=== PATIENT | female | born 1980 | race Caucasian/White ===

== ENCOUNTER 2021-01-23 14:35 | Emergency (ER) | payer OTHER, SELFPAY ==
--- NOTE | ~2021-01-23 | CT_ITS ---
EXAMINATION: CT TEMPORAL BONES WITHOUT CONTRAST CLINICAL INFORMATION: Question malignant external otitis left side. COMPARISON: CT scan of the head 07/18/2015. TECHNIQUE: Finish Inspector images were obtained. CT imaging of the temporal bones was performed without contrast. Data was reformatted into multiplanar images at the acquisition workstation. This CT examination was performed using dose optimization techniques as appropriate, including one or more of the following: Automated exposure control, iterative reconstruction, and adjustment of technique factors (mA and/or kVp) according to patient size (this includes techniques or standardized protocols for targeted exams where dose is matched to indication/reason for exam). DLP: 316 mGy-cm. FINDINGS: Left temporal bone: There is circumferential thickening within the left external auditory canal. Partial opacification of the mastoid air cells and middle ear cavity. No overt erosive osseous changes. No evidence of mastoid coalescence. The ossicular chain is intact. Labyrinthine structures are morphologically normal and the otic capsule is intact. Internal auditory canal is unremarkable. Right temporal bone: The external auditory canal is patent. There is mild thickening of the tympanic membrane with a small possible perforation visualized on axial image 119 of 289 series 2. Mastoid air cells are hypoplastic. There is partial opacification of the mastoid air cells and middle ear cavity however much less pronounced than the contralateral side. The ossicular chain is intact. Labyrinthine structures are morphologically normal and the otic capsule is intact. Internal auditory canal is unremarkable. Of the: Limited visualization of the intracranial anatomy reveals no abnormal finding. Specifically no midline shift or hydrocephalus. CT/CT mastoid IMPRESSION: Findings are consistent with otomastoiditis of the left temporal bone. No evidence of mastoid coalescence or worrisome erosive osseous changes. Evaluation the right temporal bone reveals a possible small perforation within the tympanic membrane and partial opacification of the mastoid air cells and middle ear cavity to a much lesser degree than that which is seen on the contralateral side.
[2021-01-23 15:43] VITALS: BP 131/83; PULSE 100; RESP 16; TEMP 36.9; O2SAT 100; BMI 38.2
[2021-01-23] MEDS: oxyCODONE HCl Immed Release 5 MG TABLET PO (17:11)
[2021-01-23] MEDS: levoFLOXacin 750 MG TABLET PO (17:12)
--- NOTE | 2021-01-23 17:33 | ED_ITS ---
HPI - Ear Problem General Chief complaint: Ear Problems <Trena Mora PA-C - Last Filed: 01/24/21 08:07> Stated complaint: L EAR BLEEDING AND PAIN <ADRIEN Johnston Last Filed: 01/24/21 08:07> Time Seen by Provider: 01/23/21 16:43 <ADRIEN Johnston Last Filed: 01/24/21 08:07> Source: patient <ADRIEN Johnston Last Filed: 01/24/21 08:07> Mode of arrival: ambulatory <ADRIEN Johnston Last Filed: 01/24/21 08:07> Limitations: no limitations <ADRIEN Johnston Last Filed: 01/24/21 08:07> History of Present Illness HPI Narrative: Patient is a 40-year-old female with a past medical history of DM2 who presents with 2 days of left ear pain and drainage. She states her ear is exquisitely painful and has red as well as white and clear drainage coming from it. She said she can hear normally has all sounds are muffled. She said she called her doctor yesterday but did not hear back, she went got [id number] ear drops and put them in and was she for the min she felt her ear pop and the pain got much worse. She states she can not sleep she has pain and her jaw and behind her ear radiating down to her neck. She denies any fevers. <ADRIEN Johnston Last Filed: 01/24/21 08:07> Related Data Allergies/adverse reactions: Allergies Allergy/AdvReac Type Severity Reaction Status Date / Time amoxicillin [AMOXICILLIN] Allergy Mild HIVES Verified 01/23/21 17:11 sulfamethoxazole Allergy Mild HIVES Verified 01/23/21 17:11 [From BACTRIM] trimethoprim [From BACTRIM] Allergy Mild HIVES Verified 01/23/21 17:11 latex [LATEX] Allergy Unknown UNKNOWN Verified 01/23/21 17:11 penicillin V Allergy Unknown hives Verified 01/23/21 17:11 Penicillins [PENICILLINS] Allergy Unknown UNKNOWN, Verified 01/23/21 17:11 ?HIVES Amoxicillin Allergy Unknown Hives Uncoded 01/23/21 17:11 Bactrim Allergy Unknown Hives Uncoded 01/23/21 17:11 Latex Allergy Unknown rash Uncoded 04/02/16 00:00 Latex Gloves Allergy Unknown Hives Uncoded 01/23/21 17:11 <Trena Mora PA-C - Last Filed: 01/24/21 08:07> Review of Systems Review of Systems: Yes all other systems are reviewed and are negative <Trena Mora PA-C - Last Filed: 01/24/21 08:07> [facility] Past Medical History Medical History: Medical History (Updated 01/24/21 @ 00:02 by Julia Rivera) Diabetes Diabetes <ADRIEN Johnston Last Filed: 01/24/21 08:07> Social History Social History: Social History Advance Directives: No Advance Directives Information Provided: Yes Patient : No <Trena Mora PA-C - Last Filed: 01/24/21 08:07> Physical Exam Vital Signs: Vital Signs: Last Vital Signs Temp 97.4 F 01/23/21 23:07 Pulse 97 01/23/21 23:07 Resp 16 01/23/21 23:07 BP 125/90 H 01/23/21 23:07 Pulse Ox 98 01/23/21 23:07 Body Mass Index 38.2 <Trena Mora PA-C - Last Filed: 01/24/21 08:07> Vital Signs: Last Vital Signs Temp 97.4 F 01/23/21 23:07 Pulse 97 01/23/21 23:07 Resp 16 01/23/21 23:07 BP 125/90 H 01/23/21 23:07 Pulse Ox 98 01/23/21 23:07 Body Mass Index 38.2 <MALATHI Mcdonald Last Filed: 01/23/21 20:48> Const: General: cooperative, healthy appearing, comfortable, no acute distress and well developed <ADRIEN Johnston Last Filed: 01/24/21 08:07> Orientation/consciousness: patient oriented x3 <ADRIEN Johnston Last Filed: 01/24/21 08:07> Limitations: no limitations <ADRIEN Johnston Last Filed: 01/24/21 08:07> HENMT: Head: Yes normal to inspection <ADRIEN Johnston Last Filed: 01/24/21 08:07> Ears: mastoids normal (Slight tenderness on left side), Abnormal EAC present erythema bilateral and EAC tenderness on the left, external ear abnormal auricular tenderness, no periauricular adenopathy and TM abnormal dull on the right, wth effusion purulent on the right, erythematous on the left, with loss of landmarks bilateral and perforated (left) with bloody discharge and with purulent discharge <Trena Mora PA-C - Last Filed: 01/24/21 08:07> Eyes: General: appearance normal, both eyes and all related structures <Trena Mora PA-C - Last Filed: 01/24/21 08:07> Neck: Neck: Yes normal visual inspection and Yes full ROM <Trena dewey PA-C - Last Filed: 01/24/21 08:07> Resp: Effort & Inspection: normal respiratory effort and able to speak in complete sentences <Trena Mora PA-C - Last Filed: 01/24/21 08:07> Skin: General skin exam: no rashes or lesions noted <DUANE Johnston Last Filed: 01/24/21 08:07> Neuro: General: patient oriented x3 <Trena Moar PA-C - Last Filed: 01/24/21 08:07> Extrem: General: Yes normal to inspection <ADRIEN Johnston Last Filed: 01/24/21 08:07> Course Course Course Narrative: Discussed with Dr. Pastrana A 40-year-old female with diabetes mellitus to presents with 2 days of left ear pain with bloody purulence fluid draining. Vital signs are stable, physical exam revealed b/l otitis media with left-sided perforation with bloody purulent fluid. Also has slight tenderness to the mastoid bone, will get mastoid CT and give one dose levaquin PO. CT revealed acute otomastoiditis. Will get full labs. Hospitalist refused admission as we do not have any ENT service at this hospital. Discussed with Dr. Hernandez, will give patient IV fluids and 1 dose IV meropenem to start, pending transfer. <Trena Mora PA-C - Last Filed: 01/24/21 08:07> Reevaluation(s) Reevaluation #1: [facility] is not accepting transfers, so they have denied her. <Trena Mora PA-C - Last Filed: 01/24/21 08:07> Time: 19:42 <Trena Mora PA-C - Last Filed: 01/24/21 08:07> Reevaluation #2: Dr Fried is the accepting doctor at [facility] ENT service. ED to ED transfer. Sign out to ADRIEN Lloyd <Trena Mora PA-C - Last Filed: 01/24/21 08:07> Dr Fried is the accepting doctor at [facility] ER and will have ENT evaluate the patient. ED to ED transfer. Sign out to ADRIEN Lloyd <MALATHI Mcdonald Last Filed: 01/23/21 20:48> Time: 19:57 <Trena Mora PA-C - Last Filed: 01/24/21 08:07> Reevaluation #3: Spoke with patient's mother about transfer need for ENT evaluation - COVID swab ordered. Transport being arranged now. Labs reviewed and are unremarkable. IV meropenum ordered. <MALATHI Mcdonald Last Filed: 01/23/21 20:48> MDM - Ear Lab Data Result diagrams: : 01/23/21 20:09 01/23/21 20:09 <ADRIEN Johnston Last Filed: 01/24/21 08:07> Labs: Lab Results 01/23/21 01/23/21 01/23/21 Range/Units 17:53 20:08 20:09 WBC 7.5 (4.8-10.8) X10*3/uL RBC 4.96 (4.20-5.50) X10*6/uL Hgb 14.2 (12.0-16.0) g/dl Hct 40.7 (37-47) % MCV 82.1 (80-98) fL MCH 28.6 (27.0-33.0) pg MCHC 34.9 (31.0-35.0) g/dl RDW 13.0 (11.0-16.0) % Plt Count 156 L (160-400) X10*3/uL MPV 10.2 (9.4-12.3) fL Immature Gran % (Auto) 0.3 (0.0-0.4) % Neut % (Auto) 36.8 L (45-73) % Lymph % (Auto) 57.1 H (20-40) % [place] % (Auto) 4.8 (2-11) % Eos % (Auto) 0.7 (0-4) % Baso % (Auto) 0.3 (0-2) % Lymph # (Auto) 4.3 (1.2-4.9) X10*3/uL [place] # (Auto) 0.4 (0.1-1.2) X10*3/uL Eos # (Auto) 0.1 (0.0-0.4) X10*3/uL Baso # (Auto) 0.0 (0.0-0.2) X10*3/uL Abs Immat Gran (auto) 0.02 (0.00-0.03) X10*3/uL Absolute Neuts (auto) 2.8 (2.0-8.3) X10*3/uL Absolute Nucleated RBC 0.000 (0.0-0.012) X10*3/uL Nucleated RBC % (auto) 0.0 (0.0-0.2) /100WBC Sodium (135-145) mmol/L Potassium (3.3-5.1) mmol/L Chloride (96-108) mmol/L Carbon Dioxide (22-29) mmol/L Anion Gap (12-20) BUN (9-16) mg/dL Creatinine (0.5-1.4) mg/dL Estim Creat Clear Calc Estimated GFR Random Glucose (60-115) mg/dL Lactic Acid 0.7 (0.5-2.0) mmol/L Calcium (8.4-10.2) mg/dL Urine Test NEGATIVE (NEGATIVE) COVID-19 ([facility]US) (Negative) COVID-19 Clin Com 01/23/21 01/23/21 Range/Units 20:09 21:05 WBC (4.8-10.8) X10*3/uL RBC (4.20-5.50) X10*6/uL Hgb (12.0-16.0) g/dl Hct (37-47) % MCV (80-98) fL MCH (27.0-33.0) pg MCHC (31.0-35.0) g/dl RDW (11.0-16.0) % Plt Count (160-400) X10*3/uL MPV (9.4-12.3) fL Immature Gran % (Auto) (0.0-0.4) % Neut % (Auto) (45-73) % Lymph % (Auto) (20-40) % [place] % (Auto) (2-11) % Eos % (Auto) (0-4) % Baso % (Auto) (0-2) % Lymph # (Auto) (1.2-4.9) X10*3/uL [place] # (Auto) (0.1-1.2) X10*3/uL Eos # (Auto) (0.0-0.4) X10*3/uL Baso # (Auto) (0.0-0.2) X10*3/uL Abs Immat Gran (auto) (0.00-0.03) X10*3/uL Absolute Neuts (auto) (2.0-8.3) X10*3/uL Absolute Nucleated RBC (0.0-0.012) X10*3/uL Nucleated RBC % (auto) (0.0-0.2) /100WBC Sodium 135 (135-145) mmol/L Potassium 3.5 (3.3-5.1) mmol/L Chloride 100 (96-108) mmol/L Carbon Dioxide 23 (22-29) mmol/L Anion Gap 16 (12-20) BUN 4 L (9-16) mg/dL Creatinine 0.61 (0.5-1.4) mg/dL Estim Creat Clear Calc 149.9 Estimated GFR > 60 Random Glucose 247 H (60-115) mg/dL Lactic Acid (0.5-2.0) mmol/L Calcium 8.8 (8.4-10.2) mg/dL Urine Test (NEGATIVE) COVID-19 ([facility]US) Negative (Negative) COVID-19 Clin Com See Note <Trena Mora PA-C - Last Filed: 01/24/21 08:07> Lab Results 01/23/21 01/23/21 01/23/21 Range/Units 17:53 20:08 20:09 WBC 7.5 (4.8-10.8) X10*3/uL RBC 4.96 (4.20-5.50) X10*6/uL Hgb 14.2 (12.0-16.0) g/dl Hct 40.7 (37-47) % MCV 82.1 (80-98) fL MCH 28.6 (27.0-33.0) pg MCHC 34.9 (31.0-35.0) g/dl RDW 13.0 (11.0-16.0) % Plt Count 156 L (160-400) X10*3/uL MPV 10.2 (9.4-12.3) fL Immature Gran % (Auto) 0.3 (0.0-0.4) % Neut % (Auto) 36.8 L (45-73) % Lymph % (Auto) 57.1 H (20-40) % [place] % (Auto) 4.8 (2-11) % Eos % (Auto) 0.7 (0-4) % Baso % (Auto) 0.3 (0-2) % Lymph # (Auto) 4.3 (1.2-4.9) X10*3/uL [place] # (Auto) 0.4 (0.1-1.2) X10*3/uL Eos # (Auto) 0.1 (0.0-0.4) X10*3/uL Baso # (Auto) 0.0 (0.0-0.2) X10*3/uL Abs Immat Gran (auto) 0.02 (0.00-0.03) X10*3/uL Absolute Neuts (auto) 2.8 (2.0-8.3) X10*3/uL Absolute Nucleated RBC 0.000 (0.0-0.012) X10*3/uL Nucleated RBC % (auto) 0.0 (0.0-0.2) /100WBC Sodium (135-145) mmol/L Potassium (3.3-5.1) mmol/L Chloride (96-108) mmol/L Carbon Dioxide (22-29) mmol/L Anion Gap (12-20) BUN (9-16) mg/dL Creatinine (0.5-1.4) mg/dL Estim Creat Clear Calc Estimated GFR Random Glucose (60-115) mg/dL Lactic Acid 0.7 (0.5-2.0) mmol/L Calcium (8.4-10.2) mg/dL Urine Test NEGATIVE (NEGATIVE) COVID-19 (CLAUS) (Negative) COVID-19 Clin Com 01/23/21 01/23/21 Range/Units 20:09 21:05 WBC (4.8-10.8) X10*3/uL RBC (4.20-5.50) X10*6/uL Hgb (12.0-16.0) g/dl Hct (37-47) % MCV (80-98) fL MCH (27.0-33.0) pg MCHC (31.0-35.0) g/dl RDW (11.0-16.0) % Plt Count (160-400) X10*3/uL MPV (9.4-12.3) fL Immature Gran % (Auto) (0.0-0.4) % Neut % (Auto) (45-73) % Lymph % (Auto) (20-40) % [place] % (Auto) (2-11) % Eos % (Auto) (0-4) % Baso % (Auto) (0-2) % Lymph # (Auto) (1.2-4.9) X10*3/uL [place] # (Auto) (0.1-1.2) X10*3/uL Eos # (Auto) (0.0-0.4) X10*3/uL Baso # (Auto) (0.0-0.2) X10*3/uL Abs Immat Gran (auto) (0.00-0.03) X10*3/uL Absolute Neuts (auto) (2.0-8.3) X10*3/uL Absolute Nucleated RBC (0.0-0.012) X10*3/uL Nucleated RBC % (auto) (0.0-0.2) /100WBC Sodium 135 (135-145) mmol/L Potassium 3.5 (3.3-5.1) mmol/L Chloride 100 (96-108) mmol/L Carbon Dioxide 23 (22-29) mmol/L Anion Gap 16 (12-20) BUN 4 L (9-16) mg/dL Creatinine 0.61 (0.5-1.4) mg/dL Estim Creat Clear Calc 149.9 Estimated GFR > 60 Random Glucose 247 H (60-115) mg/dL Lactic Acid (0.5-2.0) mmol/L Calcium 8.8 (8.4-10.2) mg/dL Urine Test (NEGATIVE) COVID-19 ([facility]) Negative (Negative) COVID-19 Clin Com See Note <MALATHI Mcdonald - Last Filed: 01/23/21 20:48> Discharge Plan Discharge Clinical Impression: Acute mastoiditis of left side, Otitis media <Trena Mora PA-C - Last Filed: 01/24/21 08:07> Patient Disposition: [facility] <Trena Mora PA-C - Last Filed: 01/24/21 08:07> Transfer Details: Dr Fried at [facility] <Trena Mora PA-C - Last Filed: 01/24/21 08:07> Dr Fried at [facility] <MALATHI Mcdonald Last Filed: 01/23/21 20:48> Instructions: Mastoiditis (ED) <Trena Mora PA-C - Last Filed: 01/24/21 08:07> Interventions: Acute Care Transfer Worksheet (ED) Last Done: 01/23/21 23:51 <Trena oMra PA-C - Last Filed: 01/24/21 08:07> Discharge Date/Time: 01/23/21 23:53 <ADRIEN Johnston Last Filed: 01/24/21 08:07>
[2021-01-23 17:50] VITALS: BP 132/78; PULSE 98; RESP 20; TEMP 36.8; O2SAT 99
[2021-01-23 18:05] LABS: UPreg QC Valid YES; Urine Pregnancy NEGATIVE (NEGATIVE)
[2021-01-23 18:30] VITALS: RESP 17
--- NOTE | 2021-01-23 19:32 | ECG_ITS ---
Test Reason : CHESTDISCONFORT Blood Pressure : / mmHG Vent. Rate : 103 BPM Atrial Rate : 103 BPM P-R Int : 140 ms QRS Dur : 072 ms QT Int : 362 ms P-R-T Axes : 065 038 038 degrees QTc Int : 474 ms Sinus tachycardia Low voltage QRS Borderline ECG When compared with ECG of 07-MAR-2017 05:52, No significant change was found Referred By: Trena Mora Electronically Signed By:LORNA MCFADDEN
[2021-01-23 20:00] VITALS: BP 139/82; PULSE 103; RESP 17; TEMP 36.8; O2SAT 98
[2021-01-23 20:16] LABS: MANUAL DIFF FLAG NO
[2021-01-23 20:17] LABS: Basophils Percent Auto 0.3 % (0-2); Eosinophils Absolute Auto 0.1 X10*3/uL (0.0-0.4); Eosinophils Percent Auto 0.7 % (0-4); Hematocrit 40.7 % (37-47); Hemoglobin 14.2 g/dl (12.0-16.0); Imm Gran Abs Auto 0.02 X10*3/uL (0.00-0.03); Imm Gran Pct Auto 0.3 % (0.0-0.4); Lymphocytes Absolute Auto 4.3 X10*3/uL (1.2-4.9); Lymphocytes Percent Auto 57.1 % (20-40); Mean Corpuscular HGB Conc 34.9 g/dl (31.0-35.0); Mean Corpuscular Hemoglobin 28.6 pg (27.0-33.0); Mean Corpuscular Volume 82.1 fL (80-98); Mean Platelet Volume 10.2 fL (9.4-12.3); Monocytes Absolute Auto 0.4 X10*3/uL (0.1-1.2); Monocytes Percent Auto 4.8 % (2-11); Neutrophils Absolute Auto 2.8 X10*3/uL (2.0-8.3); Neutrophils Percent Auto 36.8 % (45-73); Platelet Count 156 X10*3/uL (160-400); Red Blood Count 4.96 X10*6/uL (4.20-5.50); White Blood Count 7.5 X10*3/uL (4.8-10.8)
[2021-01-23 20:28] LABS: Lactic Acid 0.7 mmol/L (0.5-2.0)
[2021-01-23 20:31] LABS: Anion Gap 16 (12-20); Blood Urea Nitrogen 4 mg/dL (9-16); Calcium 8.8 mg/dL (8.4-10.2); Carbon Dioxide 23 mmol/L (22-29); Chloride 100 mmol/L (96-108); Creatinine Clr Calc Pharmacy 149.9; Estimated Glomerular Filt Rate > 60; Glucose Random 247 mg/dL (60-115); Potassium 3.5 mmol/L (3.3-5.1); Sodium 135 mmol/L (135-145)
[2021-01-23] MEDS: 0.9 % Sodium Chloride 3,129.78 ML 3129.78 ML IV (20:37)
[2021-01-23] MEDS: HYDROcodone Bit/Acetam 5/325 TABLET 1 TAB PO (21:24)
[2021-01-23] MEDS: Ketorolac Tromethamine 15 MG/ML VIAL 30 MG IVPUSH (21:24)
[2021-01-23 21:25] LABS: COVID-19 Test Negative (Negative); IDNOW Serial# 9DD0AD1C
--- NOTE | 2021-01-23 21:49 | PC.NURSE ---
NURSE TO NURSE REPORT GIVEN TO PAUL WATTS AT [facility].
[2021-01-23 22:06] VITALS: RESP 16
[2021-01-23 23:07] VITALS: BP 125/90; PULSE 97; RESP 16; TEMP 36.3; O2SAT 98
== END 2021-01-23 23:53 | disposition short-term general hospital (02) ==
PROVIDERS: Physician Assistant; Emergency Provider Emergency Medicine; PCP Internal Medicine
DX: H70.002 Acute mastoiditis without complications, left ear (principal); H66.92 Otitis media, unspecified, left ear; H92.02 Otalgia, left ear; Z20.822 Contact with and (suspected) exposure to COVID-19; Z79.899 Other long term (current) drug therapy
CPT/HCPCS: 36415; 70481; 80048; 81025; 83605; 85025; 87040; 87635; 93005; 96365; 96375; 99285; J1885; J2185

== ENCOUNTER 2021-02-10 01:53 | Emergency (ER) | payer OTHER, SELFPAY ==
--- NOTE | ~2021-02-10 | CT_ITS ---
EXAMINATION: CT TEMPORAL BONES WITHOUT CONTRAST CLINICAL INFORMATION: Left ear pain COMPARISON: Temporal bone CT 01/23/2021. TECHNIQUE: Multi-detector CT acquisition of the temporal bones is obtained without contrast. Multiplanar reformats are acquired and utilized for image interpretation. FINDINGS: Persistent large left mastoid effusion and persistent opacification of the left middle ear cavity, the latter slightly improved inferiorly. Some of the left mastoid septal doran appear hazy and demineralized making it difficult to exclude developing coalescent mastoiditis. ENT consultation advised. Thin versus dehiscent bone between the posterior aspect of the left superior semicircular canal and the left superior petrosal sinus. There is new partial opacification of the right middle ear cavity and the right mastoid air cells are partially opacified which can be correlated for infection on the right side. Tympanic plates are intact. The ossicular chains are intact bilaterally. Oval and round window niches are opacified bilaterally. Rightward deviation of the nasal septum with a rightward directed nasal septal spur. All mucosal thickening within the maxillary sinuses bilaterally. CT/CT mastoid IMPRESSION: - Persistent large left mastoid effusion and persistent opacification of the left middle ear cavity, the latter slightly improved inferiorly. Some of the left mastoid septal doran appear hazy and demineralized making it difficult to exclude developing coalescent mastoiditis. ENT consultation advised. - There is new partial opacification of the right middle ear cavity and the right mastoid air cells are partially opacified which can be correlated for infection on the right side. - Thin versus dehiscent bone between the posterior aspect of the left superior semicircular canal and the left superior petrosal sinus.
[2021-02-10 02:03] VITALS: BP 121/89; PULSE 112; RESP 22; TEMP 36.3; O2SAT 95; BMI 20.2
[2021-02-10 04:08] VITALS: BP 120/86; PULSE 89; RESP 16; TEMP 36.5; O2SAT 95
--- NOTE | 2021-02-10 04:15 | PC.NURSE ---
POC PERFORMED AND IT WAS 269 MADE MAC CORONADO AWARE
[2021-02-10 04:20] LABS: Basophils Percent Auto 0.3 % (0-2); Eosinophils Absolute Auto 0.1 X10*3/uL (0.0-0.4); Eosinophils Percent Auto 0.9 % (0-4); Hematocrit 36.9 % (37-47); Hemoglobin 13.2 g/dl (12.0-16.0); Imm Gran Abs Auto 0.03 X10*3/uL (0.00-0.03); Imm Gran Pct Auto 0.4 % (0.0-0.4); Lymphocytes Absolute Auto 4.6 X10*3/uL (1.2-4.9); Lymphocytes Percent Auto 59.9 % (20-40); MANUAL DIFF FLAG NO; Mean Corpuscular HGB Conc 35.8 g/dl (31.0-35.0); Mean Corpuscular Hemoglobin 29.4 pg (27.0-33.0); Mean Corpuscular Volume 82.2 fL (80-98); Mean Platelet Volume 9.9 fL (9.4-12.3); Monocytes Absolute Auto 0.3 X10*3/uL (0.1-1.2); Monocytes Percent Auto 3.8 % (2-11); Neutrophils Absolute Auto 2.7 X10*3/uL (2.0-8.3); Neutrophils Percent Auto 34.7 % (45-73); Platelet Count 214 X10*3/uL (160-400); Red Blood Count 4.49 X10*6/uL (4.20-5.50); Red Cell Distribution Width 12.8 % (11.0-16.0); White Blood Count 7.7 X10*3/uL (4.8-10.8)
[2021-02-10 04:20] LABS: Glucose, Whole Blood 269 mg/dL (60-115)
[2021-02-10 04:55] LABS: Alanine Aminotransferase 20 U/L (0-31); Albumin Level 3.6 g/dL (3.5-5.0); Alkaline Phosphatase 39 U/L (39-117); Anion Gap 15 (12-20); Aspartate Amino Transferase 18 U/L (5-31); Bilirubin Total 0.2 mg/dL (0.0-1.0); Blood Urea Nitrogen 19 mg/dL (9-16); Calcium 8.4 mg/dL (8.4-10.2); Carbon Dioxide 20 mmol/L (22-29); Chloride 105 mmol/L (96-108); Creatinine Clr Calc Pharmacy 100.7; Estimated Glomerular Filt Rate > 60; Glucose Random 290 mg/dL (60-115); Potassium 3.6 mmol/L (3.3-5.1); Sodium 136 mmol/L (135-145)
[2021-02-10 05:49] VITALS: BP 121/72; PULSE 94; RESP 16; O2SAT 99
[2021-02-10 06:00] VITALS: BP 137/87; PULSE 87; RESP 16; O2SAT 96
--- NOTE | 2021-02-10 06:10 | PC.NURSE ---
pt has loss of hearing to the left ear and a horse voice.
--- NOTE | 2021-02-10 06:37 | ED.EAR ---
HPI - Ear Problem General Chief complaint: Ear Problems Stated complaint: Left ear pain Time Seen by Provider: 02/10/21 05:52 Source: patient and old records reviewed Mode of arrival: ambulatory Limitations: no limitations History of Present Illness MD Complaint: ear pain, decreased hearing and other (feels her face is swollen) Location: left ear Duration: constant Severity: moderate Relieving factors: nothing Exacerbating factors: chewing, position of head and palpation Context: recent illness (dx with otomastoiditis on 01/[address] [facility] 10 days levofloxacin completed course) Discharge from ear: no Associated symptoms ear: decreased hearing, external ear tenderness, ear swelling, neck swelling and other (sore throat) Treatment prior to arrival: other (completed abx) Related Data Allergies Allergy/AdvReac Type Severity Reaction Status Date / Time amoxicillin [AMOXICILLIN] Allergy Mild HIVES Verified 01/23/21 17:11 sulfamethoxazole Allergy Mild HIVES Verified 01/23/21 17:11 [From BACTRIM] trimethoprim [From BACTRIM] Allergy Mild HIVES Verified 01/23/21 17:11 latex [LATEX] Allergy Unknown UNKNOWN Verified 01/23/21 17:11 penicillin V Allergy Unknown hives Verified 01/23/21 17:11 Penicillins [PENICILLINS] Allergy Unknown UNKNOWN, Verified 01/23/21 17:11 ?HIVES Amoxicillin Allergy Unknown Hives Uncoded 01/23/21 17:11 Bactrim Allergy Unknown Hives Uncoded 01/23/21 17:11 Latex Allergy Unknown rash Uncoded 04/02/16 00:00 Latex Gloves Allergy Unknown Hives Uncoded 01/23/21 17:11 Review of Systems Review of Systems: Constitutional : No Fever, No Chills, No Fatigue, No Malaise ENT/Mouth : pos sore throat, pos Rhinorrhea, pos ear pain Eyes: No Eye Pain, No Swelling, No Redness Cardiovascular : No Chest Pain, No SOB, No Dyspnea on Exertion, No Orthopnea, No Edema, No Palpitations Respiratory : No Cough, pos Sputum, No Wheezing Gastrointestinal : No Nausea, No Vomiting, No Diarrhea, No Constipation, No abdominal Pain, No Hematochezia, No Melena Genitourinary : No Dysuria, No Urinary Frequency, No Hematuria, Musculoskeletal : No joint pain, No Myalgias, No Joint Swelling Skin : No Skin Lesions, No rash Neuro : No Weakness, No Numbness, No Dizziness, No Headache Psych : No Anxiety/Panic, No Depression Heme/Lymph: No Bruising, No Bleeding,No Lymphadenopathy Endocrine : No Polyuria, No Polydipsia All other systems reviewed and are negative [facility] Past Medical History Attestation statement: The following information was validated with the patient. Medical History Diabetes Diabetes Social History Social History Alcohol intake: current Alcohol intake frequency: holidays/special occasions only Alcohol type: other Patient Tobacco Use Status: Former Tobacco user Smoked in Last 30 Days: No Use of substances other than those prescribed or required for medical reasons: Yes Substance Use Type: Marijuana Substance Use Frequency: Daily Last Used Substance: Hours (ago) Any prior treatment program specific to substance use: No Advance Directives: No Patient : No Physical Exam Vital Signs: Vital Signs: Last Vital Signs Temp 97.7 F 02/10/21 04:08 Pulse 87 02/10/21 06:00 Resp 16 02/10/21 06:00 BP 137/87 02/10/21 06:00 Pulse Ox 96 02/10/21 06:00 Body Mass Index 20.2 Appearance: Alert. Oriented X3. No acute distress. Eyes: Pupils equal, round and reactive to light. ENT: Pharynx normal. mild boggy ttp L side of face but no mass/fluctuance/ropiness felt on face/neck no overlying cellulitis, L ear TM bulging purulence posteriorly no perforation, very mild L mastoid ttp Neck: Normal inspection. Neck supple. CVS: Normal heart rate and rhythm. Pulses normal. Respiratory: No respiratory distress. Breath sounds normal. Abdomen: Soft and nontender. Skin: Skin warm and dry. Normal skin color. Normal skin turgor. Extremities: No lower extremity edema. No calf ttp Neuro: Oriented X 3. No motor deficit. No sensory deficit. Course Course Course Narrative: no signs of sepsis, will give empiric meropenem and levofloxacin and discuss transfer with [facility] as she is established already with their ENT 1002 accepted to [facility] - Persistent large left mastoid effusion and persistent opacification of the left middle ear cavity, the latter slightly improved inferiorly. Some of the left mastoid septal doran appear hazy and demineralized making it difficult to exclude developing coalescent mastoiditis. ENT consultation advised. ? - There is new partial opacification of the right middle ear cavity and the right mastoid air cells are partially opacified which can be correlated for infection on the right side. ? - Thin versus dehiscent bone between the posterior aspect of the left superior semicircular canal and the left superior petrosal sinus. MDM - Ear MDM Narrative Medical decision making narrative: 40 yo female with DM here with recent mastoiditis transferred to [facility] 01/23 received 10 days of oral levofloxacin - at this time + AOM in L ear but given her reports of pain and that she did not improve with abx will repeat labs and imaging. Dispo per results and findings. Lab Data Result diagrams: 02/10/21 04:15 02/10/21 04:14 Labs: Lab Results 02/10/21 02/10/21 02/10/21 Range/Units 04:06 04:14 04:15 WBC 7.7 (4.8-10.8) X10*3/uL RBC 4.49 (4.20-5.50) X10*6/uL Hgb 13.2 (12.0-16.0) g/dl Hct 36.9 L (37-47) % MCV 82.2 (80-98) fL MCH 29.4 (27.0-33.0) pg MCHC 35.8 H (31.0-35.0) g/dl RDW 12.8 (11.0-16.0) % Plt Count 214 D (160-400) X10*3/uL MPV 9.9 (9.4-12.3) fL Immature Gran % (Auto) 0.4 (0.0-0.4) % Neut % (Auto) 34.7 L (45-73) % Lymph % (Auto) 59.9 H (20-40) % [place] % (Auto) 3.8 (2-11) % Eos % (Auto) 0.9 (0-4) % Baso % (Auto) 0.3 (0-2) % Lymph # (Auto) 4.6 (1.2-4.9) X10*3/uL [place] # (Auto) 0.3 (0.1-1.2) X10*3/uL Eos # (Auto) 0.1 (0.0-0.4) X10*3/uL Baso # (Auto) 0.0 (0.0-0.2) X10*3/uL Abs Immat Gran (auto) 0.03 (0.00-0.03) X10*3/uL Absolute Neuts (auto) 2.7 (2.0-8.3) X10*3/uL Absolute Nucleated RBC 0.000 (0.0-0.012) X10*3/uL Nucleated RBC % (auto) 0.0 (0.0-0.2) /100WBC Sodium 136 (135-145) mmol/L Potassium 3.6 (3.3-5.1) mmol/L Chloride 105 (96-108) mmol/L Carbon Dioxide 20 L (22-29) mmol/L Anion Gap 15 (12-20) BUN 19 H D (9-16) mg/dL Creatinine 0.66 (0.5-1.4) mg/dL Estim Creat Clear Calc 100.7 Estimated GFR > 60 POC Glucose 269 H (60-115) mg/dL Random Glucose 290 H (60-115) mg/dL Calcium 8.4 (8.4-10.2) mg/dL Total Bilirubin 0.2 (0.0-1.0) mg/dL AST 18 (5-31) U/L ALT 20 (0-31) U/L Alkaline Phosphatase 39 (39-117) U/L Total Protein 6.0 L (6.5-8.0) g/dL Albumin 3.6 (3.5-5.0) g/dL Discharge Plan Discharge Clinical Impression: Mastoiditis Patient Disposition: [facility] Transfer Details: [facility]
[2021-02-10] MEDS: Morphine Sulfate Immed Release 15 MG TABLET PO (06:45)
--- NOTE | 2021-02-10 10:00 | PC.NURSE ---
@0979 DR ORNELAS REQUEST CALL OUT TO [facility]SFER LINE GARY ANSWERS, TAKES PT INFO, CALL BACK NUMBER, THEN ASKS TO TALK TO DR CECI ORNELAS TAKES OVER CALL RIGHT AWAY
[2021-02-10] MEDS: Morphine Sulfate 4 MG/ML CARTRIDGE IVPUSH (10:29)
[2021-02-10 10:31] LABS: COVID-19 Test Negative (Negative)
[2021-02-10] MEDS: levoFLOXacin/D5W 500 MG/100 ML PIGGYBACK 100 MG IV (10:33)
--- NOTE | 2021-02-10 10:44 | PC.NURSE ---
@1017AM RETURN CALL FROM GARY FROM PT TX LINE ASKING TO SPEAK WITH DR CECI ORNELAS TAKES OVER CALL RIGHT AWAY 1025AM DR ORNELAS SAYS DR RUCKER IS ACCEPTING MD AT [facility] UNABLE TO CONTACT [facility], [facility] FROM [facility] ASKED TO DO AN [facility] FOR ALS TRANSPORT
[2021-02-10 10:58] VITALS: BP 110/68; PULSE 89; RESP 19; TEMP 36.4; O2SAT 96
--- NOTE | 2021-02-10 12:01 | PC.NURSE ---
[facility] HERE FOR TRANSPORT TO [facility] ER @2 THIS TIME
== END 2021-02-10 12:20 | disposition short-term general hospital (02) ==
PROVIDERS: Emergency Provider Emergency Medicine
DX: H70.92 Unspecified mastoiditis, left ear (principal); H92.02 Otalgia, left ear; Z79.899 Other long term (current) drug therapy; Z20.822 Contact with and (suspected) exposure to COVID-19
CPT/HCPCS: 36415; 70481; 80053; 82947; 85025; 87635; 96365; 96375; 99285; J1956; J2185; J2270

== ENCOUNTER 2021-09-09 13:36 | Emergency (ER) | payer OTHER, SELFPAY ==
[2021-09-09 14:22] VITALS: BP 140/90; PULSE 94; RESP 16; TEMP 36.1; O2SAT 97; BMI 44.6
[2021-09-09] MEDS: Ketorolac Tromethamine 30 MG/ML VIAL IM (15:31)
[2021-09-09] MEDS: Lidocaine 4 % Patch ADH..PATCH 1 PATCH TRANSDERMA (15:32)
--- NOTE | 2021-09-09 15:54 | ED_ITS ---
HPI - Back Pain/Injury General Chief Complaint: Back Pain/Injury Stated Complaint: body aches Time Seen by Provider: 09/09/21 15:13 Source: patient Mode of arrival: ambulatory History of Present Illness HPI Narrative: 32-year-old female with a past medical history of diabetes, chronic back pain, presenting to the ED complaining of acute on chronic low back pain times multiple years, radiating down LLE with associated numbness/tingling. Admits has been seen by multiple providers, and also had MRI last month that was WNL however reporting persistent pain. Denies recent trauma/fall or injury. Reports chronic urinary incontinence unchanged. Denies fever, chills, IVDA, urinary retention, weakness MD elicited complaint: back pain Onset (ago): year(s) Related Data Previous Rx's Medication Instructions Recorded cyclobenzaprine 5 mg tablet 5 mg PO Q8H PRN 5 Days #14 tab 09/09/21 lidocaine 5 % topical patch 1 patch TOPICAL DAILY PRN #30 ea 09/09/21 (Lidoderm) MDD remove after 12 hours naproxen 500 mg tablet 500 mg PO BID PRN 10 Days #20 tab 09/09/21 Allergies Allergy/AdvReac Type Severity Reaction Status Date / Time amoxicillin [AMOXICILLIN] Allergy Mild HIVES Verified 01/23/21 17:11 sulfamethoxazole Allergy Mild HIVES Verified 01/23/21 17:11 [From BACTRIM] trimethoprim [From BACTRIM] Allergy Mild HIVES Verified 01/23/21 17:11 latex [LATEX] Allergy Unknown UNKNOWN Verified 01/23/21 17:11 penicillin V Allergy Unknown hives Verified 01/23/21 17:11 Penicillins [PENICILLINS] Allergy Unknown UNKNOWN, Verified 01/23/21 17:11 ?HIVES Amoxicillin Allergy Unknown Hives Uncoded 01/23/21 17:11 Bactrim Allergy Unknown Hives Uncoded 01/23/21 17:11 Latex Allergy Unknown rash Uncoded 04/02/16 00:00 Latex Gloves Allergy Unknown Hives Uncoded 01/23/21 17:11 Review of Systems Review of Systems: Constitutional: No Fever, No Chills ENT/Mouth: No Ear Pain, No Nasal Congestion, No sore throat, No Rhinorrhea, No Swallowing Difficulty Cardiovascular: No Chest Pain, No SOB Respiratory: No Cough, No Sputum, No Wheezing Gastrointestinal: No Nausea, No Vomiting, No Diarrhea, No Constipation, No Abdominal pain Genitourinary: No Dysuria, No Urinary Frequency, No Hematuria, +chronic Urinary Incontinence, No retention, No Urgency, No Flank Pain Musculoskeletal: + joint pain, No Myalgias, No Joint Swelling Skin: No Skin Lesions, No rash Neuro: No Weakness, + Numbness, + Paresthesias Yes all other systems are reviewed and are negative Neurologic: Denies Sensory deficit (Neuro) [facility] Past Medical History Attestation statement: The following information was validated with the patient. Medical History Diabetes Diabetes Social History Social History Alcohol intake: current Alcohol intake frequency: holidays/special occasions only Alcohol type: other Patient Tobacco Use Status: Former Tobacco user Substance Use Type: Marijuana Advance Directives: No Advance Directives Information Provided: No Physical Exam Vital Signs: Vital Signs: Last Vital Signs Temp 97 F 09/09/21 14:22 Pulse 94 09/09/21 14:22 Resp 16 09/09/21 14:22 BP 140/90 H 09/09/21 14:22 Pulse Ox 97 09/09/21 14:22 BMI result Body Mass Index 44.6 Const: General: cooperative, healthy appearing and no acute distress Orientation/consciousness: patient oriented x3 Limitations: no limitations HEENT: Head: Yes normal to inspection and Yes atraumatic Ears: hearing grossly normal bilaterally General nose exam: Normal external nose present Face and sinus: Yes normal facial exam Eyes: General: appearance normal, both eyes and all related structures EOM: EOMs intact bilaterally Neck: Other: no midline cervical spinous ttp Neck: Yes normal visual inspection and Yes no meningeal signs Resp: Effort & Inspection: normal respiratory effort and no respiratory distress Cardio: Rate: regular rate Heart sounds: S1 normal heart sound present and S2 normal heart sound present GI: Inspection: Yes normal to inspection Palpation (GI): Soft to palpation, nontender, no guarding and not rigid : General: Yes no CVA tenderness Back/Spine/Pelvis: Other: No midline thoracic/lumbar spinous tenderness/step-off or deformity. +L sided low lumbar paraspinal/MSK tenderness to palpation Back: no CVA tenderness Skin: Rashes: no rashes Wounds: no wounds Neuro: Other: Strength intact throughout. No saddle anesthesia. Sensation intact to light touch. Neurovascular intact distally General: patient oriented x3, tone normal and no meningeal signs Gait exam (Neuro): Normal gait present Motor exam (neuro): 5/5 motor strength present throughout Sensory Exam: No Sensory deficit (Neuro) Extrem: General: Yes normal to inspection MDM - Back Pain/Injury MDM Narrative Medical decision making narrative: 32-year-old female with a past medical history of diabetes, chronic back pain, presenting to the ED complaining of acute on chronic low back pain times multiple years, radiating down LLE with associated numbness/tingling. On exam vital signs stable, NAD/nontoxic, physical exam as above. No midline spinous tenderness throat, no red flag symptoms, no weakness. Ambulating with steady gait. Likely acute on chronic back pain/sciatica/radiculopathy. Low concern for cauda equina, cord compression, or epidural abscess Discussed with patient she needs to see pain management Differential Diagnosis Differential diagnosis: Likely lumbar radiculopathy and sciatica Medical Records Attestation: I reviewed the patient's medical records. Lab Data Attestation: I reviewed the patient's lab results. Discharge Plan Discharge Clinical Impression: Lumbar radiculopathy Patient Disposition: Home, Self-Care Instructions: Acute Low Back Pain (ED) Additional Instructions: Please follow-up with pain management Flexeril is a muscle relaxer, take at night as it makes you drowsy, do not drive, drink alcohol, or operate machinery while taking it Naproxen as an anti-inflammatory / pain medication, take with food Lidoderm patches are numbing patches, apply to painful area In addition take Tylenol at home If symptoms persist or worsen, pain becomes unbearable, you developed urinary retention or incontinence, or weakness return to the ED Prescriptions: New lidocaine [Lidoderm] 5 % adhesive patch,medicated 1 patch topical DAILY MDD remove after 12 hours PRN (Reason: pain) Qty: 30 0RF Rx Instructions: leave on most painful area for up to 12 hrs naproxen 500 mg tablet 500 mg PO BID PRN (Reason: pain) 10 Days Qty: 20 0RF cyclobenzaprine 5 mg tablet 5 mg PO Q8H PRN (Reason: pain (scale score 7-10)) 5 Days Qty: 14 0RF Referrals: Иван Prieto MD [Physician] - Evin Arango MD [Primary Care Provider] - 3 days
== END 2021-09-09 16:36 | disposition home or self-care (01) ==
PROVIDERS: Emergency Provider Emergency Medicine; PCP Internal Medicine
DX: M54.16 Radiculopathy, lumbar region (principal); M54.50 Low back pain, unspecified; M79.605 Pain in left leg; M79.604 Pain in right leg; Z79.899 Other long term (current) drug therapy; Z87.891 Personal history of nicotine dependence
CPT/HCPCS: 96372; 99283; 99284; J1885

== ENCOUNTER 2021-12-12 18:21 | Emergency (ER) | payer OTHER, SELFPAY ==
[2021-12-12 18:26] VITALS: BP 142/98; PULSE 98; RESP 20; TEMP 37; O2SAT 97; BMI 36.8
--- NOTE | 2021-12-12 19:12 | ED_ITS ---
HPI - General Adult General Chief complaint: Skin/Abscess/Foreign Body Stated complaint: Lump on R arm Time Seen by Provider: 12/12/21 19:12 Source: patient Mode of arrival: ambulatory Limitations: no limitations History of Present Illness HPI narrative: 40-year-old female with a past medical history of diabetes mellitus type II, presents to the emergency department for a painful red lump on her right arm that appeared after mitesh meter removal a week ago. Patient reports pain felt when removing the mitesh meter. Soon after, she reports a painful lump developed, which later popped, drained, and got flat. She states she felt better for some time, but noticed last week that the lump re-appeared. She reports pain, redness, swelling, and tenderness. She denies fever, chills, headache, vision changes, chest pain, SOB, nausea, vomiting, or abdominal pain. She also reports a small slow-healing wound on the outside of her left ankle. She states that she got a small blister from shoes a month ago, but it has yet to fully heal and because she is a diabetic she is concerned about it healing. Onset (ago): week(s) (1) Location: right and upper extremity Radiation: non-radiation Severity: mild Severity scale (1-10): 4 Quality: aching and dull Pain Consistency: constant Relieving factors: none Exacerbating factors: none Associated symptoms: denies other symptoms Treatments prior to arrival: none Related Data Previous Rx's Medication Instructions Recorded cyclobenzaprine 5 mg tablet 5 mg PO Q8H PRN pain (scale score 09/09/21 7-10) 5 days #14 tabs lidocaine 5 % topical patch 1 patch topical DAILY PRN pain #30 09/09/21 (Lidoderm) ea naproxen 500 mg tablet 500 mg PO BID PRN pain 10 days #20 09/09/21 tabs cephalexin 500 mg capsule 500 mg PO Q6H 7 days #28 caps 12/12/21 Allergies Allergy/AdvReac Type Severity Reaction Status Date / Time amoxicillin [AMOXICILLIN] Allergy Mild HIVES Verified 01/23/21 17:11 sulfamethoxazole Allergy Mild HIVES Verified 01/23/21 17:11 [From BACTRIM] trimethoprim [From BACTRIM] Allergy Mild HIVES Verified 01/23/21 17:11 latex [LATEX] Allergy Unknown UNKNOWN Verified 01/23/21 17:11 penicillin V Allergy Unknown hives Verified 01/23/21 17:11 Penicillins [PENICILLINS] Allergy Unknown UNKNOWN, Verified 01/23/21 17:11 ?HIVES Amoxicillin Allergy Unknown Hives Uncoded 01/23/21 17:11 Bactrim Allergy Unknown Hives Uncoded 01/23/21 17:11 Latex Allergy Unknown rash Uncoded 04/02/16 00:00 Latex Gloves Allergy Unknown Hives Uncoded 01/23/21 17:11 Review of Systems Review of Systems: Yes all other systems are reviewed and are negative Constitutional: Constitutional: Reports no additional constitutional complaints, Denies chills, Denies fatigue, Denies fever(s), Denies headache(s) and Denies malaise Eyes: Eyes: Reports no additional eye complaints and Denies change in vision ENT: Denies headache(s) Cardiovascular: Cardiovascular: Reports no additional cardiovascular complaints, Denies chest pain and Denies dyspnea Respiratory: Respiratory: Reports as per HPI and Denies dyspnea Gastrointestinal: Gastrointestinal: Reports as per HPI, Denies abdominal pain, Denies diarrhea, Denies nausea and Denies vomiting Genitourinary: Genitourinary: Denies hematuria, Denies urinary frequency, Denies dysuria, Denies urinary incontinence, Denies urinary hesitancy and Denies urinary urgency Musculoskeletal: Musculoskeletal: Reports no additional musculoskeletal complaints, Denies numbness and Denies tingling Integumentary/Breasts: Comments: lesion to the right arm Neurologic: Denies headache(s), Denies numbness and Denies tingling Psychiatric: Psychiatric: Reports no additional psychiatric complaints Endocrine: Endocrine: Denies fatigue Hematologic/Lymphatic: Hematologic/Lymphatic: Reports no additional hematologic/lymphatic complaints Allergic/Immunologic: Allergic/Immunologic: Reports no additional allergic/immunologic complaints [facility] Past Medical History Attestation statement: The following information was validated with the patient. Source: old records reviewed Medical History Diabetes Diabetes Social History Social History Alcohol intake: current Alcohol intake frequency: holidays/special occasions only Alcohol type: other Patient Tobacco Use Status: Former Tobacco user Substance Use Type: Marijuana Advance Directives: No Advance Directives Information Provided: No Physical Exam ED Vital Signs: Vital Signs - 24 hr 12/12/21 18:26 Temperature 98.6 F Pulse Rate 98 Respiratory Rate 20 Blood Pressure 142/98 H Pulse Oximetry 97 Oxygen Delivery Method Room Air BMI result Body Mass Index 36.8 Const General: cooperative, no acute distress, alert and awake Nutritional Appearance: well nourished Orientation/consciousness: patient oriented x3 Limitations: no limitations HENMT Head: Yes normal to inspection and Yes atraumatic Ears: hearing grossly normal bilaterally and external ears normal General nose exam: Normal external nose present, no nasal discharge noted and no epistaxis Face and sinus: Yes normal facial exam, No abrasion and No laceration Mouth: Normal oral and palatal mucosa present, no drooling and no muffled voice Eyes General: appearance normal, both eyes and all related structures Periorbital: periorbital findings normal Eyelids: Yes eyelids normal Conjunctivae: conjunctivae normal Pupils: Equal, round and reactive pupils present EOM: EOMs intact bilaterally Neck Neck: Yes normal visual inspection, Yes full ROM and Yes no lymphadenopathy Chest Chest palpation & inspection: normal inspection of the chest Resp Effort & Inspection: normal respiratory effort and able to speak in complete sentences Auscultation: clear to auscultation bilaterally Cardio Rate: regular rate Rhythm: regular rhythm GI Inspection: Yes normal to inspection Skin Other: RUE abscess with erythema, swelling, fluctuance, warmth. No evidence of induration or streaking. Small scabbed over ulcer on the left lateral malleolus. General skin exam: erythema, fluctuance and no induration Lesions: lesion noted (posterior right arm) Neuro General: patient oriented x3 and moves all extremities Cranial nerves: Yes Equal, round and reactive pupils present Cognition (Neuro): normal cognition Motor exam (neuro): 5/5 motor strength present throughout Sensory Exam: Normal double simultaneous stimulation for sensation Coordination: [id number] test normal Extrem General: Yes normal to inspection, Yes full ROM and Yes capillary refill normal Psych Appearance: grossly normal Mental Status: mental status grossly normal Affect: normal affect Attitude: cooperative Thought process: Normal thought process present Thought content: Normal thought content present Insight: Good insight present (Psych) Procedures Abscess I/D Site: upper extremity Side (if applicable): right Local Anesthetic: lidocaine 1% Amount of anesthesia used (mL): 2 Technique: incised with blade Amount of fluid expressed (mL): 20 Sent for culture/gram staining?: No Irrigation: No Packing used?: none Medical Decision Making MDM Narrative Medical decision making narrative: Patient is a 40 year old female presenting to the emergency department today with an abscess to the right arm. Patient's physical exam showed a 3cm abscess to the right posterior upper arm as well as a very small, dime sized ulceration to the left lateral ankle. I explained my physical exam findings to the patient. I answered all questions asked by the patient. Patient's right upper arm abscess was incised and drained, per procedure note, without incident. I stressed the importance of the patient taking her medication as prescribed. I stressed the importance of the patient following up with her primary care provider, a general surgeon, and the wound center. I stressed the importance of the patient returning to the emergency department immediately if her symptoms were to worsen or if she were to develop any dizziness, shortness of breath, difficulty breathing, chest pain, blurry vision, loss of vision, nausea, vomiting, abdominal pain, fever, chills, back pain, or any other complaints. Patient verbalized agreement and understanding with this treatment plan and discharge. Differential Diagnosis Differential Diagnosis: abscess Medical Records Medical records reviewed: Yes I reviewed the patient's medical records. Discharge Plan Discharge Clinical Impression: Abscess of skin or subcutaneous tissue Patient Disposition: Home, Self-Care Instructions: Abscess (ED) Additional Instructions: Follow up with your primary care provider, a general surgeon, and the wound center. Return to the emergency department immediately if your symptoms worsen or if you develop any dizziness, shortness of breath, difficulty breathing, chest pain, blurry vision, loss of vision, nausea, vomiting, abdominal pain, fever, chills, back pain, or any other complaints. Prescriptions: New cephalexin 500 mg capsule 500 mg PO Q6H 7 Days Qty: 28 0RF No Action lidocaine [Lidoderm] 5 % adhesive patch,medicated 1 patch topical DAILY MDD remove after 12 hours PRN (Reason: pain) Qty: 30 0RF Rx Instructions: leave on most painful area for up to 12 hrs naproxen 500 mg tablet 500 mg PO BID PRN (Reason: pain) 10 Days Qty: 20 0RF cyclobenzaprine 5 mg tablet 5 mg PO Q8H PRN (Reason: pain (scale score 7-10)) 5 Days Qty: 14 0RF Referrals: [facility] [place] General Surgeons [Provider Group] [facility] [place] Wound Care Management [Provider Group] Evin Arnago MD [Primary Care Provider] - Print Language: Syriac
[2021-12-12] MEDS: HYDROcodone Bit/Acetam 5/325 TABLET 1 TAB PO (19:34)
[2021-12-12] MEDS: Lidocaine HCl 1 % MPF 2 ML VIAL INFILTRATI (19:35)
== END 2021-12-12 21:11 | disposition home or self-care (01) ==
PROVIDERS: Emergency Provider Emergency Medicine Emergency Medical Services; PCP Internal Medicine
DX: L02.413 Cutaneous abscess of right upper limb (principal); M79.601 Pain in right arm; E11.9 Type 2 diabetes mellitus without complications; F12.90 Cannabis use, unspecified, uncomplicated; Z87.891 Personal history of nicotine dependence
CPT/HCPCS: 10060; 99283; 99284

== ENCOUNTER → 2021-12-18 14:03 | Outpatient (BNVA) | payer OTHER, SELFPAY | PROVIDERS: PCP Internal Medicine; Visit Provider Surgery | DX: L02.91 Cutaneous abscess, unspecified (principal); E11.9 Type 2 diabetes mellitus without complications; E66.01 Morbid (severe) obesity due to excess calories; Z79.899 Other long term (current) drug therapy | CPT/HCPCS: 99202 ==

== ENCOUNTER 2023-06-14 23:03 | Emergency (ER) | payer OTHER, SELFPAY ==
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
[2023-06-14 23:08] VITALS: BP 110/80; PULSE 100; O2SAT 100
[2023-06-14 23:09] VITALS: BP 129/81; PULSE 104; RESP 20; TEMP 36.7; O2SAT 96
[2023-06-14 23:21] LABS: Glucose, Whole Blood 512 mg/dL (60-115)
[2023-06-14 23:25] VITALS: BMI 39.5
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
[2023-06-14 23:52] LABS: MANUAL DIFF FLAG NO
[2023-06-14] MEDS: Insulin Regular, Human 100 UNIT/ML 3 ML VIAL 10 UNIT IVPUSH (23:54)
[2023-06-14] MEDS: 0.9 % Sodium Chloride 1,000 ML 999 ML IVCONT (23:56)
[2023-06-14] MEDS: Ibuprofen 600 MG TABLET PO (23:56)
[2023-06-14] MEDS: Acetaminophen 325 MG TABLET 975 MG PO (23:59)
[2023-06-15 00:07] LABS: Basophils Percent Auto 0.2 % (0-2); Eosinophils Percent Auto 0.7 % (0-4); Hematocrit 44.2 % (37.0-47.0); Hemoglobin 15.5 g/dl (12.0-16.0); Imm Gran Abs Auto 0.01 X10*3/uL (0.00-0.03); Imm Gran Pct Auto 0.2 % (0.0-0.4); Lymphocytes Absolute Auto 2.7 X10*3/uL (1.2-4.9); Lymphocytes Percent Auto 48.8 % (20-40); Mean Corpuscular HGB Conc 35.1 g/dl (31.0-35.0); Mean Corpuscular Hemoglobin 28.4 pg (27.0-33.0); Mean Corpuscular Volume 81.1 fL (80.0-98.0); Mean Platelet Volume 10.9 fL (9.4-12.3); Monocytes Absolute Auto 0.2 X10*3/uL (0.1-1.2); Monocytes Percent Auto 3.9 % (2-11); Neutrophils Absolute Auto 2.5 x10*3/uL (2.0-8.3); Neutrophils Percent Auto 46.2 % (45-73); Platelet Count 171 X10*3/uL (160-400); Red Blood Count 5.45 X10*6/uL (4.20-5.50); Red Cell Distribution Width 12.7 % (11.0-16.0); White Blood Count 5.4 X10*3/uL (4.8-10.8)
[2023-06-15 00:17] LABS: HCG Quantitative < 2 mIU/mL
--- OUTSIDE RECORDS SUMMARY | 2023-06-15 01:05 | XMS_ITS | Continuity of Care Document ---
Author Name Unknown Organization [facility] James lt Address [address] [place] [address]- Care Team Providers Care Inspector Fabric Name Role Phone Dyan Herrera Primary Care Physician Encounter [facility] Date(s): 11/16/21 - 01/15/22 [facility] [address] [place] [address]- Attending Physician: Dyan Herrera Allergies, Adverse Reactions, Alerts Substance Reaction Severity Status amoxicillin unknown Active penicillin unknown Active sulfamethoxazole Unknown Active Bactrim unknown Active Latex breathing problems Active Immunizations Given and Recorded Vaccine Date Status Refusal Reason tetanus/diphtheria/pertussis, acel(Tdap) 07/10/18 Given tetanus/diphtheria/pertussis, acel(Tdap) 08/16/17 Given tetanus/diphtheria/pertussis, acel(Tdap) 08/18/10 Recorded influenza virus vaccine, inactivated 02/13/18 Give n influenza virus vaccine, inactivated 1 03/18/17 Gi regis influenza virus vaccine, inactivated 03/02/12 Cody rded Measles/Mumps/Rubella Virus Vaccine 2 10/10/17 Giv en pneumococcal 23-valent vaccine 3 03/06/12 Recorded Human Papillomavirus Vaccine 10/25/08 Recorded Human Papillomavirus Vaccine 06/28/08 Recorded Human Papillomavirus Vaccine 05/01/08 Recorded 1Admin Note: AFLURIA quadrivalence VACCINE [facility] [id number] 2Early/Late Reason: Other : Pt not available. 3Location History: DR REEDER Medications Albuterol (Eqv-ProAir HFA) 90 mcg/inh inhalation aerosol 2 puffs, Inhalation, Every 6 hours, PRN NEEDED FOR SHORTNESS OF BREATH OR WHEEZING, # 8.5 each, 5 Refills, Maintenance, 12/02/21 7:35:00 EDT, [facility]/pharmacy #[id number], 25, 2 puffs Inhalation Every 6 hours,PRN: NEEDED FOR SHORTNESS OF BREATH OR WHEEZING... Start Date: 12/02/21 Status: Ordered Alcohol Pads See Instructions, # 120 each, Refills 0, Tot. Refills 0, Maintenance, To use with insulin administration 4 times daily, 05/09/20 12:20:00 EST, Compound, 163, cm, 05/09/20 8:55:00 EST, Height, 164, kg, 09/05/18 17:25:00 EDT, Dry Weight Start Date: 05/09/20 Status: Ordered FREESTYLE 28G LANCETS FREESTYLE 28G LANCETS, See Instructions, # 100 Unknown, 1 Refills, USE TO TEST BLOOD SUGAR 4 TIMES A DAY, 163, cm, 02/05/21 12:14:00 EDT, Height, 120.5, kg, 02/03/21 17:38:00 EDT, Dry Weight Start Date: 02/24/21 Status: Ordered FREESTYLE FREEDOM LITE METER FREESTYLE FREEDOM LITE METER, See Instructions, # 1 kit, 0 Refills, USE TO CHECK BLOOD SUGAR 4 TIMES DAILY, 163, cm, 03/25/21 15:25:00 EST, Height, 120.5, kg, 02/03/21 17:38:00 EDT, Dry Weight Start Date: 04/07/21 Status: Ordered FREESTYLE FREEDOM LITE METER FREESTYLE FREEDOM LITE METER, See Instructions, # 1 kit, 0 Refills, USE TO CHECK BLOOD SUGAR 4 TIMES DAILY, 163, cm, 02/05/21 12:14:00 EDT, Height, 120.5, kg, 02/03/21 17:38:00 EDT, Dry Weight Start Date: 02/26/21 Status: Ordered FREESTYLE FREEDOM LITE METER FREESTYLE FREEDOM LITE METER, See Instructions, # 1 kit, 0 Refills, USE TO CHECK BLOOD SUGAR 4 TIMES DAILY, 163, cm, 07/28/21 9:25:00 EDT, Height, 120.5, kg, 02/03/21 17:38:00 EDT, Dry Weight Start Date: 09/10/21 Status: Ordered Freestyle Dipika 2 14-day [place] Freestyle Dipika 2 14-day [place], See Instructions, # 1 each, Refills 0, Tot. Refills 0, Maintenance, Use to scan for blood sugar at least 4 times daily. E11.65., 09/16/21 15:00:00 EDT, Compound, 163,cm, 07/28/21 9:25:00 EDT, Height, 120.5, kg, ... Start Date: 09/16/21 Status: Ordered Freestyle Dipika 2 14-day Sensors Freestyle Dipika 2 14-day Sensors, See Instructions, # 2 each, Refills 11, Tot. Refills 11, Maintenance, Use to scan for blood sugar at least 4 times daily. E11.65., 09/16/21 15:00:00 EDT, Compound, 163, cm, 07/28/21 9:25:00 EDT, Height, 120.5, kg, ... Start Date: 09/16/21 Status: Ordered Freestyle Lite Lancets See Instructions, # 120 each, Refills 0, Tot. Refills 0, Maintenance, To test blood sugar 4 x day. 1 box = 100 lancets, 05/09/20 12:26:00 EST, Type 2 DM in ; O24.111, Compound, 163, cm, 05/09/20 8:55:00 EST, Height, 164, kg, 09/05/18 17:25:0... Start Date: 05/09/20 Status: Ordered Freestyle Lite Lancets See Instructions, # 120 each, Refills 11, Tot. Refills 11, Maintenance, Blood sugar testing four times a day ICD 10: 024.119 E11.9, 05/19/21 14:32:00 EST, Compound, 163, cm, 05/11/21 10:26:00 EST, Height, 120.5, kg, 02/03/21 17:38:00 EDT, Dry Weight Start Date: 05/19/21 Status: Ordered FREESTYLE LITE METER FREESTYLE LITE METER, See Instructions, # 1 kit, 0 Refills, USE TO CHECK BLOOD SUGAR 4 TIMES DAILY,163, cm, 12/08/20 14:03:00 EDT, Height Start Date: 12/25/20 Status: Ordered Freestyle Lite Monitor See Instructions, # 1 each, Refills 0, Tot. Refills 0, Maintenance, Use to check bloodsugar 4 timesdaily. E11.65, 08/25/20 11:44:00 EDT, Supply, 163, cm, 05/26/20 14:26:00 EST, Height, 164, kg, 09/05/18 17:25:00 EDT, Dry Weight Start Date: 08/25/20 Stop Date: 09/24/20 Status: Ordered FREESTYLE LITE TEST STRIP FREESTYLE LITE TEST STRIP, See Instructions, # 200 Unknown, 0 Refills, TEST 4 TIMES PER DAY, 163, cm, 06/16/21 10:10:00 EST, Height, 120.5, kg, 02/03/21 17:38:00 EDT, Dry Weight Start Date: 06/16/21 Status: Ordered Freestyle Lite Test Strips See Instructions, # 200 each, Refills 5, Tot. Refills 5, Maintenance, Check blood sugar up to 6 times per day. E11.65, 06/29/20 13:15:00 EST, Compound, 163, cm, 05/26/20 14:26:00 EST, Height, 164, kg, 09/05/18 17:25:00 EDT, Dry Weight Start Date: 06/29/20 Status: Ordered Freestyle Lite Test Strips See Instructions, # 200 each, Tot. Refills 5, Maintenance, test 4 times per day, 05/11/21 12:06:00 EST, Supply, 163, cm, 05/11/21 10:26:00 EST, Height, 120.5, kg, 02/03/21 17:38:00 EDT, Dry Weight Start Date: 05/11/21 Stop Date: 06/10/21 Status: Ordered Hydrocerin topical lotion Topically, 2 times a day, 0 Refills, Maintenance, 01/30/21 10:10:00 EDT, Partial fill upon patient request if the prescription is for a schedule II opioid drug. Start Date: 01/30/21 Status: Ordered ibuprofen 600 mg oral tablet 1, tablet, By Mouth, 2 times a day, PRN, # 30 tablet, Refills 0, NEEDED FOR PAIN, Route to Pharmacy Electronically, [facility] STORE [id number], 163, cm, 07/28/21 9:25:00 EDT, Height, 120.5, kg, 02/03/21 17:38:00 EDT, Dry Weight Start Date: 12/02/21 Status: Ordered Lantus Solostar Pen 100 units/mL subcutaneous solution See Instructions, INJECT 55 UNITS DAILY AT DINNER TIME, # 30 Unknown, 11 Refills, 08/06/21 11:50:00EDT, [id number], 163, cm, 07/28/21 9:25:00 EDT, Height, 120.5, kg, 02/03/21 17:38:00 EDT, Dry Weight Start Date: 08/06/21 Status: Ordered MetFORMIN (Eqv-Glucophage XR) 500 mg oral tablet, extended release 2 tablet, By Mouth, 2 times a day with meals, # 360 tablet, 11 Refills, 08/06/21 11:50:00 EDT, [id number], 163, cm, 07/28/21 9:25:00 EDT, Height, 120.5, kg, 02/03/21 17:38:00 EDT, Dry Weight Start Date: 08/06/21 Status: Ordered miSOPROStol 200 mcg oral tablet See Instructions, Place 2 tabs between cheek and gums on EACH side, let dissolve for 30 min then swallow the rest with water, # 4 tablet, 1 Refills, Maintenance, 05/28/21 14:25:00 EST, [id number], Partial fill upon patient request if the presc... Start Date: 05/28/21 Status: Ordered NovoLOG FlexPen 100 units/mL subcutaneous solution See Instructions, - NovoLog, 3 times daily before meals 80-130 21 units 131-180 23 units 181-230 25units 231-280 27 units Over 280 29 units., # 30 mL, 11 Refills, Maintenance, 08/06/21 11:50:00 [facility]... Start Date: 08/06/21 Status: Ordered nystatin topical 512041 u/gm powder See Instructions, APPLY TOPICALLY 3 TIMES A DAY PLEASE APPLY TO PELVIC RASH, LABIA, GLUTEAL FOLDS, AND RECTUM., # 60 Gm, 1 Refills, Maintenance, 12/24/21 20:42:00 EDT, [id number], 30, APPLY TOPICALLY 3 TIMES A DAY PLEASE APPLY TO PELVIC RASH, LAB... Start Date: 12/24/21 Status: Ordered Pen [place], 31 G x 8 mm BD Ultra Fine III See Instructions, # 200 each, Refills 5, Tot. Refills 5, Maintenance, Use to take insulin 4 times daily. E11.65, 05/19/21 14:32:00 EST, Compound, 163, cm, 05/11/21 10:26:00 EST, Height, 120.5, kg, 02/03/21 17:38:00 EDT, Dry Weight Start Date: 05/19/21 Status: Ordered Prenatabs Rx oral tablet 1 tablet, By Mouth, Daily, # 90 tablet, 5 Refills, Maintenance, 06/16/21 10:48:00 EST, Tablet, [id number], ok to substitute with ANY vitamin, 1 tablet By Mouth Daily, 163, cm, 06/16/21 10:10:00 EST, Height, 120.5, kg, 02/03/21 17:38:0... Start Date: 06/16/21 Status: Ordered Multivitamins with Folic Acid 1 mg oral tablet 1 tablet, By Mouth, Daily, # 90 tablet, 3 Refills, Maintenance, 05/06/21 11:03:00 EST, Tablet, [id number], Please substitute any brand PNV that is covered by patient insurance, 1 tablet By Mouth Daily, 163, cm, 03/25/21 15:25:00 EST, Height, 1... Start Date: 05/06/21 Status: Ordered Multivitamins with Vitamin B Complex, Vitamin C, Minerals and L- Methylfolate oral capsule 1 capsule, By Mouth, Daily, # 30 capsule, 11 Refills, Maintenance, 03/25/21 15:35:00 EST, Capsule, [id number], Partial fill upon patient request if the prescription is for a schedule II opioid drug., 1 capsule By Mouth Daily, 163, cm, 03/25/21... Start Date: 03/25/21 Status: Ordered Problem List Condition Effective Dates Status Health Status Inform ant History of Anxiety(Confirmed) Active Marijuana abuse(Confirmed) Active Chronic back pain surgery in 2006(Confirmed) Active Depression(Confirmed) Active Medical marijuana use(Confirmed) Active External hemorrhoids(Confirmed) Active History of pre-eclampsia(Confirmed) Active Lipoma(Confirmed) Active History ofMigraines(Confirmed) Active Morbid obesity(Confirmed) Active THIERRY (obstructive sleep apnea)(Confirmed) 1 Active History of Gestational hyper tension (Severe)(Confirmed) Active Severe obesity(Confirmed) Active Diabetes mellitus, type II(Confirmed) Active 1Her machine was taken away due to non compliant Social History Social History Type Response Smoking Status Former smoker, quit more than 30 days ago; Other: Quit is 2017; entered on: 05/11/21 Sex Care Team Personnel Name: Dyan Herrera Address: [address] [place] [id number]
--- OUTSIDE RECORDS SUMMARY | 2023-06-15 01:05 | XMS_ITS | Continuity of Care Document ---
Author Name Unknown Organization [facility] Address [address] [place] [id number]- Care Team Providers Care Boiler Plant Operator Name Role Phone Dyan Herrera Primary Care Physician [place] [facility] [place] - 08/01/22 [facility] [address] [place] [id number] Attending Physician: Jenni Price MD Admitting Physician: Jenni Price MD Referring Physician: Dyan Herrera Allergies, Adverse Reactions, Alerts [...] 05/01/08 Recorded 1Admin Note: AFLURIA quadrivalence VACCINE [facility] [id number] 2Early/Late Reason: Other : Pt not available. 3Location History: DR REEDER Medications Albuterol (Eqv-ProAir HFA) 90 mcg/inh inhalation aerosol 2 puffs, Inhalation, Every 6 hours, PRN NEEDED FOR SHORTNESS OF BREATH OR WHEEZING, # 8.5 each, 5 Refills, Maintenance, 12/02/21 7:35:00 EDT, [facility]/pharmacy #[id number], 25, 2 puffs Inhalation Every 6 hours,PRN: NEEDED FOR SHORTNESS OF BREATH OR WHEEZING... Start Date: 12/02/21 Status: Ordered Alcohol Pads See Instructions, # 120 each, Refills 0, Tot. Refills 0, Maintenance, To use with insulin administration 4 times daily, 05/09/20 12:20:00 EST, Compound, 163, cm, 05/09/20 8:55:00 EST, Height, 164, kg, 09/05/18 17:25:00 EDT, Dry Weight Start Date: 05/09/20 Status: Ordered Apri 0.15 mg-0.03 mg oral tablet 1 tablet, By Mouth, Daily, # 84 tablet, 0 Refills, Maintenance, 06/23/22 12:27:00 EST, Tablet, [facility]/pharmacy #[id number], Partial fill upon patient request if the prescription is for a schedule II opioid drug., 1 tablet By Mouth Daily, 163, cm, 06/07/22 10:4... Start Date: 06/23/22 Status: Ordered aspirin 81 mg oral delayed release tablet 2 tablet = 162 mg, By Mouth, Daily, Start at 12 weeks gestation Expected date of Delivery Jan 03, 2023 Start on June, # 60 tablet, 4 Refills, Maintenance, 05/24/22 12:10:00 EST, CR Tablet, [facility]/pharmacy #[id number], Partial fill upon patient r... Start Date: 05/24/22 Status: Ordered fluconazole 150 mg oral tablet 1 tablet = 150 mg, By Mouth, Once, # 1 tablet, 0 Refills, Soft Stop, 06/23/22 4:06:00 EST, Tablet, [facility]/pharmacy #[id number], Partial fill upon patient request if the prescription is for a schedule II opioid drug., 163, cm, 06/07/22 10:40:00 EST, Height, 123... Start Date: 06/23/22 Status: Ordered FREESTYLE 28G LANCETS FREESTYLE 28G [...] 09/10/21 Status: Ordered Freestyle Dipika 2 14-day [place] Freestyle Dipika 2 14-day [place], See Instructions, # 1 each, Refills 0, [...] Strips See Instructions, # 200 each, Refills 11, Tot. Refills 11, Maintenance, use to check BGs 5-6x daily. E11.9, 06/02/22 18:11:00 EST, Supply, 163, cm, 06/02/22 14:37:00 EST, Height, 120.5, kg, 02/03/21 17:38:00 EDT, Dry Weight Start Date: 06/02/22 Status: Ordered Freestyle Lite Test Strips See [...] Date: 05/11/21 Stop Date: 06/10/21 Status: Ordered Insulin Aspart FlexPen 100 units/mL injectable solution See Instructions, Subcutaneous Infusion 3 times a day before meals She states she takes 25 units before each meal, 0 Refills, Maintenance, 05/24/22 11:43:00 EST, Partial fill upon patient request if the prescription is for a schedule II opioid drug. Start Date: 05/24/22 Status: Ordered Lantus 100 u/ml subcutaneous solution 40 units at bedtime, Subcutaneous Injection, Daily at bedtime, # 10 mL, 0 Refills, Maintenance, 05/24/22 11:46:00 EST, Solution, Partial fill upon patient request if the prescription is for a schedule II opioid drug. Start Date: 05/24/22 Status: Ordered Lantus Solostar Pen 100 units/mL subcutaneous solution See Instructions, INJECT 50 UNITS DAILY AT DINNER TIME. E11.9, # 30 Unknown, 11 Refills, 06/02/22 18:09:00 EST, [id number], 163, cm, 06/02/22 14:37:00 EST, Height, 120.5, kg, 02/03/21 17:38:00 EDT, Dry Weight Start Date: 06/02/22 Status: Ordered MetFORMIN (Eqv-Glucophage XR) 500 mg oral tablet, extended release 2 tablet, By Mouth, 2 times a day with meals, # 360 tablet, 11 Refills, 08/06/21 11:50:00 EDT, [facility]/pharmacy #[id number], 163, cm, 07/28/21 9:25:00 EDT, Height, 120.5, kg, 02/03/21 17:38:00 EDT, Dry Weight Start Date: 08/06/21 Status: Ordered metFORMIN 500 mg oral tablet, extended release See Instructions, 2 tablet By Mouth twice Daily. E11.9, # 60 tablet, 8 Refills, Maintenance, 06/03/22 12:28:00 EST, ER Tablet, [facility]/pharmacy #[id number], Partial fill upon patient request if the prescription is for a schedule II opioid drug., 163, cm, ... Start Date: 06/03/22 Status: Ordered NovoLOG FlexPen 100 units/mL subcutaneous solution See Instructions, Take 23-34 units based on sliding scale. E11.9 Max daily dose 102 units., # 30 mL, 11 Refills, Maintenance, 06/02/22 18:08:00 EST, [id number], May increase dose by 4 units at meals if increased CHO intake, 163, cm, 06/02/22 1... Start Date: 06/02/22 Status: Ordered Pen Mcdowell, 31 G x 8 mm BD Ultra Fine III See Instructions, # 200 each, Refills 5, Tot. Refills 5, Maintenance, Use to take insulin 4 times daily. E11.65, 06/02/22 18:11:00 EST, Compound, 163, cm, 06/02/22 14:37:00 EST, Height, 120.5, kg, 02/03/21 17:38:00 EDT, Dry Weight Start Date: 06/02/22 Status: Ordered Prenatabs Rx oral tablet 1 tablet, By Mouth, Daily, # 90 tablet, 5 Refills, Maintenance, 06/16/21 10:48:00 EST, Tablet, [facility]/pharmacy #[id number], ok to substitute with ANY vitamin, 1 tablet By Mouth Daily, 163, cm, 06/16/21 10:10:00 EST, Height, 120.5, kg, 02/03/21 17:38:0... Start Date: 06/16/21 Status: Ordered Multivitamins with Folic Acid 1 mg oral capsule See Instructions, TAKE ONE DAILY BY MOUTH, # 100 capsule, 2 Refills, Maintenance, 05/11/22 14:42:00EST, [facility]/pharmacy #[id number], Partial fill upon patient request if the prescription is for a schedule IIopioid drug., TAKE ONE DAILY BY MOUTH, 163, cm, ... Start Date: 05/11/22 Status: Ordered Multivitamins with Folic Acid 1 mg oral tablet 1 tablet, By Mouth, Daily, # 90 tablet, 2 Refills, Maintenance, 05/24/22 12:08:00 EST, [facility]/pharmacy#[id number], Partial fill upon patient request if the prescription is for a schedule II opioid drug., 1 tablet By Mouth Daily, 163, cm, 05/24/22 11:13:00 EST... 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 Name: Ruthy Nelson RN Position: [facility] RN Member Role: Primary Care Nurse Name: Colette Powell MD Position: [facility] [employer] MD Member Role: Lifetime [employer] REPRESENTATIVE Physician Address: Address: [address] [place] [address]- Care Team Related Persons Name: MIHAI BOOKER Address: home [address] [place] [address] Name: YISSEL HOWARD Address: [employer] Address: home [address] [place] [address] Name: DIANE HOWARD Address: home [address] [place] [address] Name: MILTON HOWARD Address: [employer] Address: home [address] [place] [address] [place]
--- OUTSIDE RECORDS SUMMARY | 2023-06-15 01:05 | XMS_ITS | Continuity of Care Document ---
Author Name Unknown Organization [facility] James lt Address [address] [place] [address]- Care Team Providers Care Hand Scraper Name Role Phone Conchita LEE, Evin Teran Primary Care Physician Encounter [facility] Date(s): 06/12/21 - 07/12/21 [facility] [address] [place] [address]- Allergies, Adverse Reactions, Alerts Substance Reaction Severity [...] 05/01/08 Recorded 1Admin Note: AFLURIA quadrivalence VACCINE [facility] [id number] 2Early/Late Reason: Other : Pt not available. 3Location History: DR REEDER Medications acetaminophen 325 mg oral tablet See Instructions, 3 tablet po q6h round the clock, Refills 0, Maintenance, 01/30/21 10:07:00 EDT, Instructions Replace Required Details, Partial fill upon patient request if the prescription is for aschedule II opioid drug. Start Date: 01/30/21 Status: Ordered Albuterol (Eqv-ProAir HFA) 90 mcg/inh inhalation aerosol 2 puffs, Inhalation, Every 6 hours, PRN NEEDED FOR SHORTNESS OF BREATH OR WHEEZING, # 8.5 each, 5 Refills, [facility] STORE [id number], 25, TAKE 2 PUFFS BY MOUTH EVERY 6 HOURS NEEDED FOR SHORTNESS OF BREATH OR WHEEZING, 163, cm, 03/25/21 15:25:00 EST, Heigh... Start Date: 04/07/21 Status: Ordered Alcohol Pads See Instructions, # [...] Weight Start Date: 02/26/21 Status: Ordered FREESTYLE JUDITH 14 DAY READER FREESTYLE JUDITH 14 DAY READER, See Instructions, # 1 Unknown, 0 Refills, USE TO SCAN FOR BLOOD SUGAR AT LEAST 4 TIMES, 163, cm, 12/08/20 14:03:00 EDT, Height Start Date: 12/25/20 Status: Ordered Freestyle Lite Lancets See Instructions, [...] NEEDED FOR PAIN, Route to Pharmacy Electronically, [facility] [id number], 163, cm, 06/16/21 10:10:00 EST, Height, 120.5, kg, 02/03/21 17:38:00 EDT, Dry Weight Start Date: 06/17/21 Status: Ordered Lantus Solostar Pen 100 units/mL subcutaneous solution See Instructions, INJECT 55 UNITS DAILY AT DINNER TIME, # 30 Unknown, 5 Refills, [facility] [id number], 163, cm, 02/05/21 12:14:00 EDT, Height, 120.5, kg, 02/03/21 17:38:00 EDT, Dry Weight Start Date: 02/26/21 Status: Ordered MetFORMIN (Eqv-Glucophage XR) 500 mg oral tablet, extended release 2 tablet, By Mouth, 2 times a day with meals, # 360 tablet, 0 Refills, [facility] [address], 163, cm, 06/16/21 10:10:00 EST, Height, 120.5, kg, 02/03/21 17:38:00 EDT, Dry Weight Start Date: 06/16/21 Status: Ordered miSOPROStol 200 mcg oral tablet See Instructions, Place 2 tabs between cheek and gums on EACH side, let dissolve for 30 min then swallow the rest with water, # 4 tablet, 1 Refills, Maintenance, 05/28/21 14:25:00 EST, [facility]/pharmacy #[id number], Partial fill upon patient request if the presc... Start Date: 05/28/21 Status: Ordered Niva-Plus oral tablet 1 tablet, By Mouth, Daily, # 90 tablet, 2 Refills, Maintenance, 04/14/21 14:07:00 EST, [facility]/pharmacy#[id number], Partial fill upon patient request if the prescription is for a schedule II opioid drug., 1 tablet By Mouth Daily, 163, cm, 03/25/21 15:25:00 EST... Start Date: 04/14/21 Status: Ordered NovoLOG FlexPen 100 units/mL subcutaneous solution See Instructions, - NovoLog, 3 times daily before meals 80-130 21 units 131-180 23 units 181-230 25units 231-280 27 units Over 280 29 units., # 30 mL, 5 Refills, Maintenance, 03/31/21 17:54:00 EST, [facility] Start Date: 03/31/21 Status: Ordered nystatin topical 194120 u/gm powder 1 application, Topically, 3 times a day, Please apply to pelvic rash, labia, gluteal folds, and rectum., # 60 Gm, 1 Refills, Maintenance, 03/25/21 16:04:00 EST, Powder, [facility]/pharmacy #[id number], Partial fill upon patient request if the prescription is for a... Start Date: 03/25/21 Status: Ordered nystatin topical 461116 u/gm powder See Instructions, APPLY TO AFFECTED AREA TWICE A DAY, # 30 Gm, 1 Refills, [id number], 14, APPLY TO AFFECTED AREA TWICE A DAY, 163, cm, 12/08/20 14:03:00 EDT, Height Start Date: 01/24/21 Status: Ordered Pen Moriarty, 31 G x 8 mm BD Ultra [...] Start Date: 05/06/21 Status: Ordered Multivitamins with Folic Acid 1 mg oral tablet 1 tablet, By Mouth, Daily, # 90 tablet, 3 Refills, Maintenance, 04/09/21 8:54:00 EST, Tablet, [id number], Partial fill upon patient request if the prescription is for a schedule II opioid drug., 1 tablet By Mouth Daily, 163, cm, 03/25/21 15:25... Start Date: 04/09/21 Status: Ordered Multivitamins with Folic Acid 1 mg oral tablet 1 tablet, By Mouth, Daily, # 90 tablet, 2 Refills, Maintenance, 05/11/21 12:06:00 EST, [id number], Partial fill upon patient request if the prescription is for a schedule II opioid drug., 1 tablet By Mouth Daily, 163, cm, 05/11/21 10:26:00 EST... Start Date: 05/11/21 Status: Ordered Multivitamins with Vitamin B Complex, Vitamin C, Minerals and L- Methylfolate oral capsule 1 capsule, By Mouth, Daily, # 30 capsule, 11 Refills, Maintenance, 03/25/21 15:35:00 EST, Capsule, [facility]/pharmacy #[id number], Partial fill upon patient request if the [...]
--- OUTSIDE RECORDS SUMMARY | 2023-06-15 01:05 | XMS_ITS | Continuity of Care Document ---
Author Name Unknown Organization [facility] James lt Address [address] [place] [address]- Care Team Providers Care Probation Officer Name Role Phone Evin Arango MD Primary Care Physician En[place] [facility] [place] Date(s): 11/13/20 - 11/20/20 [facility] Adult [address] [place] [address]- Attending Physician: Evin Arango MD Allergies, Adverse Reactions, Alerts Substance Reaction Severity Status amoxicillin unknown Active penicillin unknown Active sulfamethoxazole Unknown Active Bactrim unknown Active Latex breathing problems Active Immunizations Given and Recorded Vaccine Date Status Refusal Reason tetanus/diphtheria/pertussis, acel(Tdap) 07/10/18 Given tetanus/diphtheria/pertussis, acel(Tdap) 08/16/17 Given influenza virus vaccine, inactivated 02/13/18 Give n influenza virus vaccine, inactivated 1 03/18/17 Gi regis Measles/Mumps/Rubella Virus Vaccine 2 10/10/17 Giv en pneumococcal 23-valent vaccine 3 03/06/12 Recorded 1Admin Note: AFLURIA quadrivalence VACCINE [facility] [id number] 2Early/Late Reason: Other : Pt not available. 3Location History: DR REEDER Medications Alcohol Pads See Instructions, # 120 each, Refills 0, Tot. Refills 0, Maintenance, To use with insulin administration 4 times daily, 05/09/20 12:20:00 EST, Compound, 163, cm, 05/09/20 8:55:00 EST, Height, 164, kg, 09/05/18 17:25:00 EDT, Dry Weight Start Date: 05/09/20 Status: Ordered Freestyle Dipika 14-day [place] Freestyle Dipika 14-day [place], See Instructions, # 1 each, Refills 0, Tot. Refills 0, Maintenance, Use to scan for blood sugar at least 4 times daily. E11.65, 09/02/20 10:04:00 EDT, Compound, 163, cm, 05/26/20 14:26:00 EST, Height, 164, kg, 09/05/18 1... Start Date: 09/02/20 Status: Ordered Freestyle Dipika 14-day Sensors Freestyle Dipika 14-day Sensors, See Instructions, # 2 each, Refills 11, Tot. Refills 11, Maintenance, Use to scan for blood sugar at least 4 times daily. E11.65, 09/02/20 10:04:00 EDT, Compound, 163,cm, 05/26/20 14:26:00 EST, Height, 164, kg, 1... Start Date: 09/02/20 Status: Ordered Freestyle Lite Lancets See Instructions, # 120 each, Refills 0, Tot. Refills 0, Maintenance, Blood sugar testing four times a day ICD 10: 024.119 E11.9, 05/09/20 12:23:00 EST, Compound, 163, cm, 05/09/20 8:55:00 EST, Height, 164, kg, 09/05/18 17:25:00 EDT, Dry Weight Start Date: 05/09/20 Status: Ordered Freestyle Lite Lancets See Instructions, # 120 each, Refills 0, Tot. Refills 0, Maintenance, To test blood sugar 4 x day. 1 box = 100 lancets, 05/09/20 12:26:00 EST, Type 2 DM in ; O24.111, Compound, 163, cm, 05/09/20 8:55:00 EST, Height, 164, kg, 09/05/18 17:25:0... Start Date: 05/09/20 Status: Ordered Freestyle Lite Monitor See Instructions, # 1 each, Refills 0, Tot. Refills 0, Maintenance, Use to check bloodsugar 4 timesdaily. E11.65, 08/25/20 11:44:00 EDT, Supply, 163, cm, 05/26/20 14:26:00 EST, Height, 164, kg, 09/05/18 17:25:00 EDT, Dry Weight Start Date: 08/25/20 Stop Date: 09/24/20 Status: Ordered Freestyle Lite Test Strips See Instructions, # 200 each, Refills 5, Tot. Refills 5, Maintenance, Check blood sugar up to 6 times per day. E11.65, 06/29/20 13:15:00 EST, Compound, 163, cm, 05/26/20 14:26:00 EST, Height, 164, kg, 09/05/18 17:25:00 EDT, Dry Weight Start Date: 06/29/20 Status: Ordered Lantus Solostar Pen 100 units/mL subcutaneous solution See Instructions, Take 55 units daily at dinner. E11.65, # 30 mL, 5 Refills, Maintenance, 06/09/20 10:04:00 EST, Solution, [facility]/pharmacy #[id number], Partial fill upon patient request if the prescription isfor a schedule II opioid drug., 163, cm, 05/26/20 1... Start Date: 06/09/20 Status: Ordered metFORMIN 500 mg oral tablet, extended release See Instructions, Take 2 tabs twice daily with food. E11.65, # 120 each, 5 Refills, Maintenance, 06/09/20 10:06:00 EST, ER Tablet, [id number], 163, cm, 05/26/20 14:26:00 EST, Height, 164, kg,09/05/18 17:25:00 EDT, Dry Weight Start Date: 06/09/20 Status: Ordered NovoLOG FlexPen 100 units/mL subcutaneous solution See Instructions, Take 20 units per meal. E11.65. Max daily dose 60 units., # 30 mL, 5 Refills, Maintenance, 06/09/20 10:05:00 EST, [id number], May increase dose by 4 units at meals if increased CHO intake, 163, cm, 05/26/20 14:26:00 EST, Heig... Start Date: 06/09/20 Status: Ordered Pen [place], 31 G x 8 mm BD Ultra Fine III See Instructions, # 200 each, Refills 2, Tot. Refills 2, Maintenance, Use to take insulin 4 times daily. E11.65, 06/26/20 11:16:00 EST, Compound, 163, cm, 05/26/20 14:26:00 EST, Height, 164, kg, 09/05/18 17:25:00 EDT, Dry Weight Start Date: 06/26/20 Status: Ordered ProAir HFA 90 mcg/inh inhalation aerosol with adapter 2, puffs, Inhalation, Every 6 hours, PRN, # 1 each, Refills 5, Tot. Refills 5, Maintenance, 09/27/20 10:32:00 EDT, Route to Pharmacy Electronically, [id number], [facility]/pharmacy#[id number], 163, cm, 09/19/20 9:21:00 EDT, Height Start Date: 09/27/20 Status: Ordered Problem List Condition Effective Dates Status Health Status Inform ant Marijuana abuse(Confirmed) Active Chronic back pain(Confirmed) Active Depression(Confirmed) Active Medical marijuana use(Confirmed) Active External hemorrhoids(Confirmed) Active History of pre-eclampsia(Confirmed) Active Lipoma(Confirmed) Active Migraines(Confirmed) Active Morbid obesity(Confirmed) Active THIERRY (obstructive sleep apnea)(Confirmed) Active History of Gestational hyper tension (Severe)(Confirmed) Active Restless leg syndrome(Confirmed) Active Diabetes mellitus, type II(Confirmed) Active Vital Signs Most recent to oldest [Reference Range]: 1 Height 163 cm (11/13/20 10:29 AM) Weight 125.5 kg (11/13/20 10:29 AM) Oxygen Saturation [94-100 %] 96 % (11/13/20 10:29 AM) Pulse Rate [55-90 bpm] 112 bpm *H* (11/13/20 10:29 AM) Body Mass Index [18.5-24.99] 47.24 *>HHI* (11/13/20 10:29 AM) Blood Pressure [90-138/55-84 mm Hg] 118/ 66mm Hg (11/13/20 10:29 AM) Respiratory Rate [16-30 br/min] 16 br/mi n (11/13/20 10:29 AM) Temperature [96.8-100.4 DegF] 98.8 DegF (11/13/20 10:29 AM) Mode of Delivery (Oxygen) Room air (11/13/20 10:29 AM) Blood pressure sites Arm, right (11/13/20 10:29 AM) Temperature Route Oral (11/13/20 10:29 AM) Weight Obtained Via Standing scale (11/13/20 10:29 AM) Social History Social History Type Response Smoking Status Former smoker; Tobac co user in household: No entered on: 02/13/18 Sex
--- OUTSIDE RECORDS SUMMARY | 2023-06-15 01:05 | XMS_ITS | Continuity of Care Document ---
Author Name Unknown Organization [facility] Address [address] [place] [address]- Care Team Providers Care Operator Catalyst Concentration Name Role Phone Dyan Herrera Primary Care Physician [phone] Encounter [facility] [place] Date(s): 05/28/21 - 08/22/[address] [address] Attending Physician: Not on Staff, Attending MD Allergies, Adverse Reactions, Alerts Substance Reaction Severity Status amoxicillin unknown Active penicillin unknown Active Bactrim unknown Active Latex breathing problems Active sulfamethoxazole Unknown Active Immunizations Given and Recorded Vaccine Date [...] 05/01/08 Recorded 1Admin Note: AFLURIA quadrivalence VACCINE [facility] [id number] 2Early/Late Reason: Other : Pt not available. 3Location History: DR REEDER Medications Albuterol (Eqv-ProAir HFA) 90 mcg/inh inhalation aerosol 2 puffs, Inhalation, Every 6 hours, PRN NEEDED FOR SHORTNESS OF BREATH OR WHEEZING, # 8.5 each, 5 Refills, [id number], 25, TAKE 2 PUFFS BY MOUTH EVERY [...] Weight Start Date: 02/26/21 Status: Ordered FREESTYLE DIPIKA 14 DAY [place] FREESTYLE DIPIKA 14 DAY READER, See Instructions, # 1 Unknown, 0 Refills, USE TO SCAN FOR BLOOD SUGAR AT LEAST 4 TIMES, 163, cm, 12/08/20 14:03:00 EDT, Height Start Date: 12/25/20 Status: Ordered Freestyle dipika 14 day sensors Freestyle dipika 14 day sensors, See Instructions, # 2 each, Refills 6, Tot. Refills 6, Maintenance,Use as directed for diabetes mellitus, 08/06/21 11:53:00 EDT, Supply, 163, cm, 07/28/21 9:25:00 EDT, Height, 120.5, kg, 02/03/21 17:38:00 EDT, Dry Weight Start Date: 08/06/21 Status: Ordered Freestyle Dipika 14 day sensors Freestyle Dipika 14 day sensors, See Instructions, # 2 each, Refills 11, Tot. Refills 11, Maintenance, Use as directed for diabetes mellitus, 08/12/21 8:10:00 EDT, Supply, 163, cm, 07/28/21 9:25:00 EDT, Height, 120.5, kg, 02/03/21 17:38:00 EDT, Dry Weight Start Date: 08/12/21 Status: Ordered Freestyle Dipika Monitor See Instructions, # 1 each, Refills 0, Tot. Refills 0, Maintenance, use as directed for Type 2 Diabetes Mellitus, 08/06/21 11:53:00 EDT, Supply, 163, cm, 07/28/21 9:25:00 EDT, Height, 120.5, kg, 02/03/21 17:38:00 EDT, Dry Weight Start Date: 08/06/21 Stop Date: 09/05/21 Status: Ordered Freestyle Lite Lancets See Instructions, [...] NEEDED FOR PAIN, Route to Pharmacy Electronically, [id number], 163, cm, 06/16/21 10:10:00 EST, Height, 120.5, [...] 11:50:00 [facility]... Start Date: 08/06/21 Status: Ordered Pen [place], 31 G x 8 mm BD Ultra [...]
[2023-06-15 01:06] LABS: Beta-Hydroxybutyrate 0.12 mmol/L (0.02-0.27)
[2023-06-15 01:06] LABS: Glucose, Whole Blood 270 mg/dL (60-115)
--- OUTSIDE RECORDS SUMMARY | 2023-06-15 01:06 | XMS_ITS | Continuity of Care Document ---
Author Name Unknown Organization [facility] James lt Address [address] [place] [address]- Care Team Providers Care Loom Fixer Name Role Phone Dyan Herrera Primary Care Physician [phone] Encounter [facility] [place] Date(s): 07/28/21 - 08/04/21 [facility] Adult [address] [place] [address]- Encounter Diagnosis Abdominal pain(Discharge Diagnosis) - 07/28/21 Attending Physician: Dyan Herrera Referring Physician: Evin Arango MD Allergies, Adverse Reactions, [...] 05/01/08 Recorded 1Admin Note: AFLURIA quadrivalence VACCINE [facility] [id number] 2Early/Late Reason: Other : Pt not available. [...] OR WHEEZING, # 8.5 each, 5 Refills, [facility] 62084, 25, TAKE 2 PUFFS BY MOUTH EVERY [...] NEEDED FOR PAIN, Route to Pharmacy Electronically, [facility] 704[facility], 163, cm, 06/16/21 10:10:00 EST, Height, 120.5, kg, 02/03/21 17:38:00 EDT, Dry Weight Start Date: 06/17/21 Status: Ordered Lantus Solostar Pen 100 units/mL subcutaneous solution See Instructions, INJECT 55 UNITS DAILY AT DINNER TIME, # 30 Unknown, 5 Refills, [facility] 46835, 163, cm, 02/05/21 12:14:00 EDT, Height, 120.5, kg, 02/03/21 17:38:00 EDT, Dry Weight Start Date: 02/26/21 Status: Ordered MetFORMIN (Eqv-Glucophage XR) 500 mg oral tablet, extended release 2 tablet, By Mouth, 2 times a day with meals, # 360 tablet, 0 Refills, [facility], 163, cm, 06/16/21 10:10:00 EST, Height, 120.5, [...] tablet, 2 Refills, Maintenance, 04/14/21 14:07:00 EST, [id number], Partial fill upon patient request [...] Start Date: 03/31/21 Status: Ordered nystatin topical 794677 u/gm powder 1 application, Topically, 3 times a day, Please apply to pelvic rash, labia, gluteal folds, and rectum., # 60 Gm, 1 Refills, Maintenance, 03/25/21 16:04:00 EST, Powder, [id number], Partial fill upon patient request if the prescription is for a... Start Date: 03/25/21 Status: Ordered nystatin topical 587664 u/gm powder See Instructions, APPLY TO AFFECTED AREA TWICE A DAY, # 30 Gm, 1 Refills, [facility] 28137, 14, APPLY TO AFFECTED AREA TWICE A DAY, 163, cm, 12/08/20 14:03:00 EDT, Height Start Date: 01/24/21 Status: Ordered Pen [place], 31 G x 8 mm BD Ultra [...] Refills, Maintenance, 03/25/21 15:35:00 EST, Capsule, [id number], Partial fill upon patient request if the [...] was taken away due to non compliant Diagnosis Diagnosis Type Effective Dates Health Status Cl inical Service Informant Abdominal pain Discharge Diagnosis 07/28/21 Vital Signs Most recent to oldest [Reference Range]: 1 Height 163 cm (07/28/21 9:25 AM) Weight 130.3 kg (07/28/21 9:25 AM) Oxygen Saturation [94-100 %] 97 % (07/28/21 9:25 AM) Pulse Rate [55-90 bpm] 110 bpm *H* (07/28/21 9:25 AM) Body Mass Index [18.5-24.99] 49.04 *>HHI* (07/28/21 9:25 AM) Blood Pressure [90-138/55-84 mm Hg] 110/ 70mm Hg (07/28/21 9:25 AM) Respiratory Rate [16-30 br/min] 16 br/mi n (07/28/21 9:25 AM) Temperature [96.8-100.4 DegF] 97.0 DegF (07/28/21 9:25 AM) Mode of Delivery (Oxygen) Room air (07/28/21 9:25 AM) Blood pressure sites Arm, right (07/28/21 9:25 AM) Temperature Route Oral (07/28/21 9:25 AM) Weight Obtained Via Standing scale (07/28/21 9:25 AM) Social History Social History Type Response Smoking Status Former smoker, quit more than 30 days ago; Other: Quit is 2017; entered on: 05/11/21 Sex
--- OUTSIDE RECORDS SUMMARY | 2023-06-15 01:06 | XMS_ITS | Continuity of Care Document ---
Author Name Unknown Organization [facility] James [facility] Address [address] [place] [address]- Care Team Providers Care Underground Truck Operator Name Role Phone Dyan Herrera Primary Care Physician Encounter [facility] Date(s): 02/08/23 - 03/10/23 [facility] Adult [address] [place] [address]- Allergies, Adverse Reactions, Alerts Substance Reaction Severity [...] 05/01/08 Recorded 1Admin Note: AFLURIA quadrivalence VACCINE [facility] 06698-550-81 2Early/Late Reason: Other : Pt not available. 3Location History: DR REEDER Medications FLUoxetine 10 mg oral tablet 1 tablet = 10 mg, By Mouth, Daily, # 30 tablet, 0 Refills, Maintenance, 02/16/23 11:25:00 EDT, Tablet, [id number], Partial fill upon patient request if the prescription is for a schedule II opioid drug., 165.1, cm, 02/16/23 11:04:00 EDTNitin... Start Date: 02/16/23 Status: Ordered Problem List Condition Confirmation Course Effective Dates Status Health St atus Informant Depression Confirmed Active Medical marijuana use Confirmed Active External hemorrhoids Confirmed Active H/O hemorrhage, currently Confirmed Active History of pre-eclampsia Confirmed Active Morbid obesity Confirmed Active THIERRY (obstructive sleep apnea) 1 Confirmed Active Rubella non-immune status, antepartum Confirmed Active Severe obesity (BMI 35.0-39.9) with comorbidity Confirmed Active Diabetes mellitus, type II Confirmed Active Uterine scar from previous surgery affecting Confirmed Active 1Her machine was taken away due to non compliant Social History Social History Type Response Smoking Status Former smoker, quit more than 30 days ago; Other: Quit is 2017; entered on: 05/11/21 Sex Patient Care team information Care Team Personnel Name: Kari Irvin Position: S RN Member Role: Primary Care Nurse Name: Belia Solares RN Position: [facility] OB RN Member Role: Primary Care Nurse Name: Jorge Mendoza RN Position: S RN Member Role: Primary Care Nurse Name: Dyan Herrera Position: [facility] PCO Associate Professional Member Role: PCP Address: Address: [address] [place] [address]- Name: Ruthy Nelson RN Position: S RN Member Role: Primary Care Nurse Name: Colette Powell MD Position: [facility] FIELD REIMBURSEMENT MANAGER MD Member Role: Lifetime FIELD REIMBURSEMENT MANAGER Physician Address: Address: [address] [place] [address], [place] [address] Name: Angelita Reid RN Position: [facility] RN Member Role: Primary Care Nurse Name: Leonor Rodríguez RN, I Position: [facility] RN Member Role: Primary Care Nurse Care Team Related Persons Name: MIHAI BOOKER Address: home [address] [place] [address] Name: YISSEL HOWARD Address: [employer] Address: home [address] [place] [address] Name: DIANE HOWARD Address: home [address] [place] [address] Name: COLLAMORE, SYMPHONY Address: [employer] Address: home [address] [place], [place] [address]
--- OUTSIDE RECORDS SUMMARY | 2023-06-15 01:06 | XMS_ITS | Continuity of Care Document ---
Author Name Unknown Organization [facility] Address [address] [place] [address]- Care Team Providers Care Waste Hand Name Role Phone Evin Arango MD Primary Care Physician [phone] [place] [facility] [place] 09/10/20 - 11/21/20 [facility] [address] [place] [address] Attending Physician: Tal Hawyard MD Admitting Physician: Tal Hayward MD Referring Physician: Evin Arango MD Allergies, Adverse [...] 03/06/12 Recorded 1Admin Note: AFLURIA quadrivalence VACCINE [facility] 20571-690-61 2Early/Late Reason: Other : Pt not available. 3Location History: DR REEDER Medications Alcohol Pads See Instructions, # 120 each, Refills 0, Tot. Refills 0, Maintenance, To use with insulin administration 4 times daily, 05/09/20 12:20:00 EST, Compound, 163, cm, 05/09/20 8:55:00 EST, Height, 164, kg, 09/05/18 17:25:00 EDT, Dry Weight Start Date: 05/09/20 Status: Ordered Freestyle Dipika 14-day [place] Freestyle Dipika 14-day [place], See Instructions, # 1 each, Refills 0, [...] 5 Refills, Maintenance, 06/09/20 10:04:00 EST, Solution, [id number], Partial fill upon patient request [...] Heig... Start Date: 06/09/20 Status: Ordered Pen [place], 31 G x 8 mm BD Ultra [...] 09/27/20 10:32:00 EDT, Route to Pharmacy Electronically, [id number], [facility]/pharmacy#[id number], 163, cm, 09/19/20 [...] syndrome(Confirmed) Active Diabetes mellitus, type II(Confirmed) Active Social History Social History Type Response Smoking Status Former smoker; Tobac co user in household: No entered on: 02/13/18 Sex
--- OUTSIDE RECORDS SUMMARY | 2023-06-15 01:06 | XMS_ITS | Continuity of Care Document ---
Author Name Unknown Organization [facility] Address [address] [place], [place] [address], [address] [place] [address]- Care Team Providers Care Sales Representative Girls' Apparel Name Role Phone Areli SERVIN, Dyan Cline Primary Care Physician Encounter [facility] Date(s): 07/15/21 - 08/14/21 [facility] [address] [place] [address], [address] [place], [place] [address] Allergies, Adverse Reactions, Alerts Substance Reaction Severity [...] 05/01/08 Recorded 1Admin Note: AFLURIA quadrivalence VACCINE [facility] [id number] 2Early/Late Reason: Other : Pt not available. 3Location History: DR REEDER Medications Albuterol (Eqv-ProAir HFA) 90 mcg/inh inhalation aerosol 2 puffs, Inhalation, Every 6 hours, PRN NEEDED FOR SHORTNESS OF BREATH OR WHEEZING, # 8.5 each, 5 Refills, [facility], 25, TAKE 2 PUFFS BY MOUTH EVERY [...] NEEDED FOR PAIN, Route to Pharmacy Electronically, [facility] [address], 163, cm, 06/16/21 10:10:00 EST, Height, 120.5, kg, 02/03/21 17:38:00 EDT, Dry Weight Start Date: 06/17/21 Status: Ordered Lantus Solostar Pen 100 units/mL subcutaneous solution See Instructions, INJECT 55 UNITS DAILY AT DINNER TIME, # 30 Unknown, 11 Refills, 08/06/21 11:50:00EDT, [facility]/pharmacy #[id number], 163, cm, 07/28/21 9:25:00 EDT, Height, [...] [facility]... Start Date: 08/06/21 Status: Ordered Pen [place], 31 G x 8 mm BD Ultra [...]
--- OUTSIDE RECORDS SUMMARY | 2023-06-15 01:06 | XMS_ITS | Continuity of Care Document ---
Author Name Unknown Organization [facility] Address [address] [place] [address]- Care Team Providers Care Ostomy Care Nurse Name Role Phone Dyan Herrera Primary Care Physician [phone] Encounter [facility] Date(s): 01/22/22 - 02/26/22 [facility] Adult [address] [place] [address]- Attending Physician: Dyan Herrera Allergies, Adverse Reactions, [...] Note: AFLURIA quadrivalence VACCINE [facility] 70288-430-93 2Early/Late Reason: Other : Pt not available. 3Location History: DR REEDER Medications Albuterol (Eqv-ProAir HFA) 90 mcg/inh inhalation aerosol 2 puffs, Inhalation, Every 6 hours, PRN NEEDED FOR SHORTNESS OF BREATH OR WHEEZING, # 8.5 each, 5 Refills, Maintenance, 12/02/21 7:35:00 EDT, [facility]/pharmacy #[id number], 25, 2 puffs Inhalation Every 6 [...] 09/10/21 Status: Ordered Freestyle Dipika 2 14-day [place] Freestyle Dipika 2 14-day [place], See Instructions, # 1 each, Refills 0, [...] NEEDED FOR PAIN, Route to Pharmacy Electronically, [facility] 39589, 163, cm, 07/28/21 9:25:00 EDT, Height, 120.5, kg, 02/03/21 17:38:00 EDT, Dry Weight Start Date: 12/02/21 Status: Ordered Lantus Solostar Pen 100 units/mL subcutaneous solution See Instructions, INJECT 55 UNITS DAILY AT DINNER TIME, # 30 Unknown, 11 Refills, 08/06/21 11:50:00EDT, [facility]/pharmacy #[id number], 163, cm, 07/28/21 9:25:00 EDT, Height, 120.5, kg, 02/03/21 17:38:00 EDT, Dry Weight Start Date: 08/06/21 Status: Ordered MetFORMIN (Eqv-Glucophage XR) 500 mg oral tablet, extended release 2 tablet, By Mouth, 2 times a day with meals, # 360 tablet, 11 Refills, 08/06/21 11:50:00 EDT, [facility]/pharmacy #[id number], 163, cm, 07/28/21 9:25:00 EDT, Height, 120.5, kg, 02/03/21 17:38:00 EDT, Dry Weight Start Date: 08/06/21 Status: Ordered miSOPROStol 200 mcg oral tablet See Instructions, Place 2 tabs between cheek and gums on EACH side, let dissolve for 30 min then swallow the rest with water, # 4 tablet, 1 Refills, Maintenance, 05/28/21 14:25:00 EST, [facility]/pharmacy #[id number], Partial fill upon patient request if the presc... Start Date: 05/28/21 Status: Ordered NovoLOG FlexPen 100 units/mL subcutaneous solution See Instructions, - NovoLog, 3 times daily before meals 80-130 21 units 131-180 23 units 181-230 25units 231-280 27 units Over 280 29 units., # 30 mL, 11 Refills, Maintenance, 08/06/21 11:50:00 EDT,[facility]/... Start Date: 08/06/21 Status: Ordered nystatin topical 914436 u/gm powder See Instructions, APPLY TOPICALLY 3 TIMES A DAY PLEASE APPLY TO PELVIC RASH, LABIA, GLUTEAL FOLDS, AND RECTUM., # 60 Gm, 1 Refills, Maintenance, 12/24/21 20:42:00 EDT, [facility], 30, APPLY TOPICALLY 3 TIMES A DAY PLEASE APPLY TO PELVIC RASH, LAB... Start Date: 12/24/21 Status: Ordered Pen [place], 31 G x 8 mm BD Ultra [...] 5 Refills, Maintenance, 06/16/21 10:48:00 EST, Tablet, [facility]/pharmacy #[id number], ok to substitute with ANY vitamin, 1 tablet By Mouth Daily, 163, cm, 06/16/21 10:10:00 EST, Height, 120.5, kg, 02/03/21 17:38:0... Start Date: 06/16/21 Status: Ordered Multivitamins with Folic Acid 1 mg oral tablet 1 tablet, By Mouth, Daily, # 90 tablet, 3 Refills, Maintenance, 05/06/21 11:03:00 EST, Tablet, [facility]/pharmacy #[id number], Please substitute any brand PNV that [...] Date: 03/25/21 Status: Ordered Problem List Condition Confirmation Course Effective Dates Status Health St atus Informant History of Anxiety Confirmed Active Marijuana abuse Confirmed Active Chronic back pain surgery in 2006 Confirmed Active Depression Confirmed Active Medical marijuana use Confirmed Active External hemorrhoids Confirmed Active History of pre-eclampsia Confirmed Active Lipoma Confirmed Active History ofMigraines Confirmed Active Morbid obesity Confirmed Active THIERRY (obstructive sleep apnea) 1 Confirmed Active History of Gestational hypertension (Severe) Confirmed Active Severe obesity Confirmed Active Diabetes mellitus, type II Confirmed Active 1Her machine was taken away due to non compliant Social History Social History Type Response Smoking Status Former smoker, quit more than 30 days ago; Other: Quit is 2017; entered on: 05/11/21 Sex Patient Care team information Personnel Name: Dyan Herrera Address: Address: [address] [place] [id number]
--- OUTSIDE RECORDS SUMMARY | 2023-06-15 01:06 | XMS_ITS | Continuity of Care Document ---
Author Name Unknown Organization [facility] Address [address] [place] [address]- Care Team Providers Care Weight Loss Sales Consultant Name Role Phone Conchita LEE, Evin Teran Primary Care Physician [phone] Encounter [facility] Date(s): 03/12/21 - 04/11/[address] [address]- Allergies, Adverse Reactions, Alerts Substance Reaction Severity [...] 05/01/08 Recorded 1Admin Note: AFLURIA quadrivalence VACCINE [facility] [id number] 2Early/Late Reason: Other : Pt not available. [...] OR WHEEZING, # 8.5 each, 5 Refills, [facility], 25, TAKE 2 PUFFS BY MOUTH EVERY [...] Dry Weight Start Date: 05/09/20 Status: Ordered escitalopram 10 mg oral tablet 1 tablet, By Mouth, Daily, # 30 tablet, 5 Refills, [facility], 163, cm, 01/30/21 9:54:00 EDT, Height, 120.5, kg, 02/03/21 17:38:00 EDT, Dry Weight Start Date: 02/04/21 Status: Ordered fluconazole 150 mg oral tablet 1 tablet = 150 mg, By Mouth, Once, # 1 tablet, 0 Refills, Soft Stop, 03/29/21 8:57:00 EST, Tablet, [facility]/pharmacy #[id number], Partial fill upon patient request if the prescription is for a schedule II opioid drug., 163, cm, 03/25/21 15:25:00 EST, Height, 120... Start Date: 03/29/21 Status: Ordered FREESTYLE 28G LANCETS FREESTYLE 28G [...] 09/05/18 17:25:0... Start Date: 05/09/20 Status: Ordered FREESTYLE LITE METER FREESTYLE LITE [...] Dry Weight Start Date: 06/29/20 Status: Ordered Hydrocerin topical lotion Topically, 2 times a day, 0 Refills, Maintenance, 01/30/21 10:10:00 EDT, Partial fill upon patient request if the prescription is for a schedule II opioid drug. Start Date: 01/30/21 Status: Ordered ibuprofen 600 mg oral tablet 1, tablet, By Mouth, 2 times a day, PRN, # 30 tablet, Refills 0, NEEDED FOR PAIN, Route to Pharmacy Electronically, [facility], 163, cm, 03/25/21 15:25:00 EST, Height, 120.5, kg, 02/03/21 17:38:00 EDT, Dry Weight Start Date: 04/08/21 Status: Ordered Lantus Solostar Pen 100 units/mL subcutaneous solution See Instructions, INJECT 55 UNITS DAILY AT DINNER TIME, # 30 Unknown, 5 Refills, [facility], 163, cm, 02/05/21 12:14:00 EDT, Height, 120.5, kg, 02/03/21 17:38:00 EDT, Dry Weight Start Date: 02/26/21 Status: Ordered MetFORMIN (Eqv-Glucophage XR) 500 mg oral tablet, extended release 2 tablet, By Mouth, 2 times a day with meals, # 120 tablet, 8 Refills, Maintenance, 11/25/20 13:42:00 EDT, [facility]/pharmacy #[id number], 163, cm, 11/13/20 10:29:00 EDT, Height Start Date: 11/25/20 Status: Ordered NovoLOG FlexPen 100 units/mL subcutaneous solution See Instructions, - NovoLog, 3 times daily before meals 80-130 21 units 131-180 23 units 181-230 25units 231-280 27 units Over 280 29 units., # 30 mL, 5 Refills, Maintenance, 03/31/21 17:54:00 EST, [facility] Start Date: 03/31/21 Status: Ordered nystatin topical 687691 u/gm powder 1 application, Topically, 3 times a day, Please apply to pelvic rash, labia, gluteal folds, and rectum., # 60 Gm, 1 Refills, Maintenance, 03/25/21 16:04:00 EST, Powder, [facility]/pharmacy #[id number], Partial fill upon patient request if the prescription is for a... Start Date: 03/25/21 Status: Ordered nystatin topical 237385 u/gm powder See Instructions, APPLY TO AFFECTED AREA TWICE A DAY, # 30 Gm, 1 Refills, [facility] 70291, 14, APPLY TO AFFECTED AREA TWICE A DAY, 163, cm, 12/08/20 14:03:00 EDT, Height Start Date: 01/24/21 Status: Ordered Pen [place], 31 G x 8 mm BD Ultra Fine III See Instructions, # 200 each, Refills 2, Tot. Refills 2, Maintenance, Use to take insulin 4 times daily. E11.65, 06/26/20 11:16:00 EST, Compound, 163, cm, 05/26/20 14:26:00 EST, Height, 164, kg, 09/05/18 17:25:00 EDT, Dry Weight Start Date: 06/26/20 Status: Ordered Multivitamins with Folic Acid 1 mg oral tablet 1 tablet, By Mouth, Daily, # 90 tablet, 3 Refills, Maintenance, 04/09/21 8:54:00 EST, Tablet, [facility]/pharmacy #[id number], Partial fill upon patient request if the prescription is for a schedule II opioid drug., 1 tablet By Mouth Daily, 163, cm, 03/25/21 15:25... Start Date: 04/09/21 Status: Ordered Multivitamins with Vitamin B Complex, Vitamin C, Minerals and L- Methylfolate oral capsule 1 capsule, By Mouth, Daily, # 30 capsule, 11 Refills, Maintenance, 03/25/21 15:35:00 EST, Capsule, [facility]/pharmacy #[id number], Partial fill upon patient request if the prescription is for a schedule II opioid drug., 1 capsule By Mouth Daily, 163, cm, 03/25/21... Start Date: 03/25/21 Status: Ordered Problem List Condition Effective Dates Status Health Status Inform ant Anxiety(Confirmed) Active Marijuana abuse(Confirmed) Active Chronic back pain(Confirmed) Active Depression(Confirmed) Active Medical marijuana use(Confirmed) Active External hemorrhoids(Confirmed) Active History of pre-eclampsia(Confirmed) Active Lipoma(Confirmed) Active Migraines(Confirmed) Active Morbid obesity(Confirmed) Active THIERRY (obstructive sleep apnea)(Confirmed) Active History of Gestational hyper tension (Severe)(Confirmed) Active Restless leg syndrome(Confirmed) Active Severe obesity(Confirmed) Active Diabetes mellitus, type II(Confirmed) Active Social History Social History Type Response Smoking Status Former smoker; Tobac co user in household: No entered on: 02/13/18 Sex
--- OUTSIDE RECORDS SUMMARY | 2023-06-15 01:06 | XMS_ITS | Continuity of Care Document ---
Author Name Unknown Organization [facility] Address [address], [address] [place] [address]- Care Team Providers Care Senior Pricing Analyst Name Role Phone Conchita LEE, Evin Teran Primary Care Physician Encounter [facility] Date(s): 04/09/21 - 05/09/21 [facility] [employer] [facility] [address], [address] [place], [place] [address] Allergies, Adverse Reactions, Alerts Substance Reaction Severity [...] 05/01/08 Recorded 1Admin Note: AFLURIA quadrivalence VACCINE [facility] [id number] 2Early/Late Reason: Other : Pt not available. [...] OR WHEEZING, # 8.5 each, 5 Refills, [facility] 09159, 25, TAKE 2 PUFFS BY MOUTH EVERY [...] Mouth, Daily, # 30 tablet, 5 Refills, [facility] 75830, 163, cm, 01/30/21 9:54:00 EDT, Height, 120.5, kg, 02/03/21 17:38:00 EDT, Dry Weight Start Date: 02/04/21 Status: Ordered fluconazole 150 mg oral tablet 1 tablet = 150 mg, By Mouth, Once, # 1 tablet, 0 Refills, Soft Stop, 03/29/21 8:57:00 EST, Tablet, [id number], Partial fill upon [...] drug. Start Date: 01/30/21 Status: Ordered ibuprofen 800 mg oral tablet 1, tablet, By Mouth, Every 8 hours, # 30 tablet, Refills 1, Route to Pharmacy Electronically, [facility] 10[facility], 163, cm, 03/25/21 15:25:00 EST, Height, 120.5, kg, 02/03/21 17:38:00 EDT, Dry Weight Start Date: 04/27/21 Status: Ordered Lantus Solostar Pen 100 units/mL subcutaneous solution See Instructions, INJECT 55 UNITS DAILY AT DINNER TIME, # 30 Unknown, 5 Refills, [facility] 21065, 163, cm, 02/05/21 12:14:00 EDT, Height, 120.5, kg, 02/03/21 17:38:00 EDT, Dry Weight Start Date: 02/26/21 Status: Ordered MetFORMIN (Eqv-Glucophage XR) 500 mg oral tablet, extended release 2 tablet, By Mouth, 2 times a day with meals, # 120 tablet, 8 Refills, Maintenance, 11/25/20 13:42:00 EDT, [facility]/pharmacy #[id number], 163, cm, 11/13/20 10:29:00 EDT, Height Start Date: 11/25/20 Status: Ordered Niva-Plus oral tablet 1 tablet, By Mouth, Daily, # 90 tablet, 2 Refills, Maintenance, 04/14/21 14:07:00 EST, [facility]/pharmacy#[id number], Partial fill upon patient request if [...] Start Date: 03/31/21 Status: Ordered nystatin topical 436247 u/gm powder 1 application, Topically, 3 times a day, Please apply to pelvic rash, labia, gluteal folds, and rectum., # 60 Gm, 1 Refills, Maintenance, 03/25/21 16:04:00 EST, Powder, [facility]/pharmacy #[id number], Partial fill upon patient request if the prescription is for a... Start Date: 03/25/21 Status: Ordered nystatin topical 785230 u/gm powder See Instructions, APPLY TO AFFECTED AREA TWICE A DAY, # 30 Gm, 1 Refills, [facility] 29157, 14, APPLY TO AFFECTED AREA TWICE A DAY, 163, cm, 12/08/20 14:03:00 EDT, Height Start Date: 01/24/21 Status: Ordered Pen [place], 31 G x 8 mm BD Ultra [...] 11 Refills, Maintenance, 03/25/21 15:35:00 EST, Capsule, [facility]/pharmacy #[id number], Partial fill upon patient request [...]
--- OUTSIDE RECORDS SUMMARY | 2023-06-15 01:06 | XMS_ITS | Continuity of Care Document ---
Author Name Unknown Organization [facility] Address [address] [place] [address]- Care Team Providers Care Sterile Preparation Technician Name Role Phone Evin Arango MD Primary Care Physician Encounter [facility] Date(s): 03/09/21 - 03/16/21 [facility] Adult [address] [place] [address]- Attending Physician: Evin Arango MD Allergies, Adverse [...] 05/01/08 Recorded 1Admin Note: AFLURIA quadrivalence VACCINE [facility] [id number] 2Early/Late Reason: Other : Pt not available. 3Location History: DR REEDER Medications acetaminophen 325 mg oral tablet See Instructions, 3 tablet po q6h round the clock, Refills 0, Maintenance, 01/30/21 10:07:00 EDT, Instructions Replace Required Details, Partial fill upon patient request if the prescription is for aschedule II opioid drug. Start Date: 01/30/21 Status: Ordered Alcohol Pads See Instructions, # 120 each, Refills 0, Tot. Refills 0, Maintenance, To use with insulin administration 4 times daily, 05/09/20 12:20:00 EST, Compound, 163, cm, 05/09/20 8:55:00 EST, Height, 164, kg, 09/05/18 17:25:00 EDT, Dry Weight Start Date: 05/09/20 Status: Ordered escitalopram 10 mg oral tablet 1 tablet, By Mouth, Daily, # 30 tablet, 5 Refills, [facility] 266[facility], 163, cm, 01/30/21 9:54:00 EDT, Height, 120.5, kg, 02/03/21 17:38:00 EDT, Dry Weight Start Date: 02/04/21 Status: Ordered FREESTYLE 28G LANCETS FREESTYLE 28G [...] NEEDED FOR PAIN, Route to Pharmacy Electronically, [facility] 51957, 163, cm, 03/09/21 12:46:00 EST, Height, 120.5, kg, 02/03/21 17:38:00 EDT, Dry Weight Start Date: 03/16/21 Status: Ordered Lantus Solostar Pen 100 units/mL subcutaneous solution See Instructions, INJECT 55 UNITS DAILY AT DINNER TIME, # 30 Unknown, 5 Refills, [facility] 65445, 163, cm, 02/05/21 12:14:00 EDT, Height, 120.5, kg, 02/03/21 17:38:00 EDT, Dry Weight Start Date: 02/26/21 Status: Ordered MetFORMIN (Eqv-Glucophage XR) 500 mg oral tablet, extended release 2 tablet, By Mouth, 2 times a day with meals, # 120 tablet, 8 Refills, Maintenance, 11/25/20 13:42:00 EDT, [facility]/pharmacy #[id number], 163, cm, 11/13/20 10:29:00 EDT, Height Start Date: 11/25/20 Status: Ordered NovoLOG FlexPen 100 units/mL subcutaneous solution See Instructions, Take 20 units per meal. E11.65. Max daily dose 60 units., # 30 mL, 5 Refills, Maintenance, 06/09/20 10:05:00 EST, [facility]/pharmacy #[id number], May increase dose by 4 units at meals if increased CHO intake, 163, cm, 05/26/20 14:26:00 EST, [facility]... Start Date: 06/09/20 Status: Ordered nystatin topical 321896 u/gm powder See Instructions, APPLY TO AFFECTED AREA TWICE A DAY, # 30 Gm, 1 Refills, [facility] 81247, 14, APPLY TO AFFECTED AREA TWICE A DAY, 163, cm, 12/08/20 14:03:00 EDT, Height Start Date: 01/24/21 Status: Ordered Pen [place], 31 G x 8 mm BD Ultra [...] 09/27/20 10:32:00 EDT, Route to Pharmacy Electronically, [id number], [facility]/pharmacy#[id number], 163, cm, 09/19/20 9:21:00 EDT, Height [...] oldest [Reference Range]: 1 Height 163 cm (03/09/21 12:46 PM) Weight 121.9 kg (03/09/21 12:46 PM) Oxygen Saturation [94-100 %] 96 % (03/09/21 12:46 PM) Pulse Rate [55-90 bpm] 104 bpm *H* (03/09/21 12:46 PM) Body Mass Index [18.5-24.99] 45.88 *>HHI* (03/09/21 12:46 PM) Blood Pressure [90-138/55-84 mm Hg] 112/ 68mm Hg (03/09/21 12:46 PM) Respiratory Rate [16-30 br/min] 16 br/mi n (03/09/21 12:46 PM) Temperature [96.8-100.4 DegF] 97.7 DegF (03/09/21 12:46 PM) Mode of Delivery (Oxygen) Room air (03/09/21 12:46 PM) Blood pressure sites Arm, right (03/09/21 12:46 PM) Temperature Route Oral (03/09/21 12:46 PM) Weight Obtained Via Standing scale (03/09/21 12:46 PM) Social History Social History Type Response Smoking Status Former smoker; Tobac co user in household: No entered on: 02/13/18 Sex
--- OUTSIDE RECORDS SUMMARY | 2023-06-15 01:06 | XMS_ITS | Continuity of Care Document ---
Author Name Unknown Organization [facility] Address [address] [place] [address]- Care Team Providers Care Roll Picker Name Role Phone Conchita LEE, Evin Teran Primary Care Physician [phone] Encounter [facility] Date(s): 06/12/21 - 07/12/[address] [address]- Allergies, Adverse Reactions, Alerts Substance Reaction Severity [...] 05/01/08 Recorded 1Admin Note: AFLURIA quadrivalence VACCINE [facility] [id number] 2Early/Late Reason: Other : Pt not available. [...] OR WHEEZING, # 8.5 each, 5 Refills, [facility] 518[facility], 25, TAKE 2 PUFFS BY MOUTH EVERY [...] NEEDED FOR PAIN, Route to Pharmacy Electronically, [facility] 44316, 163, cm, 06/16/21 10:10:00 EST, Height, 120.5, kg, 02/03/21 17:38:00 EDT, Dry Weight Start Date: 06/17/21 Status: Ordered Lantus Solostar Pen 100 units/mL subcutaneous solution See Instructions, INJECT 55 UNITS DAILY AT DINNER TIME, # 30 Unknown, 5 Refills, [facility] 36111, 163, cm, 02/05/21 12:14:00 EDT, Height, 120.5, kg, 02/03/21 17:38:00 EDT, Dry Weight Start Date: 02/26/21 Status: Ordered MetFORMIN (Eqv-Glucophage XR) 500 mg oral tablet, extended release 2 tablet, By Mouth, 2 times a day with meals, # 360 tablet, 0 Refills, [facility] 90528, 163, cm, 06/16/21 10:10:00 EST, Height, 120.5, [...] Start Date: 03/31/21 Status: Ordered nystatin topical 696584 u/gm powder 1 application, Topically, 3 times a day, Please apply to pelvic rash, labia, gluteal folds, and rectum., # 60 Gm, 1 Refills, Maintenance, 03/25/21 16:04:00 EST, Powder, [id number], Partial fill upon patient request if the prescription is for a... Start Date: 03/25/21 Status: Ordered nystatin topical 370484 u/gm powder See Instructions, APPLY TO AFFECTED AREA TWICE A DAY, # 30 Gm, 1 Refills, [facility] 17282, 14, APPLY TO AFFECTED AREA TWICE A DAY, 163, cm, 12/08/20 14:03:00 EDT, Height Start Date: 01/24/21 Status: Ordered Pen [place], 31 G x 8 mm BD Ultra [...] Refills, Maintenance, 03/25/21 15:35:00 EST, Capsule, [id number], Partial fill upon patient request if the [...]
--- OUTSIDE RECORDS SUMMARY | 2023-06-15 01:06 | XMS_ITS | Continuity of Care Document ---
Author Name Unknown Organization [facility] Address [address] [place] [address]- Care Team Providers Care Chief Communications Officer Name Role Phone Dyan Herrera Primary Care Physician Encounter [facility] Date(s): 12/29/21 - 04/28/22 [facility] [address] [place] [address] Attending Physician: Aleks Mccauley MD Admitting Physician: Aleks Mccauley MD Referring Physician: Dyan Herrera Allergies, Adverse [...] Note: AFLURIA quadrivalence VACCINE [facility] [id number] 2Early/Late Reason: Other : Pt not available. 3Location History: DR [facility] Medications Albuterol (Eqv-ProAir HFA) 90 mcg/inh inhalation aerosol 2 puffs, Inhalation, Every 6 hours, PRN NEEDED FOR SHORTNESS OF BREATH OR WHEEZING, # 8.5 each, 5 Refills, Maintenance, 12/02/21 7:35:00 EDT, [facility]/pharmacy #[id number], 25, 2 puffs Inhalation [...] 09/10/21 Status: Ordered Freestyle Dipika 2 14-day Randolph Freestyle Dipika 2 14-day [place], See Instructions, # 1 each, Refills 0, [...] NEEDED FOR PAIN, Route to Pharmacy Electronically, [facility] STORE 22844, 163, cm, 07/28/21 9:25:00 EDT, Height, 120.5, kg, 02/03/21 17:38:00 EDT, Dry Weight Start Date: 12/02/21 Status: Ordered Lantus Solostar Pen 100 units/mL subcutaneous solution See Instructions, INJECT 55 UNITS DAILY AT DINNER TIME, # 30 Unknown, 11 Refills, 08/06/21 11:50:00EDT, [facility]/pharmacy #[id number], 163, cm, 07/28/21 9:25:00 EDT, Height, 120.5, kg, 02/03/21 17:38:00 EDT, Dry Weight Start Date: 08/06/21 Status: Ordered MetFORMIN (Eqv-Glucophage XR) 500 mg oral tablet, extended release 2 tablet, By Mouth, 2 times a day with meals, # 360 tablet, 11 Refills, 08/06/21 11:50:00 EDT, [facility]/pharmacy #[id number], 163, cm, 07/28/21 9:25:00 EDT, Height, 120.5, kg, 02/03/21 17:38:00 EDT, Dry Weight Start Date: 08/06/21 Status: Ordered miSOPROStol 200 mcg oral tablet See Instructions, Place 2 tabs between cheek and gums on EACH side, let dissolve for 30 min then swallow the rest with water, # 4 tablet, 1 Refills, Maintenance, 05/28/21 14:25:00 EST, [facility]/pharmacy #[id number], Partial fill upon patient request if the presc... Start Date: 05/28/21 Status: Ordered NovoLOG FlexPen 100 units/mL subcutaneous solution See Instructions, - NovoLog, 3 times daily before meals 80-130 21 units 131-180 23 units 181-230 25units 231-280 27 units Over 280 29 units., # 30 mL, 11 Refills, Maintenance, 08/06/21 11:50:00 EDT,[facility]/... Start Date: 08/06/21 Status: Ordered nystatin topical 889772 u/gm powder See Instructions, APPLY TOPICALLY 3 TIMES A DAY PLEASE APPLY TO PELVIC RASH, LABIA, GLUTEAL FOLDS, AND RECTUM., # 60 Gm, 1 Refills, Maintenance, 12/24/21 20:42:00 EDT, [facility], 30, APPLY TOPICALLY 3 TIMES A DAY PLEASE APPLY TO PELVIC RASH, LAB... Start Date: 12/24/21 Status: Ordered Pen [place], 31 G x 8 mm BD Ultra [...] List Condition Confirmation Course Effective Dates Status [facility] at Informant History of Anxiety Confirmed Active Marijuana [...] Team Personnel Name: Belia Solares RN Position: [facility] OB RN Member Role: Primary Care Nurse Name: Jorge Mendoza RN Position: [facility] RN Member Role: Primary Care Nurse Name: Dyan Herrera Position: [facility] PCO Associate Professional Member Role: PCP Address: Address: [address] [place] [address] Name: Ruthy Nelson RN Position: [facility] RN Member Role: Primary Care Nurse Care Team Related Persons Name: MILTON BOOKERANNA Address: home [address] [place] [address] Name: YISSEL HOWARD Address: [employer] Address: home [address] [place] [address] Name: DIANE HOWARD Address: home [address] [place] [address] Name: MILTON HOWARD Address: [employer] Address: home [address] [place] [address]
--- OUTSIDE RECORDS SUMMARY | 2023-06-15 01:06 | XMS_ITS | Continuity of Care Document ---
Author Name Unknown Organization [facility] Address [address] [place] [address]- Care Team Providers Care Basting Puller Name Role Phone Dyan Herrera Primary Care Physician [phone] Encounter [facility] Date(s): 12/10/22 - 01/15/23 [facility] Adult [address] [place] [address]- Attending Physician: Dayn Herrera Allergies, Adverse Reactions, Alerts Substance Reaction [...] 05/01/08 Recorded 1Admin Note: AFLURIA quadrivalence VACCINE [facility] [id number] 2Early/Late Reason: Other : Pt not available. 3Location History: DR [facility] Medications Albuterol (Eqv-ProAir HFA) 90 mcg/inh inhalation aerosol 2 puffs, Inhalation, Every 6 hours, PRN NEEDED FOR SHORTNESS OF BREATH OR WHEEZING, # 8.5 each, 5 Refills, Maintenance, 12/02/21 7:35:00 EDT, [id number], 25, 2 puffs Inhalation Every 6 hours,PRN: NEEDED FOR SHORTNESS OF BREATH OR WHEEZING... Start Date: 12/02/21 Status: Ordered Apri 0.15 mg-0.03 mg oral tablet See Instructions, TAKE 1 TABLET BY MOUTH EVERY DAY, # 84 tablet, 0 Refills, Maintenance, 09/17/22 11:33:00 EDT, [facility], 84, TAKE 1 TABLET BY MOUTH EVERY DAY, 165.1, cm, 08/27/22 9:57:00 EDT,Height, 122, kg, 06/23/22 9:22:00 EST, Dry Weight Start Date: 09/17/22 Status: Ordered escitalopram 20 mg oral tablet 1 tablet, By Mouth, Daily, # 30 tablet, 0 Refills, Maintenance, 11/08/22 7:48:00 EDT, [facility], 165.1, cm, 10/21/22 10:08:00 EDT, Height, 122, kg, 06/23/22 9:22:00 EST, Dry Weight Start Date: 11/08/22 Status: Ordered Lantus Inj = 50 units, Subcutaneous Injection, Daily in AM, 0 Refills, Maintenance, 08/19/22 14:16:00 EDT, Injection, Partial fill upon patient request if the prescription is for a schedule II opioid drug. Start Date: 08/19/22 Status: Ordered MetFORMIN (Eqv-Glucophage XR) 500 mg oral tablet, extended release 2 tablet, By Mouth, 2 times a day with meals, # 360 tablet, 11 Refills, 11/05/22 12:10:00 EDT, [id number], 165.1, cm, 10/21/22 10:08:00 EDT, Height, 122, kg, 06/23/22 9:22:00 EST, Dry Weight Start Date: 11/05/22 Status: Ordered NovoLOG FlexPen 100 units/mL subcutaneous solution See Instructions, Take 23-34 units based on sliding scale. E11.9 Max daily dose 102 units., # 30 mL, 11 Refills, Maintenance, 06/02/22 18:08:00 EST, [id number], May increase dose by 4 units at meals if increased CHO intake, 163, cm, 06/02/22 1... Start Date: 06/02/22 Status: Ordered Problem List Condition Confirmation Course Effective Dates Status Health [facility] Informant Depression Confirmed Active Medical marijuana use Confirmed Active External hemorrhoids Confirmed Active H/O hemorrhage, currently Confirmed Active History of pre-eclampsia Confirmed Active Morbid obesity Confirmed Active THIERRY (obstructive sleep apnea) 1 Confirmed Active Rubella non-immune status, antepartum Confirmed Active Severe obesity Confirmed Active Diabetes [...] Care Nurse Name: Belia Solares RN Position: [facility] OB RN Member Role: Primary Care Nurse Name: Jorge Mendoza RN Position: [facility] RN Member Role: Primary Care Nurse Name: Dyan Herrera Position: [facility] PCO Associate Professional Member Role: PCP Address: Address: [address] [place] [id number] Name: Ruthy Nelson RN Position: [facility] RN Member Role: Primary Care Nurse Name: Colette Powell MD Position: [facility] FOREST ENGINEER MD Member Role: Lifetime FOREST ENGINEER Physician Address: Address: [address] [place] [address], [place] [address] Name: Angelita Reid RN Position: [facility] RN Member Role: Primary Care Nurse Name: Leonor Rodríguez RN, I Position: [facility] RN Member Role: Primary Care Nurse Care Team Related Persons Name: MIHAI BOOKER Address: home [address] [place] [address] Name: YISSEL HOWARD Address: [employer] Address: home [address] [place] [address] Name: DIANE HOWARD Address: home [address] [place] [address] Name: MILTON HOWARD Address: [employer] Address: home [address] [place] [address]
--- OUTSIDE RECORDS SUMMARY | 2023-06-15 01:06 | XMS_ITS | Continuity of Care Document ---
Author Name Unknown Organization [facility] lt Address [address] [place] [address]- Care Team Providers Care Shelter Director Name Role Phone Dyan Herrera Primary Care Physician [phone] [facility]16[facility]22 - 01/15/23 [facility] Adult [address] [place] [address]- Attending Physician: AdmtrIlan Admitting Physician: AdmtrIlan Referring Physician: Admtr, Ar8 Allergies, Adverse Reactions, Alerts Substance Reaction Severity [...] 05/01/08 Recorded 1Admin Note: AFLURIA quadrivalence VACCINE [facility] [id number] 2Early/Late Reason: Other : Pt not available. 3Location History: DR REEDER Medications Albuterol (Eqv-ProAir HFA) 90 mcg/inh inhalation aerosol 2 puffs, Inhalation, Every 6 hours, PRN NEEDED FOR SHORTNESS OF BREATH OR WHEEZING, # 8.5 each, 5 Refills, Maintenance, 12/02/21 7:35:00 EDT, [facility]/pharmacy #[id number], 25, 2 puffs Inhalation Every 6 hours,PRN: NEEDED FOR SHORTNESS OF BREATH OR WHEEZING... Start Date: 12/02/21 Status: Ordered Apri 0.15 mg-0.03 mg oral tablet See Instructions, TAKE 1 TABLET BY MOUTH EVERY DAY, # 84 tablet, 0 Refills, Maintenance, 09/17/22 11:33:00 EDT, [id number], 84, TAKE 1 TABLET BY MOUTH EVERY DAY, 165.1, cm, 08/27/22 9:57:00 EDT,Height, 122, kg, 06/23/22 9:22:00 EST, Dry Weight Start Date: 09/17/22 Status: Ordered escitalopram 20 mg oral tablet 1 tablet, By Mouth, Daily, # 30 tablet, 0 Refills, Maintenance, 11/08/22 7:48:00 EDT, [facility], 165.1, cm, 10/21/22 10:08:00 EDT, Height, 122, [...] Quit is 2017; entered on: 05/11/21 Sex Laboratory * Event Display: Non Lab Results Authored Date: [id number] Patient Care team information Care Team Personnel Name: Kari Irvin Position: [facility] RN Member Role: Primary Care Nurse Name: Belia Solares RN Position: [facility] OB RN Member Role: Primary Care Nurse Name: Jorge Mendoza RN Position: [facility] RN Member Role: Primary Care Nurse Name: Dyan Herrera Position: [facility] PCO Associate Professional Member Role: PCP Address: Address: [address] [place] [address]- Name: Ruthy Nelson RN Position: [facility] RN Member Role: Primary Care Nurse Name: Colette Powell MD Position: [facility] FORCE DISPATCHER MD Member Role: Lifetime FORCE DISPATCHER Physician Address: Address: [address] [place] [address] [address]- Name: Angelita Reid RN Position: [facility] RN Member Role: Primary Care Nurse Name: Leonor Rodríguez RN, I Position: [facility] RN Member Role: Primary Care Nurse Care Team Related Persons Name: MIHAI BOOKER Address: home [address] [place] [address] Name: YISSEL HOWARD Address: [employer] Address: home [address] [place] [address] [place] Name: DIANE HOWARD Address: home [address] [place] [address] Name: MILTON HOWARD Address: [employer] Address: home [address] [place] [address]
--- OUTSIDE RECORDS SUMMARY | 2023-06-15 01:06 | XMS_ITS | Continuity of Care Document ---
Author Name Unknown Organization [facility] Address [address] [place] [address]- Care Team Providers Care Mining Plant Operator Name Role Phone Dyan Herrera Primary Care Physician [phone] [facility]s): 06/04/22 - 07/04/22 [facility] [address] [place] [address] Allergies, Adverse Reactions, Alerts [...] 05/01/08 Recorded 1Admin Note: AFLURIA quadrivalence VACCINE [facility] [id number] 2Early/Late Reason: Other : Pt not available. [...] 0 Refills, Maintenance, 06/23/22 12:27:00 EST, Tablet, [facility]/pharmacy #[id number], Partial fill upon patient request [...] Refills, Maintenance, 05/24/22 12:10:00 EST, CR Tablet, [facility]/pharmacy #[id number], Partial fill upon patient r... Start Date: 05/24/22 Status: Ordered fluconazole 150 mg oral tablet 1 tablet = 150 mg, By Mouth, Once, # 1 tablet, 0 Refills, Soft Stop, 06/23/22 4:06:00 EST, Tablet, [facility]/pharmacy #[id number], Partial fill upon patient request [...] 09/10/21 Status: Ordered Freestyle Dipika 2 14-day [place] Freestyle Dipika 2 14-day [place], See Instructions, # 1 each, Refills 0, [...] 30 Unknown, 11 Refills, 06/02/22 18:09:00 EST, [facility]/pharmacy #[id number], 163, cm, 06/02/22 14:37:00 EST, Height, [...] Refills, Maintenance, 06/03/22 12:28:00 EST, ER Tablet, [id number], Partial fill upon patient [...] 1... Start Date: 06/02/22 Status: Ordered Pen [place], 31 G x 8 mm BD Ultra [...] 100 capsule, 2 Refills, Maintenance, 05/11/22 14:42:00EST, [facility]/pharmacy #[id number], Partial fill upon patient request if the prescription is for a schedule IIopioid drug., TAKE ONE DAILY BY MOUTH, 163, cm, ... Start Date: 05/11/22 Status: Ordered Multivitamins with Folic Acid 1 mg oral tablet 1 tablet, By Mouth, Daily, # 90 tablet, 2 Refills, Maintenance, 05/24/22 12:08:00 EST, [facility]/pharmacy#[id number], Partial fill upon patient request if [...] Team Personnel Name: Belia Solares RN Position: [facility] OB RN Member Role: Primary Care Nurse Name: Jorge Mendoza RN Position: [facility] RN Member Role: Primary Care Nurse Name: Dyan Herrera Position: [facility] PCO Associate Professional Member Role: PCP Address: Address: [address] [place] [address] Name: Ruthy Nelson RN Position: [facility] RN Member Role: Primary Care Nurse Name: Colette Powell MD Position: [facility] VACUUM CASTER MD Member Role: Lifetime VACUUM CASTER Physician Address: Address: [address] [place] [address] [address]- Care Team Related Persons Name: MIHAI BOOKER Address: home [address] [place] [address] Name: YISSEL HOWARD Address: [employer] Address: home [address] [facility] [place] [address] Name: DIANE HOWARD Address: home [address] [place] [address] Name: MILTON HOWARD Address: [employer] Address: home [address] [place] [address]
--- OUTSIDE RECORDS SUMMARY | 2023-06-15 01:06 | XMS_ITS | Continuity of Care Document ---
Author Name Unknown Organization [facility] Address [address] [place] [address]- Care Team Providers Care Rock Duster Name Role Phone Dyan Herrera Primary Care Physician [phone] [facility]): 07/16/22 - 08/15/[address] [address] Allergies, Adverse Reactions, Alerts Substance [...] 05/01/08 Recorded 1Admin Note: AFLURIA quadrivalence VACCINE [facility] [id number] 2Early/Late Reason: Other : Pt not available. 3Location History: DR REEDER Medications Albuterol (Eqv-ProAir HFA) 90 mcg/inh inhalation aerosol 2 puffs, Inhalation, Every 6 hours, PRN NEEDED FOR SHORTNESS OF BREATH OR WHEEZING, # 8.5 each, 5 Refills, Maintenance, 12/02/21 7:35:00 EDT, [facility]/pharmacy #[id number], 25, 2 puffs Inhalation [...] 0 Refills, Maintenance, 06/23/22 12:27:00 EST, Tablet, [facility]/pharmacy #[id number], Partial fill upon patient [...] Refills, Maintenance, 05/24/22 12:10:00 EST, CR Tablet, [facility]/pharmacy #[id number], Partial fill upon patient r... Start Date: 05/24/22 Status: Ordered fluconazole 150 mg oral tablet 1 tablet = 150 mg, By Mouth, Once, # 1 tablet, 0 Refills, Soft Stop, 06/23/22 4:06:00 EST, Tablet, [facility]/pharmacy #[id number], Partial fill upon patient request if the prescription is for a schedule II opioid drug., 163, cm, 06/07/22 10:40:00 EST, Height, 123... Start Date: 06/23/22 Status: Ordered FREESTYLE 28G LANCETS FREESTYLE 28G LANCETS, See Instructions, # 100 Unknown, 1 Refills, USE TO TEST BLOOD SUGAR 4 TIMES A DAY, 163, cm, 02/05/21 12:14:00 EDT, Height, 120.5, kg, 10/05/21 17:38:00 EDT, Dry Weight Start Date: 02/24/21 [...] 09/10/21 Status: Ordered Freestyle Dipika 2 14-day [place] Freestyle Dipika 2 14-day [place], See Instructions, # 1 each, Refills 0, [...] 30 Unknown, 11 Refills, 06/02/22 18:09:00 EST, [facility]/pharmacy #[id number], 163, cm, 06/02/22 14:37:00 EST, Height, 120.5, kg, 02/03/21 17:38:00 EDT, Dry Weight Start Date: 06/02/22 Status: Ordered MetFORMIN (Eqv-Glucophage XR) 500 mg oral tablet, extended release 2 tablet, By Mouth, 2 times a day with meals, # 360 tablet, 11 Refills, 08/06/21 11:50:00 EDT, [facility]/pharmacy #[id number], 163, cm, 07/28/21 9:25:00 EDT, Height, 120.5, kg, 02/03/21 17:38:00 EDT, Dry Weight Start Date: 08/06/21 Status: Ordered metFORMIN 500 mg oral tablet, extended release See Instructions, 2 tablet By Mouth twice Daily. E11.9, # 60 tablet, 8 Refills, Maintenance, 06/03/22 12:28:00 EST, ER Tablet, [facility]/pharmacy #[id number], Partial fill upon patient [...] 1... Start Date: 06/02/22 Status: Ordered Pen Peculiar, 31 G x 8 mm BD Ultra [...] 5 Refills, Maintenance, 06/16/21 10:48:00 EST, Tablet, [facility]/pharmacy #[id number], ok to substitute with ANY vitamin, 1 tablet By Mouth Daily, 163, cm, 06/16/21 10:10:00 EST, Height, 120.5, kg, 02/03/21 17:38:0... Start Date: 06/16/21 Status: Ordered Multivitamins with Folic Acid 1 mg oral capsule See Instructions, TAKE ONE DAILY BY MOUTH, # 100 capsule, 2 Refills, Maintenance, 05/11/22 14:42:00EST, [facility]/pharmacy #[id number], Partial fill upon patient request if the prescription is for a schedule IIopioid drug., TAKE ONE DAILY BY MOUTH, 163, cm, ... Start Date: 05/11/22 Status: Ordered Multivitamins with Folic Acid 1 mg oral tablet 1 tablet, By Mouth, Daily, # 90 tablet, 2 Refills, Maintenance, 05/24/22 12:08:00 EST, [facility]/pharmacy#0693, Partial fill upon patient request [...] Team Personnel Name: Belia Solares RN Position: [facility] OB RN Member Role: Primary Care Nurse Name: Jorge Mendoza RN Position: S RN Member Role: Primary Care Nurse Name: Dyan Herrera Position: [facility] PCO Associate Professional Member Role: PCP Address: Address: [address] [place] [address] Name: Ruthy Nelson RN Position: [facility] RN Member Role: Primary Care Nurse Name: Colette Powell MD Position: [facility] LEGAL EXECUTIVE MD Member Role: Lifetime LEGAL EXECUTIVE Physician Address: Address: [address] [place] [address] [address]- Care Team Related Persons Name: MIHAI BOOKER Address: home [address] [place] [address] Name: YISSEL HOWARD Address: [employer] Address: [place] [address] [place] [address] Name: DIANE HOWARD Address: home [address] [place] [address] Name: MILTON HOWARD Address: [employer] Address: home [address] [place] [address]
--- OUTSIDE RECORDS SUMMARY | 2023-06-15 01:06 | XMS_ITS | Continuity of Care Document ---
Author Name Unknown Organization [facility] Address [address] [place] [address]- Care Team Providers Care Concession Attendant Name Role Phone Dyan Herrera Primary Care Physician [facility] 03[facility]10/23 - 04/09/23 [facility] [address] [place] [address] Allergies, Adverse Reactions, Alerts Substance [...] 05/01/08 Recorded 1Admin Note: AFLURIA quadrivalence VACCINE [facility] [id number] 2Early/Late Reason: Other : Pt not available. 3Location History: DR REEDER Medications Cane See Instructions, # 1 each, Refills 0, Tot. Refills 0, Maintenance, dx: M54.9 Chronic back pain, 03/28/23 14:05:00 EST, Supply Start Date: 03/28/23 Status: Ordered FLUoxetine 10 mg oral tablet 1 tablet = 10 mg, By Mouth, Daily, # 30 tablet, 0 Refills, Maintenance, 03/11/23 10:39:00 EST, Tablet, [facility]/pharmacy #[id number], Partial fill upon patient request if the prescription is for a schedule II opioid drug., 165.1, cm, 02/16/23 11:04:00 EDT, Heigh... Start Date: 03/11/23 Status: Ordered Foam Mattress full size Foam Mattress full size, See Instructions, # 1 each, Refills 0, Tot. Refills 0, Maintenance, Foam Mattress dx: M54.9 chronic back pain, 03/28/23 14:07:00 EST, Supply Start Date: 03/28/23 Status: Ordered Nyamyc 100,000 units/g topical powder See Instructions, APPLY TOPICALLY 3 TIMES A DAY PLEASE APPLY TO PELVIC RASH, LABIA, GLUTEAL FOLDS, AND RECTUM., # 60 Gm, 1 Refills, Maintenance, 03/28/23 7:43:00 EST, [facility] 267[facility], 30, APPLY TOPICALLY 3 TIMES A DAY PLEASE APPLY TO PELVIC RASH, LABI... Start Date: 03/28/23 Status: Ordered Shower Chair Shower Chair, See Instructions, # 1 each, Refills 0, Tot. Refills 0, Maintenance, Shower Chair dx: M54.9 Chronic back pain, 03/28/23 14:07:00 EST, Supply Start Date: 03/28/23 Status: Ordered Problem List Condition Confirmation Course [...] Care Nurse Name: Belia Solares RN Position: [facility] OB RN Member Role: Primary Care Nurse Name: Jorge Mendoza RN Position: [facility] RN Member Role: Primary Care Nurse Name: Dyan Herrera Position: [facility] PCO Associate Professional Member Role: PCP Address: Address: [address] [place] [address]- [place] Name: Ruthy Nelson RN Position: [facility] RN Member Role: Primary Care Nurse Name: Colette Powell MD Position: [facility] WIRE TINNER MD Member Role: Lifetime WIRE TINNER Physician Address: Address: [address] [place] [address]- [place] Name: Angelita Reid RN Position: [facility] RN Member Role: Primary Care Nurse Name: Leonor Rodríguez RN, I Position: [facility] RN Member Role: Primary Care Nurse Care Team Related Persons Name: MIHAI BOOKER Address: home [address] [place] [address] Name: YISSEL HOWARD Address: [employer] Address: home [address] [place] [address] Name: DIANE HOWARD Address: home [address] [place] [address] Name: MILTON HOWARD Address: [employer] Address: home [address] [place] [address]
--- OUTSIDE RECORDS SUMMARY | 2023-06-15 01:06 | XMS_ITS | Continuity of Care Document ---
Author Name Unknown Organization [facility] Address [address] [place] [address]- Care Team Providers Care Supervisor [employer] Name Role Phone Dyan Herrera Primary Care Physician [facility] 09/17/22 - 10/17/[address] [address]- Allergies, Adverse Reactions, Alerts Substance Reaction Severity [...] 05/01/08 Recorded 1Admin Note: AFLURIA quadrivalence [facility]ACCINE [facility] [id number] 2Early/Late Reason: Other : Pt not available. [...] Refills, Maintenance, 09/17/22 11:33:00 EDT, [facility], 84, TAKE 1 TABLET BY MOUTH EVERY DAY, 165.1, cm, 08/27/22 9:57:00 EDT,Height, 122, kg, 06/23/22 9:22:00 EST, Dry Weight Start Date: 09/17/22 Status: Ordered escitalopram 20 mg oral tablet 1 tablet, By Mouth, Daily, # 30 tablet, 0 Refills, Maintenance, 10/12/22 14:35:00 EDT, [facility], 165.1, cm, 08/27/22 9:57:00 EDT, Height, 122, kg, 06/23/22 9:22:00 EST, Dry Weight Start Date: 10/12/22 Status: Ordered Lantus Inj = 50 units, [...] Dry Weight Start Date: 08/06/21 Status: Ordered NovoLOG FlexPen 100 units/mL subcutaneous solution See Instructions, Take 23-34 units based on sliding scale. E11.9 Max daily dose 102 units., # 30 mL, 11 Refills, Maintenance, 06/02/22 18:08:00 EST, [id number], May increase dose by 4 units at meals if increased CHO intake, 163, cm, 06/02/22 1... Start Date: 06/02/22 Status: Ordered nystatin topical 201303 u/gm powder APPLY TOPICALLY 3 TIMES A DAY PLEASE APPLY TO PELVIC RASH, LABIA, GLUTEAL FOLDS, AND RECTUM. Start Date: 08/17/22 Status: Ordered Problem List Condition Confirmation Course [...] Care Team Personnel Name: Kari Irvin Position: [facility] RN Member Role: Primary Care Nurse Name: Belia Solares RN Position: [facility] OB RN Member Role: Primary Care Nurse Name: Jorge Mendoza RN Position: [facility] RN Member Role: Primary Care Nurse Name: Dyan Herrera Position: [facility] PCO Associate Professional Member Role: PCP Address: Address: [address] [place] [address]- Name: Ruthy Nelson RN Position: [facility] RN Member Role: Primary Care Nurse Name: Colette Powell MD Position: [facility] ORDER CHECKER MD Member Role: Lifetime ORDER CHECKER Physician Address: Address: [address] [place] [address] [address]- Name: Angelita Reid RN Position: [facility] RN Member Role: Primary Care Nurse Name: Leonor Rodríguez RN, I Position: [facility] RN Member Role: Primary Care Nurse Care Team Related Persons Name: MIHAI BOOKER Address: home [address] [place] [address] Name: YISSEL HOWARD Address: [employer] Address: home [address] [place] [address] [place] Name: DIANE HOWARD Address: home [address] [place] [address] Name: MILTON HOWARD Address: [employer] Address: home [address] [place] [address]
--- OUTSIDE RECORDS SUMMARY | 2023-06-15 01:06 | XMS_ITS | Continuity of Care Document ---
Author Name Unknown Organization [facility] Address [address] [place] [address]- Care Team Providers Care Alcohol And Drug Counselor Name Role Phone Dyan Herrera Primary Care Physician [facility]): [facility] - 05/29/23 [facility] [address] [place] [address] Attending Physician: AdmIlan ji Admitting Physician: AdmtrIlan Referring Physician: Admtr, ArEsperanza Allergies, Adverse Reactions, Alerts Substance Reaction Severity [...] 05/01/08 Recorded 1Admin Note: AFLURIA quadrivalence VACCINE [facility] [id number] 2Early/Late Reason: Other : Pt not available. 3Location History: DR REEDER Medications Cane See Instructions, # 1 each, Refills 0, Tot. Refills 0, Maintenance, dx: M54.9 Chronic back pain, 03/28/23 14:05:00 EST, Supply Start Date: 03/28/23 Status: Ordered FLUoxetine 10 mg oral tablet 1 tablet = 10 mg, By Mouth, Daily, # 30 tablet, 0 Refills, Maintenance, 03/11/23 10:39:00 EST, Tablet, [id number], Partial fill upon [...] Gm, 1 Refills, Maintenance, 03/28/23 7:43:00 EST, [facility], 30, APPLY TOPICALLY 3 TIMES A DAY [...] Care team information Care Team Personnel Name: DegregKari whitaker Position: [facility] RN Member Role: Primary Care Nurse Name: Belia Solares RN Position: [facility] OB RN Member Role: Primary Care Nurse Name: Jorge Mendoza RN Position: [facility] RN Member Role: Primary Care Nurse Name: Dyan Herrera Position: [facility] PCO Associate Professional Member Role: PCP Address: Address: [address] [place] [address]- Name: Ruthy Nelson RN Position: [facility] RN Member Role: Primary Care Nurse Name: Colette Powell MD Position: [facility] FARE COLLECTOR MD Member Role: Lifetime FARE COLLECTOR Physician Address: Address: [address] [place] [address]- Name: Angelita Reid RN Position: [facility] RN Member Role: Primary Care Nurse Name: Leonor Rodríguez RN, I Position: [facility] RN Member Role: Primary Care Nurse Care Team Related Persons Name: MIHAI BOOKER Address: home [address] [place] [address] Name: YISSEL HOWARD Address: [employer] Address: home [address] [place] [address] Name: DIANE HOWARD Address: home [address] [place] [address] Name: MILTON HOWARD Address: [employer] Address: home [address] [place] [address]
--- OUTSIDE RECORDS SUMMARY | 2023-06-15 01:07 | XMS_ITS | Continuity of Care Document ---
Author Name Unknown Organization [facility] James lt Address [address] [place] [address]- Care Team Providers Care Coupon Clerk Name Role Phone Evin Arango MD Primary Care Physician Encounter [facility] Date(s): 02/05/21 - 02/12/21 [facility] Adult [address] [place] [address]- Attending Physician: Evin Arango MD Allergies, Adverse [...] 05/01/08 Recorded 1Admin Note: AFLURIA quadrivalence VACCINE [facility] [id number] 2Early/Late Reason: Other : Pt not available. [...] Dry Weight Start Date: 05/09/20 Status: Ordered Ciprofloxacin-Dexamethasone 0.3%-0.1% otic suspension 0 Refills, Maintenance, 01/30/21 10:05:00 EDT, Partial fill upon patient request if the prescription is for a schedule II opioid drug. Start Date: 01/30/21 Status: Ordered escitalopram 10 mg oral tablet 1 tablet, By Mouth, Daily, # 30 tablet, 5 Refills, [id number], 163, cm, 01/30/21 9:54:00 EDT, Height, 120.5, kg, 02/03/21 17:38:00 EDT, Dry Weight Start Date: 02/04/21 Status: Ordered FREESTYLE JUDITH 14 DAY READER [...] a day, PRN, # 30 tablet, Refills 1, NEEDED FOR PAIN, Route to Pharmacy Electronically, [id number], 163, cm, 12/08/20 14:03:00 EDT, Height Start Date: 01/28/21 Status: Ordered Lantus Solostar Pen 100 units/mL subcutaneous solution See Instructions, Take 55 units daily at dinner. E11.65, # 30 mL, 5 Refills, Maintenance, 06/09/20 10:04:00 EST, Solution, [facility]/pharmacy #[id number], Partial fill upon patient request if the prescription isfor a schedule II opioid drug., 163, cm, 05/26/20 1... Start Date: 06/09/20 Status: Ordered MetFORMIN (Eqv-Glucophage XR) 500 mg oral tablet, extended release 2 tablet, By Mouth, 2 times a day with meals, # 120 tablet, 8 Refills, Maintenance, 11/25/20 13:42:00 EDT, [facility]/pharmacy #[id number], 163, cm, 11/13/20 10:29:00 EDT, Height Start Date: 11/25/20 Status: Ordered NovoLOG FlexPen 100 units/mL subcutaneous solution See Instructions, Take 20 units per meal. E11.65. Max daily dose 60 units., # 30 mL, 5 Refills, Maintenance, 06/09/20 10:05:00 EST, [facility]/pharmacy #[id number], May increase dose by 4 units at meals if increased CHO intake, 163, cm, 05/26/20 14:26:00 EST, Heig... Start Date: 06/09/20 Status: Ordered nystatin topical 537476 u/gm powder See Instructions, APPLY TO AFFECTED AREA TWICE A DAY, # 30 Gm, 1 Refills, [facility], 14, APPLY TO AFFECTED AREA TWICE A DAY, 163, cm, 12/08/20 14:03:00 EDT, Height Start Date: 01/24/21 Status: Ordered ondansetron 4 mg oral tablet, disintegrating 1 tablet = 4 mg, By Mouth, Every 8 hours, PRN as needed for nausea/vomiting, 0 Refills, Maintenance, 01/30/21 10:09:00 EDT, DIS Tablet, Partial fill upon patient request if the prescription is for a schedule II opioid drug. Start Date: 01/30/21 Status: Ordered Pen [place], 31 G x 8 mm BD Ultra Fine III See Instructions, # 200 each, Refills 2, Tot. Refills 2, Maintenance, Use to take insulin 4 times daily. E11.65, 06/26/20 11:16:00 EST, Compound, 163, cm, 05/26/20 14:26:00 EST, Height, 164, kg, 09/05/18 17:25:00 EDT, Dry Weight Start Date: 06/26/20 Status: Ordered pregabalin 50 mg oral capsule 1 capsule = 50 mg, By Mouth, 3 times a day, 0 Refills, Maintenance, 01/30/21 10:06:00 EDT, Capsule,Partial fill upon patient request if the prescription is for a schedule II opioid drug. Start Date: 01/30/21 Status: Ordered ProAir HFA 90 mcg/inh inhalation aerosol with adapter 2, puffs, Inhalation, Every 6 hours, PRN, # 1 each, Refills 5, Tot. Refills 5, Maintenance, 09/27/20 10:32:00 EDT, Route to Pharmacy Electronically, [id number], [facility]/pharmacy#[id number], 163, cm, 09/19/20 9:21:00 EDT, Height Start Date: 09/27/20 Status: Ordered tiZANidine 2 mg oral capsule TAKE 1 2 TABLETS BY MOUTH THREE TIMES A DAY NEEDED FOR SPASM/PAIN Start Date: 12/08/20 Status: Ordered Problem List Condition Effective Dates [...] oldest [Reference Range]: 1 Height 163 cm (02/05/21 12:14 PM) Weight 118.18 kg (02/05/21 12:14 PM) Body Mass Index [18.5-24.99] 44.48 *>HHI* (02/05/21 12:14 PM) Weight Obtained Via Standing scale (02/05/21 12:14 PM) Social History Social History Type Response Smoking Status Former smoker; Tobac co user in household: No entered on: 02/13/18 Sex
--- OUTSIDE RECORDS SUMMARY | 2023-06-15 01:07 | XMS_ITS | Continuity of Care Document ---
Author Name Unknown Organization [facility] James lt Address [address] [place] [address]- Care Team Providers Care Hydraulics Engineer Name Role Phone Dyan Herrera Primary Care Physician [phone] Encounter [facility] Date(s): 03/14/23 - 04/13/23 [facility] Adult [address] [place] [address]- Allergies, Adverse Reactions, Alerts Substance Reaction Severity [...] 05/01/08 Recorded 1Admin Note: AFLURIA quadrivalence VACCINE [facility] [id number] 2Early/Late Reason: Other : Pt not available. 3Location History: DR REEDER Medications Yobani See Instructions, # 1 each, Refills 0, [...] Gm, 1 Refills, Maintenance, 03/28/23 7:43:00 EST, [facility], 30, APPLY TOPICALLY 3 TIMES A DAY [...] Care Team Personnel Name: Kari Irvin Position: [facility] RN Member Role: Primary Care Nurse Name: Belia Solares RN Position: [facility] OB RN Member Role: Primary Care Nurse Name: Jorge Mendoza RN Position: S RN Member Role: Primary Care Nurse Name: Dyan Herrera Position: [facility] PCO Associate Professional Member Role: PCP Address: Address: [address] [place] [address]- [place] Name: Ruthy Nelson RN Position: [facility] RN Member Role: Primary Care Nurse Name: Colette Powell MD Position: [facility] FOLDER MACHINE ADJUSTER MD Member Role: Lifetime FOLDER MACHINE ADJUSTER Physician Address: Address: [address] [place] [address]- [place] Name: Angelita Reid RN Position: [facility] RN Member Role: Primary Care Nurse Name: Leonor Rodríguez RN, I Position: [facility] RN Member Role: Primary Care Nurse Care Team Related Persons Name: MIHAI BOOKER Address: home [address] [place] [address] Name: YISSEL HOWARD Address: [employer] Address: home [address] [place] [address] Name: DIANE HOWARD Address: home [address] [place] [address] Name: MILTON HOWARD Address: [employer] Address: home [address] [place] [address]
--- OUTSIDE RECORDS SUMMARY | 2023-06-15 01:07 | XMS_ITS | Continuity of Care Document ---
Author Name Unknown Organization [facility] Address [address] [place] [address]- Care Team Providers Care Sharepoint Developer Name Role Phone Conchita LEE, Evin Teran Primary Care Physician [phone] [facility] Date(s): 08/04/20 - 09/03/[address] [address] Allergies, Adverse Reactions, Alerts Substance Reaction Severity Status amoxicillin unknown Active penicillin unknown Active sulfamethoxazole Active Bactrim unknown Active Latex breathing problems Active Immunizations Given and Recorded Vaccine Date Status Refusal Reason tetanus/diphtheria/pertussis, acel(Tdap) 07/10/18 Given tetanus/diphtheria/pertussis, acel(Tdap) 08/16/17 Given influenza virus vaccine, inactivated 02/13/18 Give n influenza virus vaccine, inactivated 1 03/18/17 Gi regis Measles/Mumps/Rubella Virus Vaccine 2 10/10/17 Giv en pneumococcal 23-valent vaccine 3 03/06/12 Recorded 1Admin Note: AFLURIA quadrivalence VACCINE [facility] [id number] 2Early/Late Reason: Other : Pt not available. 3Location History: DR REED[facility] Medications Alcohol Pads See Instructions, # 120 each, Refills 0, Tot. Refills 0, Maintenance, To use with insulin administration 4 times daily, 05/09/20 12:20:00 EST, Compound, 163, cm, 05/09/20 8:55:00 EST, Height, 164, kg, 09/05/18 17:25:00 EDT, Dry Weight Start Date: 05/09/20 Status: Ordered Freestyle Dipika 14-day [place] Freestyle Dipika 14-day [place], See Instructions, # 1 each, Refills 0, [...] Take 2 tabs twice daily with food. E11., # 120 each, 5 Refills, Maintenance, 06/09/20 [...] Heig... Start Date: 06/09/20 Status: Ordered Pen [place], 31 G x 8 mm BD Ultra Fine III See Instructions, # 200 each, Refills 2, Tot. Refills 2, Maintenance, Use to take insulin 4 times daily. E11.65, 06/26/20 11:16:00 EST, Compound, 163, cm, 05/26/20 14:26:00 EST, Height, 164, kg, 09/05/18 17:25:00 EDT, Dry Weight Start Date: 06/26/20 Status: Ordered Multivitamins with Folic Acid 1 mg oral capsule 1 capsule, By Mouth, Daily, # 90 tablet, 6 Refills, Maintenance, 05/26/20 14:51:00 EST, Capsule, [id number], Partial fill upon patient request if the prescription is for a schedule II opioid drug., 1 capsule By Mouth Daily, 163, cm, 05/26/20 1... Start Date: 05/26/20 Status: Ordered Multivitamins with Folic Acid 1 mg oral tablet 1 tablet, By Mouth, Daily, # 30 tablet, 8 Refills, Maintenance, 08/05/20 15:20:00 EDT, Tablet, [id number], Partial fill upon patient request if the prescription is for a schedule II opioid drug., 1 tablet By Mouth Daily, 163, cm, 05/26/20 14:2... Start Date: 08/05/20 Status: Ordered ProAir HFA 90 mcg/inh inhalation aerosol with adapter 2, puffs, Inhalation, Every 6 hours, PRN, # 1 each, Refills 5, Tot. Refills 5, Maintenance, 11/06/19 16:24:00 EDT, Route to Pharmacy Electronically, [id number], [id number], 163, cm, 02/08/19 9:31:00 EDT, Height, 164,... Start Date: 11/06/19 Status: Ordered Problem List Condition Effective Dates Status Health Status Inform ant Marijuana abuse(Confirmed) Active Depression(Confirmed) Active Medical marijuana use(Confirmed) Active External hemorrhoids(Confirmed) Active History of pre-eclampsia(Confirmed) Active Migraines(Confirmed) Active Morbid obesity(Confirmed) Active THIERRY (obstructive sleep apnea)(Confirmed) Active History of Gestational hyper tension (Severe)(Confirmed) Active Restless leg syndrome(Confirmed) Active Diabetes mellitus, type II(Confirmed) Active Social History Social History Type Response Smoking Status Former smoker; Tobac co user in household: No entered on: 02/13/18 Sex
--- OUTSIDE RECORDS SUMMARY | 2023-06-15 01:07 | XMS_ITS | Continuity of Care Document ---
Author Name Unknown Organization [facility] Address [address] [place] [address]- Care Team Providers Care Analog Device Designer Name Role Phone Conchita LEE, Evin Teran Primary Care Physician Encounter [facility] Date(s): 08/18/20 - 09/17/[address] [address]- Allergies, Adverse Reactions, Alerts Substance Reaction Severity [...] 03/06/12 Recorded 1Admin Note: AFLURIA quadrivalence VACCINE [facility] [id number] 2Early/Late Reason: Other : Pt not available. 3Location History: DR REED[facility] Medications Alcohol Pads See Instructions, # 120 each, Refills 0, Tot. Refills 0, Maintenance, To use with insulin administration 4 times daily, 05/09/20 12:20:00 EST, Compound, 163, cm, 05/09/20 8:55:00 EST, Height, 164, kg, 09/05/18 17:25:00 EDT, Dry Weight Start Date: 05/09/20 Status: Ordered Freestyle Dipika 14-day [place] Freestyle Dipika 14-day [place], See Instructions, # 1 each, Refills 0, [...] Dry Weight Start Date: 06/29/20 Status: Ordered ibuprofen 600 mg oral tablet 600 mg, 1, tablet, By Mouth, Every 6 hours, PRN, # 40 tablet, Refills 0, Tot. Refills 0, Maintenance, Pain , Moderate, 09/04/20 23:17:00 EDT, Route to Pharmacy Electronically, [facility]/pharmacy #[id number], Partial fill upon patient request if the prescription i... Start Date: 09/04/20 Status: Ordered Lantus Solostar Pen 100 units/mL subcutaneous solution See Instructions, Take 55 units daily at dinner. E11.65, # 30 mL, 5 Refills, Maintenance, 06/09/20 10:04:00 EST, Solution, [facility]/pharmacy #[id number], Partial fill upon patient request [...] Heig... Start Date: 06/09/20 Status: Ordered Pen [place], 31 G x 8 mm BD Ultra [...] 6 Refills, Maintenance, 05/26/20 14:51:00 EST, Capsule, [facility]/pharmacy #[id number], Partial fill upon patient request [...] 11/06/19 16:24:00 EDT, Route to Pharmacy Electronically, [id number], [facility]/pharmacy#[id number], 163, cm, 02/08/19 9:31:00 EDT, Height, 164,... [...]
--- OUTSIDE RECORDS SUMMARY | 2023-06-15 01:07 | XMS_ITS | Continuity of Care Document ---
Author Name Unknown Organization [facility] James lt Address [address] [place] [address]- Care Team Providers Care Rail Manager Name Role Phone Evin Arango MD Primary Care Physician Encounter [facility] Date(s): 01/30/21 - 02/06/21 [facility] Adult [address] [place] [address]- Attending Physician: Evin Arango MD Allergies, Adverse [...] 05/01/08 Recorded 1Admin Note: AFLURIA quadrivalence VACCINE [facility] [id number] 2Early/Late Reason: Other : Pt not available. [...] Mouth, Daily, # 30 tablet, 5 Refills, [facility], 163, cm, 01/30/21 9:54:00 EDT, Height, 120.5, [...] NEEDED FOR PAIN, Route to Pharmacy Electronically, [facility], 163, cm, 12/08/20 14:03:00 EDT, Height Start Date: 01/28/21 Status: Ordered Lantus Solostar Pen 100 units/mL subcutaneous solution See Instructions, Take 55 units daily at dinner. E11.65, # 30 mL, 5 Refills, Maintenance, 06/09/20 10:04:00 EST, Solution, [facility]/pharmacy #[id number], Partial fill upon patient request if the prescription isfor a schedule II opioid drug., 163, cm, 05/26/20 1... Start Date: 06/09/20 Status: Ordered MetFORMIN (Eqv-Glucophage XR) 500 mg oral tablet, extended release 2 tablet, By Mouth, 2 times a day with meals, # 120 tablet, 8 Refills, Maintenance, 11/25/20 13:42:00 EDT, [facility]/pharmacy #[id number], 163, cm, 11/13/20 10:29:00 EDT, Height Start Date: 11/25/20 Status: Ordered NovoLOG FlexPen 100 units/mL subcutaneous solution See Instructions, Take 20 units per meal. E11.65. Max daily dose 60 units., # 30 mL, 5 Refills, Maintenance, 06/09/20 10:05:00 EST, [facility]/pharmacy #[id number], May increase dose by 4 units at meals if increased CHO intake, 163, cm, 05/26/20 14:26:00 EST, Heig... Start Date: 06/09/20 Status: Ordered nystatin topical 602077 u/gm powder See Instructions, APPLY TO AFFECTED AREA TWICE A DAY, # 30 Gm, 1 Refills, [facility], 14, APPLY TO AFFECTED AREA TWICE A [...] drug. Start Date: 01/30/21 Status: Ordered Pen [place], 31 G x 8 mm BD Ultra [...] 09/27/20 10:32:00 EDT, Route to Pharmacy Electronically, [id number], [facility]/pharmacy#[id number], 163, cm, 09/19/20 9:21:00 EDT, Height Start [...] oldest [Reference Range]: 1 Height 163 cm (01/30/21 9:54 AM) Weight 121.2 kg (01/30/21 9:54 AM) Oxygen Saturation [94-100 %] 97 % (01/30/21 9:54 AM) Pulse Rate [55-90 bpm] 100 bpm *H* (01/30/21 9:54 AM) Body Mass Index [18.5-24.99] 45.62 *>HHI* (01/30/21 9:54 AM) Blood Pressure [90-138/55-84 mm Hg] 108/ 62mm Hg (01/30/21 9:54 AM) Respiratory Rate [16-30 br/min] 16 br/mi n (01/30/21 9:54 AM) Temperature [96.8-100.4 DegF] 97.6 DegF (01/30/21 9:54 AM) Mode of Delivery (Oxygen) Room air (01/30/21 9:54 AM) Blood pressure sites Arm, right (01/30/21 9:54 AM) Temperature Route Oral (01/30/21 9:54 AM) Weight Obtained Via Standing scale (01/30/21 9:54 AM) Social History Social History Type Response Smoking Status Former smoker; Tobac co user in household: No entered on: 02/13/18 Sex
--- OUTSIDE RECORDS SUMMARY | 2023-06-15 01:07 | XMS_ITS | Continuity of Care Document ---
Author Name Unknown Organization [facility] Address [address] [place] [address]- Care Team Providers Care Public Affairs Manager Name Role Phone Dyan Herrera Primary Care Physician [phone] Encounter [facility] Date(s): 06/16/22 - 07/22/22 [facility] [address] [address] Attending Physician: Angelika Carrion MD Admitting Physician: Angelika Carrion MD Referring Physician: Raina WALLACE, LAP HAND TOOL, Desire Porras Allergies, Adverse Reactions, Alerts Substance Reaction Severity [...] quadrivalence VACCINE [facility] [id number] 2Early/Late Reason: Other : Pt not available. 3Location History: DR [facility] Medications Albuterol (Eqv-ProAir HFA) 90 mcg/inh inhalation aerosol 2 puffs, Inhalation, Every 6 hours, PRN NEEDED FOR SHORTNESS OF BREATH OR WHEEZING, # 8.5 each, 5 Refills, Maintenance, 12/02/21 7:35:00 EDT, [facility]/pharmacy #[id number], 25, 2 puffs Inhalation Every 6 [...] 0 Refills, Maintenance, 06/23/22 12:27:00 EST, Tablet, [facility]/pharmacy #[id number], Partial fill upon patient request if [...] Refills, Maintenance, 05/24/22 12:10:00 EST, CR Tablet, [facility]/pharmacy #0693, Partial fill upon patient r... Start Date: 05/24/22 Status: Ordered fluconazole 150 mg oral tablet 1 tablet = 150 mg, By Mouth, Once, # 1 tablet, 0 Refills, Soft Stop, 06/23/22 4:06:00 EST, Tablet, [facility]/pharmacy #[id number], Partial fill upon patient request if [...] 09/10/21 Status: Ordered Freestyle Dipika 2 14-day [place] Freestyle Dipika 2 14-day [place], See Instructions, # 1 each, Refills 0, [...] Refills, Maintenance, 06/03/22 12:28:00 EST, ER Tablet, [facility]/pharmacy #[id number], Partial fill upon patient request if the prescription is for a schedule II opioid drug., 163, cm, 06/02/... Start Date: 06/03/22 Status: Ordered NovoLOG FlexPen 100 units/mL subcutaneous solution See Instructions, Take 23-34 units based on sliding scale. E11.9 Max daily dose 102 units., # 30 mL, 11 Refills, Maintenance, 06/02/22 18:08:00 EST, [facility]/pharmacy #[id number], May increase dose by 4 units at meals if increased CHO intake, 163, cm, 06/02/22 1... Start Date: 06/02/22 Status: Ordered Pen [place], 31 G x 8 mm BD Ultra [...] 5 Refills, Maintenance, 06/16/21 10:48:00 EST, Tablet, [facility]/pharmacy #[id number], ok to substitute with ANY vitamin, 1 tablet By Mouth Daily, 163, cm, 06/16/21 10:10:00 EST, Height, 120.5, kg, 02/03/21 17:38:0... Start Date: 06/16/21 Status: Ordered Multivitamins with Folic Acid 1 mg oral capsule See Instructions, TAKE ONE DAILY BY MOUTH, # 100 capsule, 2 Refills, Maintenance, 05/11/22 14:42:00EST, [id number], Partial fill upon patient request if the prescription is for a schedule IIopioid drug., TAKE ONE DAILY BY MOUTH, 163, cm, ... Start Date: 05/11/22 Status: Ordered Multivitamins with Folic Acid 1 mg oral tablet 1 tablet, By Mouth, Daily, # 90 tablet, 2 Refills, Maintenance, 05/24/22 12:08:00 EST, [facility]/pharmacy#0693, Partial fill upon patient request if the [...] Team Personnel Name: Belia Solares RN Position: [facility] OB RN Member Role: Primary Care Nurse Name: Jorge Mendoza RN Position: S RN Member Role: Primary Care Nurse Name: Dyan Herrera Position: [facility] PCO Associate Professional Member Role: PCP Address: Address: [address] [place] [address]- [place] Name: Ruthy Nelson RN Position: S RN Member Role: Primary Care Nurse Name: Colette Powell MD Position: [facility] TUFTING MACHINE FIXER MD Member Role: Lifetime TUFTING MACHINE FIXER Physician Address: Address: [address] [place] [address] [address]- Care Team Related Persons Name: MIHAI BOOKER Address: home [address] [place] [address] Name: YISSEL HOWARD Address: [employer] Address: [place] [address] [place] [address] Name: DIANE HOWARD Address: home [address] [place] [address] Name: MILTON HOWARD Address: [employer] Address: home [address] [place] [address]
--- OUTSIDE RECORDS SUMMARY | 2023-06-15 01:07 | XMS_ITS | Continuity of Care Document ---
Author Name Unknown Organization [facility] James lt Address [address] [place] [address]- Care Team Providers Care Equipment Service Technician Name Role Phone Conchita LEE, Evin Teran Primary Care Physician [phone] Encounter [facility] Date(s): 05/09/20 - 06/08/20 [facility] Adult [address] [place] [address]- Attending Physician: Admtr, Ar8 Admitting Physician: Admtr, Ar8 Referring Physician: Admtr, Ar8 Allergies, Adverse Reactions, [...] Recorded 1Admin Note: AFLURIA quadrivalence VACCINE [facility] 17396-344-86 2Early/Late Reason: Other : Pt not available. [...] Ordered Freestyle Lite Lancets See Instructions, # 100 each, Refills 5, Tot. Refills 5, Maintenance, Blood sugar testing four times a day., 03/29/17 12:14:44, Compound Start Date: 03/29/17 Status: Ordered Freestyle Lite Monitor See Instructions, # 1 box, Refills 0, Tot. Refills 0, Maintenance, To test BS 4 x day., 03/22/17 17:06:00, Type 2 DM in ; 024.111, Compound Start Date: 03/22/17 Status: Ordered Freestyle Lite Monitor See Instructions, # 1 box, Refills 0, Tot. Refills 0, Maintenance, Blood sugar testing four times aday. ICD 10: 024.119 E11.9, 02/15/18 16:58:00 EDT, Compound Start Date: 02/15/18 Status: Ordered Freestyle Lite Test Strips See Instructions, # 200 each, Refills 0, Tot. Refills 0, Maintenance, Check blood sugar up to 6 times per day. E11.65, 05/09/20 12:27:00 EST, Compound, 163, cm, 05/09/20 8:55:00 EST, Height, 164, kg,09/05/18 17:25:00 EDT, Dry Weight Start Date: 05/09/20 Status: Ordered Freestyle Lite Test Strips See Instructions, # 1 bottle, Refills 3, Tot. Refills 3, Maintenance, To test blood sugar 4 x day. 1 Bottle= 100 test strips, 09/27/17 9:31:00 EDT, Type 2 DM in ; 024.111, Compound Start Date: 09/27/17 Status: Ordered Insulin Syringe, BD Ultra-Fine 1 cc 31 G x 8 mm (5/16in) See Instructions, # 90 each, Refills 0, Tot. Refills 0, Maintenance, To use with daily subcutaneousinsulin administration in type 2 diabetes, 05/09/20 12:28:00 EST, Compound, 163, cm, 05/09/20 8:55:00 EST, Height, 164, kg, 09/05/18 17:25:00 EDT, Dry... Start Date: 05/09/20 Status: Ordered Lantus 100 u/ml subcutaneous solution = 40 units, Subcutaneous Injection, Daily at bedtime, Take 40 units daily. E11.65 before a meal. Please call patient to p/up med., # 30 mL, 0 Refills, Maintenance, 06/06/20 8:02:00 EST, Solution, [id number], 163, cm, 05/26/20 14:26:00 EST, H... Start Date: 06/06/20 Status: Ordered metFORMIN 500 mg oral tablet, extended release See Instructions, Take 2 tabs twice daily with food. E11.65, # 120 each, 0 Refills, Maintenance, 05/09/20 12:30:00 EST, ER Tablet, [id number], 163, cm, 05/09/20 8:55:00 EST, Height, 164, kg, 09/05/18 17:25:00 EDT, Dry Weight Start Date: 05/09/20 Status: Ordered NovoLOG FlexPen 100 units/mL subcutaneous solution See Instructions, Take 20 units per meal. E11.65 Maximum of 72 units/day., # 30 mL, 0 Refills, Maintenance, 06/06/20 10:32:00 EST, [id number], May increase dose by 4 units at meals if increased CHO intake, 163, cm, 05/26/20 14:26:00 EST, Heig... Start Date: 06/06/20 Status: Ordered Pen [place], 31 G x 8 mm BD Ultra Fine III See Instructions, # 200 each, Refills 0, Tot. Refills 0, Maintenance, Use to take insulin 4 times daily. E11.65, 05/09/20 12:28:00 EST, Compound, 163, cm, 05/09/20 8:55:00 EST, Height, 164, kg, 09/05/18 17:25:00 EDT, Dry Weight Start Date: 05/09/20 Status: Ordered Multivitamins with Folic Acid 1 mg oral capsule 1 capsule, By Mouth, Daily, # 90 tablet, 6 Refills, Maintenance, 05/26/20 14:51:00 EST, Capsule, [id number], Partial fill upon patient request if the prescription is for a schedule II opioid drug., 1 capsule By Mouth Daily, 163, cm, 05/26/20 1... Start Date: 05/26/20 Status: Ordered ProAir HFA 90 mcg/inh inhalation aerosol with adapter 2, puffs, Inhalation, Every 6 hours, PRN, # 1 each, Refills 5, Tot. Refills 5, Maintenance, 11/06/19 16:24:00 EDT, Route to Pharmacy Electronically, [id number], [id number], 163, cm, 02/08/19 9:31:00 EDT, Height, [...]
--- OUTSIDE RECORDS SUMMARY | 2023-06-15 01:07 | XMS_ITS | Continuity of Care Document ---
Author Name Unknown Organization [facility] James lt Address [address] [place] [address]- Care Team Providers Care Marketing Programs Specialist Name Role Phone Evin Arango MD Primary Care Physician [phone] [place] [facility] Date(s): 11/28/20 - 03/28/21 [facility] Adult [address] [place] [address]- Attending Physician: Evin Arango MD Allergies, Adverse [...] 05/01/08 Recorded 1Admin Note: AFLURIA quadrivalence VACCINE [facility] [id number] 2Early/Late Reason: Other : Pt not available. [...] Mouth, Daily, # 30 tablet, 5 Refills, [facility], 163, cm, 01/30/21 9:54:00 EDT, Height, 120.5, [...] NEEDED FOR PAIN, Route to Pharmacy Electronically, [facility], 163, cm, 03/09/21 12:46:00 EST, Height, 120.5, kg, 02/03/21 17:38:00 EDT, Dry Weight Start Date: 03/16/21 Status: Ordered ibuprofen 800 mg oral tablet 800 mg, 1, tablet, By Mouth, Every 8 hours, # 30 tablet, Refills 1, Tot. Refills 1, Maintenance, 03/25/21 16:11:00 EST, Route to Pharmacy Electronically, [facility]/pharmacy #[id number], Partial fill upon patientrequest if the prescription is for a schedule II op... Start Date: 03/25/21 Status: Ordered Lantus Solostar Pen 100 units/mL subcutaneous solution See Instructions, INJECT 55 UNITS DAILY AT DINNER TIME, # 30 Unknown, 5 Refills, [facility], 163, cm, 02/05/21 12:14:00 EDT, Height, 120.5, kg, 02/03/21 17:38:00 EDT, Dry Weight Start Date: 02/26/21 Status: Ordered MetFORMIN (Eqv-Glucophage XR) 500 mg oral tablet, extended release 2 tablet, By Mouth, 2 times a day with meals, # 120 tablet, 8 Refills, Maintenance, 11/25/20 13:42:00 EDT, [facility]/pharmacy #[id number], 163, cm, 11/13/20 10:29:00 EDT, Height Start Date: 11/25/20 Status: Ordered NovoLOG FlexPen 100 units/mL subcutaneous solution See Instructions, Take 20 units per meal. E11.65. Max daily dose 60 units., # 30 mL, 5 Refills, Maintenance, 06/09/20 10:05:00 EST, [facility]/pharmacy #[id number], May increase dose by 4 units at meals if increased CHO intake, 163, cm, 05/26/20 14:26:00 EST, Heig... Start Date: 06/09/20 Status: Ordered nystatin topical 821051 u/gm powder 1 application, Topically, 3 times a day, Please apply to pelvic rash, labia, gluteal folds, and rectum., # 60 Gm, 1 Refills, Maintenance, 03/25/21 16:04:00 EST, Powder, [facility]/pharmacy #[id number], Partial fill upon patient request if the prescription is for a... Start Date: 03/25/21 Status: Ordered nystatin topical 244429 u/gm powder See Instructions, APPLY TO AFFECTED AREA TWICE A DAY, # 30 Gm, 1 Refills, [facility] ST[facility] 6[facility], 14, APPLY TO AFFECTED AREA TWICE A DAY, 163, cm, 12/08/20 14:03:00 EDT, Height Start Date: 01/24/21 Status: Ordered Pen [place], 31 G x 8 mm BD Ultra Fine III See Instructions, # 200 each, Refills 2, Tot. Refills 2, Maintenance, Use to take insulin 4 times daily. E11.65, 06/26/20 11:16:00 EST, Compound, 163, cm, 05/26/20 14:26:00 EST, Height, 164, kg, 09/05/18 17:25:00 EDT, Dry Weight Start Date: 06/26/20 Status: Ordered Multivitamins with Vitamin B Complex, Vitamin C, Minerals and L- Methylfolate oral capsule 1 capsule, By Mouth, Daily, # 30 capsule, 11 Refills, Maintenance, 03/25/21 15:35:00 EST, Capsule, [facility]/pharmacy #[id number], Partial fill upon patient request if the prescription is for a schedule II opioid drug., 1 capsule By Mouth Daily, 163, cm, 03/25/21... Start Date: 03/25/21 Status: Ordered ProAir HFA 90 mcg/inh inhalation aerosol with adapter 2, puffs, Inhalation, Every 6 hours, PRN, # 1 each, Refills 5, Tot. Refills 5, Maintenance, 09/27/20 10:32:00 EDT, Route to Pharmacy Electronically, [id number], [facility]/pharmacy#[id number], 163, cm, 09/19/20 9:21:00 [...]
--- OUTSIDE RECORDS SUMMARY | 2023-06-15 01:07 | XMS_ITS | Continuity of Care Document ---
Author Name Unknown Organization [facility] Address [address] [place] [address]- Care Team Providers Care Arch Pad Cementer Name Role Phone Conchita LEE, Evin Teran Primary Care Physician Encounter [facility] Date(s): 05/29/19 - 06/08/19 [facility] [address] [place] [address]- [facility] Attending Physician: AdmIlan ji Admitting Physician: AdmtrIlan Referring Physician: AdmtrIlan Allergies, Adverse Reactions, Alerts Substance Reaction Severity Status penicillin Active sulfamethoxazole Active Latex Active Immunizations Given and Recorded Vaccine Date Status Refusal Reason tetanus/diphtheria/pertussis, acel(Tdap) 07/10/18 Given tetanus/diphtheria/pertussis, acel(Tdap) 08/16/17 Given influenza virus vaccine, inactivated 02/13/18 Give n influenza virus vaccine, inactivated 1 03/18/17 Gi regis Measles/Mumps/Rubella Virus Vaccine 2 10/10/17 Giv en pneumococcal 23-valent vaccine 3 03/06/12 Recorded 1Admin Note: AFLURIA quadrivalence VACCINE [facility] [id number] 2Early/Late Reason: Other : Pt not available. 3Location History: DR REEDER Medications Alcohol Pads See Instructions, # 1 box, Refills 1, Tot. Refills 1, Maintenance, To use with insulin administration 4 times daily, 03/22/17 17:14:41, Compound Start Date: 03/22/17 Status: Ordered aspirin 81 mg oral tablet 1 tablet = 81 mg, By Mouth, Daily, # 70 tablet, 0 Refills, Maintenance, 07/24/18 17:25:46 EDT, Tablet Start Date: 07/24/18 Status: Ordered Colace sodium 100 mg oral capsule 100 mg, 1, capsule, By Mouth, 2 times a day, PRN, # 90 capsule, Refills 0, Tot. Refills 0, Maintenance, for constipation, 09/08/18 9:07:31 EDT, Print Requisition Start Date: 09/08/18 Status: Ordered Compression Stockings See Instructions, # 1 pair, Maintenance, surgical, knee length 30-40 mm Hg, 09/02/18 23:12:00 EDT, Compound Start Date: 09/02/18 Status: Ordered CPAP MACHINE CPAP MACHINE, See Instructions, # 1 each, Refills 0, Tot. Refills 0, Maintenance, 18 CM H2O WITH HEATED HUMIDIFIER DX THIERRY G47.33 [facility] FAX [phone] [facility] PER [address] ALANIZ, 03/31/18 7:51:45 EST, Compound Start Date: 03/31/18 Status: Ordered CPAP SUPPLIES: MASK, FILTERS, TUBING, HEADGREA, CHINSTRAP & WATER CHAMBER CPAP SUPPLIES: MASK, FILTERS, TUBING, HEADGREA, CHINSTRAP & WATER CHAMBER, See Instructions, # 1 each, Refills 11, Tot. Refills 11, Maintenance, USE DIRECTED DX THIERRY G47.[address] ALANIZ, 10/13/17 16:21:27 EDT, Compound Start Date: 10/13/17 Status: Ordered CPAP SUPPLIES: MASK, HEADGEAR, HEATED TUBING, HUMIDIFIER, FILTERS, CUSHIONS, CHIN STRAP CPAP SUPPLIES: MASK, HEADGEAR, HEATED TUBING, HUMIDIFIER, FILTERS, CUSHIONS, CHIN STRAP, See Instructions, # 1 each, Refills 12, Tot. Refills 12, Maintenance, USE DIRECTED DX THIERRY G47.33 [facility] FAX [phone] [facility] PER [address] HEMPHILL. Start Date: 03/31/18 Status: Ordered ferrous sulfate 325 mg oral tablet 1 tablet = 325 mg, By Mouth, 2 times a day, # 60 tablet, 3 Refills, Maintenance, 09/09/18 8:28:24 EDT Start Date: 09/09/18 Status: Ordered Freestyle Lite Lancets See Instructions, # 1 box, Refills 5, Tot. Refills 5, Maintenance, Blood sugar testing four times aday ICD 10: 024.119 E11.9, 02/15/18 16:58:00 EDT, Compound Start Date: 02/15/18 Status: Ordered Freestyle Lite Lancets See Instructions, # 100 each, Refills 5, Tot. Refills 5, Maintenance, Blood sugar testing four times a day., 03/29/17 12:14:44, Compound Start Date: 03/29/17 Status: Ordered Freestyle Lite Lancets See Instructions, # 1 box, Refills 3, Tot. Refills 3, Maintenance, To test blood sugar 4 x day. 1 box = 100 lancets, 03/29/17 16:40:00, Type 2 DM in ; O24.111, Compound Start Date: 03/29/17 Status: Ordered Freestyle [...] each, Refills 11, Tot. Refills 11, Maintenance, Check blood sugar up to 6 times per day. E11.65, 02/08/19 10:28:55 EDT, Compound Start Date: 02/08/19 Status: Ordered Freestyle Lite Test Strips See Instructions, # 1 bottle, Refills 3, Tot. Refills 3, Maintenance, To test blood sugar 4 x day. 1 Bottle= 100 test strips, 09/27/17 9:31:00 EDT, Type 2 DM in ; 024.111, Compound Start Date: 09/27/17 Status: Ordered gabapentin 300 mg oral capsule 300 mg, 1, capsule, By Mouth, 3 times a day, REFILLS REQUIRE OFFICE VISIT IN THE NEXT 30 DAYS. FILLON OR AFTER 12/05/18, # 90 capsule, Refills 0, Tot. Refills 0, Maintenance, 12/01/18 15:05:00 EDT, Route to Pharmacy Electronically, [id number]... Start Date: 12/01/18 Status: Ordered Handheld Electric Breast Pump See Instructions, # 1 units, Maintenance, See instructions, 09/08/18 9:07:38 EDT, Compound Start Date: 09/08/18 Status: Ordered ibuprofen 800 mg oral tablet See Instructions, # 90 tablet, TAKE 1 TABLET BY MOUTH EVERY 8 HOURS,X30 DAYS NEEDED FOR PAIN. TAKE WITH FOOD OR MILK, [facility]/pharmacy #[id number] Start Date: 11/15/18 Status: Ordered Insulin Syringe, BD Ultra-Fine 1 cc 31 G x 8 mm (5/16in) See Instructions, # 90 each, Refills 3, Tot. Refills 3, Maintenance, To use with daily subcutaneousinsulin administration in type 2 diabetes, 02/27/19 15:15:16 EDT, Compound Start Date: 02/27/19 Status: Ordered Lantus 100 u/ml subcutaneous solution = 40 units, Subcutaneous Injection, Daily at bedtime, Take 40 units daily. E11.65, # 30 mL, 5 Refills, Maintenance, 02/08/19 10:28:14 EDT, Solution Start Date: 02/08/19 Status: Ordered metFORMIN 500 mg oral tablet, extended release See Instructions, Take 2 tabs twice daily with food. E11.65, # 120 each, 11 Refills, Maintenance, 02/08/19 10:29:36 EDT, ER Tablet Start Date: 02/08/19 Status: Ordered MiraLax oral powder for reconstitution = 17 Gm, By Mouth, Daily, dissolve in water before taking, # 255 Gm, 0 Refills, Maintenance, 09/08/18 9:07:27 EDT, REC Powder Start Date: 09/08/18 Status: Ordered NovoLOG FlexPen 100 units/mL subcutaneous solution See Instructions, Take 20 units per meal. E11.65, # 30 mL, 5 Refills, Maintenance, 02/08/19 10:27:00 EDT, May increase dose by 4 units at meals if increased CHO intake Start Date: 02/08/19 Status: Ordered Pen [place], 31 G x 8 mm BD Ultra Fine III See Instructions, # 200 each, Refills 11, Tot. Refills 11, Maintenance, Use to take insulin 4 timesdaily. E11.65, 02/08/19 10:27:48 EDT, Compound Start Date: 02/08/19 Status: Ordered Cradle See Instructions, # 1 each, Maintenance, to use during for lower pelvic pain and discomfort of , 09/06/17 15:39:08 EDT, Compound Start Date: 09/06/17 Status: Ordered Cradle Plus See Instructions, # 1 each, Maintenance, use as directed, 08/24/18 15:53:36 EDT, Compound Start Date: 08/24/18 Status: Ordered Cradle Plus See Instructions, # 1 units, Maintenance, use per instructions, 08/07/18 15:01:22 EDT, Compound Start Date: 08/07/18 Status: Ordered Multivitamins with Folic Acid 1 mg oral tablet 1 tablet, By Mouth, Daily, # 90 tablet, 2 Refills, Maintenance, 01/25/18 14:32:10 EDT, Tablet, 1 tablet By Mouth Daily Start Date: 01/25/18 Status: Ordered ProAir HFA 90 mcg/inh inhalation aerosol with adapter 2, puffs, Inhalation, Every 6 hours, PRN, # 1 each, Refills 0, Tot. Refills 0, Maintenance, 07/06/18 12:27:34 EST, Route to Pharmacy Electronically, [id number], [facility]/pharmacy#[id number] Start Date: 07/06/18 Status: Ordered Senna 8.6 mg oral tablet 17.2 mg, 2, tablet, By Mouth, Daily at bedtime, PRN, # 90 tablet, Refills 0, Tot. Refills 0, Maintenance, for constipation, 09/08/18 9:07:33 EDT, Print Requisition, Tablet Start Date: 09/08/18 Status: Ordered Trulicity Pen 0.75 mg/0.5 mL subcutaneous solution 0.5 mL = 0.75 mg, Subcutaneous Injection, Every week, Take 0.75mg once weekly x4 weeks then call office to increase dose. E11.65, # 2.5 mL, 0 Refills, Maintenance, 02/08/19 10:30:06 EDT, Solution Start Date: 02/08/19 Status: Ordered Tylenol 325 mg oral tablet 325 mg, 1, tablet, By Mouth, Every 4 hours, PRN, # 90 tablet, Refills 0, Tot. Refills 0, Maintenance, for pain, 09/08/18 9:07:35 EDT, Print Requisition Start Date: 09/08/18 Status: Ordered Problem List Condition Effective Dates Status Health Status Inform ant Marijuana abuse(Confirmed) Active Depression(Confirmed) Active Medical marijuana use(Confirmed) Active External hemorrhoids(Confirmed) Active Migraines(Confirmed) Active Morbid obesity(Confirmed) Active THIERRY (obstructive sleep apnea)(Confirmed) Active History of Gestational hyper tension (Severe)(Confirmed) Active Restless leg syndrome(Confirmed) Active Pre-eclampsia, severe(Confirmed) Active Diabetes mellitus, type II(Confirmed) Active Social History Social History Type Response Smoking Status Former smoker; Tobac co user in household: No entered on: 02/13/18 Sex
--- OUTSIDE RECORDS SUMMARY | 2023-06-15 01:07 | XMS_ITS | Continuity of Care Document ---
Author Name Unknown Organization [facility] James lt Address [address] [place] [address]- Care Team Providers Care School Year Nanny Name Role Phone Dyan Herrera Primary Care Physician [phone] Encounter [facility] Date(s): 08/28/22 - 01/07/23 [facility] Adult [address] [place] [address]- Attending Physician: Dyan Herrera Referring Physician: Evin [...] Note: AFLURIA quadrivalence VACCINE [facility] [id number] 2Early/Late Reason: Other : Pt not available. [...] Refills, Maintenance, 09/17/22 11:33:00 EDT, [facility], 84, TAKE 1 TABLET BY MOUTH EVERY DAY, 165.1, cm, 08/27/22 9:57:00 EDT,Height, 122, kg, 06/23/22 9:22:00 EST, Dry Weight Start Date: 09/17/22 Status: Ordered escitalopram 20 mg oral tablet 1 tablet, By Mouth, Daily, # 30 tablet, 0 Refills, Maintenance, 11/08/22 7:48:00 EDT, [facility], 165.1, cm, 10/21/22 10:08:00 EDT, Height, 122, [...] Care Nurse Name: Belia Solares RN Position: [facility] OB RN Member Role: Primary Care Nurse Name: Jorge Mendoza RN Position: [facility] ED RN W/OE and Tasks Member Role: Primary Care Nurse Name: Dyan Herrera Position: [facility] PCO Associate Professional Member Role: PCP Address: Address: [address] [place] [address]- Name: Ruthy Nelson RN Position: [facility] RN Member Role: Primary Care Nurse Name: Colette Powell MD Position: [facility] ENGINEER/CONDUCTOR MD Member Role: Lifetime ENGINEER/CONDUCTOR Physician Address: Address: [address] [place] [address] [address]- Name: Angelita Reid RN Position: [facility] RN Member Role: Primary Care Nurse Name: Leonor Rodríguez RN, I Position: [facility] RN Member Role: Primary Care Nurse Care Team Related Persons Name: MILTON BOOKERANNA Address: home [address] [place] [address] Name: YISSEL HOWARD Address: [employer] Address: home [address] [place] [address] Name: DIANE HOWARD Address: home [address] [place] [address] Name: MILTON HOWARD Address: [employer] Address: home [address] [place], [place] [address] [place]
--- OUTSIDE RECORDS SUMMARY | 2023-06-15 01:07 | XMS_ITS | Continuity of Care Document ---
Author Name Unknown Organization [facility] James lt Address [address] [place] [address]- Care Team Providers Care Bottom Sprayer Name Role Phone Dyan Herrera Primary Care Physician Encounter [facility] Date(s): 12/16/21 - 01/15/22 [facility] Adult [address] [place] [address]- Attending Physician: Admtr, Ar8 Admitting Physician: Admtr, [...] 05/01/08 Recorded 1Admin Note: AFLURIA quadrivalence VACCINE [facility] [id number] 2Early/Late Reason: Other : Pt not available. 3Location History: DR [facility] Medications Albuterol (Eqv-ProAir HFA) 90 mcg/inh inhalation aerosol 2 puffs, Inhalation, Every 6 hours, PRN NEEDED FOR SHORTNESS OF BREATH OR WHEEZING, # 8.5 each, 5 Refills, Maintenance, 12/02/21 7:35:00 EDT, [facility]/pharmacy #[id number], 25, 2 puffs Inhalation Every [...] 09/10/21 Status: Ordered Freestyle Dipika 2 14-day [place] Freestyle Dipika 2 14-day [place], See Instructions, # 1 each, Refills 0, [...] NEEDED FOR PAIN, Route to Pharmacy Electronically, [facility] [id number], 163, cm, 07/28/21 9:25:00 EDT, Height, 120.5, kg, 02/03/21 17:38:00 EDT, Dry Weight Start Date: 12/02/21 Status: Ordered Lantus Solostar Pen 100 units/mL subcutaneous solution See Instructions, INJECT 55 UNITS DAILY AT DINNER TIME, # 30 Unknown, 11 Refills, 08/06/21 11:50:00EDT, [facility]/pharmacy #[id number], 163, cm, 07/28/21 9:25:00 EDT, Height, 120.5, kg, 02/03/21 17:38:00 EDT, Dry Weight Start Date: 08/06/21 Status: Ordered MetFORMIN (Eqv-Glucophage XR) 500 mg oral tablet, extended release 2 tablet, By Mouth, 2 times a day with meals, # 360 tablet, 11 Refills, 08/06/21 11:50:00 EDT, [facility]/pharmacy #[id number], 163, cm, 07/28/21 9:25:00 EDT, Height, 120.5, kg, 02/03/21 17:38:00 EDT, Dry Weight Start Date: 08/06/21 Status: Ordered miSOPROStol 200 mcg oral tablet See Instructions, Place 2 tabs between cheek and gums on EACH side, let dissolve for 30 min then swallow the rest with water, # 4 tablet, 1 Refills, Maintenance, 05/28/21 14:25:00 EST, [facility]/pharmacy #[id number], Partial fill upon patient request if the presc... Start Date: 05/28/21 Status: Ordered NovoLOG FlexPen 100 units/mL subcutaneous solution See Instructions, - NovoLog, 3 times daily before meals 80-130 21 units 131-180 23 units 181-230 25units 231-280 27 units Over 280 29 units., # 30 mL, 11 Refills, Maintenance, 08/06/21 11:50:00 EDT,[facility]/... Start Date: 08/06/21 Status: Ordered nystatin topical 534900 u/gm powder See Instructions, APPLY TOPICALLY 3 TIMES A DAY PLEASE APPLY TO PELVIC RASH, LABIA, GLUTEAL FOLDS, AND RECTUM., # 60 Gm, 1 Refills, Maintenance, 12/24/21 20:42:00 EDT, [facility], 30, APPLY TOPICALLY 3 TIMES A DAY PLEASE APPLY TO PELVIC RASH, LAB... Start Date: 12/24/21 Status: Ordered Pen [place], 31 G x 8 mm BD Ultra [...] 5 Refills, Maintenance, 06/16/21 10:48:00 EST, Tablet, [facility]/pharmacy #[id number], ok to substitute with ANY [...] Care Team Personnel Name: Dyan Herrera Address: [address] [place] [address]
--- OUTSIDE RECORDS SUMMARY | 2023-06-15 01:07 | XMS_ITS | Continuity of Care Document ---
Author Name Unknown Organization [facility] Address [address] [place] [address]- Care Team Providers Care Head Of Store Operations Name Role Phone Dyan Herrera Primary Care Physician [place] [facility] [place] 06/[place]/22 [facility] [address] [place] [id number] Allergies, Adverse Reactions, Alerts Substance [...] Note: AFLURIA quadrivalence VACCINE [facility] [id number] 2Early/Late Reason: Other : Pt not available. [...] Dry Weight Start Date: 05/09/20 Status: Ordered aspirin 81 mg oral delayed release tablet 2 tablet = 162 mg, By Mouth, Daily, Start at 12 weeks gestation Expected date of Delivery Jan 03, 2023 Start on June, # 60 tablet, 4 Refills, Maintenance, 05/24/22 12:10:00 EST, CR Tablet, [facility]/pharmacy #[id number], Partial fill upon patient r... Start Date: 05/24/22 Status: Ordered FREESTYLE 28G LANCETS FREESTYLE 28G [...] 09/10/21 Status: Ordered Freestyle Dipika 2 14-day [place] Freestyle Dipika 2 14-day [place], See Instructions, # 1 each, Refills 0, Tot. Refills 0, Maintenance, Use to scan for blood sugar at least 4 times daily. E11.65., 09/16/21 15:00:00 EDT, Compound, 163,cm, 07/28/21 9:25:00 EDT, Height, 120.5, kg, ... Start Date: 09/16/21 Status: Ordered Freestyle Diipka 2 14-day [place] Freestyle Dipika 2 14-day [...] 1... Start Date: 06/02/22 Status: Ordered Pen [place], 31 G x 8 mm BD Ultra [...] tablet, 2 Refills, Maintenance, 05/24/22 12:08:00 EST, [id number], Partial fill upon patient request [...] Team Personnel Name: Belia Solares RN Position: [facility] OB RN Member Role: Primary Care Nurse Name: Jorge Mendoza RN Position: [facility] RN Member Role: Primary Care Nurse Name: Dyan Herrera Position: [facility] PCO Associate Professional Member Role: PCP Address: Address: [address] [place] [address] Name: Ruthy Nelson RN Position: [facility] RN Member Role: Primary Care Nurse Care Team Related Persons Name: MIHAI BOOKER Address: home [address] [place] [address] Name: YISSEL HOWARD Address: [employer] Address: home [address] [place] [place] [address] Name: DIANE HOWARD Address: home [address] [place] [address] Name: MILTON HOWARD Address: [employer] Address: home [address] [place] [address]
--- OUTSIDE RECORDS SUMMARY | 2023-06-15 01:07 | XMS_ITS | Continuity of Care Document ---
Author Name Unknown Organization [facility] Address [address] [place] [address]- Care Team Providers Care Hot Metal Mixer Operator Helper Name Role Phone Conchita LEE, Evin Teran Primary Care Physician Encounter [facility] [place] Date(s): 09/02/20 - 10/02/[address] [address]- Allergies, Adverse Reactions, Alerts Substance Reaction Severity [...] Recorded 1Admin Note: AFLURIA quadrivalence VACCINE [facility] [id number] 2Early/Late Reason: Other : Pt not available. 3Location History: DR REEDER Medications Alcohol Pads See Instructions, # 120 each, Refills 0, Tot. Refills 0, Maintenance, To use with insulin administration 4 times daily, 05/09/20 12:20:00 EST, Compound, 163, cm, 05/09/20 8:55:00 EST, Height, 164, kg, 09/05/18 17:25:00 EDT, Dry Weight Start Date: 05/09/20 Status: Ordered Freestyle Dipika 14-day [place] Freestyle Dipika 14-day [place], See Instructions, # 1 each, Refills 0, [...] 09/04/20 23:17:00 EDT, Route to Pharmacy Electronically, [facility]/pharmacy #[id number], Partial fill upon patient request if the prescription i... Start Date: 09/04/20 Status: Ordered Lantus Solostar Pen 100 units/mL subcutaneous solution See Instructions, Take 55 units daily at dinner. E11.65, # 30 mL, 5 Refills, Maintenance, 06/09/20 10:04:00 EST, Solution, [facility]/pharmacy #[id number], Partial fill upon patient request if [...] Heig... Start Date: 06/09/20 Status: Ordered Pen [place], 31 G x 8 mm BD Ultra [...] 05/26/20 14:2... Start Date: 08/05/20 Status: Ordered Multivitamins with Vitamin B Complex, Vitamin C, Minerals and L- Methylfolate oral capsule 1 capsule, By Mouth, Daily, Replace with any type or brand of vitamins covered by insurance, # 90 capsule, 3 Refills, Maintenance, 09/19/20 8:47:00 EDT, Capsule, [id number], Partial fill upon patient request if the prescription is for... Start Date: 09/19/20 Status: Ordered ProAir HFA 90 mcg/inh inhalation aerosol with adapter 2, puffs, Inhalation, Every 6 hours, PRN, # 1 each, Refills 5, Tot. Refills 5, Maintenance, 09/27/20 10:32:00 EDT, Route to Pharmacy Electronically, [id number], [id number], 163, cm, 09/19/20 9:21:00 EDT, Height Start [...]
--- OUTSIDE RECORDS SUMMARY | 2023-06-15 01:07 | XMS_ITS | Continuity of Care Document ---
Author Name Unknown Organization [facility] Address [address] [place] [address]- Care Team Providers Care Gasfitter Name Role Phone Dayn Herrera Primary Care Physician Encounter [facility] [place] Date(s): 10/21/22 - 10/28/22 [facility] [address] [place] [address]- Attending Physician: Dyan Herrera Allergies, Adverse Reactions, [...] 1Admin Note: AFLURIA quadrivalence VACCINE [facility] [id number] 2Early/Late Reason: Other : Pt not available. [...] Refills, Maintenance, 09/17/22 11:33:00 EDT, [id number], 84, TAKE 1 TABLET BY MOUTH EVERY DAY, 165.1, cm, 08/27/22 9:57:00 EDT,Height, 122, kg, 06/23/22 9:22:00 EST, Dry Weight Start Date: 09/17/22 Status: Ordered escitalopram 20 mg oral tablet 1.5 tablet = 30 mg, By Mouth, Daily, # 135 tablet, 3 Refills, Maintenance, 10/21/22 10:13:00 EDT, [id number], 165.1, cm, 10/21/22 10:08:00 EDT, Height, 122, kg, 06/23/22 9:22:00 EST, Dry Weight Start Date: 10/21/22 Stop Date: 10/16/23 Status: Ordered Lantus Inj = 50 units, [...] Start Date: 06/02/22 Status: Ordered nystatin topical 908694 u/gm powder See Instructions, APPLY TOPICALLY 3 TIMES A DAY PLEASE APPLY TO PELVIC RASH, LABIA, GLUTEAL FOLDS, AND RECTUM., # 60 Gm, 1 Refills, Acute 11/20/22 10:45:00 EDT, 10/21/22 10:16:00 EDT, Powder, [facility]/pharmacy #[id number], Partial fill upon patient request if th... Start Date: 10/21/22 Stop Date: 11/20/22 Status: Ordered triamcinolone 0.025% topical cream 1 application, Topically, 2 times a day, for 14 days, # 60 Gm, 3 Refills, Acute 12/16/22 10:15:00 EDT, 10/21/22 10:15:00 EDT, Cream, [facility]/pharmacy #[id number], Partial fill upon patient request if the prescription is for a schedule II opioid drug., 1 applica... Start Date: 10/21/22 Stop Date: 12/16/22 Status: Ordered Problem List Condition Confirmation Course [...] was taken away due to non compliant Vital Signs Most recent to oldest [Reference Range]: 1 Height 165.1 cm (10/21/22 10:08 AM) Weight 113.6 kg (10/21/22 10:08 AM) Body Mass Index [18.5-24.99 kg/m2] 41.68 kg/m2 *>HHI* (10/21/22 10:08 AM) Weight Obtained Via Patient/family state d (10/21/22 10:08 AM) Social History Social History Type Response Smoking Status Former smoker, quit more than 30 days ago; Other: Quit is 2017; entered on: 05/11/21 Sex Patient Care team information Care Team Personnel Name: Albaro Kari Position: [facility] RN Member Role: Primary Care Nurse Name: Belia Solares RN Position: [facility] OB RN Member Role: Primary Care Nurse Name: Jorge Mendoza RN Position: [facility] RN Member Role: Primary Care Nurse Name: Dyan Herrera Position: [facility] PCO Associate Professional Member Role: PCP Address: Address: [address] [place] [address]- Name: Ruthy Nelson RN Position: [facility] RN Member Role: Primary Care Nurse Name: Colette Powell MD Position: [facility] LITIGATION PARALEGAL MD Member Role: Lifetime LITIGATION PARALEGAL Physician Address: Address: [address] [place] [address]- Name: Angelita Reid RN Position: [facility] RN Member Role: Primary Care Nurse Name: Leonor Rodríguez RN, I Position: [facility] RN Member Role: Primary Care Nurse Care Team Related Persons Name: JHONY MIHAI Address: home [address] [place] [address] Name: YISSEL HOWARD Address: [employer] Address: home [address] [place] [address] Name: DIANE HOWARD Address: home [address] [place] [address] Name: MILTON HOWARD Address: [employer] Address: home [address] [place] [address]
--- OUTSIDE RECORDS SUMMARY | 2023-06-15 01:07 | XMS_ITS | Continuity of Care Document ---
Author Name Unknown Organization [facility] ter Address [address] [place] [address]- Care Team Providers Care Watch Guard Gate Name Role Phone Dyan Herrera Primary Care Physician [phone] Encounter [facility] Date(s): 06/10/22 - 07/10/[address] [address] Attending Physician: Admtr, Ar8 Admitting Physician: Admtr, [...] Recorded 1Admin Note: AFLURIA quadrivalence VACCINE [facility] [id number] 2Early/Late Reason: Other : Pt not available. 3Location History: DR REEDER Medications Albuterol (Eqv-ProAir HFA) 90 mcg/inh inhalation aerosol 2 puffs, Inhalation, Every 6 hours, PRN NEEDED FOR SHORTNESS OF BREATH OR WHEEZING, # 8.5 each, 5 Refills, Maintenance, 12/02/21 7:35:00 EDT, [facility]/pharmacy #[id number], 25, 2 puffs Inhalation Every 6 [...] 0 Refills, Maintenance, 06/23/22 12:27:00 EST, Tablet, [facility]/pharmacy #[id number], Partial fill upon patient request if [...] Refills, Maintenance, 05/24/22 12:10:00 EST, CR Tablet, [facility]/pharmacy #[id number], Partial fill upon patient r... Start Date: 05/24/22 Status: Ordered fluconazole 150 mg oral tablet 1 tablet = 150 mg, By Mouth, Once, # 1 tablet, 0 Refills, Soft Stop, 06/23/22 4:06:00 EST, Tablet, [facility]/pharmacy #[id number], Partial fill upon patient request if [...] 09/10/21 Status: Ordered Freestyle Dipika 2 14-day [place] Freestyle Dipika 2 14-day [place], See Instructions, # 1 each, Refills 0, [...] cm, 07/28/21 9:25:00 EDT, Height, 120.5, kg, 10... Start Date: 09/16/21 Status: Ordered Freestyle Lite [...] 30 Unknown, 11 Refills, 06/02/22 18:09:00 EST, [facility]/pharmacy #[id number], 163, cm, 06/02/22 14:37:00 EST, Height, 120.5, kg, 02/03/21 17:38:00 EDT, Dry Weight Start Date: 06/02/22 Status: Ordered MetFORMIN (Eqv-Glucophage XR) 500 mg oral tablet, extended release 2 tablet, By Mouth, 2 times a day with meals, # 360 tablet, 11 Refills, 08/06/21 11:50:00 EDT, [facility]/pharmacy #[id number], 163, cm, 07/28/21 9:25:00 EDT, Height, 120.5, kg, 02/03/21 17:38:00 EDT, Dry Weight Start Date: 08/06/21 Status: Ordered metFORMIN 500 mg oral tablet, extended release See Instructions, 2 tablet By Mouth twice Daily. E11.9, # 60 tablet, 8 Refills, Maintenance, 06/03/22 12:28:00 EST, ER Tablet, [facility]/pharmacy #[id number], Partial fill upon patient request if the prescription is for a schedule II opioid drug., 163, cm, ... Start Date: 06/03/22 Status: Ordered NovoLOG FlexPen 100 units/mL subcutaneous solution See Instructions, Take 23-34 units based on sliding scale. E11.9 Max daily dose 102 units., # 30 mL, 11 Refills, Maintenance, 06/02/22 18:08:00 EST, [facility]/pharmacy #[id number], May increase dose by 4 units at meals if increased CHO intake, 163, cm, 06/02/22 1... Start Date: 06/02/22 Status: Ordered Pen [place], 31 G x 8 mm BD Ultra [...] 5 Refills, Maintenance, 06/16/21 10:48:00 EST, Tablet, [facility]/pharmacy #0693, ok to substitute with ANY vitamin, 1 tablet By Mouth Daily, 163, cm, 06/16/21 10:10:00 EST, Height, 120.5, kg, 02/03/21 17:38:0... Start Date: 06/16/21 Status: Ordered Multivitamins with Folic Acid 1 mg oral capsule See Instructions, TAKE ONE DAILY BY MOUTH, # 100 capsule, 2 Refills, Maintenance, 05/11/22 14:42:00EST, [facility]/pharmacy #[id number], Partial fill upon patient request if the prescription is for a schedule IIopioid drug., TAKE ONE DAILY BY MOUTH, 163, cm, ... Start Date: 05/11/22 Status: Ordered Multivitamins with Folic Acid 1 mg oral tablet 1 tablet, By Mouth, Daily, # 90 tablet, 2 Refills, Maintenance, 05/24/22 12:08:00 EST, [facility]/pharmacy#0693, Partial fill upon patient request if the [...] Team Personnel Name: Belia Solares RN Position: [facility] OB RN Member Role: Primary Care Nurse Name: Jorge Mendoza RN Position: S RN Member Role: Primary Care Nurse Name: Dyan Herrera Position: [facility] PCO Associate Professional Member Role: PCP Address: Address: [address] [place] [address] Name: Ruthy Nelson RN Position: [facility] RN Member Role: Primary Care Nurse Name: Colette Powell MD Position: [facility] BOARD WRITER MD Member Role: Lifetime BOARD WRITER Physician Address: Address: [address] [place] [address] [address]- Care Team Related Persons Name: MIHAI BOOKER Address: home [address] [place] [address] Name: YISSEL HOWARD Address: [employer] Address: home [address] [place] [address] Name: DIANE HOWARD Address: home [address] [place] [address] Name: MILTON HOWARD Address: [employer] Address: home [address] [place] [address] [place]
--- OUTSIDE RECORDS SUMMARY | 2023-06-15 01:07 | XMS_ITS | Continuity of Care Document ---
Author Name Unknown Organization [facility] ter Address [address] [place] [address]- Care Team Providers Care Dancer Or Choreographer Name Role Phone Evin Arango MD Primary Care Physician [phone] Encounter [facility] [place] Date(s): 02/03/21 - 02/04/[address] [address]- Discharge Disposition: A-D/C Walkout Attending Physician: Not on Staff, Attending MD Admitting Physician: Not on Staff, Admitting MD Referring Physician: Not on Staff, Referring MD Allergies, Adverse Reactions, Alerts Substance Reaction [...] 05/01/08 Recorded 1Admin Note: AFLURIA quadrivalence VACCINE [facility] [id number] 2Early/Late Reason: Other : Pt not available. [...] Mouth, Daily, # 30 tablet, 5 Refills, [facility], 163, cm, 01/30/21 9:54:00 EDT, Height, 120.5, [...] opioid drug. Start Date: 01/30/21 Status: Ordered HYDROmorphone 4 mg oral tablet 1 tablet = 4 mg, By Mouth, Every 4 hours, PRN as needed for pain, 0 Refills, Maintenance, 01/30/21 10:07:00 EDT, Tablet, Partial fill upon patient request if the prescription is for a schedule II opioid drug. Start Date: 01/30/21 Status: Ordered ibuprofen 600 mg oral tablet 1, tablet, By Mouth, 2 times a day, PRN, # 30 tablet, Refills 1, NEEDED FOR PAIN, Route to Pharmacy Electronically, [facility], 163, cm, 12/08/20 14:03:00 EDT, Height Start Date: 01/28/21 Status: Ordered Lantus Solostar Pen 100 units/mL subcutaneous solution See Instructions, Take 55 units daily at dinner. E11.65, # 30 mL, 5 Refills, Maintenance, 06/09/20 10:04:00 EST, Solution, [id number], Partial fill upon patient request if the prescription isfor a schedule II opioid drug., 163, cm, 05/26/20 1... Start Date: 06/09/20 Status: Ordered meloxicam 15 mg oral tablet 1 tablet = 15 mg, By Mouth, Daily, # 30 tablet, 0 Refills, Maintenance, 01/30/21 10:06:00 EDT, Tablet, Partial fill upon patient request if the prescription is for a schedule II opioid drug. Start Date: 01/30/21 Status: Ordered MetFORMIN (Eqv-Glucophage XR) 500 mg oral tablet, extended release 2 tablet, By Mouth, 2 times a day with meals, # 120 tablet, 8 Refills, Maintenance, 11/25/20 13:42:00 EDT, [id number], 163, cm, 11/13/20 10:29:00 EDT, Height Start Date: 11/25/20 Status: Ordered NovoLOG FlexPen 100 units/mL subcutaneous solution See Instructions, Take 20 units per meal. E11.65. Max daily dose 60 units., # 30 mL, 5 Refills, Maintenance, 06/09/20 10:05:00 EST, [facility]/pharmacy #[id number], May increase dose by 4 units at meals if increased CHO intake, 163, cm, 05/26/20 14:26:00 EST, Heig... Start Date: 06/09/20 Status: Ordered nystatin topical 139064 u/gm powder See Instructions, APPLY TO AFFECTED AREA TWICE A DAY, # 30 Gm, 1 Refills, [facility], 14, APPLY TO AFFECTED AREA TWICE A [...] drug. Start Date: 01/30/21 Status: Ordered Pen [place], 31 G x 8 mm BD Ultra [...] 09/27/20 10:32:00 EDT, Route to Pharmacy Electronically, [id number], [facility]/pharmacy#[id number], 163, cm, 09/19/20 9:21:00 [...] syndrome(Confirmed) Active Diabetes mellitus, type II(Confirmed) Active Results Radiology Reports * Exam Date Time Procedure Performing Provider Status 02/03/21 6:44 PM Chest 2 Views Frontal and Lat Chiquita Noel; Aleja (Verified) Notes: (Chest 2 Views Frontal and Lat) Reason For Exam: Chest Pain;Other: RESULT: Chest 2 Views Frontal and Lat Chest 2 Views Frontal and Lat Hx of Present Illness: hoarse voice and SOB since leaving [facility] 01 28 21; Reason: Other:; Chest Pain; Clinical Question(s): Other: COMPARISON: 10/08/2017 FINDINGS: LINES AND TUBES: None. LUNGS AND PLEURA: Clear lungs. Normal pulmonary vascularity. No pleural effusion. No pneumothorax. HEART, MEDIASTINUM AND AMAN: Heart is normal in size. Normal upper mediastinal and hilar contour. BONES AND SOFT TISSUES: No acute abnormality. IMPRESSION: No acute abnormality. WSN: [id number] Ordering Physician: Adele Matt Dictated By: Manolo Caraballo MD Dictated Date/Time: 02/03/21 6:49 pm Reviewed By: Manolo Caraballo MD Signed By: Manolo Caraballo MD Signed Date/Time: 02/03/21 6:49 pm Transcribed By: MEÑO Transcribed Date/Time: 02/03/21 6:48 pm Vital Signs Most recent to oldest [Reference Range]: 1 2 3 Weight 120.5 kg (02/03/21 5:38 PM) 120.5 kg (02/03/21 5:23 PM) Oxygen Saturation [94-100 %] 100 % (02/03/21 9:42 PM) 98 % (02/03/21 5:38 PM) 100 % (02/03/21 4:52 PM) Pulse Rate [55-90 bpm] 95 bpm *H* (02/03/21 9:42 PM) 91 bpm *H* (02/03/21 5:38 PM) 103 bpm *H* (02/03/21 4:52 PM) Blood Pressure [90-138/55-84 mm Hg] 125/79mm Hg (02/03/21 9:42 PM) 97/63mm Hg (02/03/21 4:52 PM) Respiratory Rate [16-30 br/min] 18 br/min (02/03/21 9:42 PM) 16 br/min (02/03/21 5:38 PM) 20 br/min (02/03/21 4:52 PM) Temperature [96.8-100.4 DegF] 98.1 DegF (02/03/21 9:42 PM) 97.9 DegF (02/03/21 4:52 PM) Mode of Delivery (Oxygen) room air (02/03/21 9:42 PM) Room air (02/03/21 5:38 PM) Room air (02/03/21 4:52 PM) Blood pressure sites Arm, left (02/03/21 9:42 PM) Temperature Route Oral (02/03/21 9:42 PM) Oral (02/03/21 4:52 PM) Dry Weight 120.5 kg (02/03/21 5:38 PM) 120.5 kg (02/03/21 5:23 PM) Social History Social History Type Response Smoking Status Former smoker; Tobac co user in household: No entered on: 02/13/18 Sex
--- OUTSIDE RECORDS SUMMARY | 2023-06-15 01:07 | XMS_ITS | Continuity of Care Document ---
Author Name Unknown Organization [facility] Address [address] [place] [address]- Care Team Providers Care Real Time Trader Name Role Phone Conchita LEE, Evin Teran Primary Care Physician [phone] Encounter [facility] Date(s): 05/05/21 - 06/04/[address] [address] Allergies, Adverse Reactions, Alerts [...] 05/01/08 Recorded 1Admin Note: AFLURIA quadrivalence VACCINE [facility] [place][NOTE 2] [id number] 2Early/Late Reason: Other : Pt not available. [...] OR WHEEZING, # 8.5 each, 5 Refills, [facility], 25, TAKE 2 PUFFS BY MOUTH EVERY [...] Mouth, Daily, # 30 tablet, 5 Refills, [facility], 163, cm, 01/30/21 9:54:00 EDT, Height, 120.5, kg, 02/03/21 17:38:00 EDT, Dry Weight Start Date: 02/04/21 Status: Ordered fluconazole 150 mg oral tablet 1 tablet = 150 mg, By Mouth, Once, # 1 tablet, 0 Refills, Soft Stop, 03/29/21 8:57:00 EST, Tablet, [facility]/pharmacy #[id number], Partial fill upon patient request [...] tablet, Refills 1, Route to Pharmacy Electronically, [facility], 163, cm, 03/25/21 15:25:00 EST, Height, 120.5, kg, 02/03/21 17:38:00 EDT, Dry Weight Start Date: 04/27/21 Status: Ordered Lantus Solostar Pen 100 units/mL subcutaneous solution See Instructions, INJECT 55 UNITS DAILY AT DINNER TIME, # 30 Unknown, 5 Refills, [facility] 15[facility], 163, cm, 02/05/21 12:14:00 EDT, Height, 120.5, kg, 02/03/21 17:38:00 EDT, Dry Weight Start Date: 02/26/21 Status: Ordered MetFORMIN (Eqv-Glucophage XR) 500 mg oral tablet, extended release 2 tablet, By Mouth, 2 times a day with meals, # 120 tablet, 8 Refills, Maintenance, 11/25/20 13:42:00 EDT, [id number], 163, cm, 11/13/20 10:29:00 EDT, Height Start Date: 11/25/20 Status: Ordered miSOPROStol 200 mcg oral tablet [...] Start Date: 03/31/21 Status: Ordered nystatin topical 580739 u/gm powder 1 application, Topically, 3 times a day, Please apply to pelvic rash, labia, gluteal folds, and rectum., # 60 Gm, 1 Refills, Maintenance, 03/25/21 16:04:00 EST, Powder, [id number], Partial fill upon patient request if the prescription is for a... Start Date: 03/25/21 Status: Ordered nystatin topical 406771 u/gm powder See Instructions, APPLY TO AFFECTED AREA TWICE A DAY, # 30 Gm, 1 Refills, [facility], 14, APPLY TO AFFECTED AREA TWICE A DAY, 163, cm, 12/08/20 14:03:00 EDT, Height Start Date: 01/24/21 Status: Ordered Pen [place], 31 G x 8 mm BD Ultra Fine III See Instructions, # 200 each, Refills 5, Tot. Refills 5, Maintenance, Use to take insulin 4 times daily. E11.65, 05/19/21 14:32:00 EST, Compound, 163, cm, 05/11/21 10:26:00 EST, Height, 120.5, kg, 02/03/21 17:38:00 EDT, Dry Weight Start Date: 05/19/21 Status: Ordered Multivitamins with Folic Acid 1 mg oral tablet 1 tablet, By Mouth, Daily, # 90 tablet, 3 Refills, Maintenance, 05/06/21 11:03:00 EST, Tablet, [facility]/pharmacy #0693, Please substitute any brand PNV [...] Refills, Maintenance, 03/25/21 15:35:00 EST, Capsule, [facility], Partial fill upon patient request if the [...]
--- OUTSIDE RECORDS SUMMARY | 2023-06-15 01:07 | XMS_ITS | Continuity of Care Document ---
Author Name Unknown Organization [facility] ter Address [address] [place] [address]- Care Team Providers Care Doctor'S Assistant Name Role Phone Conchita LEE, Evin Teran Primary Care Physician [phone] Encounter [facility] Date(s): 06/11/21 - 06/12/[address] [address] Discharge Disposition: A-D/C Home Attending Physician: Colette Powell MD Admitting Physician: Colette Powell MD Referring Physician: Colette Powell MD Allergies, Adverse Reactions, Alerts Substance Reaction [...] AFLURIA quadrivalence VACCINE [facility] 30356-270-29 2Early/Late Reason: Other : Pt not available. [...] # 8.5 each, 5 Refills, [facility], 25, TAKE 2 PUFFS BY MOUTH EVERY [...] tablet 800 mg, 1, tablet, By Mouth, 3 times a day, PRN, # 30 tablet, Refills 1, Tot. Refills 1, Acute 06/13/22 16:29:00 EST, for pain, 06/12/21 16:28:00 EST, Route to Pharmacy Electronically, [facility]/pharmacy #[id number], Partial fill upon patient request if the presc... Start Date: 06/12/21 Stop Date: 06/13/22 Status: Ordered Lantus Solostar Pen 100 units/mL subcutaneous solution See Instructions, INJECT 55 UNITS DAILY AT DINNER TIME, # 30 Unknown, 5 Refills, [facility], 163, cm, 02/05/21 12:14:00 EDT, Height, 120.5, kg, 02/03/21 17:38:00 EDT, Dry Weight Start Date: 02/26/21 Status: Ordered MetFORMIN (Eqv-Glucophage XR) 500 mg oral tablet, extended release 2 tablet, By Mouth, 2 times a day with meals, # 120 tablet, 8 Refills, Maintenance, 11/25/20 13:42:00 EDT, [facility]/pharmacy #[id number], 163, cm, 11/13/20 10:29:00 EDT, Height Start Date: 11/25/20 Status: Ordered miSOPROStol 200 mcg oral tablet See Instructions, Place 2 tabs between cheek and gums on EACH side, let dissolve for 30 min then swallow the rest with water, # 4 tablet, 1 Refills, Maintenance, 05/28/21 14:25:00 EST, [facility]/pharmacy #[id number], Partial fill upon patient request if the presc... Start Date: 05/28/21 Status: Ordered MorPHINE Inj 4 mg, Injection, IV Push Slowly, Once, PRN for Pain , Severe, Routine, 06/11/21 23:54:00 EST Start Date: 06/11/21 Stop Date: 06/11/21 Status: Completed Niva-Plus oral tablet 1 tablet, By Mouth, [...] Start Date: 03/31/21 Status: Ordered nystatin topical 954537 u/gm powder 1 application, Topically, 3 times a day, Please apply to pelvic rash, labia, gluteal folds, and rectum., # 60 Gm, 1 Refills, Maintenance, 03/25/21 16:04:00 EST, Powder, [id number], Partial fill upon patient request if the prescription is for a... Start Date: 03/25/21 Status: Ordered nystatin topical 786902 u/gm powder See Instructions, APPLY TO AFFECTED AREA TWICE A DAY, # 30 Gm, 1 Refills, [facility], 14, APPLY TO AFFECTED AREA TWICE A DAY, 163, cm, 12/08/20 14:03:00 EDT, Height Start Date: 01/24/21 Status: Ordered Pen [place], 31 G x 8 mm BD Ultra [...] recent to oldest [Reference Range]: 1 2 Oxygen Saturation [94-100 %] 99 % (06/11/21 10:44 PM) Pulse Rate [55-90 bpm] 99 bpm *H* (06/11/21 10:44 PM) Blood Pressure [90-138/55-84 mm Hg] 132/ 87mm Hg (06/11/21 10:44 PM) Respiratory Rate [16-30 br/min] 18 br/mi n (06/11/21 11:39 PM) 18 br/min (06/11/21 10:44 PM) Temperature [96.8-100.4 DegF] 98.1 DegF (06/11/21 10:44 PM) Mode of Delivery (Oxygen) Room air (06/11/21 10:44 PM) Blood pressure sites Arm, right (06/11/21 10:44 PM) Temperature Route Oral (06/11/21 10:44 PM) Social History Social History Type Response Smoking Status Former smoker, quit more than 30 days ago; Other: Quit is 2017; entered on: 05/11/21 Sex
--- OUTSIDE RECORDS SUMMARY | 2023-06-15 01:07 | XMS_ITS | Continuity of Care Document ---
Author Name Unknown Organization [facility] James lt Address [address] [place] [address]- Care Team Providers Care Supervisory Geographer Name Role Phone Not on Staff, PCP Primary Care Physician Unavail able [facility] Date[facility]s): 12[facility] - 01/10/20 [facility] Adult [address] [place] [address]- [facility] Attending Physician: Conchita LEE, Evin Teran
--- OUTSIDE RECORDS SUMMARY | 2023-06-15 01:07 | XMS_ITS | Continuity of Care Document ---
Author Name Unknown Organization [facility] Address [address] [place] [address]- Care Team Providers Care Application Support Analyst Name Role Phone Dyan Herrera Primary Care Physician Encounter [facility] Date(s): 02/22/23 - 04/09/23 [facility] [address] [place] [id number] Attending Physician: Zach Lopez MD Admitting Physician: Zach Lopez MD Referring Physician: Dyan Herrera Allergies, Adverse [...] 05/01/08 Recorded 1Admin Note: AFLURIA quadrivalence VACCINE [facility] [id number] 2Early/Late Reason: Other : Pt not available. [...] opioid drug., 165.1, cm, 02/16/23 11:04:00 EDT, Nitin... Start Date: 03/11/23 Status: Ordered Foam Mattress [...] Refills, Maintenance, 03/28/23 7:43:00 EST, [facility], 30, APPLY TOPICALLY 3 TIMES A DAY [...] Care Team Personnel Name: Kari Irvin Position: [facility] RN Member Role: Primary Care Nurse Name: Belia Solares RN Position: [facility] OB RN Member Role: Primary Care Nurse Name: Jorge Mendoza RN Position: S RN Member Role: Primary Care Nurse Name: Dyan Herrera Position: [facility] PCO Associate Professional Member Role: PCP Address: Address: [address] [place] [address]- Name: Ruthy Nelson RN Position: [facility] RN Member Role: Primary Care Nurse Name: Colette Powell MD Position: [facility] SOCIAL RESEARCH ASSISTANT MD Member Role: [employer] SOCIAL RESEARCH ASSISTANT Physician Address: Address: [address] [place] [address]- Name: Angelita Reid RN Position: [facility] RN Member Role: Primary Care Nurse Name: Leonor Rodríguez RN, I Position: [facility] RN Member Role: Primary Care Nurse Care Team Related Persons Name: MIHAI BOOKER Address: home [address] [place] [address] Name: YISSEL HOWARD Address: [employer] Address: home [address] [place] [address] [place] Name: DIANE HOWARD Address: home [address] [place] [address] Name: MILTON HOWARD Address: [employer] Address: home [address] [place] [address]
--- OUTSIDE RECORDS SUMMARY | 2023-06-15 01:07 | XMS_ITS | Continuity of Care Document ---
Author Name Unknown Organization [facility] Address [address] [place] [address]- Care Team Providers Care Hand Binder Stripper Name Role Phone Dyan Herrera Primary Care Physician [facility]counter [facility] Date(s): 07/12/22 - 08/20/[address] [address]- Attending Physician: Not on Staff, Attending MD [...] quadrivalence VACCINE [facility] [id number] 2Early/Late Reason: Other : Pt not available. [...] 0 Refills, Maintenance, 06/23/22 12:27:00 EST, Tablet, [id number], Partial fill upon patient request if the prescription is for a schedule II opioid drug., 1 tablet By Mouth Daily, 163, cm, 06/07/22 10:4... Start Date: 06/23/22 Status: Ordered Lantus Inj = 50 units, Subcutaneous Injection, Daily in AM, 0 Refills, Maintenance, 08/19/22 14:16:00 EDT, Injection, Partial fill upon patient request if the prescription is for a schedule II opioid drug. Start Date: 08/19/22 Status: Ordered Lexapro 10 mg oral tablet 1 tablet = 10 mg, By Mouth, Daily, # 30 tablet, 0 Refills, Maintenance, 08/19/22 14:16:00 EDT, Tablet, [facility]/pharmacy #[id number], Partial fill upon patient request if the prescription is for a schedule II opioid drug., 165.1, cm, 08/18/22 13:16:00 EDT, Heigh... Start Date: 08/19/22 Stop Date: 09/18/22 Status: Ordered MetFORMIN (Eqv-Glucophage XR) 500 mg [...] Start Date: 06/02/22 Status: Ordered nystatin topical 990866 u/gm powder APPLY TOPICALLY 3 TIMES A [...] Care Team Personnel Name: Kari Irvin Position: [facility] RN Member Role: Primary Care Nurse Name: Belia Solraes RN Position: [facility] OB RN Member Role: Primary Care Nurse Name: Lauren Mac RN Position: [facility] RN Member Role: Primary Care Nurse Name: Jorge Mendoza RN Position: [facility] RN Member Role: Primary Care Nurse Name: Dyan Herrera Position: [facility] PCO Associate Professional Member Role: PCP Address: Address: [address] [place] [id number] Name: Ruthy Nelson RN Position: [facility] RN Member Role: Primary Care Nurse Name: Colette Powell MD Position: [facility] ASSEMBLYMAN OR WOMAN MD Member Role: [employer] ASSEMBLYMAN OR WOMAN Physician Address: Address: [address] [place] [address] [address]- Name: Angelita Reid RN Position: [facility] RN Member Role: Primary Care Nurse Name: Leonor Rodríguez RN, I Position: [facility] RN Member Role: Primary Care Nurse Care Team Related Persons Name: MIHAI BOOKER Address: home [address] [place] [address] Name: YISSEL HOWARD Address: [employer] Address: home [address] [place] [address] Name: DIANE HOWARD Address: home [address] [place] [address] Name: MILTON HOWARD Address: [employer] Address: home [address] [place] [address]
--- OUTSIDE RECORDS SUMMARY | 2023-06-15 01:08 | XMS_ITS | Continuity of Care Document ---
Author Name Unknown Organization [facility] Address [address] [place] [address]- Care Team Providers Care Certified Forklift Operator Name Role Phone Dyan Herrera Primary Care Physician [facility]counter [facility] Date(s): 03/29/22 - 04/28/22 [facility] [address] [place] [id number] Allergies, Adverse Reactions, Alerts Substance Reaction Severity [...] 05/01/08 Recorded 1Admin Note: AFLURIA quadrivalence VACCINE [facility] [id number] 2Early/Late Reason: Other : Pt not available. [...] 09/10/21 Status: Ordered Freestyle Dipika 2 14-day [place] Freestyle Dipika 2 14-day [place], See Instructions, # 1 each, Refills 0, [...] NEEDED FOR PAIN, Route to Pharmacy Electronically, [id number], 163, cm, 07/28/21 9:25:00 EDT, Height, 120.5, [...] Start Date: 08/06/21 Status: Ordered nystatin topical [id number] u/gm powder See Instructions, APPLY TOPICALLY 3 TIMES A DAY PLEASE APPLY TO PELVIC RASH, LABIA, GLUTEAL FOLDS, AND RECTUM., # 60 Gm, 1 Refills, Maintenance, 12/24/21 20:42:00 EDT, [facility], 30, APPLY TOPICALLY 3 TIMES A DAY PLEASE APPLY TO PELVIC RASH, LAB... Start Date: 12/24/21 Status: Ordered Pen [place], 31 G x 8 mm BD Ultra [...] List Condition Confirmation Course Effective Dates Status [facility] at Informant History of Anxiety Confirmed Active [...] Team Personnel Name: Belia Solares RN Position: [facility] OB RN Member Role: Primary Care Nurse Name: Jorge Mendoza RN Position: [facility] RN Member Role: Primary Care Nurse Name: Dyan Herrera Position: [facility] PCO Associate Professional Member Role: PCP Address: Address: [address] [place] [address] Name: Ruthy Nelson RN Position: [facility] RN Member Role: Primary Care Nurse Care Team Related Persons Name: MIHAI BOOKER Address: home [address] [place] [address] Name: YISSEL HOWARD Address: [employer] Address: home [address] [place] [address] Name: DIANE HOWARD Address: home [address] [place] [address] Name: MILTON HOWARD Address: [employer] Address: home [address] [place] [address] [place]
--- OUTSIDE RECORDS SUMMARY | 2023-06-15 01:08 | XMS_ITS | Continuity of Care Document ---
Author Name Unknown Organization [facility] Address [address] [place] [address]- Care Team Providers Care Wind Turbine Sheet Metal Worker Name Role Phone Conchita LEE, Evin Teran Primary Care Physician Encounter [facility] Date(s): 04/02/21 - 05/17/[address] [address]- Attending Physician: Not on Staff, Attending MD [...] Recorded 1Admin Note: AFLURIA quadrivalence VACCINE [facility] [id number] 2Early/Late Reason: Other : Pt not available. [...] OR WHEEZING, # 8.5 each, 5 Refills, [facility], 25, TAKE 2 PUFFS BY MOUTH EVERY [...] Mouth, Daily, # 30 tablet, 5 Refills, [facility], 163, cm, 01/30/21 9:54:00 EDT, Height, 120.5, kg, 02/03/21 17:38:00 EDT, Dry Weight Start Date: 02/04/21 Status: Ordered fluconazole 150 mg oral tablet 1 tablet = 150 mg, By Mouth, Once, # 1 tablet, 0 Refills, Soft Stop, 03/29/21 8:57:00 EST, Tablet, [facility]/pharmacy #[id number], Partial fill upon patient [...] tablet, Refills 1, Route to Pharmacy Electronically, [facility], 163, cm, 03/25/21 15:25:00 EST, Height, 120.5, kg, 02/03/21 17:38:00 EDT, Dry Weight Start Date: 04/27/21 Status: Ordered Lantus Solostar Pen 100 units/mL subcutaneous solution See Instructions, INJECT 55 UNITS DAILY AT DINNER TIME, # 30 Unknown, 5 Refills, [facility], 163, cm, 02/05/21 12:14:00 EDT, Height, 120.5, kg, 02/03/21 17:38:00 EDT, Dry Weight Start Date: 02/26/21 Status: Ordered MetFORMIN (Eqv-Glucophage XR) 500 mg oral tablet, extended release 2 tablet, By Mouth, 2 times a day with meals, # 120 tablet, 8 Refills, Maintenance, 11/25/20 13:42:00 EDT, [facility]/pharmacy #[id number], 163, cm, 11/13/20 10:29:00 EDT, Height Start Date: 11/25/20 Status: Ordered Niva-Plus oral tablet 1 tablet, By Mouth, Daily, # 90 tablet, 2 Refills, Maintenance, 04/14/21 14:07:00 EST, [facility]/pharmacy#0693, Partial fill upon patient request [...] Start Date: 03/31/21 Status: Ordered nystatin topical 419177 u/gm powder 1 application, Topically, 3 times a day, Please apply to pelvic rash, labia, gluteal folds, and rectum., # 60 Gm, 1 Refills, Maintenance, 03/25/21 16:04:00 EST, Powder, [facility]/pharmacy #0693, Partial fill upon patient request if the prescription is for a... Start Date: 03/25/21 Status: Ordered nystatin topical 880779 u/gm powder See Instructions, APPLY TO AFFECTED AREA TWICE A DAY, # 30 Gm, 1 Refills, [facility] 0[facility]86, 14, APPLY TO AFFECTED AREA TWICE A DAY, 163, cm, 12/08/20 14:03:00 EDT, Height Start Date: 01/24/21 Status: Ordered Pen [place], 31 G x 8 mm BD Ultra [...]
--- OUTSIDE RECORDS SUMMARY | 2023-06-15 01:08 | XMS_ITS | Continuity of Care Document ---
Author Name Unknown Organization [facility] James lt Address [address] [place] [address]- Care Team Providers Care Ripening Room Operator Name Role Phone Dyan Herrera Primary Care Physician [phone] [facility]counter [facility] Date(s): 02/21/23 - 03/23/23 [facility] Adult [address] [place] [address]- Allergies, Adverse Reactions, Alerts Substance Reaction Severity [...] quadrivalence VACCINE [facility] [id number] 2Early/Late Reason: Other : Pt not available. 3Location History: DR REEDER Medications FLUoxetine 10 mg oral tablet 1 tablet = 10 mg, By Mouth, Daily, # 30 tablet, 0 Refills, Maintenance, 03/11/23 10:39:00 EST, Tablet, [id number], Partial fill upon patient request if the prescription is for a schedule II opioid drug., 165.1, cm, 02/16/23 11:04:00 EDTNitin... Start Date: 03/11/23 Status: Ordered Problem List Condition Confirmation Course [...] Care Nurse Name: Belia Solares RN Position: [facility] OB RN Member Role: Primary Care Nurse Name: Jorge Mendoza RN Position: [facility] RN Member Role: Primary Care Nurse Name: Dyan Herrera Position: [facility] PCO Associate Professional Member Role: PCP Address: Address: [address] [place] [address]- Name: Ruthy Nelson RN Position: S RN Member Role: Primary Care Nurse Name: Colette Powell MD Position: [facility] MAIL ORDER CLERK MD Member Role: Lifetime MAIL ORDER CLERK Physician Address: Address: [address] [place] [address], [place] [address] Name: Angelita Reid RN Position: [facility] RN Member Role: Primary Care Nurse Name: Leonor Rodríguez RN, I Position: [facility] RN Member Role: Primary Care Nurse Care Team Related Persons Name: MIHAI BOOKER Address: home [address] [place] [address] Name: YISSEL HOWARD Address: [employer] Address: home [address] [place] [address] Name: DIANE HOWARD Address: home [address] [place] [address] Name: MILTON HOWARD Address: [employer] Address: home [address] [place], [place] [address]
--- OUTSIDE RECORDS SUMMARY | 2023-06-15 01:08 | XMS_ITS | Continuity of Care Document ---
Author Name Unknown Organization [facility] Address [address] [place] [address]- Care Team Providers Care Single Needle Tufting Machine Operator Name Role Phone Dyan Herrera Primary Care Physician [facility] Date[facility]s): 06/22/22 - 08/06/22 [facility] [address] [address] Attending Physician: Not on Staff, Attending [...] Note: AFLURIA quadrivalence VACCINE [facility] [id number] 2Early/Late Reason: Other : Pt not available. 3Location History: DR REEDER Medications Albuterol (Eqv-ProAir HFA) 90 mcg/inh inhalation aerosol 2 puffs, Inhalation, Every 6 hours, PRN NEEDED FOR SHORTNESS OF BREATH OR WHEEZING, # 8.5 each, 5 Refills, Maintenance, 12/02/21 7:35:00 EDT, [facility]/pharmacy #[id number], 25, 2 puffs Inhalation [...] 0 Refills, Maintenance, 06/23/22 12:27:00 EST, Tablet, [facility]/pharmacy #0693, Partial fill upon patient [...] Refills, Maintenance, 05/24/22 12:10:00 EST, CR Tablet, [facility]/pharmacy #0693, Partial fill upon patient r... Start Date: 05/24/22 Status: Ordered fluconazole 150 mg oral tablet 1 tablet = 150 mg, By Mouth, Once, # 1 tablet, 0 Refills, Soft Stop, 06/23/22 4:06:00 EST, Tablet, [facility]/pharmacy #0693, Partial fill upon patient [...] 09/10/21 Status: Ordered Freestyle Dipika 2 14-day [place] Freestyle Dipika 2 14-day [place], See Instructions, # 1 each, Refills 0, [...] 30 Unknown, 11 Refills, 06/02/22 18:09:00 EST, [facility]/pharmacy #0693, 163, cm, 06/02/22 14:37:00 EST, Height, 120.5, kg, 02/03/21 17:38:00 EDT, Dry Weight Start Date: 06/02/22 Status: Ordered MetFORMIN (Eqv-Glucophage XR) 500 mg oral tablet, extended release 2 tablet, By Mouth, 2 times a day with meals, # 360 tablet, 11 Refills, 08/06/21 11:50:00 EDT, [facility]/pharmacy #0693, 163, cm, 07/28/21 9:25:00 EDT, Height, 120.5, kg, 02/03/21 17:38:00 EDT, Dry Weight Start Date: 08/06/21 Status: Ordered metFORMIN 500 mg oral tablet, extended release See Instructions, 2 tablet By Mouth twice Daily. E11.9, # 60 tablet, 8 Refills, Maintenance, 06/03/22 12:28:00 EST, ER Tablet, [facility]/pharmacy #0693, Partial fill upon patient [...] 1... Start Date: 06/02/22 Status: Ordered Pen [place], 31 G x 8 mm BD Ultra [...] 5 Refills, Maintenance, 06/16/21 10:48:00 EST, Tablet, [facility]/pharmacy #0693, ok to substitute with ANY vitamin, 1 tablet By Mouth Daily, 163, cm, 06/16/21 10:10:00 EST, Height, 120.5, kg, 02/03/21 17:38:0... Start Date: 06/16/21 Status: Ordered Multivitamins with Folic Acid 1 mg oral capsule See Instructions, TAKE ONE DAILY BY MOUTH, # 100 capsule, 2 Refills, Maintenance, 05/11/22 14:42:00EST, [facility]/pharmacy #0693, Partial fill upon patient request if the prescription is for a schedule IIopioid drug., TAKE ONE DAILY BY MOUTH, 163, cm, ... Start Date: 05/11/22 Status: Ordered Multivitamins with Folic Acid 1 mg oral tablet 1 tablet, By Mouth, Daily, # 90 tablet, 2 Refills, Maintenance, 05/24/22 12:08:00 EST, [facility]/pharmacy#0693, Partial fill upon patient request [...] Team Personnel Name: Belia Solares RN Position: [facility] OB RN Member Role: Primary Care Nurse Name: Jorge Mendoza RN Position: S RN Member Role: Primary Care Nurse Name: Dyan Herrera Position: [facility] PCO Associate Professional Member Role: PCP Address: Address: [address] [place] [address] Name: Ruthy Nelson RN Position: [facility] RN Member Role: Primary Care Nurse Name: Colette Powell MD Position: [facility] SPECIALTY DEPARTMENT SUPERVISOR MD Member Role: [employer] SPECIALTY DEPARTMENT SUPERVISOR Physician Address: Address: [address] [place] [address]- Care Team Related Persons Name: MIHAI BOOKER Address: home [address] [place] [address] Name: YISSEL HOWARD Address: [employer] Address: [address] [place] [address] Name: DIANE HOWARD Address: home [address] [place] [address] Name: MILTON HOWARD Address: [employer] Address: home [address] [place] [address] [place]
--- OUTSIDE RECORDS SUMMARY | 2023-06-15 01:08 | XMS_ITS | Continuity of Care Document ---
Author Name Unknown Organization [facility] James lt Address [address] [place] [address]- Care Team Providers Care Mainspring Reverse Winder Name Role Phone Dyan Herrera Primary Care Physician [place] [facility] [place](s[place] 02/16/23 - 02/23/23 [facility] Adult [address] [place] [address]- Encounter Diagnosis Diabetes mellitus, type II(Discharge Diagnosis) - 02/16/23 Depression(Discharge Diagnosis) - 02/16/23 Pain of cheek(Discharge Diagnosis) - 02/16/23 Back pain(Discharge Diagnosis) - 02/16/23 Anxiety-like symptoms(Discharge Diagnosis) - 02/16/23 Attending Physician: Dyan Herrera Allergies, Adverse Reactions, [...] 05/01/08 Recorded 1Admin Note: AFLURIA quadrivalence [facility] 10545-441-15 2Early/Late Reason: Other : Pt not available. 3Location History: DR REEDER Medications FLUoxetine 10 mg oral tablet 1 tablet = 10 mg, By Mouth, Daily, # 30 tablet, 0 Refills, Maintenance, 02/16/23 11:25:00 EDT, Tablet, [facility]/pharmacy #[id number], Partial fill upon patient request if the prescription is for a schedule II opioid drug., 165.1, cm, 02/16/23 11:04:00 EDT, Heigh... Start Date: 02/16/23 Status: Ordered Problem List [...] to non compliant Diagnosis Diagnosis Type Effective [facility] Status Clinical Service Informant Diabetes mellitus, type II Discharge Diagnosis 02/16/23 Depression Discharge Diagnosis 02/16/23 Pain of cheek Discharge Diagnosis 02/16/23 Back pain Discharge Diagnosis 02/16/23 Anxiety-like symptoms Discharge Diagnosis 02/16/23 Vital Signs Most recent to oldest [Reference Range]: 1 Height 165.1 cm (02/16/23 11:04 AM) Weight 107.7 kg (02/16/23 11:04 AM) Oxygen Saturation [94-100 %] 100 % (02/16/23 11:04 AM) Pulse Rate [55-90 bpm] 92 bpm *H* (02/16/23 11:04 AM) Body Mass Index [18.5-24.99 kg/m2] 39.51 kg/m2 *>HHI* (02/16/23 11:04 AM) Blood Pressure [90-138/55-84 mm Hg] 96/6 3mm Hg (02/16/23 11:04 AM) Respiratory Rate [16-30 br/min] 16 br/mi n (02/16/23 11:04 AM) Temperature [96.8-100.4 DegF] 97.7 DegF (02/16/23 11:04 AM) Mode of Delivery (Oxygen) Room air (02/16/23 11:04 AM) Blood pressure sites Arm, left (02/16/23 11:04 AM) Temperature Route Oral (02/16/23 11:04 AM) Weight Obtained Via Standing scale (02/16/23 11:04 AM) Social History Social History Type Response Smoking Status Former smoker, quit more than 30 days ago; Other: Quit is 2018; entered on: 05/11/21 Sex Patient Care team information Care Team Personnel Name: Kari Irvin Position: S RN Member Role: Primary Care Nurse Name: Belia Solares RN Position: [facility] OB RN Member Role: Primary Care Nurse Name: Jorge Mendoza RN Position: [facility] RN Member Role: Primary Care Nurse Name: Dyan Herrera Position: [facility] PCO Associate Professional Member Role: PCP Address: Address: [address] [place] [id number] Name: Ruthy Nelson RN Position: [facility] RN Member Role: Primary Care Nurse Name: Colette Powell MD Position: [facility] HAND FINISHER MD Member Role: Lifetime HAND FINISHER Physician Address: Address: [address] [place] [address], [place] [address] Name: Angelita Reid RN Position: [facility] RN Member Role: Primary Care Nurse Name: Leonor Rodríguez RN, I Position: [facility] RN Member Role: Primary Care Nurse Care Team Related Persons Name: MIHAI BOOKER Address: home [address] [place] [address] Name: YISSEL HOWARD Address: [employer] Address: home [address] [place] [address] Name: DIANE HOWARD Address: home [address] [place] [address] Name: MILTON HOWARD Address: [employer] Address: home [address] [place] [address]
--- OUTSIDE RECORDS SUMMARY | 2023-06-15 01:08 | XMS_ITS | Continuity of Care Document ---
Author Name Unknown Organization [facility] Address [address] [place] [address]- Care Team Providers Care Retail Customer Service Representative Name Role Phone Evin Alaniz MD Primary Care Physician [place] [facility] [place] - 06/28/19 [facility] [address] [place] [address]- [facility] Attending Physician: Monica Cortez MD Admitting Physician: Monica Cortez MD Referring Physician: Evin Alaniz MD Allergies, Adverse Reactions, Alerts Substance Reaction [...] 03/06/12 Recorded 1Admin Note: AFLURIA quadrivalence VACCINE [facility] 78955-862-23 2Early/Late Reason: Other : Pt not available. [...] HUMIDIFIER DX THIERRY G47.33 [facility] FAX [phone] [facility] [address] ALANIZ, 03/31/18 [...] DIRECTED DX THIERRY G47.33 [facility] FAX [phone] [facility] [address] HEMPHILL. Start [...] 12/01/18 15:05:00 EDT, Route to Pharmacy Electronically, [id number]... Start Date: 12/01/18 Status: Ordered Handheld Electric Breast Pump See Instructions, # 1 units, Maintenance, See instructions, 09/08/18 9:07:38 EDT, Compound Start Date: 09/08/18 Status: Ordered ibuprofen 800 mg oral tablet See Instructions, # 90 tablet, TAKE 1 TABLET BY MOUTH EVERY 8 HOURS,X30 DAYS NEEDED FOR PAIN. TAKE WITH FOOD OR MILK, [facility]/pharmacy #[id number] Start Date: 11/15/18 Status: Ordered Insulin [...] intake Start Date: 02/08/19 Status: Ordered Pen [place], 31 G x 8 mm BD Ultra [...] 07/06/18 12:27:34 EST, Route to Pharmacy Electronically, [id number], [facility]/pharmacy#[id number] Start Date: 07/06/18 Status: Ordered Senna 8.6 [...]
--- OUTSIDE RECORDS SUMMARY | 2023-06-15 01:08 | XMS_ITS | Continuity of Care Document ---
Author Name Unknown Organization [facility] Address [address] [place] [address]- Care Team Providers Care It Service Manager Name Role Phone Dyan Herrera Primary Care Physician Encounter [facility] Date(s): 03/10/23 - 04/09/23 [facility] [address] [place] [address] Attending Physician: AdmIlan ji Admitting Physician: AdmtrIlan [...] 1Admin Note: AFLURIA quadrivalence VACCINE [facility] [id number] 2Early/Late Reason: Other : Pt not available. [...] Refills, Maintenance, 03/28/23 7:43:00 EST, [facility], 30, APPLY TOPICALLY 3 TIMES A DAY [...] Care Team Personnel Name: DegregKari whitaker Position: [facility] RN Member Role: Primary Care Nurse Name: Belia Solares RN Position: [facility] OB RN Member Role: Primary Care Nurse Name: Jorge Mendoza RN Position: [facility] RN Member Role: Primary Care Nurse Name: Dyan Herrera Position: [facility] PCO Associate Professional Member Role: PCP Address: Address: [address] [place] [address]- Name: Ruthy Nelson RN Position: [facility] RN Member Role: Primary Care Nurse Name: Colette Powell MD Position: [facility] AFTERNOON NANNY MD Member Role: Lifetime AFTERNOON NANNY Physician Address: Address: [address] [place] [address]- Name: Angelita Reid RN Position: [facility] RN Member Role: Primary Care Nurse Name: Leonor Rodríguez RN, I Position: [facility] RN Member Role: Primary Care Nurse Care Team Related Persons Name: MIHAI BOOKER Address: home [address] [place] [address] Name: YISSEL HOWARD Address: [employer] Address: home [address] [place] [address] Name: DIANE HOWARD Address: home [address] [place] [address] Name: MILTON HOWARD Address: [employer] Address: home [address] [place] [address]
--- OUTSIDE RECORDS SUMMARY | 2023-06-15 01:08 | XMS_ITS | Continuity of Care Document ---
Author Name Unknown Organization [facility] James lt Address [address] [place] [address]- Care Team Providers Care Package Sorter Name Role Phone Evin Arango MD Primary Care Physician En[place] [facility] [place] Date(s): 01/30/21 - 03/14/21 [facility] Adult [address] [place] [address]- Attending Physician: Evni Arango MD Allergies, Adverse Reactions, Alerts Substance [...] Recorded 1Admin Note: AFLURIA quadrivalence VACCINE [facility] [id number] 2Early/Late Reason: Other : Pt not available. [...] Mouth, Daily, # 30 tablet, 5 Refills, [facility], 163, cm, 01/30/21 9:54:00 EDT, Height, 120.5, [...] NEEDED FOR PAIN, Route to Pharmacy Electronically, [facility], 163, cm, 12/08/20 14:03:00 EDT, Height Start Date: 01/28/21 Status: Ordered Lantus Solostar Pen 100 units/mL subcutaneous solution See Instructions, INJECT 55 UNITS DAILY AT DINNER TIME, # 30 Unknown, 5 Refills, [facility], 163, cm, 02/05/21 12:14:00 EDT, Height, 120.5, kg, 02/03/21 17:38:00 EDT, Dry Weight Start Date: 02/26/21 Status: Ordered MetFORMIN (Eqv-Glucophage XR) 500 mg oral tablet, extended release 2 tablet, By Mouth, 2 times a day with meals, # 120 tablet, 8 Refills, Maintenance, 11/25/20 13:42:00 EDT, [facility]/pharmacy #[id number], 163, cm, 11/13/20 10:29:00 EDT, Height [...] Start Date: 06/09/20 Status: Ordered nystatin topical 997383 u/gm powder See Instructions, APPLY TO AFFECTED AREA TWICE A DAY, # 30 Gm, 1 Refills, [facility] 140[facility], 14, APPLY TO AFFECTED AREA TWICE A DAY, 163, cm, 12/08/20 14:03:00 EDT, Height Start Date: 01/24/21 Status: Ordered Pen [place], 31 G x 8 mm BD Ultra [...] 09/27/20 10:32:00 EDT, Route to Pharmacy Electronically, [id number], [facility]/pharmacy#[id number], 163, cm, 09/19/20 9:21:00 EDT, Height Start [...]
--- OUTSIDE RECORDS SUMMARY | 2023-06-15 01:08 | XMS_ITS | Continuity of Care Document ---
Author Name Unknown Organization [facility] Address [address] [place] [address]- Care Team Providers Care Oven Drier Tender Name Role Phone Conchita LEE, Evin Teran Primary Care Physician Encounter [facility] [place] Date(s): 05/07/20 - 06/11/[address] [address]- Attending Physician: Not on Staff, Attending MD [...] 03/06/12 Recorded 1Admin Note: AFLURIA quadrivalence VACCINE [facility] [id number] 2Early/Late Reason: Other : Pt not available. [...] Dry Weight Start Date: 05/09/20 Status: Ordered Lantus Solostar Pen 100 units/mL [...] Heig... Start Date: 06/09/20 Status: Ordered Pen [place], 31 G x 8 mm BD Ultra [...] 11/06/19 16:24:00 EDT, Route to Pharmacy Electronically, [id number], [facility]/pharmacy#[id number], 163, cm, 02/08/19 9:31:00 EDT, Height, 164,... [...]
--- OUTSIDE RECORDS SUMMARY | 2023-06-15 01:08 | XMS_ITS | Continuity of Care Document ---
Author Name Unknown Organization [facility] Address [address] [place] [address]- Care Team Providers Care Plate Mill Mill Hand Name Role Phone Evin Arango MD Primary Care Physician [place] [facility] [place] 09[place]26[place]20 - 10/26/20 [facility] [address] [place] [id number] Allergies, Adverse Reactions, Alerts Substance [...] 03/06/12 Recorded 1Admin Note: AFLURIA quadrivalence VACCINE [facility] [id number] 2Early/Late Reason: Other : Pt not available. 3Location History: DR REEDER Medications Alcohol Pads See Instructions, # 120 each, Refills 0, Tot. Refills 0, Maintenance, To use with insulin administration 4 times daily, 05/09/20 12:20:00 EST, Compound, 163, cm, 05/09/20 8:55:00 EST, Height, 164, kg, 09/05/18 17:25:00 EDT, Dry Weight Start Date: 05/09/20 Status: Ordered Freestyle Dipika 14-day [place] Freestyle Dipika 14-day [place], See Instructions, # 1 each, Refills 0, [...] 09/04/20 23:17:00 EDT, Route to Pharmacy Electronically, [facility]/pharmacy #[id number], Partial fill upon patient request if the prescription i... Start Date: 09/04/20 Status: Ordered Lantus Solostar Pen 100 units/mL subcutaneous solution See Instructions, Take 55 units daily at dinner. E11.65, # 30 mL, 5 Refills, Maintenance, 06/09/20 10:04:00 EST, Solution, [facility]/pharmacy #0693, Partial fill upon patient request if the prescription isfor a schedule II opioid drug., 163, cm, 05/26/20 1... Start Date: 06/09/20 Status: Ordered metFORMIN 500 mg oral tablet, extended release See Instructions, Take 2 tabs twice daily with food. E11.65, # 120 each, 5 Refills, Maintenance, 06/09/20 10:06:00 EST, ER Tablet, [facility]/pharmacy #0693, 163, cm, 05/26/20 14:26:00 EST, Height, [...] Heig... Start Date: 06/09/20 Status: Ordered Pen [place], 31 G x 8 mm BD Ultra [...] 8 Refills, Maintenance, 08/05/20 15:20:00 EDT, Tablet, [facility]/pharmacy #0693, Partial [...] 09/27/20 10:32:00 EDT, Route to Pharmacy Electronically, [id number], [id number], 163, cm, 09/19/20 9:21:00 EDT, Height [...]
--- OUTSIDE RECORDS SUMMARY | 2023-06-15 01:08 | XMS_ITS | Continuity of Care Document ---
Author Name Unknown Organization [facility] Address [address] [place] [address]- Care Team Providers Care Massage Coordinator Name Role Phone Dyan Herrera Primary Care Physician Encounter [facility] Date(s): 07/02/22 - 08/01/22 [facility] [address] [place] [id number] Attending Physician: Admtr, J [id number] Admitting Physician: Admtr, [id number] Referring Physician: Admtr, [...] AFLURIA quadrivalence VACCINE [facility] [id number] 2Early/Late Reason: Other : Pt not available. 3Location History: DR REEDER Medications Albuterol (Eqv-ProAir HFA) 90 mcg/inh inhalation aerosol 2 puffs, Inhalation, Every 6 hours, PRN NEEDED FOR SHORTNESS OF BREATH OR WHEEZING, # 8.5 each, 5 Refills, Maintenance, 12/02/21 7:35:00 EDT, [facility]/pharmacy #0693, 25, 2 puffs Inhalation Every [...] 0 Refills, Maintenance, 06/23/22 12:27:00 EST, Tablet, [facility]/pharmacy #0693, Partial fill upon patient request [...] Refills, Maintenance, 05/24/22 12:10:00 EST, CR Tablet, [facility]/pharmacy #0693, Partial fill upon patient r... Start Date: 05/24/22 Status: Ordered fluconazole 150 mg oral tablet 1 tablet = 150 mg, By Mouth, Once, # 1 tablet, 0 Refills, Soft Stop, 06/23/22 4:06:00 EST, Tablet, [facility]/pharmacy #0693, Partial fill upon patient request [...] 09/10/21 Status: Ordered Freestyle Dipika 2 14-day [place] Freestyle Dipika 2 14-day [place], See Instructions, # 1 each, Refills 0, [...] 360 tablet, 11 Refills, 08/06/21 11:50:00 EDT, [facility]/pharmacy #0693, 163, cm, 07/28/21 9:25:00 EDT, Height, 120.5, kg, 02/03/21 17:38:00 EDT, Dry Weight Start Date: 08/06/21 Status: Ordered metFORMIN 500 mg oral tablet, extended release See Instructions, 2 tablet By Mouth twice Daily. E11.9, # 60 tablet, 8 Refills, Maintenance, 06/03/22 12:28:00 EST, ER Tablet, [facility]/pharmacy #0693, Partial fill upon patient request if the prescription is for a schedule II opioid drug., 163, cm, ... Start Date: 06/03/22 Status: Ordered NovoLOG FlexPen 100 units/mL subcutaneous solution See Instructions, Take 23-34 units based on sliding scale. E11.9 Max daily dose 102 units., # 30 mL, 11 Refills, Maintenance, 06/02/22 18:08:00 EST, [facility]/pharmacy #0693, May increase dose by 4 units at meals if increased CHO intake, 163, cm, 06/02/22 1... Start Date: 06/02/22 Status: Ordered Pen [place], 31 G x [...] 5 Refills, Maintenance, 06/16/21 10:48:00 EST, Tablet, [facility]/pharmacy #0693, ok to substitute with ANY vitamin, 1 tablet By Mouth Daily, 163, cm, 06/16/21 10:10:00 EST, Height, 120.5, kg, 02/03/21 17:38:0... Start Date: 06/16/21 Status: Ordered Multivitamins with Folic Acid 1 mg oral capsule See Instructions, TAKE ONE DAILY BY MOUTH, # 100 capsule, 2 Refills, Maintenance, 05/11/22 14:42:00EST, [facility]/pharmacy #0693, Partial fill upon patient request if the prescription is for a schedule IIopioid drug., TAKE ONE DAILY BY MOUTH, 163, cm, ... Start Date: 05/11/22 Status: Ordered Multivitamins with Folic Acid 1 mg oral tablet 1 tablet, By Mouth, Daily, # 90 tablet, 2 Refills, Maintenance, 05/24/22 12:08:00 EST, [facility]/pharmacy#0693, Partial fill upon patient request if the [...] Team Personnel Name: Belia Solares RN Position: [facility] OB RN Member Role: Primary Care Nurse Name: Jorge Mendoza RN Position: S RN Member Role: Primary Care Nurse Name: Dyan Herrera Position: [facility] PCO Associate Professional Member Role: PCP Address: Address: [address] [place] [address] Name: Ruthy Nelson RN Position: S RN Member Role: Primary Care Nurse Name: Colette Powell MD Position: [facility] CAREER COORDINATOR MD Member Role: Lifetime CAREER COORDINATOR Physician Address: Address: [address] [place] [address]- Care Team Related Persons Name: MIHAI BOOKER Address: home [address] [place] [address] Name: YISSEL HOWARD Address: [employer] Address: home [address] [facility] [place] [address] Name: DIANE HOWARD Address: home [address] [place] [address] Name: MILTON HOWARD Address: [employer] Address: home [address] [place] [address] [place]
--- OUTSIDE RECORDS SUMMARY | 2023-06-15 01:08 | XMS_ITS | Continuity of Care Document ---
Author Name Unknown Organization [facility] James lt Address [address] [place] [address]- Care Team Providers Care Hospice Nurse Practitioner Name Role Phone Conchita LEE, Evin Teran Primary Care Physician [phone] Encounter [facility] Date(s): 01/22/21 - 02/21/21 [facility] Adult [address] [place] [address]- Allergies, Adverse Reactions, Alerts Substance Reaction Severity [...] quadrivalence VACCINE [facility] [id number] 2Early/Late Reason: Other : Pt not available. [...] Mouth, Daily, # 30 tablet, 5 Refills, [facility], 163, cm, 01/30/21 9:54:00 EDT, Height, 120.5, [...] NEEDED FOR PAIN, Route to Pharmacy Electronically, [facility], 163, cm, 12/08/20 14:03:00 EDT, Height Start Date: 01/28/21 Status: Ordered Lantus Solostar Pen 100 units/mL subcutaneous solution See Instructions, Take 55 units daily at dinner. E11.65, # 30 mL, 5 Refills, Maintenance, 06/09/20 10:04:00 EST, Solution, [facility]/pharmacy #0666, Partial fill upon patient request if the prescription isfor a schedule II opioid drug., 163, cm, 05/26/20 1... Start Date: 06/09/20 Status: Ordered MetFORMIN (Eqv-Glucophage XR) 500 mg oral tablet, extended release 2 tablet, By Mouth, 2 times a day with meals, # 120 tablet, 8 Refills, Maintenance, 11/25/20 13:42:00 EDT, [facility]/pharmacy #0693, 163, cm, 11/13/20 10:29:00 EDT, Height Start Date: 11/25/20 Status: Ordered NovoLOG FlexPen 100 units/mL subcutaneous solution See Instructions, Take 20 units per meal. E11.65. Max daily dose 60 units., # 30 mL, 5 Refills, Maintenance, 06/09/20 10:05:00 EST, [facility]/pharmacy #0693, May increase dose by 4 units at meals if increased CHO intake, 163, cm, 05/26/20 14:26:00 EST, Heig... Start Date: 06/09/20 Status: Ordered nystatin topical 510420 u/gm powder See Instructions, APPLY TO AFFECTED AREA TWICE A DAY, # 30 Gm, 1 Refills, [facility] 0[facility]46, 14, APPLY TO AFFECTED AREA TWICE A [...] drug. Start Date: 01/30/21 Status: Ordered Pen [place], 31 G x 8 mm BD Ultra [...] 09/27/20 10:32:00 EDT, Route to Pharmacy Electronically, [id number], [facility]/pharmacy#0693, 163, cm, 09/19/20 9:21:00 EDT, Height Start [...]
--- OUTSIDE RECORDS SUMMARY | 2023-06-15 01:08 | XMS_ITS | Continuity of Care Document ---
Author Name Unknown Organization [facility] [employer] [facility] Address [address], [address] [place] [address]- Care Team Providers Care Taper Operator Name Role Phone Conchita LEE, Evin Teran Primary Care Physician [phone] [place] [facility] Date(s): 04/21/21 - 05/21/21 [facility] Himanshu [employer] [facility] [address], [address] [place] [address]- Allergies, Adverse Reactions, Alerts Substance Reaction Severity [...] 05/01/08 Recorded 1Admin Note: AFLURIA quadrivalence VACCINE [facility] [id number] 2Early/Late Reason: Other : Pt not available. [...] OR WHEEZING, # 8.5 each, 5 Refills, [facility], 25, TAKE 2 PUFFS BY MOUTH EVERY [...] Mouth, Daily, # 30 tablet, 5 Refills, [facility], 163, cm, 01/30/21 9:54:00 EDT, Height, 120.5, kg, 02/03/21 17:38:00 EDT, Dry Weight Start Date: 02/04/21 Status: Ordered fluconazole 150 mg oral tablet 1 tablet = 150 mg, By Mouth, Once, # 1 tablet, 0 Refills, Soft Stop, 03/29/21 8:57:00 EST, Tablet, [facility]/pharmacy #0693, Partial fill upon patient request [...] tablet, Refills 1, Route to Pharmacy Electronically, [facility], 163, cm, 03/25/21 15:25:00 EST, Height, 120.5, kg, 02/03/21 17:38:00 EDT, Dry Weight Start Date: 04/27/21 Status: Ordered Lantus Solostar Pen 100 units/mL subcutaneous solution See Instructions, INJECT 55 UNITS DAILY AT DINNER TIME, # 30 Unknown, 5 Refills, [facility] 04[facility], 163, cm, 02/05/21 12:14:00 EDT, Height, 120.5, kg, 02/03/21 17:38:00 EDT, Dry Weight Start Date: 02/26/21 Status: Ordered MetFORMIN (Eqv-Glucophage XR) 500 mg oral tablet, extended release 2 tablet, By Mouth, 2 times a day with meals, # 120 tablet, 8 Refills, Maintenance, 11/25/20 13:42:00 EDT, [facility]/pharmacy #0693, 163, cm, 11/13/20 10:29:00 EDT, Height Start Date: 11/25/20 Status: Ordered Niva-Plus oral tablet 1 tablet, By Mouth, Daily, # 90 tablet, 2 Refills, Maintenance, 04/14/21 14:07:00 EST, [facility]/pharmacy#0693, Partial fill upon patient request if [...] Start Date: 03/31/21 Status: Ordered nystatin topical 114260 u/gm powder 1 application, Topically, 3 times a day, Please apply to pelvic rash, labia, gluteal folds, and rectum., # 60 Gm, 1 Refills, Maintenance, 03/25/21 16:04:00 EST, Powder, [facility]/pharmacy #0693, Partial fill upon patient request if the prescription is for a... Start Date: 03/25/21 Status: Ordered nystatin topical 875825 u/gm powder See Instructions, APPLY TO AFFECTED AREA TWICE A DAY, # 30 Gm, 1 Refills, [facility] 43276, 14, APPLY TO AFFECTED AREA TWICE A DAY, 163, cm, 12/08/20 14:03:00 EDT, Height Start Date: 01/24/21 Status: Ordered Pen [place], 31 G x 8 mm BD Ultra [...]
--- OUTSIDE RECORDS SUMMARY | 2023-06-15 01:08 | XMS_ITS | Continuity of Care Document ---
Author Name Unknown Organization [facility] Address [address] [place] [id number]- Care Team Providers Care Eeg Tech Name Role Phone Dyan Herrera Primary Care Physician Encounter [facility] Date(s): 11/09/22 - 12/09/[address] [address] Attending Physician: AdmIlan ji Admitting Physician: AdmtrIlan [...] Recorded 1Admin Note: AFLURIA quadrivalence VACCINE [facility] [id number] 2Early/Late Reason: Other : Pt not available. 3Location History: DR REEDER Medications Albuterol (Eqv-ProAir HFA) 90 mcg/inh inhalation aerosol 2 puffs, Inhalation, Every 6 hours, PRN NEEDED FOR SHORTNESS OF BREATH OR WHEEZING, # 8.5 each, 5 Refills, Maintenance, 12/02/21 7:35:00 EDT, [facility]/pharmacy #[id number], 25, 2 puffs Inhalation Every 6 hours,PRN: NEEDED FOR SHORTNESS OF BREATH OR WHEEZING... Start Date: 12/02/21 Status: Ordered Apri 0.15 mg-0.03 mg oral tablet See Instructions, TAKE 1 TABLET BY MOUTH EVERY DAY, # 84 tablet, 0 Refills, Maintenance, 09/17/22 11:33:00 EDT, [id number], 84, TAKE 1 TABLET BY MOUTH EVERY DAY, 165.1, cm, 08/27/22 9:57:00 EDT,Height, 122, kg, 06/23/22 9:22:00 EST, Dry Weight Start Date: 09/17/22 Status: Ordered escitalopram 20 mg oral tablet 1 tablet, By Mouth, Daily, # 30 tablet, 0 Refills, Maintenance, 11/08/22 7:48:00 EDT, [id number], 165.1, cm, 10/21/22 10:08:00 EDT, Height, 122, [...] mL, 11 Refills, Maintenance, 06/02/22 18:08:00 EST, [facility]/pharmacy #[id number], May increase dose by 4 units at meals if increased CHO intake, 163, cm, 06/02/22 1... Start Date: 06/02/22 Status: Ordered triamcinolone 0.025% topical cream 1 application, Topically, 2 times a day, for 14 days, # 60 Gm, 3 Refills, Acute 12/16/22 10:15:00 EDT, 10/21/22 10:15:00 EDT, Cream, [facility]/pharmacy #[id number], Partial fill upon patient request [...] Quit is 2017; entered on: 05/11/21 Sex EKG study * Event Display: EKG Authored Date: [id number] Patient Care team information Care Team Personnel Name: Kari Irvin Position: [facility] RN Member Role: Primary Care Nurse Name: Belia Solares RN Position: [facility] OB RN Member Role: Primary Care Nurse Name: Jorge Mendoza RN Position: [facility] RN Member Role: Primary Care Nurse Name: Dyan Herrera Position: [facility] PCO Associate Professional Member Role: PCP Address: Address: [address] [place] [id number]- Name: Ruthy Nelson RN Position: [facility] RN Member Role: Primary Care Nurse Name: Colette Powell MD Position: [facility] SNOWMOBILE MECHANIC MD Member Role: Lifetime SNOWMOBILE MECHANIC Physician Address: Address: [address] [place], [place] [address] [address]- Name: Angelita Reid RN Position: S RN Member Role: Primary Care Nurse Name: Leonor Rodríguez RN, I Position: S RN Member Role: Primary Care Nurse Care Team Related Persons Name: MIHAI BOOKER Address: home [address] [place] [id number] Name: YISSEL HOWARD Address: [employer] Address: home [address] [place] [address] [place] Name: DIANE HOWARD Address: home [address] [place] [address] Name: MILTON HOWARD Address: [employer] Address: home [address] [place] [address] [place]
--- OUTSIDE RECORDS SUMMARY | 2023-06-15 01:08 | XMS_ITS | Continuity of Care Document ---
Author Name Unknown Organization [facility] Address [address] [place] [address]- Care Team Providers Care Pouncing Machine Operator Name Role Phone Conchita LEE, Evin Teran Primary Care Physician Encounter [facility] [place] Date(s): 12/11/19 - 01/10/20 [facility] Adult [address] [place] [address]- [facility] Allergies, Adverse Reactions, Alerts Substance Reaction Severity [...] Recorded 1Admin Note: AFLURIA quadrivalence VACCINE [facility] [id number] 2Early/Late Reason: Other : Pt not available. [...] EDT, Tablet Start Date: 07/24/18 Status: Ordered clindamycin 300 mg oral capsule 1 capsule, By Mouth, 3 times a day, # 21 capsule, 0 Refills, Acute, 12/28/19 14:31:00 EDT, [facility], 163, cm, 12/11/19 12:43:00 EDT, Height, 164, kg, 09/05/18 17:25:00 EDT, Dry Weight Start Date: 12/28/19 Status: Ordered Freestyle Lite Lancets See Instructions, [...] 024.111, Compound Start Date: 09/27/17 Status: Ordered Handheld Electric Breast Pump See Instructions, # 1 units, Maintenance, See instructions, 09/08/18 9:07:38 EDT, Compound Start Date: 09/08/18 Status: Ordered ibuprofen 600 mg oral tablet 1, tablet, By Mouth, Every 8 hours, PRN, # 30 tablet, Refills 0, Tot. Refills 0, Acute, NEEDED FOR DENTAL PAIN, 12/28/19 14:24:00 EDT, Route to Pharmacy Electronically, [id number], 163, cm, 12/11/19 12:43:00 EDT, Height, 164, kg, 09/05/18 17:2... Start Date: 12/28/19 Status: Ordered Insulin Syringe, BD Ultra-Fine 1 [...] ER Tablet Start Date: 02/08/19 Status: Ordered NovoLOG FlexPen 100 units/mL subcutaneous solution See Instructions, Take 20 units per meal. E11.65, # 30 mL, 5 Refills, Maintenance, 02/08/19 10:27:00 EDT, May increase dose by 4 units at meals if increased CHO intake Start Date: 02/08/19 Status: Ordered Pen [place], 31 G x 8 mm BD Ultra Fine III See Instructions, # 200 each, Refills 11, Tot. Refills 11, Maintenance, Use to take insulin 4 timesdaily. E11.65, 02/08/19 10:27:48 EDT, Compound Start Date: 02/08/19 Status: Ordered ProAir HFA 90 mcg/inh inhalation aerosol with adapter 2, puffs, Inhalation, Every 6 hours, PRN, # 1 each, Refills 5, Tot. Refills 5, Maintenance, 11/06/19 16:24:00 EDT, Route to Pharmacy Electronically, [id number], [facility]/pharmacy#[id number], 163, cm, 02/08/19 9:31:00 EDT, Height, 164,... Start Date: 11/06/19 Status: Ordered Tylenol 325 mg oral tablet [...]
--- OUTSIDE RECORDS SUMMARY | 2023-06-15 01:08 | XMS_ITS | Continuity of Care Document ---
Author Name Unknown Organization [facility] Address [address] [place] [address]- Care Team Providers Care Qi Specialist Name Role Phone Conchita LEE, Evin Teran Primary Care Physician Encounter [facility] Date(s): 04/14/21 - 05/14/[address] [address]- Allergies, Adverse Reactions, Alerts Substance Reaction Severity [...] Recorded 1Admin Note: AFLURIA quadrivalence VACCINE [facility] [id number] 2Early/Late Reason: Other : Pt not available. [...] OR WHEEZING, # 8.5 each, 5 Refills, [facility], 25, TAKE 2 PUFFS BY MOUTH EVERY [...] Mouth, Daily, # 30 tablet, 5 Refills, [facility], 163, cm, 01/30/21 9:54:00 EDT, Height, 120.5, kg, 02/03/21 17:38:00 EDT, Dry Weight Start Date: 02/04/21 Status: Ordered fluconazole 150 mg oral tablet 1 tablet = 150 mg, By Mouth, Once, # 1 tablet, 0 Refills, Soft Stop, 03/29/21 8:57:00 EST, Tablet, [facility]/pharmacy #[id number], Partial fill upon patient [...] tablet, Refills 1, Route to Pharmacy Electronically, [facility], 163, cm, 03/25/21 15:25:00 EST, Height, 120.5, kg, 02/03/21 17:38:00 EDT, Dry Weight Start Date: 04/27/21 Status: Ordered Lantus Solostar Pen 100 units/mL subcutaneous solution See Instructions, INJECT 55 UNITS DAILY AT DINNER TIME, # 30 Unknown, 5 Refills, [facility], 163, cm, 02/05/21 12:14:00 EDT, Height, 120.5, kg, 02/03/21 17:38:00 EDT, Dry Weight Start Date: 02/26/21 Status: Ordered MetFORMIN (Eqv-Glucophage XR) 500 mg oral tablet, extended release 2 tablet, By Mouth, 2 times a day with meals, # 120 tablet, 8 Refills, Maintenance, 11/25/20 13:42:00 EDT, [facility]/pharmacy #[id number], 163, cm, 11/13/20 10:29:00 EDT, Height Start Date: 11/25/20 Status: Ordered Niva-Plus oral tablet 1 tablet, By Mouth, Daily, # 90 tablet, 2 Refills, Maintenance, 04/14/21 14:07:00 EST, [facility]/pharmacy#[id number], Partial fill upon patient request if [...] Start Date: 03/31/21 Status: Ordered nystatin topical 124098 u/gm powder 1 application, Topically, 3 times a day, Please apply to pelvic rash, labia, gluteal folds, and rectum., # 60 Gm, 1 Refills, Maintenance, 03/25/21 16:04:00 EST, Powder, [facility]/pharmacy #[id number], Partial fill upon patient request if the prescription is for a... Start Date: 03/25/21 Status: Ordered nystatin topical 969885 u/gm powder See Instructions, APPLY TO AFFECTED AREA TWICE A DAY, # 30 Gm, 1 Refills, [facility], 14, APPLY TO AFFECTED AREA TWICE A DAY, 163, cm, 12/08/20 14:03:00 EDT, Height Start Date: 01/24/21 Status: Ordered Pen [place], 31 G x 8 mm BD Ultra [...]
--- OUTSIDE RECORDS SUMMARY | 2023-06-15 01:08 | XMS_ITS | Continuity of Care Document ---
Author Name Unknown Organization [facility] ter Address [address] [place] [id number]- Care Team Providers Care Field Return Repairer Name Role Phone Dyan Herrera Primary Care Physician [phone] Encounter [facility] Date(s): 08/17/22 - 08/19/[address] [id number] Encounter Diagnosis Hyponatremia(Final) - 08/17/22 Discharge Disposition: A-D/C Home Attending Physician: Carolina Rojas MD Admitting Physician: Eduardo Zhang MD Referring Physician: Not on Staff, Referring [...] 1Admin Note: AFLURIA quadrivalence VACCINE [facility] [id number] 2Early/Late Reason: Other : Pt not available. 3Location History: DR REEDER Medications Albuterol (Eqv-ProAir HFA) 90 mcg/inh inhalation aerosol 2 puffs, Inhalation, Every 6 hours, PRN NEEDED FOR SHORTNESS OF BREATH OR WHEEZING, # 8.5 each, 5 Refills, Maintenance, 12/02/21 7:35:00 EDT, [facility]/pharmacy #[id number], 25, 2 puffs Inhalation Every [...] 0 Refills, Maintenance, 08/19/22 14:16:00 EDT, Tablet, [facility]/pharmacy #[id number], Partial fill upon patient request [...] Start Date: 06/02/22 Status: Ordered nystatin topical 720929 u/gm powder APPLY TOPICALLY 3 TIMES A [...] was taken away due to non compliant Results Radiology Reports * Exam Date Time Procedure Performing Provider Status 08/18/22 8:58 PM Chest Portable Guido Laura; Auth (Ve rified) Notes: (Chest Portable) Reason For Exam: Angina RESULT: Chest Portable Chest Portable REASON: Angina; Clinical Question(s): Pneumonia COMPARISON: Multiple priors, most recent 08/16/2022. FINDINGS: LINES AND TUBES: None. LUNGS AND PLEURA: Clear lungs. Normal pulmonary vascularity. No pleural effusion. No pneumothorax. HEART, MEDIASTINUM AND AMAN: Heart is normal in size. Normal mediastinal and hilar contour. BONES AND SOFT TISSUES: No acute abnormality. IMPRESSION: No acute abnormality. I have personally reviewed the images and I agree with this report. WSN: [id number] Ordering Physician: Chapo Stevens Dictated By: Ash Santamaria DO Dictated Date/Time: 08/18/22 9:40 pm Reviewed By: Manolo Caraballo MD Signed By: Manolo Caraballo MD Signed Date/Time: 08/18/22 9:45 pm Transcribed By: MEÑO Transcribed Date/Time: 08/18/22 9:27 pm * Exam Date Time Procedure Performing Provider Status 08/16/22 7:27 PM Chest 2 Views Frontal and Lat Eloy Rosen; Auth (Verified) Notes: (Chest 2 Views Frontal and Lat) Reason For Exam: Chest Pain;Other: RESULT: Chest 2 Views Frontal and Lat Chest 2 Views Frontal and Lat Hx of Present Illness: dizzy, SOB, headaches weakness. had a miscarriage in June and had a D&C ever since then has not been feeling right. Started on control pill and has been having period for 3 weeks.; Reason: Other:; Chest Pain; Clinical Question(s): Other: COMPARISON: Multiple prior chest x-rays, the most recent of which is dated 02/03/2021. FINDINGS: LINES AND TUBES: None. LUNGS AND PLEURA: Clear lungs. Normal pulmonary vascularity. No pleural effusion. No pneumothorax. HEART, MEDIASTINUM AND AMAN: Heart is normal in size. Normal mediastinal and hilar contour. BONES AND SOFT TISSUES: No acute abnormality. IMPRESSION: No acute abnormality. WSN: [id number] Ordering Physician: Rickey Portillo MD Dictated By: Liya Alamo MD Dictated Date/Time: 08/16/22 7:29 pm Reviewed By: Liya Alamo MD Signed By: Liya Alamo MD Signed Date/Time: 08/16/22 7:29 pm Transcribed By: MEÑO Transcribed Date/Time: 08/16/22 7:28 pm Vital Signs Most recent to oldest [Reference Range]: 1 2 3 Height 165.1 cm (08/19/22 3:18 PM) 165.1 cm (08/18/22 1:16 PM) 165 cm (08/17/22 1:35 PM) Weight 115.1 kg (08/18/22 1:16 PM) 114.2 kg (08/18/22 10:04 AM) 122 kg (08/17/22 4:01 PM) Oxygen Saturation [94-100 %] 95 % (08/19/22 3:18 PM) 97 % (08/19/22 12:00 PM) 99 % (08/19/22 8:31 AM) Pulse Rate [55-90 bpm] 100 bpm *H* (08/19/22 3:18 PM) 93 bpm *H* (08/19/22 12:00 PM) 96 bpm *H* (08/19/22 8:00 AM) Body Mass Index [18.5-24.99 kg/m2] 42.23 kg/m2 *>HHI* (08/18/22 1:16 PM) 42.24 kg/m2 *>HHI* (08/17/22 1:35 PM) Blood Pressure [90-138/55-84 mm Hg] 139/95mm Hg *H* (08/19/22 3:18 PM) 132/75mm Hg (08/19/22 12:00 PM) 110/75mm Hg (08/19/22 8:00 AM) Respiratory Rate [16-30 br/min] 18 br/min (08/19/22 3:18 PM) 20 br/min (08/19/22 12:00 PM) 18 br/min (08/19/22 8:00 AM) Temperature [96.8-100.4 DegF] 98.0 DegF (08/19/22 3:18 PM) 97.4 DegF (08/19/22 12:00 PM) 97.9 DegF (08/19/22 8:00 AM) Mode of Delivery (Oxygen) Room air (08/19/22 3:18 PM) Room air (08/19/22 12:00 PM) Room air (08/19/22 8:00 AM) Blood pressure sites Arm, right (08/19/22 3:18 PM) Arm, left (08/19/22 12:00 PM) Arm, right (08/19/22 8:00 AM) Temperature Route Oral (08/19/22 3:18 PM) Oral (08/19/22 12:00 PM) Oral (08/19/22 8:00 AM) Weight Obtained Via Bed scale (08/18/22 1:16 PM) Social History Social History Type Response Smoking Status Former smoker, quit more than 30 days ago; Other: Quit is 2018; entered on: 05/11/21 Sex Admission evaluation note * Darlin LEE, Susan: MODIFY, MODIFY, MODIFY, MODIFY, MODIFY, PERFORM, MODIFY Event Display: Admission Note Authored Date: [id number] 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 Age:??41 Years?Sex:??Female?:??1980?? Chief Complaint/Reason for Consultation Not feeling well History of Present Illness ?? Ms Booker is a 41-year-old female with Type 2 diabetes mellitus, asthma,??morbid obesity, depression, preeclampsia,??obstructive sleep apnea who presents for multiple concerns ?? Patient had an ??2 months ago, followed by dilation and curettage.?? Has been feeling quitedepressed since then,??did not have the energy to take her insulin.?? She has had recurrent infections Infection, skin infection. She developed??joint pains and muscle pains,??was found to??have COVID,??positive on a home test??but retested??later??and was??negative. ??She has been??very thirsty,??with increased urination. ??Drinks 1 to 2 gallons of water??per day. ??Recently she has had??increased c onfusion,??dizziness,??headache, fatigue, whole body pains. ??No fevers or chills. ??No abdominal pain or nausea.?She reports her grew concerned about her increasing confusion??and convinced her to come to the hospital. ?? In the ED, the patient was tachycardic with heart rate 120, afebrile, normotensive saturating 96% on room air.?? Her lab work-up was significant for normal CBC, sodium of 114, chloride 94 and bicarb 17, chloride 94 with glucose 461.?? Normal creatinine.?? TSH was within normal limits.?? Urine osmolality 1004.EKG shows sinus tachycardia. Chest x-ray shows clear lungs. ??She is??being admitted for??hyponatremia??and hyperglycemia ?? On my evaluation,??patient reports ongoing??whole body pains, headache, dizziness. ??She reportsfeeling unwell. ??She does report increased??chest tightness and shortness of breath??since COVID??diagnosis at home, suspect??viral induced bronchospasm??she denies??abdominal pain, nausea, vomiting. ??She is tearful and reports significant grief??after recent??family??.?? Reports she has good support from her . ?? Review of Systems Constitutional:??No fever/chills. Neurologic:??As above Cardiovascular:??No chest pain/pressure. No palpitations. Respiratory: No shortness of breath. No cough. No sputum production. Gastrointestinal:??No nausea. No vomiting.??No??abdominal pain. No constipation. No diarrhea. Genitourinary:??No urination difficulties. Musculoskeletal:??No muscle pain. No joint pain. Skin: No rash. No itchiness. Psychiatric:??Appears in good spirits Other ROS negative except as mentioned above.?? Objective Vital Signs?? Temperature: 97.5 DegF (08/16/22 23:31:00) Temperature Route: Oral (08/16/22 23:31:00) Pulse Rate:??114 bpm??High (08/17/22 06:15:00) Respiratory Rate:??15 br/min??Low (08/17/22 06:15:00) Systolic Blood Pressure: 135 mm Hg (08/17/22 06:15:00) Diastolic Blood Pressure:??86 mm Hg??High (08/17/22 06:15:00) Blood pressure sites: Arm, left (08/17/22 06:15:00) Mean Arterial Pressure: 112 mm Hg (08/16/22 22:55:00) Pulse Pressure: 49 mm Hg (08/17/22 06:15:00) Oxygen Saturation: 96 % (08/17/22 06:15:00) Mode of Delivery (Oxygen): Room air (08/17/22 06:15:00) Early Warning Score: 6 (08/17/22 06:31:03) ? Physical Exam Constitutional: Alert. Not in pain or respiratory distress. Mental Status: Oriented to person, place and time. Head: Normocephalic. Neck: Supple, Full range of motion. Respiratory: Clear to auscultation. No wheezing, rales or rhonchi. Cardiovascular: S1 S2 regular. No murmurs, rubs or gallops. Gastrointestinal: Normal bowel sounds. Abdomen soft, non-tender, non-distended. Skin: No obvious rashes or lesions. Psychiatric: Normal mood and affect Extremities: No pitting edema Assessment/Plan ?? Ms Booker is a 41-year-old female with Type 2 diabetes mellitus, asthma, obesity, depression, preeclampsia,??obstructive sleep apnea who presents for headache, confusion, dizziness, found to have critical??hyponatremia ?? Acute medical issues ?? Dizziness Headache Confusion Hyponatremia Suspect most of her symptoms are in the setting of hyponatremia Mixed??pseudohyponatremia from??hyperglycemia??as well as??true hyponatremia??from??polydipsia??dueto hyperglycemia She is also intravascularly depleted TSH normal She is over correcting??despite not getting any treatment besides fluid restriction ???Obtain urine and serum osmoles, UA ???Consult renal to assist with dramatic spontaneous??overcorrection of sodium with free water restriction, consider DDAVP, appreciate recommendations ???Encourage free water. ??Given the dramatic overcorrection, will need to start D5W??which will likely worsen hyperglycemia ???Treat hyperglycemia as below ???Electrolytes every 4 hours??to monitor sodium, if trends in the wrong direction, will change to every 2 ???Goal??sodium correction??8-10 mEq/24 hours ?? Hyperglycemia Anion gap Low bicarb HbA1c more than 10 In the setting of medication noncompliance??due to depression ??? DC metformin ??? Obtain urine analysis to assess ketones ??? Patient received her home Lantus 40 at bedtime??with minimal if any response. ??Additionally weare starting??D5W drip as above. ??? Ideally at some point we can switch to??half-normal saline??for intravascular volume repletion ?Start insulin drip ??? Monitor electrolytes as above with divalents q4 ??? Monitor intake and output ??? Add on beta hydroxybutyrate ?? Bereavement Depression Chronic pain Substance use: Marijuana No suicidal ideation ??? Social work consult ??? Trazodone at bedtime ?Tylenol as needed for pain ??? If ineffective, she was on??antispasmodics in the past so we will resume as needed ?? Shortness of breath Intermittent chest tightness Asthma Recent COVID Cough Suspect related to bronchospasm in the setting of recent COVID infection Chest x-ray clear, she is not hypoxic Home antigen negative and here PCR is also negative here ?As needed albuterol ?No need for enhanced respiratory precautions given the above ?? Chronic medical issues ?? Obstructive sleep apnea: Does not use CPAP at home because does not fit, but willing to try while she is here ?? Recurrent abortions Vaginal bleeding: Vaginal bleeding is??likely related to menstruation, follow-up with gynecology outpatient. ??Monitor CBC. No longer on aspirin ?? Quality Measures?? DVT prophylaxis; Subq??Enoxaparin Diet: Diabetic Diet Code Status: FULL ?? Patient case and plan??discussed with Dr. Akers ?? Susan Saeed MD Internal Medicine PGY3 [place] [phone] ?? Note dictated through [employer] software please excuse any errors in translation Histories Allergies Allergies ?(Active and Proposed Allergies Only) sulfamethoxazole? (Severity: Unknown, Onset: Unknown) amoxicillin? (Severity: Unknown severity, Onset: Unknown) ?Reactions: unknown penicillin? (Severity: Unknown severity, Onset: Unknown) ?Reactions: unknown Bactrim? (Severity: Unknown severity, Onset: Unknown) ?Reactions: unknown Latex? (Severity: Unknown severity, Onset: Unknown) ?Reactions: breathing problems ? Past Medical History/Problem List Active Problems??(10) Depression Diabetes mellitus, type II External hemorrhoids H/O hemorrhage, currently History of pre-eclampsia Medical marijuana use Morbid obesity THIERRY (obstructive sleep apnea) Rubella non-immune status, antepartum Uterine scar from previous surgery affecting ? Past Surgical History delivery only;: 09/06/18 delivery: 2018 Post-surgery back pain: 05/02/12 Cholecystectomy Tonsillectomy and adenoidectomy ? Social History Alcohol Details:??Use: Never. ??Alcohol use in household: No. Details:??Use: Never. Employment/School Details:??Status: Disabled. Details:??Status: Disabled. ??Other: back injury, surgery. Exercise Details:??Self assessment: Poor condition. ??Regular exercise: No. Home/Environment Details:??Living situation: Home/Independent. ??Lives with: Children, Spouse. ??Other: Diane . Nutrition/Health Details:??Diet: Diabetic. ??Other: Count carb. ??Caffeine intake amount: None. Sexual Details:??Sexually involved in last 6 months: Yes. ??Gender identity: Identifies as female. ??Self described orientation: Bisexual. Substance Abuse Details:??Use: Current. ??Type: Marijuana. ??Substance abuse in household: Yes. Details:??Other: medical marijuana. Tobacco Details:??Use: Former smoker, quit more than 30 days ago. ??Other: Quit is 2018. Details:??Former smoker, Tobacco user in household: No. Electronic Cigarette/Vaping Details:??Electronic Cigarette Use: Never. ? Family History Father: Cancer; Diabetes mellitus type II Mother: Arthritis Pat. Grandfather: Diabetes mellitus type II ? Medications Home Medications Albuterol (Albuterol (Eqv-ProAir HFA) 90 mcg/inh inhalation aerosol)?2?puff(s)?Inhalation?Every 6 hours?as needed? NEEDED FOR SHORTNESS OF BREATH OR WHEEZING Desogestrel-Ethinyl Estradiol (Apri 0.15 mg-0.03 mg oral tablet)?1?tab(s)?By Mouth?Daily Insulin Aspart (NovoLOG FlexPen 100 units/mL subcutaneous solution)?See Instructions?Take 23-34 units based on sliding scale. E11.9 Max daily dose 102 units. Insulin Glargine (Lantus 100 u/ml subcutaneous solution)?40 units at bedtime?Subcutaneous Injection?Daily at bedtime Metformin (MetFORMIN (Eqv-Glucophage XR) 500 mg oral tablet, extended release)?2?tab(s)?ByMouth?2 times a day with meals Nystatin Topical (nystatin topical 751258 u/gm powder)?APPLY TOPICALLY 3 TIMES A DAY PLEASE APPLY TO PELVIC RASH, LABIA, GLUTEAL FOLDS, AND RECTUM. ? Inpatient Medications Medications (12) Active SCHEDULED: (3) Insulin Lispro 100 units/mL Inj (3mL) (Insulin LISPRO Sliding Scale) ??2-10 units, Subcutaneous Injection, 3 times a day before meals NaCl 0.9% Flush 3ml (NaCL 0.9% Flush) ??3 mL, IV Push, Every 8 hours Trazodone 50 mg Tablet (traZODone 50 mg oral tablet) ??25 mg, By Mouth, Daily at bedtime CONTINUOUS: (3) D5%W (1000 mL) Cont IV 1,000 mL (D5%W 1,000 mL) ??1,000 mL, IV Infusion, 100 mL/hr Insulin R 100 units in 100 mL NaCL 100 units [5 units/hr] + NaCL 0.9% Premixed IV 100 mL (Insulin R100 units in 100 mL Premix 100 units [5 units/hr] + NaCL 0.9% Premixed IV 100 mL) ??100 mL, IV Infusion, 5 mL/hr NaCL 0.45% (500 mL) Cont IV 75 mL (NaCL 0.45% 75 mL) ??75 mL, IV Infusion, 75 mL/hr PRN: (6) Acetaminophen 325 mg Tablet (Acetaminophen Tablet) ??650 mg, By Mouth, Every 4 hours Albuterol 90mcg/Inhalation Inhaler HFA (albuterol CFC free 90 mcg/inh inhalation aerosol) ??180 mcg2 puffs, Inhalation, Every 4 hours Ibuprofen 600 mg Tablet (Motrin Tablet) ??600 mg, By Mouth, 3 times a day NaCl 0.9% Flush 3ml (NaCL 0.9% Flush) ??3 mL, IV Push, Every 8 hours Senna 8.6 mg / Docusate 50 mg tablet (Docusate/Senna Tablet) ??1 tablet, By Mouth, 2 times a day Tizanidine 4 mg Tablet (tiZANidine 4 mg oral tablet) ??4 mg, By Mouth, 3 times a day ? Results Recent Labs BLOOD COUNT & DIFF WBC 8.7 k/mm3 ()?? 08/16/2022 18:44 RBC 5.02 m/mm3 ()?? 08/16/2022 18:44 Hgb 14.6 Gm/dL ()?? 08/16/2022 18:44 Hct 40.9 % ()?? 08/16/2022 18:44 MCV 81.5 femtoliters ()?? 08/16/2022 18:44 MCH 29.1 pg ()?? 08/16/2022 18:44 MCHC 35.7 g/dL ()?? 08/16/2022 18:44 Platelet Count 197 k/mm3 ()?? 08/16/2022 18:44 RDW-SD 35.9 femtoliters ()?? 08/16/2022 18:44 MPV 10.3 femtoliters ()?? 08/16/2022 18:44 Nucleated RBC (Automated) 0.0 #/100 WBC'S ()?? 08/16/2022 18:44 Abs. NRBC 0.0 k/mm3 ()?? 08/16/2022 18:44 Abs. Neut 4.9 k/mm3 ()?? 08/16/2022 18:44 Abs. Lymph 3.2 k/mm3 (High)?? 08/16/2022 18:44 Abs. Craven 0.4 k/mm3 ()?? 08/16/2022 18:44 Abs. Eo 0.1 k/mm3 ()?? 08/16/2022 18:44 Abs. Baso 0.0 k/mm3 ()?? 08/16/2022 18:44 Neut % 57.0 % ()?? 08/16/2022 18:44 Lymph % 37.3 % ()?? 08/16/2022 18:44 Craven % 4.3 % (Low)?? 08/16/2022 18:44 Eos % 0.6 % ()?? 08/16/2022 18:44 Baso % 0.3 % ()?? 08/16/2022 18:44 Imm Gran 0.5 % ()?? 08/16/2022 18:44 Abs. Imm Gran 0.0 k/mm3 ()?? 08/16/2022 18:44 ?? CARDIAC Nt-Probnp 56 pg/mL ()?? 08/16/2022 18:44 High Sensitivity Troponin (HSTnT) HEMOLYZED ng/L ()?? 08/16/2022 18:44 ?? CHEM GENERAL Sodium 129 mmol/L (Low)?? 08/17/2022 02:49 Potassium HEMOLYZED mmol/L ()?? 08/17/2022 02:49 Chloride 95 mmol/L (Low)?? 08/17/2022 02:49 Bicarbonate Level 20 mmol/L (Low)?? 08/17/2022 02:49 Anion Gap 14 ()?? 08/17/2022 02:49 Glucose Level 366 mg/dL (High)?? 08/17/2022 02:49 Glucose, POC 361 mg/dL (High)?? 08/17/2022 04:36 Hemoglobin A1C (Monitoring) 10.4 % (High)?? 08/16/2022 18:44 BUN 10 mg/dL ()?? 08/16/2022 18:44 Creatinine-Blood 0.4 mg/dL (Low)?? 08/16/2022 18:44 Estimated GFR Creatinine 132 ML/MIN/1.73 M2 ()?? 08/16/2022 18:44 Calcium 8.7 mg/dL ()?? 08/16/2022 18:44 Magnesium 1.7 mg/dL ()?? 08/17/2022 02:49 ?? ENDOCRINE/TUMOR MARKER TSH 1.47 uIU/mL ()?? 08/16/2022 18:44 Serum Qual NEGATIVE mIU/mL ()?? 08/16/2022 18:44 ?? HEME OTHER Hold Blue Top SPECIMEN DISCARDED AFTER 4 HOURS. ()?? 08/16/2022 18:44 ?? URINE OTHER Osmolality, Urine Random 1004 mOsm/kg ()?? 08/17/2022 03:22 ?? VIROLOGY COVID-19 POC Result NEGATIVE ()?? 08/16/2022 18:02 ? Abnormal Labs ?? BLOOD COUNT & DIFF ??Abs. Imm Gran ??0.0 k/mm3 () ??08/16/2022 18:44 ??Abs. Lymph ??3.2 k/mm3 (High) ??08/16/2022 18:44 ??Abs. NRBC ??0.0 k/mm3 () ??08/16/2022 18:44 ??Imm Gran ??0.5 % () ??08/16/2022 18:44 ??Craven % ??4.3 % (Low) ??08/16/2022 18:44 ??Nucleated RBC (Automated) ??0.0 #/100 WBC'S () ??08/16/2022 18:44 ??RDW-SD ??35.9 femtoliters () ??08/16/2022 18:44 ? CARDIAC ??High Sensitivity Troponin (HSTnT) ??HEMOLYZED ng/L () ??08/16/2022 18:44 ? CHEM GENERAL ??Bicarbonate Level ??20 mmol/L (Low) ??08/17/2022 02:49 ??Chloride ??95 mmol/L (Low) ??08/17/2022 02:49 ??Creatinine-Blood ??0.4 mg/dL (Low) ??08/16/2022 18:44 ??Estimated GFR Creatinine ??132 ML/MIN/1.73 M2 () ??08/16/2022 18:44 ??Glucose Level ??366 mg/dL (High) ??08/17/2022 02:49 ??Glucose, POC ??361 mg/dL (High) ??08/17/2022 04:36 ??Hemoglobin A1C (Monitoring) ??10.4 % (High) ??08/16/2022 18:44 ??Potassium ??HEMOLYZED mmol/L () ??08/17/2022 02:49 ??Sodium ??129 mmol/L (Low) ??08/17/2022 02:49 ? ENDOCRINE/TUMOR MARKER ?? Serum Qual ??NEGATIVE mIU/mL () ??08/16/2022 18:44 ? HEME OTHER ??Hold Blue Top ??SPECIMEN DISCARDED AFTER 4 HOURS. () ??08/16/2022 18:44 ? VIROLOGY ??COVID-19 POC Result ??NEGATIVE () ??08/16/2022 18:02 ? Note: Critical results are displayed in red. ? EKG study * Event Display: EKG Authored Date: * Event Display: ECG 12-Lead Authored Date: Please click on pdf link to open report * Event Display: ECG 12-Lead Authored Date: [id number] Ventricular Rate: 104 BPM Atrial Rate: 104 BPM P-R Interval: 140 ms QRS Duration: 66 ms Q-T Interval: 370 ms QTC Calculation(Bazett): 486 ms P [place]: 77 degrees R [place]: 4 degrees T [place]: 51 degrees Sinus tachycardia Low voltage QRS Borderline ECG When compared with ECG of 16-AUG-2022 17:54, No significant change was found Confirmed by LISSETT METCALF MD ([id number]) on 08/19/2022 10:27:21 [address] [facility] [address]: LISSETT METCALF MD * Event Display: ECG 12-Lead Authored Date: [id number] Please click on pdf link to open report * Event Display: ECG 12-Lead Authored Date: Ventricular Rate: 118 BPM Atrial Rate: 118 BPM P-R Interval: 126 ms QRS Duration: 68 ms Q-T Interval: 332 ms QTC Calculation(Bazett): 465 ms P [place]: 63 degrees R [place]: -1 degrees T [place]: 58 degrees Sinus tachycardia Low voltage QRS Borderline ECG When compared with ECG of 03-FEB-2021 17:47, Heart rate has increased by 26 BPM Confirmed by NAV RODRIGUEZ MD ([id number]) on 08/17/2022 10:52:[address] [facility] [address]: NAV RODRIGUEZ MD Note * Nancy Novoa RN: PERFORM Event Display: Discharge/Transfer Note Hospital Authored Date: [id number] Nursing Discharge Note Entered On: 08/19/2022 17:15 EDT Performed On: 08/19/2022 17:15 EDT by Nancy Novoa RN Nursing Discharge Note 2 Discharge Time : 08/19/2022 17:20 EDT Discharge Level of Care at Discharge : Home/Penitentiary/Foster Care Patient Left Unit Via : Wheelchair Patient Accompanied Off Unit with : Responsible adult DC Instructions Provided & Signed by Pt : Yes Patient Understands D/C Instructions : Yes Verbalized Understanding of D/C Plan By : Patient Patient Instructions Discharge Signed : Yes Did Pt have Specialty Bed or Wound Vac : No Nancy Novoa RN - 08/19/2022 17:15 EDT * Carolina Rojas MD: PERFORM, SIGN, VERIFY Event Display: Discharge/Transfer Note Hospital Authored Date: [id number] 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 Hyperglycemia due to diabetes mellitus: Present on admission - yes. Depression: Present on admission - yes. Secondary Discharge Diagnoses THIERRY (obstructive sleep apnea): Present on admission - yes. Morbid obesity: Present on admission - yes. Diabetes: Present on admission - yes. Medications (Selected) Prescriptions Prescribed Albuterol (Eqv-ProAir HFA) 90 mcg/inh inhalation aerosol: 2 puffs, Inhalation, Every 6 hours, PRN NEEDED FOR SHORTNESS OF BREATH OR WHEEZING, # 8.5 each, 5 Refills, Maintenance, 12/02/21 7:35:00 EDT, [id number], 25, 2 puffs Inhalation Every 6 hours,PRN: NEEDED FOR SHORTNESS OF BREATH OR WHEEZING... Apri 0.15 mg-0.03 mg oral tablet: 1 tablet, By Mouth, Daily, # 84 tablet, 0 Refills, Maintenance, 06/23/22 12:27:00 EST, Tablet, [id number], Partial fill upon patient request if the prescription is for a schedule II opioid drug., 1 tablet By Mouth Daily, 163, cm, 06/07/22 10:4... Lexapro 10 mg oral tablet: 1 tablet = 10 mg, By Mouth, Daily, # 30 tablet, 0 Refills, Maintenance, 08/19/22 14:16:00 EDT, Tablet, [id number], Partial fill upon patient request if the prescription is for a schedule II opioid drug., 165.1, cm, 08/18/22 13:16:00 EDT, Heigh... MetFORMIN (Eqv-Glucophage XR) 500 mg oral tablet, extended release: 2 tablet, By Mouth, 2 times a day with meals, # 360 tablet, 11 Refills, 08/06/21 11:50:00 EDT, [id number], 163, cm, 07/28/21 9:25:00 EDT, Height, 120.5, kg, 02/03/21 17:38:00 EDT, Dry Weight NovoLOG FlexPen 100 units/mL subcutaneous solution: See Instructions, Take 23-34 units based on sliding scale. E11.9 Max daily dose 102 units., # 30 mL, 11 Refills, Maintenance, 06/02/22 18:08:00 EST, [id number], May increase dose by 4 units at meals if increased CHO intake, 163, cm, 06/02/22 1... Documented Medications Documented Lantus Inj: = 50 units, Subcutaneous Injection, Daily in AM, 0 Refills, Maintenance, 08/19/22 14:16:00 EDT, Injection, Partial fill upon patient request if the prescription is for a schedule II opioid drug. nystatin topical 546261 u/gm powder: APPLY TOPICALLY 3 TIMES A DAY PLEASE APPLY TO PELVIC RASH, LABIA, GLUTEAL FOLDS, AND RECTUM.. Medications Started Lexapro Doses Changed Lantus insulin increased to 48 units qd Hospital Course Hospital Course 41-year-old female with a medical history for type 2 diabetes (diagnosed approximately 5 years ago), morbid obesity, asthma, depression, h/o preeclampsia, THIERRY who was admitted to the hospital for concerns of being found to have a critical hyponatremia. She reports that she had stopped taking her jose betes medication in June after having a miscarriage. Previously she has had 2 miscarriages prior to this. She then suddenly lost her grandmother which had worsened her depression. T2 IRDM: Hyperglycemia: improving Hyponatremia: resolved Pt did not take meds, including insulin, since her miscarriage in 06/2022, leading to severe hyperglycemia and polydipsia and subsequently to hyponatremia. Resolved with Insulin gtt and IVF. - Lantus insulin 50 units qd, ISS - F/u with Endocrinology Depression/Grief/Anxiety/Panic attacks: Pt reports that miscarriages and recent of grandmother as well as COVID infection leaving herfeeling overwhelmed and depressed. New BCP could also contribute to dysthymia. Pt interested in counselling and starting meds. Pt was seen by Psychiatry. - Outpatient f/u, call [phone] to make appt - Lexapro 10 mg po qd Reported Menorrhagia: - Outpatient Program Engineer f/u Morbid obesity: THIERRY: - Regular exercises, weight loss. - Outpatient sleep study General Appearance NAD. Not dyspneic. Not fatigued. Not ill-appearing. HEENT Moist mucous membranes. Respiratory Lungs: CTA. Cardiac Cardiac: no M/G/R. Rhythms: RRR. Abdomen/GI Abdomen: soft, non-tender, non-distended, bowel sounds, no hepatosplenomegaly. Extremities No edema. Neurologic Alert & oriented x 4 . Attending Consultants Holger LEE, Robert Montemayor: Speciality Psychiatry . Elder Roper MD: Speciality Renal . Results Laboratory : LABORATORY 08/19/2022 11:30 EDT Glucose, POC 296 mg/dL H 08/19/2022 1:20 EDT WBC 3.7 k/mm3 L Hgb 13.6 Gm/dL Hct 38.4 % Platelet Count 158 k/mm3 Sodium 133 mmol/L Potassium 3.4 mmol/L L Bicarbonate Level 23 mmol/L Anion Gap 11 BUN 12 mg/dL Creatinine-Blood 0.6 mg/dL 08/17/2022 2:49 EDT Magnesium 1.7 mg/dL 08/16/2022 18:44 EDT WBC 8.7 k/mm3 Hgb 14.6 Gm/dL Hct 40.9 % Platelet Count 197 k/mm3 Sodium 114 mmol/L C (Modified) Potassium 4.0 mmol/L Chloride 94 mmol/L L Bicarbonate Level 17 mmol/L L Anion Gap 17 Glucose Level 461 mg/dL H Hemoglobin A1C (Monitoring) 10.4 % H BUN 10 mg/dL Creatinine-Blood 0.4 mg/dL L Calcium 8.7 mg/dL Nt-Probnp 56 pg/mL TSH 1.47 uIU/mL Serum Qual NEGATIVE mIU/mL 08/16/2022 18:02 EDT COVID-19 POC Result NEGATIVE . Imaging : RADIOLOGY 08/18/2022 20:58 EDT Chest Portable Chest Portable 08/16/2022 19:27 EDT Chest 2 Views Frontal and Lat Chest 2 Views Frontal and Lat . Discharge Plan Diet/Activity/Patient Education/Follow Up Follow Up with: Simran Granados Within 5 to 7 days; Bryanna Rooney Within 1 to 2 weeks; Dyan Samson Within 2 to 3 days; [facility] health central intake: call [phone] to make appt. Code Status: Full Code. Discharge Condition: good, compared to admission improved. 35 minutes spent on discharge * Giuliana Lincoln RN: PERFORM Event Display: Patient Education/Instruction Authored Date: Inpatient Adult Discharge Instructions [address] [address] Name: POPPY BOOKER : 1980 Visit: 08/17/2022 02:44:00 Current Date: 08/19/2022 15:57 Account: [id number] Inpatient Adult Discharge Instructions We would like to thank you for allowing us to assist you with your healthcare needs. The following includes patient education materials and information regarding your injury/illness. Our entire staffstrives to provide an excellent experience for our patients and their families. PLEASE ENSURE YOU FOLLOW-UP PER THE INSTRUCTIONS BELOW! ?? YOUR OPINION IS IMPORTANT TO US! Please complete the survey you may receive by mail or email. Your feedback will be used to make improvements to the healthcare experiences of our patients and their families. Surveys are administered by [employer] ?? If further treatment with your primary care physician or another doctor is recommended, it is important for you to keep the appointment. Call your primary care physician or return to the Emergency Department immediately if your condition worsens, fails to improve, or new symptoms develop. If you need to find a doctor, you can call [facility] for a referral at [phone] or toll free at [phone] or log in to [email or web address].. ?? You can view and manage your care through the patient portal or by using a health care rudy of your choosing. [employer] is a website that allows you to securely view your medical information including your hospital discharge summary, office visit summaries, medications and follow-up visits. You can also request appointments, renew medications, and request access to your medical information using a health care rudy of your choosing, or just ask a question. You can enroll at [email or web address] or register during your next office visit. You have been discharged from [facility], Patient Care Unit: S3. If you have any questions regarding these instructions after you leave, please call us and we will be happy to assist you. [facility] Your Care Team Attending Physician Melisa Sidhu MD, Carolina Consulting Providers Albert LEE, Jenni Wren MD, Robert Montemayor; Judson LEE, Elder Martinez Discharging Providers Melisa Sidhu MD, Carolina Reason for Your Visit General medical Your Diagnosis Depression Diabetes General medical Hyperglycemia due to diabetes mellitus Hyponatremia Morbid obesity THIERRY (obstructive sleep apnea) Tests Performed Below is a partial list of the tests performed during your hospitalization. You may have had other tests and procedures not included in this list. Please discuss all test results with your provider. B Type Natriuretic Peptide Basic Metabolic Panel BETA HYDROXYBUTYRATE Calcium Level CBC w/ Differential COVID-19 RNA POC D Dimer Electrolytes Glucose Level GLUCOSE POC HEMOGLOBIN A1C High??Sensitivity??Troponin T Hold Blue Top Tube Ionized Calcium Lytes Magnesium Level Osmolality Phosphorus Level Serum Qualitative TSH WITH REFLEX TO FT4 Urinalysis Complete?-- Results Pending -- Portable Chest XR Chest 2 Views Frontal and Lat ? You will be contacted within 72 hours with your results. Primary Care Provider Dyan Herrera Advance Directive . Discharge Vitals Temperature: 98 DegF Height: 165.1 cm Pulse Rate:??100 bpm??High Weight: 115.1 kg Respiratory Rate: 18 br/min Body Mass Index:??42.23 kg/m2??Critical Systolic Blood Pressure:??139 mm Hg??High Body surface area: 2.3 Diastolic Blood Pressure:??95 mm Hg??High ?? Oxygen Saturation: 95 % ?? Studies Pending All tests and labs ordered during this hospital stay have been completed unless listed below. Please discuss all pending results with your provider listed above in these instructions. ?? Add On Lab Order Blood Gas Venous (VBG) Calcium Level Complete Urinalysis (Urinalysis Complete) Creatinine Urine (Urine Creatinine) Electrolytes Glucose Level Magnesium Level Osmolality Urine (Urine Osmolality) Sodium Urine (Urine Sodium) What to do next Instructions From Your Doctor Discharge Orders Scheduled Follow-Up Appointments Tuesday 2:40 PM EDT ?? With: [place] BERGMAN, Lucila Wilkerson Where: [facility] - Program Engineer [address] [place] [address]- You Need to Schedule the Following Appointments Follow Up with??[facility] central intake: call [phone] to make appt When?? Follow Up with??Simran Granados When??Within 5 to 7 days Follow Up with??Bryanna Rooney When??Within 1 to 2 weeks Follow Up with??Dyan Singleton When??Within 2 to 3 days Discharge Medications POPPY BOOKER :1980 Visit Date:08/17/2022 Medications: Please continue your medications until treatment is completed or stopped by your provider. Medications not listed below should be discontinued. Discuss any questions related to medications with your provider. What How Much When Instructions Next Dose New Escitalopram (Lexapro 10 mg oral tablet) 1 tab(s) Oral Daily Duration: [address] [facility]/pharmacy #[id number] 4 AM Changed Insulin Glargine (Lantus Inj) 50 unit(s) Subcutaneous Injection Daily in the morning 08/20 AM Unchanged Albuterol (Albuterol (Eqv-ProAir HFA) 90 mcg/ inh inhalation aerosol) 2 puff(s) Inhalation Every 6 hours as needed for NEEDED FOR SHORTNESS OF BREATH OR WHEEZING as needed Unchanged Desogestrel-Ethinyl Estradiol (Apri 0.15 mg-0.03 mg oral tablet) 1 tab(s) Oral Daily 08/20 AM Unchanged Insulin Aspart (NovoLOG FlexPen 100 units/ mL subcutaneous solution) See instructions Take 23-34 units based on sliding scale. E11.9 Max daily dose 102 units. ?? per digital sales assistant Unchanged Metformin (MetFORMIN (Eqv-Glucophage XR) 500 mg oral tablet, extended release) 2 tab(s) Oral Two times a day with meals with Dinner Unchanged Nystatin Topical (nystatin topical 499653 u/ gm powder) APPLY TOPICALLY 3 TIMES A DAY PLEASE APPLY TO PELVIC RASH, LABIA, GLUTEAL FOLDS, AND RECTUM. ?? as needed Pharmacy Information [facility]/pharmacy #[id number]: [id number] [place] [phone] ?? What How Much When Comments Stop Taking Durable Medical Equipment (Alcohol Pads) See instructions To use with insulin administration 4 times daily ?? Stop Taking Durable Medical Equipment (Freestyle Lite Lancets) See instructions Blood sugar testing four times a day ICD 10: 024.119 E11.9 ?? Stop Taking Durable Medical Equipment (Freestyle Lite Lancets) See instructions To test blood sugar 4 x day. 1 box = 100 lancets ?? Stop Taking Durable Medical Equipment (Freestyle Lite Monitor) See instructions Duration: 30 Days Use to check bloodsugar 4 times daily. E11.65 ?? Stop Taking Durable Medical Equipment (Freestyle Lite Test Strips) See instructions use to check BGs 5-6x daily. E11.9 ?? Stop Taking Durable Medical Equipment (Freestyle Lite Test Strips) See instructions Check blood sugar up to 6 times per day. E11.65 ?? Stop Taking Durable Medical Equipment (Freestyle Lite Test Strips) See instructions Duration: 30 Days test 4 times per day ?? Stop Taking Durable Medical Equipment (Pen Frederica, 31 G x 8 mm BD Ultra Fine III) See instructions Use to take insulin 4 times daily. E11.65 ?? Test Results Below is a partial list of the most recent Laboratory test results done prior to this discharge. You may have had other tests and procedures not included in this list. Please discuss all test resultswith your provider. B Type Natriuretic Peptide (08/16/2022) ???Nt-Probnp - 56 pg/mL Basic Metabolic Panel (08/19/2022) ???Sodium - 133 mmol/L???Potassium - 3.4 mmol/L???Chloride - 99 mmol/L???Bicarbonate Level - 23 mmol/L???Anion Gap - 11???Glucose Level - 378 mg/dL???BUN - 12 mg/dL???Creatinine-Blood - 0.6 mg/dL???Estimated GFR Creatinine - 116 ML/MIN/1.73 M2???Calcium - 8.0 mg/dL BETA HYDROXYBUTYRATE (08/17/2022) ???Beta Hydroxybutyrate - 1.23 mmol/L Calcium Level (08/18/2022) ???Calcium - 8.2 mg/dL CBC w/ Differential (08/19/2022) ???WBC - 3.7 k/mm3???RBC - 4.60 m/mm3???Hgb - 13.6 Gm/dL???Hct - 38.4 %???MCV - 83.5 femtoliters???MCH - 29.6 pg???MCHC - 35.4 g/dL???Platelet Count - 158 k/mm3???RDW-SD - 38.7 femtoliters???MPV - 10.4 femtoliters???Nucleated RBC (Automated) - 0.0 #/100 WBC'S???Abs. NRBC - 0.0 k/mm3???Abs. Neut - 1.4 k/mm3???Abs. Lymph - 1.9 k/mm3???Abs. Craven - 0.3 k/mm3???Abs. Eo - 0.1 k/mm3???Abs. Baso - 0.0 k/mm3???Neut % - 37.5 %???Lymph % - 52.9 %???Craven % - 7.7 %???Eos % - 1.6 %???Baso % - 0.0 %???Imm Gran - 0.3 %???Abs. Imm Gran - 0.0 k/mm3 COVID-19 RNA POC (08/16/2022) ???COVID-19 POC Result - NEGATIVE D Dimer (08/18/2022) ???D-Dimer - 0.68 mg/L FEU Electrolytes (08/18/2022) ???Sodium - 132 mmol/L???Potassium - 3.9 mmol/L???Chloride - 100 mmol/L???Bicarbonate Level - 21 mmol/L???Anion Gap - 11 Glucose Level (08/18/2022) ???Glucose Level - 339 mg/dL GLUCOSE POC (08/19/2022) ???Glucose, POC - 296 mg/dL HEMOGLOBIN A1C (08/16/2022) ???Hemoglobin A1C (Monitoring) - 10.4 % High??Sensitivity??Troponin T (08/19/2022) ? ?High Sensitivity Troponin (HSTnT) - <6 ng/L Hold Blue Top Tube (08/16/2022) ???Hold Blue Top - SPECIMEN DISCARDED AFTER 4 HOURS. Ionized Calcium (08/18/2022) ???Calcium, Ionized pH Corrected - 1.06 mmol/L Lytes (08/17/2022) ???Sodium - 130 mmol/L???Potassium - 3.2 mmol/L???Chloride - 99 mmol/L???Bicarbonate Level - 19 mmol/L???Anion Gap - 12 Magnesium Level (08/18/2022) ???Magnesium - 1.9 mg/dL Osmolality (08/17/2022) ???Osmolality - 300 mOs/kg Phosphorus Level (08/18/2022) ???Phosphorus - 3.6 mg/dL Serum Qualitative (08/16/2022) ??? Serum Qual - NEGATIVE TSH WITH REFLEX TO FT4 (08/16/2022) ???TSH - 1.47 uIU/mL Allergies (NKA means No Known Allergies) sulfamethoxazole Bactrim??(unknown) Latex??(breathing problems) amoxicillin??(unknown) penicillin??(unknown) Problems Active Problems??(12) Depression?? Diabetes mellitus, type II?? External hemorrhoids?? H/O hemorrhage, currently ?? History of pre-eclampsia?? Medical marijuana use?? Morbid obesity?? THIERRY (obstructive sleep apnea)? Rubella non-immune status, antepartum?? Severe obesity?? Uterine scar from previous surgery affecting ?? Education Materials Below is the list of Educational Leaflet Providered with your Discharge Instructions. Valuables and Belongings I fully understand and agree that [facility] accepts no responsibility for all my personal property including clothing, toilet articles, radios, jewelry, dentures, hearing aids, rings, money, or any other property that is in my possession or is brought to me after admission. I understand certain valuables may be placed in a hospital safe for a short period of time. I understand that the hospital is not liable for loss or damage due to accident, fire, or other natural occurrence while said property is in the safe. I accept full responsibility for any personal property that I keep with me, and will not hold the hospital responsible in case of loss or disappearance. I acknowledge that i have been encouraged to send valuables and belongings home. ?? Review of Valuable and Belonging List: With patient, With witness Date for Pt to Sign Valuables/Belongings: 08/19/22 15:18:00 ?? Other Discharge Information ? Pulmonary Rehab Status?? Pulmonary Rehab Discharge Status?? Respiratory Rate: 18 br/min ? Common Emergency Awareness Tips IS IT A STROKE? Act FAST and Check for these signs: FACE Does the face look uneven? ARM Does one arm drift down? SPEECH Does their speech sound strange? TIME Call at any sign of stroke ?? Heart Attack Signs Chest discomfort: Most heart attacks involve discomfort in the center of the chest and lasts more than a few minutes, or goes away and comes back. It can feel like uncomfortable pressure, squeezing, fullness or pain. Discomfort in upper body: Symptoms can include pain or discomfort in one or both arms, back, neck, jaw or stomach. Shortness of breath: With or without discomfort. Other signs: Breaking out in a cold sweat, nausea, or lightheaded. Remember, MINUTES DO MATTER. If you experience any of these heart attack warning signs, call to get immediate medical attention! ?? Smoking can increase your chances of developing chronic health problems and can cause harmful effects to other family members in your house. If you smoke, you are strongly encouraged to quit. Please call [facility] Link at [phone] or [phone] ([phone]) or log in to [email or web address] for referrals to smoking cessation programs. ?? 066 Suicide & Crisis Lifeline is available 22/11 if you or someone you know needs to find a reason to keep living. By calling 276 you'll be connected to a skilled, trained counselor at a crisis center in your area. INPATIENT DISCHARGE INSTRUCTIONS SIGNATURE PAGE POPPY BOOKER Location:[facility] Registration Date and Time:08/17/2022 02:44 EDT Primary Care Physician: Dyan Herrera, I JHONY POPPY, have received the above patient education materials/instructions and have verbalizedunderstanding. If ambulance or transport services are being used I further acknowledge being given a choice of service. ?? If you need to contact me, please call me at this number: . Patient/Management Professionals Name: Patient/Management Professionals Signature: Relationship to Patient: Witness Name/Signature: Date: * Carolina Rojas MD: SIGN, SIGN, PERFORM, SIGN, VERIFY Event Display: Patient Education Handout Authored Date: [id number] * Giuliana Lincoln RN: PERFORM Event Display: Patient Education Leaflets Authored Date: [id number] Discharge Instructions for Hyponatremia ?? [address] Discharge Instructions for Hyponatremia You were diagnosed with hyponatremia. This means your blood level of sodium (salt) is too low. Saltis needed for the body and brain to work. Very low blood levels of sodium can be fatal. Symptoms can include headache, confusion, severe tiredness (fatigue), muscle cramps, hallucinations, seizures, and coma.??You have been treated to raise your blood levels of sodium. These instructions will help you care for yourself at home as you have been instructed. Home care ??? Limit your intake of fluids. Drink only the amounts directed by your healthcare provider. ??? Ask your provider what you should use to replace fluids if you are throwing up. ??? Keep all follow-up appointments. Your provider needs to watch your condition closely. To help prevent hyponatremia: ??? Take all medicines exactly as directed. Certain medicines can lower blood sodium levels. ??? If you have done something that makes you sweat a lot, drink fluids thatcontain salt and other electrolytes.? Tell all healthcare providers what medicines you take. Me ntion all prescription and loaw-izn-ofaesui medicines, vitamins, supplements, and herbs. ??? Have your sodium levels checked often. This is vital if you take a medicine that helps your body get rid of water (diuretic). ?? Follow-up Follow up with your healthcare provider, or as advised.? When to call your healthcare provider Call your provider right away if you have any of the following: ??? Severe tiredness ??? Fainting ??? Dizziness ??? Loss of appetite ??? Nausea or vomiting ??? Confusion or forgetfulness ??? Muscle spasms, cramping, or twitching ??? Seizures ??? Walking abnormally ?? Last Reviewed Date: 2020 ?? 5157-7341 [employer]. All rights reserved. This information is not intended as a substitute for professional medical care. Always follow your healthcare professional's instructions. ?? * Event Display: Cardiac Rhythm Strips Authored Date: [id number] * [employer] , CIS S: TRANSCRIBE Liya Alamo MD: VERIFY Event Display: Result: Authored Date: [id number] Chest 2 Views Frontal and Lat Hx of Present Illness: dizzy, SOB, headaches weakness. had a miscarriage in June and had a D&C ever since then has not been feeling right. Started on control pill and has been having period for 3 weeks.; Reason: Other:; Chest Pain; Clinical Question(s): Other: COMPARISON: Multiple prior chest x-rays, the most recent of which is dated 02/03/2021. FINDINGS: LINES AND TUBES: None. LUNGS AND PLEURA: Clear lungs. Normal pulmonary vascularity. No pleural effusion. No pneumothorax. HEART, MEDIASTINUM AND AMAN: Heart is normal in size. Normal mediastinal and hilar contour. BONES AND SOFT TISSUES: No acute abnormality. IMPRESSION: No acute abnormality. WSN: [id number] Ordering Physician: Rickey Portillo MD Dictated By: Liya Alamo MD Dictated Date/Time: 08/16/22 7:29 pm Reviewed By: Liya Alamo MD Signed By: Liya Alamo MD Signed Date/Time: 08/16/22 7:29 pm Transcribed By: MEÑO Transcribed Date/Time: 08/16/22 7:28 pm Hospital Progress note * Jeremias Laughlin RN: PERFORM, SIGN, VERIFY Event Display: Progress Note Hospital Authored Date: Patient: POPPY BOOKER Age: 41 years Sex: Female : 1980 Associated Diagnoses: None Author: Jeremias Laughlin RN Findings Evaluation pt alert and oriented times four denies pain or discomfort at this time. vss telemetry order discontinued. blood sugar covered per s/s see order. pt being transferred to discharge unit. report called. plan of care reviewed with patient. . * Bryan POOL, Anahi Wagoner: PERFORM Event Display: Progress Note Hospital Authored Date: 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 Age:??41 Years?Sex:??Female?:??1980?? History of Present Illness Ms. Booker is a 41-year-old female with a medical history for type 2 diabetes diagnosed approximately 5 years ago, morbid obesity, asthma, depression, preeclampsia, THIERRY who was admitted to the hospital for concerns of being found to have a critical hyponatremia.?? She reports that she had stopped taking her diabetes medication in June after having a miscarriage.?? Previously she has had 2 miscarriages prior to this.?? She then suddenly lost her grandmother which had worsened her depression.?? She is followed by our endocrinology team and was last seen in the office on 06/20/2022. ??She is very tearful when discussing??the loss of her baby and??the of her grandmother.?? She admits tonot taking care of herself after??having her miscarriage in June??of this year.?? She stopped taking her diabetes medication.?? She did try using a CGM to monitor her glucose??readings in the past however she developed a??cyst/infection and this was stopped. ??She is checking her sugars with a meter when she checks them. ?? Hemoglobin?? A1c on admission 10.4%, previously 10.3% in June 2022. ? Her diabetes medications include: Metformin 1000 mg twice daily Lantus 40 units daily at bedtime NovoLog sliding scale: 100-150 23 units 150-200 25 units 201-250 27 units 251-300 29 units 301-350 31 units 351-400 32 units She reports she was taking 25 units 3 times a day with meals despite insulin sliding scale. ?? She was given 40 units of Lantus yesterday am.?? Prior to this she was given 20 units on 08/18/2022 at 113 this??morning.?? Her glucose really did not improve after the 20 units of Lantus. She has received a total of 60 units Lantus yesterday. ?24-hour glucose range??256-358 mg/dL, fasting glucose 319. ? Review of Systems General: ??denies fever, chills HEENT: denies headache Cardiac: denies CP Respiratory: denies SOB GI: denies loss of appetite, nausea, vomiting?? Urinary: no frequency Vascular: no edema, claudication Musculoskeletal: ??denies muscle weakness Psych: ??denies anxiety, +depression Neurological: denies?? weakness Physical Exam Vitals & Measurements T:??97.9?F ?? HR:??97(Monitored)?? SD:??96?? RR:??18?? BP:??110/75?? SpO2:??99%?? HT:??165.1??cm?? WT:??115.1??kg?? BMI:??42.23?? Eyes: Sclera nonicteric, nonindurated?? Skin: No notable rashes Neuro: Grossly normal motor function Psych: alert and oriented x4 Hem/lymph/immune: no LAD Constitutional: Well appearing?? Assessment/Plan Diabetes In summary, this is a 41-year-old female with a medical history for type 2 diabetes 1 dependent??who recently had a miscarriage in June 2022. ??She stopped taking her diabetes medications??at that time??reporting to have depression??and not wanting to take care of herself. ??She does have 2 younger children ages 3, 4 years of age.?? She recognizes that she needs to start taking her medication??to be her for her children as??they grow up. ?? She had a severe hyponatremia on admission which has been corrected. ?? She was on??Lantus 40 units??daily,??she was also on a lispro??sliding scale however she was givingherself 25 units 3 times a day with meals??despite??what ever her glucose readings were.?? She stopped using CGM due to having an infection and was using a meter. ?? Patient requires??higher insulin coverage.?(insulin dosing based on 0.8 units/kg) ?? --Continue ??Lantus 48 units daily??--she did not receive this dose yet prior to today's fasting glucose ?? --Continue Lispro sliding scale to 16 units per 100mg with correction of 2:30. ?? --Hypoglycemic protocol in place. ?? BIDS will follow. ?? Orders: Dextrose 50% in Water, 12.5 Gm, Injection, IV Push Slowly, Every 20 minutes, PRN for Blood Glucose,50 to 70 and patient is NOT AWAKE or NPO; Repeat Glucose POC in 20 minutes, Routine, 08/18/22 13:53:00 EDT Dextrose 50% in Water, 25 Gm, Injection, IV Push Slowly, Every 15 minutes, PRN for Blood Glucose, LESS than 50 and patient is NOT AWAKE or NPO - call MD if episode NOT resolved within 20 minutes, Routine, 08/18/22 13:53:00 EDT Glucagon, 1 mg, Injection, Intramuscular, Once, For severe hypoglycemic event and patient is too altered to take glucose by mouth and does not have IV access., PRN for Other, Routine, 08/18/22 13:53:00 EDT Glucose, 30 Gm, Gel, By Mouth, Every 20 minutes, PRN for Blood Glucose, LESS THAN 50 and patient ALERT, Routine, 08/18/22 13:53:00 EDT Glucose, 15 Gm, Gel, By Mouth, Every 20 minutes, PRN for Blood Glucose, 50 to 70 and patient ALERT,Routine, 08/18/22 13:53:00 EDT Insulin Glargine, 48 units, Injection, Subcutaneous Injection, Daily in AM, Routine, 08/19/22 9:00:00 EDT Insulin Lispro, 16-26 units, Injection, Subcutaneous Injection, 3 times a day before meals, Routine, 08/18/22 16:00:00 EDT, Hold for: NPO Call MD Glucose (Nsg POC) Hypoglycemia Emergency Measures Hypoglycemia Emergency Measures Hypoglycemia Emergency Measures Hypoglycemia Emergency Measures Problem List/Past Medical History Ongoing Depression Diabetes mellitus, type II External hemorrhoids H/O hemorrhage, currently History of pre-eclampsia Medical marijuana use Morbid obesity THIERRY (obstructive sleep apnea) Rubella non-immune status, antepartum Severe obesity Uterine scar from previous surgery affecting Historical Chronic back pain surgery in 2006 COVID-19 virus infection History of Anxiety History of Gestational hypertension (Severe) History ofMigraines [place] Marijuana abuse Obesity Pre-eclampsia, severe Restless leg syndrome Severe obesity Severe obesity Procedure/Surgical History delivery only;: 09/06/18 delivery: 2018 Post-surgery back pain: 05/02/12 Cholecystectomy Tonsillectomy and adenoidectomy Medications Acetaminophen Tablet, 650 mg, By Mouth, Every 4 hours, PRN, Temperature Greater than 100.5 Albuterol (Eqv-ProAir HFA) 90 mcg/inh inhalation aerosol, 2 puffs, Inhalation, Every 6 hours, PRN, 5 refills albuterol CFC free 90 mcg/inh inhalation aerosol, 180 mcg= 2 puffs, Inhalation, Every 4 hours, PRN Alcohol Pads, See Instructions, To use with insulin administration 4 times daily Apri 0.15 mg-0.03 mg oral tablet, 1 tablet, By Mouth, Daily Dextrose 50% Inj Syringe (25Gm), 12.5 Gm, IV Push Slowly, Every 20 minutes, PRN, 50 to 70 and patient is NOT AWAKE or NPO; Repeat Glucose POC in 20 minutes Dextrose 50% Inj Syringe (25Gm), 25 Gm, IV Push Slowly, Every 15 minutes, PRN, LESS than 50 and patient is NOT AWAKE or NPO - call MD if episode NOT resolved within 20 minutes Enoxaparin Inj, 40 mg= 0.4 mL, Subcutaneous Injection, Daily Freestyle Lite Lancets, See Instructions, To test blood sugar 4 x day. 1 box = 100 lancets Freestyle Lite Lancets, See Instructions, 11 refills, Blood sugar testing four times a day ICD 10: 024.119 E11.9 Freestyle Lite Monitor, See Instructions, Use to check bloodsugar 4 times daily. E11.65 Freestyle Lite Test Strips, See Instructions, 11 refills, use to check BGs 5-6x daily. E11.9 Freestyle Lite Test Strips, See Instructions, 5 refills, Check blood sugar up to 6 times per day. E11.65 Freestyle Lite Test Strips, See Instructions, 5 refills, test 4 times per day Glucagon Inj, 1 mg, Intramuscular, Once, PRN Glucose Gel, 15 Gm, By Mouth, Every 20 minutes, PRN, 50 to 70 and patient ALERT Glucose Gel, 30 Gm, By Mouth, Every 20 minutes, PRN, LESS THAN 50 and patient ALERT Insulin LISPRO Sliding Scale, 16-26 units, Subcutaneous Injection, 3 times a day before meals Lantus 100 u/ml subcutaneous solution, 40 units at bedtime, Subcutaneous Injection, Daily at bedtime,?Still taking, not as prescribed: admits not taking as she should Lantus Inj, 48 units= 0.48 mL, Subcutaneous Injection, Daily in AM Lidocaine 5% Patch, 1 each, Topically, Daily MetFORMIN (Eqv-Glucophage XR) 500 mg oral tablet, extended release, 2 tablet, By Mouth, 2 times a day with meals, 11 refills,?Not taking: has to start diabetes meds Motrin Tablet, 600 mg, By Mouth, 3 times a day, PRN NaCL 0.9% Flush, 3 mL, IV Push, Every 8 hours NaCL 0.9% Flush, 3 mL, IV Push, Every 8 hours, PRN NovoLOG FlexPen 100 units/mL subcutaneous solution, See Instructions, 11 refills, Take 23-34 units based on sliding scale. E11.9 Max daily dose 102 units.,?Still taking, not as prescribed: per patient has not been taking as directed nystatin topical 980164 u/gm powder, APPLY TOPICALLY 3 TIMES A DAY PLEASE APPLY TO PELVIC RASH, LABIA, GLUTEAL FOLDS, AND RECTUM. Pen [place], 31 G x 8 mm BD Ultra Fine III, See Instructions, 5 refills, Use to take insulin 4 times daily. E11.65 Remove Lidocaine Patch, 1 each, Topically, Daily in AM tiZANidine 4 mg oral tablet, 4 mg, By Mouth, 3 times a day, PRN, Muscle spasms traZODone 50 mg oral tablet, 25 mg, By Mouth, Daily at bedtime Allergies sulfamethoxazole Bactrim??(unknown) Latex??(breathing problems) amoxicillin??(unknown) penicillin??(unknown) Social History Alcohol Use: Never. Alcohol use in household: No., 02/13/2018 Use: Never., 07/28/2017 Electronic Cigarette/Vaping Electronic Cigarette Use: Never., 05/11/2021 Employment/School Status: Disabled., 02/13/2018 Status: Disabled. Other: back injury, surgery., 07/28/2017 Exercise Self assessment: Poor condition. Regular exercise: No., 12/11/2019 Home/Environment Living situation: Home/Independent. Lives with: Children, Spouse. Other: Diane ., 05/11/2021 Nutrition/Health Diet: Diabetic. Other: Count carb. Caffeine intake amount: None., 05/11/2021 Sexual Sexually involved in last 6 months: Yes. Gender identity: Identifies as female. Self described orientation: Bisexual., 05/11/2021 Substance Abuse Use: Current. Type: Marijuana. Substance abuse in household: Yes., 02/13/2018 Other: medical marijuana., 07/28/2017 Tobacco Use: Former smoker, quit more than 30 days ago. Other: Quit is 2017., 05/11/2021 Former smoker, Tobacco user in household: No., 02/13/2018 Family History Father: Cancer; Diabetes mellitus type II Mother: Arthritis Pat. Grandfather: Diabetes mellitus type II * Holden Rosa RN: SIGN, VERIFY, PERFORM Event Display: Progress Note Hospital Authored Date: [id number] Patient: POPPY BOOKER Age: 41 years Sex: Female : 1980 Associated Diagnoses: None Author: Holden Rosa RN Findings Problem Related to Alteration in Endocrine : Alteration in Endocrine Function/new 08/19/2022 1:00 EDT Alteration in Endocrine Related to Hyperglycemia Goals & Outcomes, Endocrine Blood glucose levels will stabilize during hospitalization, Intake & Output will improve & return to baseline, Pt will receive/maintain adequate nutrition status, Pt will resume/maintain adequate cardiac output, Pt will maintain adequate GI/ function appropriate for pt, Pt will resume/maintain adequate hemodynamic status, Vital signs, electrolytes & bl ood glucose will stabilize Interventions, Endocrine Assess/monitor GI/ status, Assess skin turgor, temperature & capillary refill, Maintain IV access, Assess for hyper/hypokalemia; monitor ECG for changes, Collaborate w/provider re: insulin dosage adjustments BH Goals/Interventions, Endocrine Yes Endocrine, Problem Start 05/01/2023 17:26 Reviewed Plan with, Endocrine Patient Patient Progression, Endocrine Pt progressing according to plan . Evaluation Patient is A&Ox3. Calm and cooperative with care. Speech is clear. Endorses mild dizziness. Denies MON and N/T. On RA. LS dim. Denies cough and SOB. Abdomen soft, non-tender. (+)BSx4. Denies N/V/D. (+)PP. Mild BLE edema. On cardiac monitoring in ST. Denies burning with urination. Endorses bleeding from vagina with small clots. Ambulates to bathroom independently with steady gait. Endorses pain to back. PRN pain meds administered with good effect. At change of shift patient c/o new onset chest pain radiating to upper back on L side. Denies jaw pain, nausea, palpitations. EKG completed showing ST. COMPONENT INSPECTOR [employer] notified. CXR ordered/completed, Troponin labs ordered and resulted <6, D- dimer ordered and resulted 0.68, and orthostatic BPs ordered and resulted negative. POC elevated. Dinner insulin that was never administered during day shift was then administered at 1/2 dose per COMPONENT INSPECTOR d/t night POC >300 with repeat POC for 0000. Repeat POC >300, additional lispro ordered and administered. Safety precautions in place. Call rosenbaum in reach. Hourly rounds in place. See CIS/MAR for more information.. Portable XR Chest Views * EBENEZERSPowerscridinora , CIS S: TRANSCRIDINORA Caraballo MD, Manolo: VERIFY Ash Santamaria DO: SIGN Event Display: Result: Authored Date: [id number] Chest Portable REASON: Angina; Clinical Question(s): Pneumonia COMPARISON: Multiple priors, most recent 08/16/2022. FINDINGS: LINES AND TUBES: None. LUNGS AND PLEURA: Clear lungs. Normal pulmonary vascularity. No pleural effusion. No pneumothorax. HEART, MEDIASTINUM AND AMAN: Heart is normal in size. Normal mediastinal and hilar contour. BONES AND SOFT TISSUES: No acute abnormality. IMPRESSION: No acute abnormality. I have personally reviewed the images and I agree with this report. WSN: [id number] Ordering Physician: Chapo Stevens Dictated By: Ash Santamaria DO Dictated Date/Time: 08/18/22 9:40 pm Reviewed By: Manolo Caraballo MD Signed By: Manolo Caraballo MD Signed Date/Time: 08/18/22 9:45 pm Transcribed By: MEÑO Transcribed Date/Time: 08/18/22 9:27 pm Patient Care team information Care Team Personnel Name: Kari Irvin Position: [facility] RN Member Role: Primary Care Nurse Name: Belia Solares RN Position: [facility] OB RN Member Role: Primary Care Nurse Name: Lauren Mac RN Position: [facility] RN Member Role: Primary Care Nurse Name: Jorge Mendoza RN Position: [facility] RN Member Role: Primary Care Nurse Name: Dyan Herrera Position: [facility] PCO Associate Professional Member Role: PCP Address: Address: [address] [place] [address] Name: Ruthy Nelson RN Position: [facility] RN Member Role: Primary Care Nurse Name: Colette Powell MD Position: [facility] PREANALYTICS TEAM LEAD MD Member Role: Lifetime PREANALYTICS TEAM LEAD Physician Address: Address: [address] [place] [address], [place] [address] Name: Angelita Reid RN Position: [facility] RN Member Role: Primary Care Nurse Name: Leonor Rodríguez RN, I Position: [facility] RN Member Role: Primary Care Nurse Name: Eugenio GERONIMO Attending Position: [facility] ED Medicine MD Name: Fang Bull Position: [facility] ED TA [facility] Member Role: Surface Water Technician Name: Tali Hoang RN Position: [facility] ED RN W/OE and Tasks Member Role: Patient Care Provider Name: Ekaterina Arnold Position: [facility] ED TA [facility] Member Role: Surface Water Technician Care Team Related Persons Name: MIHAI BOOKER Address: home [address] [place] [address] Name: YISSEL HOWARD Address: [employer] Address: home [address] Name: DIANE HOWARD Address: home [address] [place] [address] Name: MILTON HOWARD Address: [employer] Address: home [address]
--- OUTSIDE RECORDS SUMMARY | 2023-06-15 01:09 | XMS_ITS | Continuity of Care Document ---
Author Name Unknown Organization [facility] Address [address] [place] [address]- Care Team Providers Care Comb Capper Name Role Phone Dyan Herrera Primary Care Physician [facility] Date[facility] [address] [address] Attending Physician: Not on Staff, Attending MD [...] Gi regis influenza virus vaccine, inactivated 03/02/12 Ocdy rded Measles/Mumps/Rubella Virus Vaccine 2 10/10/17 Giv en pneumococcal 23-valent vaccine 3 03/06/12 Recorded Human Papillomavirus Vaccine 10/25/08 Recorded Human Papillomavirus Vaccine 06/28/08 Recorded Human Papillomavirus Vaccine 05/01/08 Recorded 1Admin Note: AFLURIA quadrivalence VACCINE [facility] [id number] 2Early/Late Reason: Other : Pt not available. 3Location History: DR REEDER Medications Albuterol (Eqv-ProAir HFA) 90 mcg/inh inhalation aerosol 2 puffs, Inhalation, Every 6 hours, PRN NEEDED FOR SHORTNESS OF BREATH OR WHEEZING, # 8.5 each, 5 Refills, Maintenance, 12/02/21 7:35:00 EDT, [facility]/pharmacy #[id number], 25, 2 puffs Inhalation Every 6 [...] 0 Refills, Maintenance, 06/23/22 12:27:00 EST, Tablet, [facility]/pharmacy #[id number], Partial fill upon patient request if [...] Refills, Maintenance, 05/24/22 12:10:00 EST, CR Tablet, [facility]/pharmacy #[id number], Partial fill upon patient r... Start Date: 05/24/22 Status: Ordered fluconazole 150 mg oral tablet 1 tablet = 150 mg, By Mouth, Once, # 1 tablet, 0 Refills, Soft Stop, 06/23/22 4:06:00 EST, Tablet, [facility]/pharmacy #[id number], Partial fill upon patient request if [...] 09/10/21 Status: Ordered Freestyle Dipika 2 14-day [place] Freestyle Dipika 2 14-day [place], See Instructions, # 1 each, Refills 0, [...] 30 Unknown, 11 Refills, 06/02/22 18:09:00 EST, [facility]/pharmacy #[id number], 163, cm, 06/02/22 14:37:00 EST, Height, 120.5, kg, 02/03/21 17:38:00 EDT, Dry Weight Start Date: 06/02/22 Status: Ordered MetFORMIN (Eqv-Glucophage XR) 500 mg oral tablet, extended release 2 tablet, By Mouth, 2 times a day with meals, # 360 tablet, 11 Refills, 08/06/21 11:50:00 EDT, [facility]/pharmacy #[id number], 163, cm, 07/28/21 9:25:00 EDT, Height, 120.5, kg, 02/03/21 17:38:00 EDT, Dry Weight Start Date: 08/06/21 Status: Ordered metFORMIN 500 mg oral tablet, extended release See Instructions, 2 tablet By Mouth twice Daily. E11.9, # 60 tablet, 8 Refills, Maintenance, 06/03/22 12:28:00 EST, ER Tablet, [facility]/pharmacy #[id number], Partial fill upon patient request if [...] 1... Start Date: 06/02/22 Status: Ordered Pen [place], 31 G x 8 mm BD Ultra [...] 5 Refills, Maintenance, 06/16/21 10:48:00 EST, Tablet, [facility]/pharmacy #[id number], ok to substitute with ANY vitamin, 1 tablet By Mouth Daily, 163, cm, 06/16/21 10:10:00 EST, Height, 120.5, kg, 02/03/21 17:38:0... Start Date: 06/16/21 Status: Ordered Multivitamins with Folic Acid 1 mg oral capsule See Instructions, TAKE ONE DAILY BY MOUTH, # 100 capsule, 2 Refills, Maintenance, 05/11/22 14:42:00EST, [facility]/pharmacy #[id number], Partial fill upon patient request if the prescription is for a schedule IIopioid drug., TAKE ONE DAILY BY MOUTH, 163, cm, ... Start Date: 05/11/22 Status: Ordered Multivitamins with Folic Acid 1 mg oral tablet 1 tablet, By Mouth, Daily, # 90 tablet, 2 Refills, Maintenance, 05/24/22 12:08:00 EST, [facility]/pharmacy#[id number], Partial fill upon patient request if the [...] Team Personnel Name: Belia Solares RN Position: [facility] OB RN Member Role: Primary Care Nurse Name: Jorge Mendoza RN Position: S RN Member Role: Primary Care Nurse Name: Dyan Herrera Position: [facility] PCO Associate Professional Member Role: PCP Address: Address: [address] [place] [id number] Name: Ruthy Nelson RN Position: [facility] RN Member Role: Primary Care Nurse Name: Colette Powell MD Position: [facility] JOURNEYMAN MEAT CUTTER MD Member Role: Lifetime JOURNEYMAN MEAT CUTTER Physician Address: Address: [address] [place] [address]- Care Team Related Persons Name: MIHAI BOOKER Address: home [address] [place] [address] Name: YISSEL HOWARD Address: [employer] Address: home [address] [place] [address] Name: DIANE HOWARD Address: home [address] [place] [address] Name: MILTON HOWARD Address: [employer] Address: home [address] [place] [address] [place]
--- OUTSIDE RECORDS SUMMARY | 2023-06-15 01:09 | XMS_ITS | Continuity of Care Document ---
Author Name Unknown Organization [facility] ter Address [address] [place] [address]- Care Team Providers Care Income Tax Return Preparer Name Role Phone Evin Arango MD Primary Care Physician [phone] [place] [facility] [id number] Date(s): 06/11/20 - 07/26/[address] [address] Attending Physician: Monica Cortez MD Admitting Physician: Monica Cortez MD Referring Physician: Evin Arango MD Allergies, [...] Recorded 1Admin Note: AFLURIA quadrivalence VACCINE [facility] [id number] 2Early/Late Reason: Other : Pt not available. [...] mL, 5 Refills, Maintenance, 06/09/20 10:05:00 EST, [facility]/pharmacy #[id number], May increase dose by 4 units at meals if increased CHO intake, 163, cm, 05/26/20 14:26:00 EST, [place]... Start Date: 06/09/20 Status: Ordered Pen [place], 31 G x 8 mm BD Ultra [...] 11/06/19 16:24:00 EDT, Route to Pharmacy Electronically, [id number], [id number], 163, cm, 02/08/19 9:31:00 EDT, Height, [...]
--- OUTSIDE RECORDS SUMMARY | 2023-06-15 01:09 | XMS_ITS | Continuity of Care Document ---
Author Name Unknown Organization [facility] ter Address [address] [place] [address]- Care Team Providers Care Electronic Calibration Technician Name Role Phone Evin Arango MD Primary Care Physician Encounter [facility] [place] Date(s): 06/26/20 - 07/26/[address] [address] Attending Physician: AdmtrJ [id number] Admitting Physician: Admtr, [id number] Referring Physician: [...] 03/06/12 Recorded 1Admin Note: AFLURIA quadrivalence VACCINE [facility] [id number] 2Early/Late Reason: Other : Pt not available. [...] 5 Refills, Maintenance, 06/09/20 10:04:00 EST, Solution, [facility]/pharmacy #[id number], Partial [...] mL, 5 Refills, Maintenance, 06/09/20 10:05:00 EST, [facility]/pharmacy #[id number], May increase dose by 4 units at meals if increased CHO intake, 163, cm, 05/26/20 14:26:00 EST, [facility]... Start Date: 06/09/20 Status: Ordered Pen [place], 31 G x 8 mm BD Ultra [...] 11/06/19 16:24:00 EDT, Route to Pharmacy Electronically, [id number], [id number], 163, cm, 02/08/19 9:31:00 EDT, Height, [...]
--- OUTSIDE RECORDS SUMMARY | 2023-06-15 01:09 | XMS_ITS | Continuity of Care Document ---
Author Name Unknown Organization [facility] Address [address] [place] [address]- Care Team Providers Care Estimating Engineer Name Role Phone Evin Arango MD Primary Care Physician [phone] [place] [facility] [place] 12/11/19 - 12/18/19 [facility] Adult [address] [place] [address]- [facility] Attending Physician: Evin Arango MD Allergies, Adverse [...] 03/06/12 Recorded 1Admin Note: AFLURIA quadrivalence VACCINE [facility] [id number] 2Early/Late Reason: Other : Pt not available. [...] Ordered clindamycin 300 mg oral capsule 1 capsule = 300 mg, By Mouth, 3 times a day, Please cancel PCN prescription. Dispense this instead., # 21 capsule, 0 Refills, Maintenance, 12/11/19 15:08:00 EDT, [facility]/pharmacy #[id number], 163, cm, 12/11/2011:43:00 EDT, Height, 164, kg, 09/05/18 17:25:00 E... Start Date: 12/11/19 Status: Ordered Freestyle Lite Lancets See Instructions, [...] Status: Ordered ibuprofen 600 mg oral tablet See Instructions, 1 tablet By Mouth Every 8 hours as needed for dental pain., # 30 tablet, Refills 0, Tot. Refills 0, Maintenance, 12/11/19 14:36:00 EDT, Instructions Replace Required Details, Route to Pharmacy Electronically, [facility]/pharmacy #[id number], 163,... Start Date: 12/11/19 Status: Ordered Insulin Syringe, BD Ultra-Fine 1 [...] intake Start Date: 02/08/19 Status: Ordered Pen [place], 31 G x 8 mm BD Ultra [...] 11/06/19 16:24:00 EDT, Route to Pharmacy Electronically, [id number], [facility]/pharmacy#[id number], 163, cm, 02/08/19 9:31:00 EDT, Height, [...] severe(Confirmed) Active Diabetes mellitus, type II(Confirmed) Active Vital Signs Most recent to oldest [Reference Range]: 1 Height 163 cm (12/11/19 12:43 PM) Social History Social History Type Response Smoking Status Former smoker; Tobac co user in household: No entered on: 02/13/18 Sex
--- OUTSIDE RECORDS SUMMARY | 2023-06-15 01:09 | XMS_ITS | Continuity of Care Document ---
Author Name Unknown Organization [facility] Address [address] [place] [address]- Care Team Providers Care Hair Stylist Name Role Phone Conchita LEE, Evin Teran Primary Care Physician [place] [facility] [place] 11[place]19[place] [address] [place] [id number] Attending Physician: Lauren Bailey MD Admitting Physician: Lauren Bailey MD Referring Physician: Shaheen Jean DO Allergies, Adverse Reactions, Alerts Substance Reaction Severity [...] 03/06/12 Recorded 1Admin Note: AFLURIA quadrivalence VACCINE [facility] [id number] 2Early/Late Reason: Other : Pt not available. 3Location History: DR REEDER Medications Alcohol Pads See Instructions, # 120 each, Refills 0, Tot. Refills 0, Maintenance, To use with insulin administration 4 times daily, 05/09/20 12:20:00 EST, Compound, 163, cm, 05/09/20 8:55:00 EST, Height, 164, kg, 09/05/18 17:25:00 EDT, Dry Weight Start Date: 05/09/20 Status: Ordered Freestyle Dipika 14-day [place] Freestyle Dipika 14-day [place], See Instructions, # 1 each, Refills 0, [...] Heig... Start Date: 06/09/20 Status: Ordered Pen [place], 31 G x 8 mm BD Ultra [...] 09/27/20 10:32:00 EDT, Route to Pharmacy Electronically, [id number], [facility]/pharmacy#[id number], 163, cm, 09/19/20 9:21:00 EDT, Height [...]
--- OUTSIDE RECORDS SUMMARY | 2023-06-15 01:09 | XMS_ITS | Continuity of Care Document ---
Author Name Unknown Organization [facility] James lt Address [address] [place] [address]- Care Team Providers Care Workers Compensation Claims Supervisor Name Role Phone Dyan Herrera Primary Care Physician [facility]counter [facility] Date(s): 02/16/23 - 04/20/23 [facility] Adult [address] [place] [address]- Attending Physician: Conchita LEE, Evin Teran Allergies, Adverse Reactions, Alerts Substance Reaction Severity [...] quadrivalence VACCINE [facility] [id number] 2Early/Late Reason: Other : Pt not available. [...] Refills, Maintenance, 03/28/23 7:43:00 EST, [facility], 30, APPLY TOPICALLY 3 TIMES A DAY [...] Care Team Personnel Name: Kari Irvin Position: [facility] RN Member Role: Primary Care Nurse Name: Belia Solares RN Position: [facility] OB RN Member Role: Primary Care Nurse Name: Jorge Mendoza RN Position: [facility] RN Member Role: Primary Care Nurse Name: Dyan Herrera Position: [facility] PCO Associate Professional Member Role: PCP Address: Address: [address] [place] [address]- [place] Name: Ruthy Nelson RN Position: [facility] RN Member Role: Primary Care Nurse Name: Colette Powell MD Position: [facility] MANAGER COUNCIL MD Member Role: Lifetime MANAGER COUNCIL Physician Address: Address: [address] [place] [address]'[place] [address]- [place] Name: Angelita Reid RN Position: [facility] RN Member Role: Primary Care Nurse Name: Leonor Rodríguez RN, I Position: [facility] RN Member Role: Primary Care Nurse Care Team Related Persons Name: MIHAI BOOKER Address: home [address] [place] [address] Name: YISSEL HOWARD Address: AMERCN Address: home [address] [place] [address] Name: DIANE HOWARD Address: home [address] [place] [address] Name: MILTON HOWARD Address: AMERCN Address: home [address] [place] [address]
--- OUTSIDE RECORDS SUMMARY | 2023-06-15 01:09 | XMS_ITS | Continuity of Care Document ---
Author Name Unknown Organization [facility] James lt Address [address] [place] [address]- Care Team Providers Care Apple Sorter Name Role Phone Dyan Herrera Primary Care Physician [phone] Encounter [facility] Date(s): 10/21/22 - 11/20/22 [facility] Adult [address] [place] [address]- Attending Physician: AdmtrIlan Admitting Physician: AdmtrIlan Referring [...] 05/01/08 Recorded 1Admin Note: AFLURIA quadrivalence VACCINE [facility] [id number] 2Early/Late Reason: Other : Pt not available. [...] Refills, Maintenance, 09/17/22 11:33:00 EDT, [facility], 84, TAKE 1 TABLET BY MOUTH EVERY DAY, 165.1, cm, 08/27/22 9:57:00 EDT,Height, 122, kg, 06/23/22 9:22:00 EST, Dry Weight Start Date: 09/17/22 Status: Ordered escitalopram 20 mg oral tablet 1 tablet, By Mouth, Daily, # 30 tablet, 0 Refills, Maintenance, 11/08/22 7:48:00 EDT, [facility], 165.1, cm, 10/21/22 10:08:00 EDT, Height, 122, [...] mL, 11 Refills, Maintenance, 06/02/22 18:08:00 EST, [facility]/pharmacy #[id number], May increase dose by 4 units at meals if increased CHO intake, 163, cm, 06/02/22 1... Start Date: 06/02/22 Status: Ordered triamcinolone 0.025% topical cream 1 application, Topically, 2 times a day, for 14 days, # 60 Gm, 3 Refills, Acute 12/16/22 10:15:00 EDT, 10/21/22 10:15:00 EDT, Cream, [facility]/pharmacy #[id number], Partial fill [...] Event Display: Non Lab Results Authored Date: Patient Care team information Care Team Personnel Name: Kari Irvin Position: [facility] RN Member Role: Primary Care Nurse Name: eBlia Solares RN Position: [facility] OB RN Member Role: Primary Care Nurse Name: Jorge Mendoza RN Position: [facility] RN Member Role: Primary Care Nurse Name: Dyan Herrera Position: [facility] PCO Associate Professional Member Role: PCP Address: Address: [address] [place] [address]- Name: Ruthy Nelson RN Position: [facility] RN Member Role: Primary Care Nurse Name: Colette Powell MD Position: [facility] STATIONARY ENGINEER MD Member Role: Lifetime STATIONARY ENGINEER Physician Address: Address: [address] [place] [address] [address]- Name: Angelita Reid RN Position: [facility] RN Member Role: Primary Care Nurse Name: Leonor Rodríguez RN, I Position: S RN Member Role: Primary Care Nurse Care Team Related Persons Name: MIHAI BOOKER Address: home [address] [place] [address] Name: YISSEL HOWARD Address: AMERCN Address: home [address] [place] [address] Name: DIANE HOWARD Address: home [address] [place] [address] Name: MILTON HOWARD Address: AMERCN Address: home [address] [place] [address]
--- OUTSIDE RECORDS SUMMARY | 2023-06-15 01:09 | XMS_ITS | Continuity of Care Document ---
Author Name Unknown Organization [facility] James Address [address] [place] [address]- Care Team Providers Care Mess Attendant Crew Name Role Phone Conchita LEE, Evin Teran Primary Care Physician [phone] Encounter [facility] Date(s): 07/30/19 - 08/09/19 [facility] Adult [address] [place] [address]- [facility] Attending Physician: Admtr, J [id number] Admitting Physician: AdmtrIlan Referring Physician: Admtr, Ar8 [...] 03/06/12 Recorded 1Admin Note: AFLURIA quadrivalence VACCINE [facility] [id number] 2Early/Late Reason: Other : Pt not available. [...] 1 capsule = 300 mg, By Mouth, Every 8 hours, # 21 capsule, 0 Refills, Maintenance, 07/30/19 15:32:00 EDT, [facility], [id number], 163, cm, 02/08/19 9:31:00 EDT, Height, 164, kg, 09/05/18 17:25:00 EDT, Dry Weight Start Date: 07/30/19 Status: Ordered Colace sodium 100 mg oral [...] HUMIDIFIER DX THIERRY G47.33 [facility]ET[facility] FAX [phone] [facility] [address] ALANIZ, 03/31/18 [...] DIRECTED DX THIERRY G47.33 [facility] FAX [phone] [facility] [address] RY... Start Date: 03/31/18 Status: Ordered ferrous sulfate [...] 12/01/18 15:05:00 EDT, Route to Pharmacy Electronically, [id number]... Start Date: 12/01/18 Status: Ordered Handheld Electric Breast Pump See Instructions, # 1 units, Maintenance, See instructions, 09/08/18 9:07:38 EDT, Compound Start Date: 09/08/18 Status: Ordered ibuprofen 800 mg oral tablet See Instructions, # 90 tablet, TAKE 1 TABLET BY MOUTH EVERY 8 HOURS,X30 DAYS NEEDED FOR PAIN. TAKE WITH FOOD OR MILK, [facility]/pharmacy #[id number] Start Date: 11/15/18 Status: Ordered [...] intake Start Date: 02/08/19 Status: Ordered Pen [place], 31 G x 8 mm BD Ultra [...] 6 hours, PRN, # 1 each, Refills 2, Tot. Refills 2, Maintenance, 07/30/19 16:11:00 EDT, Route to Pharmacy Electronically, [id number], [facility]/pharmacy#[id number], 163, cm, 02/08/19 9:31:00 EDT, Height, 164,... Start Date: 07/30/19 Status: Ordered Senna 8.6 mg oral tablet 17.2 mg, 2, tablet, By Mouth, Daily at bedtime, PRN, # 90 tablet, Refills 0, Tot. Refills 0, Maintenance, for constipation, 09/08/18 9:07:33 EDT, Print Requisition, Tablet Start Date: 09/08/18 Status: Ordered Tylenol 325 mg oral tablet [...]
--- OUTSIDE RECORDS SUMMARY | 2023-06-15 01:09 | XMS_ITS | Continuity of Care Document ---
Author Name Unknown Organization [facility] Address [address] [place] [address]- Care Team Providers Care Deflash And Wash Operator Name Role Phone Conchita LEE, Evin Teran Primary Care Physician [phone] Encounter [facility] Date(s): 09/24/20 - 10/24/20 [facility] [address] [place] [address] Allergies, Adverse Reactions, Alerts Substance Reaction [...] 03/06/12 Recorded 1Admin Note: AFLURIA quadrivalence VACCINE [facility] [id number] 2Early/Late Reason: Other : Pt not available. 3Location History: DR REEDER Medications Alcohol Pads See Instructions, # 120 each, Refills 0, Tot. Refills 0, Maintenance, To use with insulin administration 4 times daily, 05/09/20 12:20:00 EST, Compound, 163, cm, 05/09/20 8:55:00 EST, Height, 164, kg, 09/05/18 17:25:00 EDT, Dry Weight Start Date: 05/09/20 Status: Ordered Freestyle Dipika 14-day [place] Freestyle Dipika 14-day [place], See Instructions, # 1 each, Refills 0, [...] 09/04/20 23:17:00 EDT, Route to Pharmacy Electronically, [facility]/pharmacy #[id number], Partial fill upon patient request if the prescription i... Start Date: 09/04/20 Status: Ordered Lantus Solostar Pen 100 units/mL subcutaneous solution See Instructions, Take 55 units daily at dinner. E11.65, # 30 mL, 5 Refills, Maintenance, 06/09/20 10:04:00 EST, Solution, [facility]/pharmacy #[id number], Partial fill upon patient request if the prescription isfor a schedule II opioid drug., 163, cm, 05/26/20 1... Start Date: 06/09/20 Status: Ordered metFORMIN 500 mg oral tablet, extended release See Instructions, Take 2 tabs twice daily with food. E11.65, # 120 each, 5 Refills, Maintenance, 06/09/20 10:06:00 EST, ER Tablet, [facility]/pharmacy #[id number], 163, cm, 05/26/20 14:26:00 EST, Height, [...] Heig... Start Date: 06/09/20 Status: Ordered Pen [place], 31 G x 8 mm BD Ultra [...] 6 Refills, Maintenance, 05/26/20 14:51:00 EST, Capsule, [facility]/pharmacy #[id number], Partial fill upon patient request if the prescription is for a schedule II opioid drug., 1 capsule By Mouth Daily, 163, cm, 05/26/20 1... Start Date: 05/26/20 Status: Ordered Multivitamins with Folic Acid 1 mg oral tablet 1 tablet, By Mouth, Daily, # 30 tablet, 8 Refills, Maintenance, 08/05/20 15:20:00 EDT, Tablet, [facility]/pharmacy #[id number], Partial fill [...] 3 Refills, Maintenance, 09/19/20 8:47:00 EDT, Capsule, [facility]/pharmacy #[id number], Partial fill upon patient request if the prescription is for... Start Date: 09/19/20 Status: Ordered ProAir HFA 90 mcg/inh inhalation aerosol with adapter 2, puffs, Inhalation, Every 6 hours, PRN, # 1 each, Refills 5, Tot. Refills 5, Maintenance, 09/27/20 10:32:00 EDT, Route to Pharmacy Electronically, [id number], [id number], 163, cm, 09/19/20 9:21:00 EDT, Height [...]
--- OUTSIDE RECORDS SUMMARY | 2023-06-15 01:09 | XMS_ITS | Continuity of Care Document ---
Author Name Unknown Organization [facility] Address [address] [place] [address]- Care Team Providers Care Physical Therapy Aide Name Role Phone Dyan Herrera Primary Care Physician En[place] [facility] Date(s): 07/19/22 - [facility] [address] [address] Attending Physician: Not on Staff, Attending MD [...] Note: AFLURIA quadrivalence VACCINE [facility] [id number] 2Early/Late Reason: Other : Pt not available. 3Location History: DR REEDER Medications Albuterol (Eqv-ProAir HFA) 90 mcg/inh inhalation aerosol 2 puffs, Inhalation, Every 6 hours, PRN NEEDED FOR SHORTNESS OF BREATH OR WHEEZING, # 8.5 each, 5 Refills, Maintenance, 12/02/21 7:35:00 EDT, [id number], 25, 2 puffs Inhalation Every 6 hours,PRN: NEEDED FOR SHORTNESS OF BREATH OR WHEEZING... Start Date: 12/02/21 Status: Ordered Lantus Inj = 50 units, [...] Start Date: 06/02/22 Status: Ordered nystatin topical 668034 u/gm powder APPLY TOPICALLY 3 TIMES A [...] Care Nurse Name: Belia Solares RN Position: [facility] OB RN Member Role: Primary Care Nurse Name: Jorge Mendoza RN Position: S RN Member Role: Primary Care Nurse Name: Dyan Herrera Position: [facility] PCO Associate Professional Member Role: PCP Address: Address: [address] [place] [id number] Name: Ruthy Nelson RN Position: S RN Member Role: Primary Care Nurse Name: Colette Powell MD Position: [facility] AQUATICS SPECIALIST MD Member Role: Lifetime AQUATICS SPECIALIST Physician Address: Address: [address] [place] [address], [place] [address] Name: Angelita Reid RN Position: [facility] RN Member Role: Primary Care Nurse Name: Leonor Rodríguez RN, I Position: S RN Member Role: Primary Care Nurse Care Team Related Persons Name: MIHAI BOOKER Address: home [address] [place] [address] Name: YISSEL HOWARD Address: AMERCN Address: home [address] [place] [address] [place] Name: DIANE HOWARD Address: home [address] [place] [address] Name: MILTON HOWARD Address: AMERCN Address: home [address] [place] [address] [place]
--- OUTSIDE RECORDS SUMMARY | 2023-06-15 01:09 | XMS_ITS | Continuity of Care Document ---
Author Name Unknown Organization [facility] James Address [address] [place] [address]- Care Team Providers Care Field Care Manager Name Role Phone Conchita LEE, Evin Teran Primary Care Physician Encounter [facility] Date(s): 12/11/19 - 01/10/20 [facility] Adult [address] [place] [address]- [facility] Allergies, Adverse Reactions, Alerts Substance Reaction Severity [...] 03/06/12 Recorded 1Admin Note: AFLURIA quadrivalence VACCINE [facility] [id number] 2Early/Late Reason: Other : Pt not available. [...] Refills, Acute, 12/28/19 14:31:00 EDT, [facility], 163, cm, 12/11/19 12:43:00 EDT, Height, 164, [...] 12/28/19 14:24:00 EDT, Route to Pharmacy Electronically, [facility], 163, cm, 12/11/19 12:43:00 EDT, Height, 164, [...] intake Start Date: 02/08/19 Status: Ordered Pen [place], 31 G x 8 mm BD Ultra [...] 11/06/19 16:24:00 EDT, Route to Pharmacy Electronically, [id number], [facility]/pharmacy#[id number], 163, cm, 02/08/19 9:31:00 EDT, Height, [...]
--- OUTSIDE RECORDS SUMMARY | 2023-06-15 01:09 | XMS_ITS | Continuity of Care Document ---
Author Name Unknown Organization [facility] Address [address] [place] [address]- Care Team Providers Care Hog Ringer Name Role Phone Dyan Herrera Primary Care Physician [facility]counter [facility] Date(s): 03/29/22 - 04/28/22 [facility] [address] [place] [address] Attending Physician: AdmIlan ji Admitting Physician: AdmtrIlan Referring Physician: Admtr, Ar8 [...] Recorded 1Admin Note: AFLURIA quadrivalence VACCINE [facility] [id number] 2Early/Late Reason: Other : Pt not available. 3Location History: DR REEDER Medications Albuterol (Eqv-ProAir HFA) 90 mcg/inh inhalation aerosol 2 puffs, Inhalation, Every 6 hours, PRN NEEDED FOR SHORTNESS OF BREATH OR WHEEZING, # 8.5 each, 5 Refills, Maintenance, 12/02/21 7:35:00 EDT, [facility]/pharmacy #[id number], 25, 2 puffs Inhalation [...] 09/10/21 Status: Ordered Freestyle Dipika 2 14-day [place] Freestyle Dipika 2 14-day [place], See Instructions, # 1 each, Refills 0, [...] NEEDED FOR PAIN, Route to Pharmacy Electronically, [facility] 9[facility]42, 163, cm, 07/28/21 9:25:00 EDT, Height, 120.5, kg, 02/03/21 17:38:00 EDT, Dry Weight Start Date: 12/02/21 Status: Ordered Lantus Solostar Pen 100 units/mL subcutaneous solution See Instructions, INJECT 55 UNITS DAILY AT DINNER TIME, # 30 Unknown, 11 Refills, 08/06/21 11:50:00EDT, [facility]/pharmacy #[id number], 163, cm, 07/28/21 9:25:00 EDT, Height, 120.5, kg, 02/03/21 17:38:00 EDT, Dry Weight Start Date: 08/06/21 Status: Ordered MetFORMIN (Eqv-Glucophage XR) 500 mg oral tablet, extended release 2 tablet, By Mouth, 2 times a day with meals, # 360 tablet, 11 Refills, 08/06/21 11:50:00 EDT, [facility]/pharmacy #[id number], 163, cm, 07/28/21 9:25:00 EDT, Height, 120.5, kg, 02/03/21 17:38:00 EDT, Dry Weight Start Date: 08/06/21 Status: Ordered miSOPROStol 200 mcg oral tablet See Instructions, Place 2 tabs between cheek and gums on EACH side, let dissolve for 30 min then swallow the rest with water, # 4 tablet, 1 Refills, Maintenance, 05/28/21 14:25:00 EST, [facility]/pharmacy #[id number], Partial fill upon patient request if the presc... Start Date: 05/28/21 Status: Ordered NovoLOG FlexPen 100 units/mL subcutaneous solution See Instructions, - NovoLog, 3 times daily before meals 80-130 21 units 131-180 23 units 181-230 25units 231-280 27 units Over 280 29 units., # 30 mL, 11 Refills, Maintenance, 08/06/21 11:50:00 EDT,[facility]/... Start Date: 08/06/21 Status: Ordered nystatin topical 026789 u/gm powder See Instructions, APPLY TOPICALLY 3 TIMES A DAY PLEASE APPLY TO PELVIC RASH, LABIA, GLUTEAL FOLDS, AND RECTUM., # 60 Gm, 1 Refills, Maintenance, 12/24/21 20:42:00 EDT, [facility], 30, APPLY TOPICALLY 3 TIMES A DAY PLEASE APPLY TO PELVIC RASH, LAB... Start Date: 12/24/21 Status: Ordered Pen [place], 31 G x 8 mm BD Ultra [...] Confirmation Course Effective Dates Status Health St at Informant History of Anxiety Confirmed [...] Team Personnel Name: Belia Solares RN Position: [facility] OB RN Member Role: Primary Care Nurse Name: Jorge Mendoza RN Position: [facility] RN Member Role: Primary Care Nurse Name: Dyan Herrera Position: [facility] PCO Associate Professional Member Role: PCP Address: Address: [address] [place] [address] Name: Ruthy Nelson RN Position: [facility] RN Member Role: Primary Care Nurse Care Team Related Persons Name: JHONY MIHAI Address: home [address] [place] [address] Name: YISSEL HOWARD Address: AMERCN Address: home [address] [place] [address] Name: DIANE HOWARD Address: home [address] [place] [address] Name: MILTON HOWARD Address: AMERCN Address: home [address] [place] [address]
--- OUTSIDE RECORDS SUMMARY | 2023-06-15 01:09 | XMS_ITS | Continuity of Care Document ---
Author Name Unknown Organization [facility] Address [address] [place] [address]- Care Team Providers Care Riveter Hand Name Role Phone Evin Alaniz MD Primary Care Physician [place] [facility] [place]/06/19 - 07/25/[address] [address]- [facility] Attending Physician: Not on Staff, Attending MD Referring Physician: Evin Alaniz MD Allergies, [...] quadrivalence VACCINE [facility] [id number] 2Early/Late Reason: Other : Pt not available. [...] HUMIDIFIER DX THIERRY G47.33 [facility] LIFETIME FAX [phone] [facility] PER DR ALANIZ, 03/31/18 [...] DIRECTED DX THIERRY G47.33 [facility]ET[facility] FAX [phone] [facility] PER [facility] AMOR.. Start Date: 03/31/18 Status: Ordered ferrous sulfate [...] 12/01/18 15:05:00 EDT, Route to Pharmacy Electronically, [id number]... Start Date: 12/01/18 Status: Ordered Handheld Electric Breast Pump See Instructions, # 1 units, Maintenance, See instructions, 09/08/18 9:07:38 EDT, Compound Start Date: 09/08/18 Status: Ordered ibuprofen 800 mg oral tablet See Instructions, # 90 tablet, TAKE 1 TABLET BY MOUTH EVERY 8 HOURS,X30 DAYS NEEDED FOR PAIN. TAKE WITH FOOD OR MILK, [facility]/pharmacy #[id number] Start Date: 11/15/18 Status: Ordered Insulin [...] intake Start Date: 02/08/19 Status: Ordered Pen [place], 31 G x 8 mm BD Ultra [...] each, Refills 0, Tot. Refills 0, Maintenance, 07/11/19 10:25:00 EDT, Route to Pharmacy Electronically, [id number], [facility]/pharmacy#[id number], 163, cm, 02/08/19 9:31:00 EDT, Height, 164,... Start Date: 07/11/19 Status: Ordered Senna 8.6 mg oral tablet [...]
--- OUTSIDE RECORDS SUMMARY | 2023-06-15 01:09 | XMS_ITS | Continuity of Care Document ---
Author Name Unknown Organization [facility] James lt Address [address] [place] [address]- Care Team Providers Care Wool Supplier Name Role Phone Dyan Herrera Primary Care Physician [phone] [facility]counter [facility] Date(s): 03/23/23 - 04/22/23 [facility] Adult [address] [place] [address]- Allergies, Adverse Reactions, Alerts Substance Reaction Severity [...] Note: AFLURIA quadrivalence VACCINE [facility] [id number] 2Early/Late Reason: Other : Pt not available. 3Location History: DR LILLI Hilton See Instructions, # 1 each, Refills 0, [...] Gm, 1 Refills, Maintenance, 03/28/23 7:43:00 EST, [facility] STORE 50425, 30, APPLY TOPICALLY 3 TIMES A DAY [...] Care Team Personnel Name: Kari Irvin Position: [facility] RN Member Role: Primary Care Nurse Name: Belia Solares RN Position: [facility] OB RN Member Role: Primary Care Nurse Name: Jorge Mendoza RN Position: [facility] RN Member Role: Primary Care Nurse Name: Dyan Herrera Position: [facility] PCO Associate Professional Member Role: PCP Address: Address: [address] [place] [address]- [place] Name: Ruthy Nelson RN Position: [facility] RN Member Role: Primary Care Nurse Name: Colette Powell MD Position: [facility] AUTO EMISSIONS TECHNICIAN MD Member Role: Lifetime AUTO EMISSIONS TECHNICIAN Physician Address: Address: [address] [place] [address]- [place] Name: Angelita Reid RN Position: [facility] RN Member Role: Primary Care Nurse Name: Leonor Rodríguez RN, I Position: [facility] RN Member Role: Primary Care Nurse Care Team Related Persons Name: MIHAI BOOKER Address: home [address] [place] [address] Name: YISSEL HOWARD Address: [employer] Address: home [address] [place] [address] Name: DIANE HOWARD Address: home [address] [place] [address] Name: MILTON HOWARD Address: [employer] Address: home [address] [place] [address]
--- OUTSIDE RECORDS SUMMARY | 2023-06-15 01:09 | XMS_ITS | Continuity of Care Document ---
Author Name Unknown Organization [facility] Address [address] [place] [address]- Care Team Providers Care Nutrition Worker Name Role Phone Dyan Herrera Primary Care Physician [facility]/22 - 06/30/22 [facility] [address] [address] Allergies, Adverse Reactions, [...] AFLURIA quadrivalence VACCINE [facility] [id number] 2Early/Late Reason: Other : Pt not available. 3Location History: DR REEDER Medications Albuterol (Eqv-ProAir HFA) 90 mcg/inh inhalation aerosol 2 puffs, Inhalation, Every 6 hours, PRN NEEDED FOR SHORTNESS OF BREATH OR WHEEZING, # 8.5 each, 5 Refills, Maintenance, 12/02/21 7:35:00 EDT, [facility]/pharmacy #[id number], 25, 2 puffs Inhalation Every [...] 0 Refills, Maintenance, 06/23/22 12:27:00 EST, Tablet, [facility]/pharmacy #[id number], Partial fill upon patient request [...] Refills, Maintenance, 05/24/22 12:10:00 EST, CR Tablet, [facility]/pharmacy #[id number], Partial fill upon patient r... Start Date: 05/24/22 Status: Ordered fluconazole 150 mg oral tablet 1 tablet = 150 mg, By Mouth, Once, # 1 tablet, 0 Refills, Soft Stop, 06/23/22 4:06:00 EST, Tablet, [facility]/pharmacy #[id number], Partial fill upon patient request [...] 09/10/21 Status: Ordered Freestyle Dipika 2 14-day [place] Freestyle Dipika 2 14-day [place], See Instructions, # 1 each, Refills 0, [...] 1... Start Date: 06/02/22 Status: Ordered Pen [place], 31 G x 8 mm BD Ultra [...] 5 Refills, Maintenance, 06/16/21 10:48:00 EST, Tablet, [facility]/pharmacy #[id number], ok to substitute with ANY vitamin, 1 tablet By Mouth Daily, 163, cm, 06/16/21 10:10:00 EST, Height, 120.5, kg, 02/03/21 17:38:0... Start Date: 06/16/21 Status: Ordered Multivitamins with Folic Acid 1 mg oral capsule See Instructions, TAKE ONE DAILY BY MOUTH, # 100 capsule, 2 Refills, Maintenance, 05/11/22 14:42:00EST, [facility]/pharmacy #[id number], Partial fill upon patient request if the prescription is for a schedule IIopioid drug., TAKE ONE DAILY BY MOUTH, 163, cm, ... Start Date: 05/11/22 Status: Ordered Multivitamins with Folic Acid 1 mg oral tablet 1 tablet, By Mouth, Daily, # 90 tablet, 2 Refills, Maintenance, 05/24/22 12:08:00 EST, [facility]/pharmacy#[id number], Partial fill upon patient request if [...] Team Personnel Name: Belia Solares RN Position: [facility] OB RN Member Role: Primary Care Nurse Name: Jorge Mendoza RN Position: S RN Member Role: Primary Care Nurse Name: Dyan Herrera Position: [facility] PCO Associate Professional Member Role: PCP Address: Address: [address] [place] [address] Name: Ruthy Nelson RN Position: S RN Member Role: Primary Care Nurse Name: Colette Powell MD Position: [facility] JAVA SYSTEMS ANALYST MD Member Role: Lifetime JAVA SYSTEMS ANALYST Physician Address: Address: [address] [place] [address] [address]- Care Team Related Persons Name: MIHAI BOOKER Address: home [address] [place] [address] Name: YISSEL HOWARD Address: AMER[employer] Address: home [address] [place] [address] Name: DIANE HOWARD Address: home [address] [place] [address] Name: MILTON HOWARD Address: [employer] Address: home [address] [place] [address]
--- OUTSIDE RECORDS SUMMARY | 2023-06-15 01:09 | XMS_ITS | Continuity of Care Document ---
Author Name Unknown Organization [facility] [place] [facility] Address [address] [place] [address]- Care Team Providers Care Middle School Combination Teacher Name Role Phone Dyan Herrera Primary Care Physician [phone] [facility] 09/09/22 - 10/09/22 [facility] [place] Adult [address] [place] [address]- Allergies, Adverse Reactions, Alerts Substance Reaction Severity [...] VACCINE [facility][NOTE 2] [id number] 2Early/Late Reason: Other : Pt not available. [...] Refills, Maintenance, 09/17/22 11:33:00 EDT, [facility], 84, TAKE 1 TABLET BY MOUTH EVERY DAY, 165.1, cm, 08/27/22 9:57:00 EDT,Height, 122, kg, 06/23/22 9:22:00 EST, Dry Weight Start Date: 09/17/22 Status: Ordered Lantus Inj = 50 units, Subcutaneous Injection, Daily in AM, 0 Refills, Maintenance, 08/19/22 14:16:00 EDT, Injection, Partial fill upon patient request if the prescription is for a schedule II opioid drug. Start Date: 08/19/22 Status: Ordered Lexapro 20 mg oral tablet 1 tablet = 20 mg, By Mouth, Daily, # 30 tablet, 0 Refills, Maintenance, 09/17/22 9:23:00 EDT, Tablet, [id number], Partial fill upon patient request if the prescription is for a schedule II opioid drug., 165.1, cm, 08/27/22 9:57:00 EDT, Height,... Start Date: 09/17/22 Status: Ordered MetFORMIN (Eqv-Glucophage XR) 500 mg [...] Start Date: 06/02/22 Status: Ordered nystatin topical 087761 u/gm powder APPLY TOPICALLY 3 TIMES A [...] Care Team Personnel Name: Kari Irvin Position: [facility] RN Member Role: Primary Care Nurse Name: Belia Solares RN Position: [facility] OB RN Member Role: Primary Care Nurse Name: Jorge Mendoza RN Position: [facility] RN Member Role: Primary Care Nurse Name: Dyan Herrera Position: [facility] PCO Associate Professional Member Role: PCP Address: Address: [address] [place] [address]- Name: Ruthy Nelson RN Position: [facility] RN Member Role: Primary Care Nurse Name: Colette Powell MD Position: [facility] OIL WELL ENGINEER MD Member Role: Lifetime OIL WELL ENGINEER Physician Address: Address: [address] [place] [address] [address]- Name: Angelita Reid RN Position: [facility] RN Member Role: Primary Care Nurse Name: Leonor Rodríguez RN, I Position: [facility] RN Member Role: Primary Care Nurse Care Team Related Persons Name: MIHAI BOOKER Address: [address] [address] Name: YISSEL HOWARD Address: [employer] Address: home [address] [place] [address] [place] Name: DIANE HOWARD Address: home [address] [place] [place] [address] Name: MILTON HOWARD Address: AMER[employer] Address: home [address] [place] [address] [place]
--- OUTSIDE RECORDS SUMMARY | 2023-06-15 01:09 | XMS_ITS | Continuity of Care Document ---
Author Name Unknown Organization [facility] Address [address] [place] [address]- Care Team Providers Care Legal Associate Name Role Phone Dyan Herrera Primary Care Physician [facility] Date[facility]s): 02/25/23 - 03/27/23 [facility] Adult [address] [place] [address]- Allergies, Adverse Reactions, Alerts Substance Reaction Severity [...] 1Admin Note: AFLURIA quadrivalence VACCINE [facility] 32655-181-09 2Early/Late Reason: Other : Pt not available. 3Location History: DR REEDER Medications FLUoxetine 10 mg oral tablet 1 tablet = 10 mg, By Mouth, Daily, # 30 tablet, 0 Refills, Maintenance, 03/11/23 10:39:00 EST, Tablet, [id number], Partial fill upon patient request if the [...] Care Nurse Name: Belia Solares RN Position: [facility] OB RN Member Role: Primary Care Nurse Name: Jorge Mendoza RN Position: [facility] RN Member Role: Primary Care Nurse Name: Dyan Herrera Position: [facility] PCO Associate Professional Member Role: PCP Address: Address: [address] [place] [address]- Name: Ruthy Nelson RN Position: S RN Member Role: Primary Care Nurse Name: Colette Powell MD Position: [facility] SENIOR FINANCIAL ACCOUNTANT MD Member Role: Lifetime SENIOR FINANCIAL ACCOUNTANT Physician Address: Address: [address] [place] [address], [place] [address] Name: Angelita Reid RN Position: [facility] RN Member Role: Primary Care Nurse Name: Leonor Rodríguez RN, I Position: [facility] RN Member Role: Primary Care Nurse Care Team Related Persons Name: MIHAI BOOKER Address: home [address] [place] [address] Name: YISSEL HOWARD Address: [employer] Address: home [address] [place] [address] Name: DIANE HOWARD Address: home [address] [place] [address] Name: MILTON HOWARD Address: [employer] Address: home [address] [place], [place] [address]
--- OUTSIDE RECORDS SUMMARY | 2023-06-15 01:09 | XMS_ITS | Continuity of Care Document ---
Author Name Unknown Organization [facility] Address [address] [place] [address]- Care Team Providers Care Casino Slot Supervisor Name Role Phone Evin Arango MD Primary Care Physician Encounter [facility] Date(s): 01/16/21 - 05/16/21 [facility] Diabetes [address] [place] [address] [address] Attending Physician: Tal Hayward MD Admitting Physician: Tal Hayward MD Referring [...] Recorded 1Admin Note: AFLURIA quadrivalence VACCINE [facility] 90992-018-50 2Early/Late Reason: Other : Pt not available. [...] # 8.5 each, 5 Refills, [facility], 25, TAKE 2 PUFFS BY MOUTH EVERY [...] Mouth, Daily, # 30 tablet, 5 Refills, [facility], 163, cm, 01/30/21 9:54:00 EDT, Height, 120.5, [...] tablet, Refills 1, Route to Pharmacy Electronically, [facility], 163, cm, 03/25/21 15:25:00 EST, Height, 120.5, kg, 02/03/21 17:38:00 EDT, Dry Weight Start Date: 04/27/21 Status: Ordered Lantus Solostar Pen 100 units/mL subcutaneous solution See Instructions, INJECT 55 UNITS DAILY AT DINNER TIME, # 30 Unknown, 5 Refills, [facility], 163, cm, 02/05/21 12:14:00 EDT, Height, 120.5, [...] Start Date: 03/31/21 Status: Ordered nystatin topical 422049 u/gm powder 1 application, Topically, 3 times a day, Please apply to pelvic rash, labia, gluteal folds, and rectum., # 60 Gm, 1 Refills, Maintenance, 03/25/21 16:04:00 EST, Powder, [id number], Partial fill upon patient request if the prescription is for a... Start Date: 03/25/21 Status: Ordered nystatin topical 803648 u/gm powder See Instructions, APPLY TO AFFECTED AREA TWICE A DAY, # 30 Gm, 1 Refills, [facility], 14, APPLY TO AFFECTED AREA TWICE A DAY, 163, cm, 12/08/20 14:03:00 EDT, Height Start Date: 01/24/21 Status: Ordered Pen [place], 31 G x 8 mm BD Ultra [...]
--- OUTSIDE RECORDS SUMMARY | 2023-06-15 01:09 | XMS_ITS | Continuity of Care Document ---
Author Name Unknown Organization [facility] James [facility] Address [address] [place] [address]- Care Team Providers Care Supervising Airplane Pilot Name Role Phone Dyan Herrera Primary Care Physician [phone] [facility] Date[facility]s): 02/16/23 - 03/18/23 [facility] Adult [address] [place] [address]- Attending Physician: AdmIlan ji Admitting Physician: AdmtrIlan [...] Recorded 1Admin Note: AFLURIA quadrivalence VACCINE [facility] 32158-200-99 2Early/Late Reason: Other : Pt not available. 3Location History: DR REEDER Medications FLUoxetine 10 mg oral tablet 1 tablet = 10 mg, By Mouth, Daily, # 30 tablet, 0 Refills, Maintenance, 03/11/23 10:39:00 EST, Tablet, [id number], Partial fill upon patient request if the prescription is for a schedule II opioid drug., 165.1, cm, 02/16/23 11:04:00 EDTErnestine Start Date: 03/11/23 Status: Ordered Problem List [...] Care Team Personnel Name: Kari Irvin Position: [facility] RN Member Role: Primary Care Nurse Name: Belia Solares RN Position: [facility] OB RN Member Role: Primary Care Nurse Name: Jorge Mendoza RN Position: [facility] RN Member Role: Primary Care Nurse Name: Dyan Herrera Position: [facility] PCO Associate Professional Member Role: PCP Address: Address: [address] [place] [id number] Name: Ruthy Nelson RN Position: [facility] RN Member Role: Primary Care Nurse Name: Colette Powell MD Position: [facility] JOB DEVELOPER FOR DEAF ADULTS MD Member Role: Lifetime JOB DEVELOPER FOR DEAF ADULTS Physician Address: Address: [address] [place] [address] [address]- Name: Angelita Reid RN Position: [facility] RN Member Role: Primary Care Nurse Name: Leonor Rodríguez RN, I Position: [facility] RN Member Role: Primary Care Nurse Care Team Related Persons Name: MIHAI BOOKER Address: home [address] [place] [address] Name: YISSEL HOWARD Address: [employer] Address: home [address] [place] [address] [address] [place], [place] [address], [place] [address] Name: DIANE HOWARD Address: home [address] [place] [address] Name: MILTON HOWARD Address: [employer] Address: [place] [address] [place] [address]
--- OUTSIDE RECORDS SUMMARY | 2023-06-15 01:09 | XMS_ITS | Continuity of Care Document ---
Author Name Unknown Organization [facility] Address [address] [place] [address]- Care Team Providers Care Center Hole Reamer Name Role Phone Conchita LEE, Evin Teran Primary Care Physician Encounter [facility] Date(s): 05/26/21 - 07/01/[address] [address]- Attending Physician: Aaron Caraballo MD Admitting Physician: Aaron Caraballo MD Referring Physician: Natalie Amador CNM Allergies, Adverse Reactions, Alerts Substance Reaction Severity [...] 1Admin Note: AFLURIA quadrivalence VACCINE [facility] [id number] 2Early/Late Reason: Other : Pt not available. 3Location History: DR REEDER Medications acetaminophen 325 mg oral tablet See Instructions, 3 tablet po q6h round the clock, Refills 0, Maintenance, 10/01/21 10:07:00 EDT, Instructions Replace Required Details, Partial fill upon patient request if the prescription is for aschedule II opioid drug. Start Date: 01/30/21 Status: Ordered Albuterol (Eqv-ProAir HFA) 90 mcg/inh inhalation aerosol 2 puffs, Inhalation, Every 6 hours, PRN NEEDED FOR SHORTNESS OF BREATH OR WHEEZING, # 8.5 each, 5 Refills, [facility] 73778, 25, TAKE 2 PUFFS BY MOUTH EVERY [...] NEEDED FOR PAIN, Route to Pharmacy Electronically, [facility] 465[facility], 163, cm, 06/16/21 10:10:00 EST, Height, 120.5, kg, 02/03/21 17:38:00 EDT, Dry Weight Start Date: 06/17/21 Status: Ordered Lantus Solostar Pen 100 units/mL subcutaneous solution See Instructions, INJECT 55 UNITS DAILY AT DINNER TIME, # 30 Unknown, 5 Refills, [facility] 513[facility], 163, cm, 02/05/21 12:14:00 EDT, Height, 120.5, kg, 02/03/21 17:38:00 EDT, Dry Weight Start Date: 02/26/21 Status: Ordered MetFORMIN (Eqv-Glucophage XR) 500 mg oral tablet, extended release 2 tablet, By Mouth, 2 times a day with meals, # 360 tablet, 0 Refills, [facility], 163, cm, 06/16/21 10:10:00 EST, Height, 120.5, [...] Start Date: 03/31/21 Status: Ordered nystatin topical 190229 u/gm powder 1 application, Topically, 3 times a day, Please apply to pelvic rash, labia, gluteal folds, and rectum., # 60 Gm, 1 Refills, Maintenance, 03/25/21 16:04:00 EST, Powder, [id number], Partial fill upon patient request if the prescription is for a... Start Date: 03/25/21 Status: Ordered nystatin topical 963298 u/gm powder See Instructions, APPLY TO AFFECTED AREA TWICE A DAY, # 30 Gm, 1 Refills, [facility], 14, APPLY TO AFFECTED AREA TWICE A DAY, 163, cm, 12/08/20 14:03:00 EDT, Height Start Date: 01/24/21 Status: Ordered Pen [place], 31 G x 8 mm BD Ultra [...] 11 Refills, Maintenance, 03/25/21 15:35:00 EST, Capsule, [facility]/pharmacy #[id number], Partial fill upon patient request [...]
--- OUTSIDE RECORDS SUMMARY | 2023-06-15 01:09 | XMS_ITS | Continuity of Care Document ---
Author Name Unknown Organization [facility] Address [address] [place] [address] [address], [address] [place] [address]- Care Team Providers Care Head Strength And Conditioning Coach Name Role Phone Dyan Herrera Primary Care Physician [facility] Date[facility]s): 07/29/21 - 08/28/21 [facility] [address] [place] [address] Drive, [address] [place], [place] [address] Attending Physician: Admgarrison, J Luis8 Admitting Physician: Admtr, ArEsperanza Referring Physician: Admtr, Ar8 Allergies, Adverse Reactions, [...] Recorded 1Admin Note: AFLURIA quadrivalence VACCINE [facility] [id number] 2Early/Late Reason: Other : Pt not available. 3Location History: DR REEDER Medications Albuterol (Eqv-ProAir HFA) 90 mcg/inh inhalation aerosol 2 puffs, Inhalation, Every 6 hours, PRN NEEDED FOR SHORTNESS OF BREATH OR WHEEZING, # 8.5 each, 5 Refills, [facility] 52948, 25, TAKE 2 PUFFS BY MOUTH EVERY [...] Pharmacy Electronically, [facility] 10140, 163, cm, 06/16/21 10:10:00 EST, Height, 120.5, [...] EDT,[facility]... Start Date: 08/06/21 Status: Ordered Pen [place], 31 G x 8 mm BD Ultra [...]
--- OUTSIDE RECORDS SUMMARY | 2023-06-15 01:10 | XMS_ITS | Continuity of Care Document ---
Author Name Unknown Organization [facility] Address [address] [place] [address]- Care Team Providers Care Fiberglass Tube Molder Name Role Phone Conchita LEE, Evin Teran Primary Care Physician Encounter [facility] Date(s): 08/27/20 - 09/26/[address] [address]- Allergies, Adverse Reactions, Alerts Substance Reaction Severity [...] Note: AFLURIA quadrivalence VACCINE [facility] [id number] 2Early/Late Reason: Other : Pt not available. 3Location History: DR REEDER Medications Alcohol Pads See Instructions, # 120 each, Refills 0, Tot. Refills 0, Maintenance, To use with insulin administration 4 times daily, 05/09/20 12:20:00 EST, Compound, 163, cm, 05/09/20 8:55:00 EST, Height, 164, kg, 09/05/18 17:25:00 EDT, Dry Weight Start Date: 05/09/20 Status: Ordered Freestyle Dipika 14-day [place] Freestyle Dipika 14-day [place], See Instructions, # 1 each, Refills 0, [...] 09/04/20 23:17:00 EDT, Route to Pharmacy Electronically, [facility]/pharmacy #[id number], Partial fill upon patient request if the prescription i... Start Date: 09/04/20 Status: Ordered Lantus Solostar Pen 100 units/mL subcutaneous solution See Instructions, Take 55 units daily at dinner. E11.65, # 30 mL, 5 Refills, Maintenance, 06/09/20 10:04:00 EST, Solution, [facility]/pharmacy #[id number], Partial fill upon patient [...] Heig... Start Date: 06/09/20 Status: Ordered Pen [place], 31 G x 8 mm BD Ultra [...] 11/06/19 16:24:00 EDT, Route to Pharmacy Electronically, [id number], [id number], 163, cm, 02/08/19 9:31:00 EDT, Height, [...]
--- OUTSIDE RECORDS SUMMARY | 2023-06-15 01:10 | XMS_ITS | Continuity of Care Document ---
Author Name Unknown Organization [facility] Address [address] [place] [address]- Care Team Providers Care Elevator Repair Mechanic Name Role Phone Dyan Herrera Primary Care Physician [facility] Date[facility]s): 08/26/22 - 09/25/22 [facility] [address] [place] [id number] Attending Physician: AdmIlan ji Admitting Physician: [...] VACCINE [facility] [id number] 2Early/Late Reason: Other : Pt not available. 3Location History: DR REEDER Medications Albuterol (Eqv-ProAir HFA) 90 mcg/inh inhalation aerosol 2 puffs, Inhalation, Every 6 hours, PRN NEEDED FOR SHORTNESS OF BREATH OR WHEEZING, # 8.5 each, 5 Refills, Maintenance, 12/02/21 7:35:00 EDT, [facility]/pharmacy #[id number], 25, 2 puffs Inhalation Every 6 hours,PRN: NEEDED FOR SHORTNESS OF BREATH OR WHEEZING... Start Date: 12/02/21 Status: Ordered Apri 0.15 mg-0.03 mg oral tablet See Instructions, TAKE 1 TABLET BY MOUTH EVERY DAY, # 84 tablet, 0 Refills, Maintenance, 09/17/22 11:33:00 EDT, [facility], 84, TAKE 1 TABLET BY MOUTH EVERY [...] 0 Refills, Maintenance, 09/17/22 9:23:00 EDT, Tablet, [facility]/pharmacy #[id number], Partial fill [...] Start Date: 06/02/22 Status: Ordered nystatin topical 032217 u/gm powder APPLY TOPICALLY 3 TIMES A [...] Care Team Personnel Name: Kari Irvin Position: [facility] RN Member Role: Primary Care Nurse Name: Belia Solares RN Position: [facility] OB RN Member Role: Primary Care Nurse Name: Jorge Mendoza RN Position: [facility] RN Member Role: Primary Care Nurse Name: Dyan Herrera Position: [facility] PCO Associate Professional Member Role: PCP Address: Address: [address] [place] [address] Name: Ruthy Nelson RN Position: [facility] RN Member Role: Primary Care Nurse Name: Colette Powell MD Position: [facility] BEAUTY COUNSELOR MD Member Role: Lifetime BEAUTY COUNSELOR Physician Address: Address: [address] [place] [address] [address]- Name: Angelita Reid RN Position: [facility] RN Member Role: Primary Care Nurse Name: Leonor Rodríguez RN, I Position: [facility] RN Member Role: Primary Care Nurse Care Team Related Persons Name: MIHAI BOOKER Address: home [address] [place] [address] Name: YISSEL HOWARD Address: [employer] Address: home [address] [place] [address] Name: DIANE HOWARD Address: home [address] [place] [address] Name: MILTON HOWARD Address: [facility] [employer] Address: [place] [address] [place] [address]
--- OUTSIDE RECORDS SUMMARY | 2023-06-15 01:10 | XMS_ITS | Continuity of Care Document ---
Author Name Unknown Organization [facility] James lt Address [address] [place] [address]- Care Team Providers Care Swing Tender Name Role Phone Dyan Herrera Primary Care Physician [phone] [facility] Date[facility]): 11/[facility]/21 - 12/24/21 [facility] Adult [address] [place] [address]- Attending Physician: Dyan Herrera Allergies, Adverse Reactions, [...] 1Admin Note: AFLURIA quadrivalence VACCINE [facility] 67897-578-79 2Early/Late Reason: Other : Pt not available. 3Location History: DR REEDER Medications Albuterol (Eqv-ProAir HFA) 90 mcg/inh inhalation aerosol 2 puffs, Inhalation, Every 6 hours, PRN NEEDED FOR SHORTNESS OF BREATH OR WHEEZING, # 8.5 each, 5 Refills, Maintenance, 12/02/21 7:35:00 EDT, [facility]/pharmacy #[id number], 25, 2 puffs Inhalation [...] 09/10/21 Status: Ordered Freestyle Dipika 2 14-day [place] Freestyle Dipika 2 14-day [place], See Instructions, # 1 each, Refills 0, [...] NEEDED FOR PAIN, Route to Pharmacy Electronically, [facility] STORE 47627, 163, cm, 07/28/21 9:25:00 EDT, Height, 120.5, kg, 02/03/21 17:38:00 EDT, Dry Weight Start Date: 12/02/21 Status: Ordered Lantus Solostar Pen 100 units/mL subcutaneous solution See Instructions, INJECT 55 UNITS DAILY AT DINNER TIME, # 30 Unknown, 11 Refills, 08/06/21 11:50:00EDT, [facility]/pharmacy #0693, 163, cm, 07/28/21 9:25:00 EDT, Height, 120.5, kg, 02/03/21 17:38:00 EDT, Dry Weight Start Date: 08/06/21 Status: Ordered MetFORMIN (Eqv-Glucophage XR) 500 mg oral tablet, extended release 2 tablet, By Mouth, 2 times a day with meals, # 360 tablet, 11 Refills, 08/06/21 11:50:00 EDT, [facility]/pharmacy #0693, 163, cm, 07/28/21 9:25:00 EDT, Height, 120.5, kg, 02/03/21 17:38:00 EDT, Dry Weight Start Date: 08/06/21 Status: Ordered miSOPROStol 200 mcg oral tablet See Instructions, Place 2 tabs between cheek and gums on EACH side, let dissolve for 30 min then swallow the rest with water, # 4 tablet, 1 Refills, Maintenance, 05/28/21 14:25:00 EST, [facility]/pharmacy #0693, Partial fill upon patient request if the presc... Start Date: 05/28/21 Status: Ordered NovoLOG FlexPen 100 units/mL subcutaneous solution See Instructions, - NovoLog, 3 times daily before meals 80-130 21 units 131-180 23 units 181-230 25units 231-280 27 units Over 280 29 units., # 30 mL, 11 Refills, Maintenance, 08/06/21 11:50:00 EDT,[facility]/... Start Date: 08/06/21 Status: Ordered nystatin topical 690545 u/gm powder See Instructions, APPLY TOPICALLY 3 TIMES A DAY PLEASE APPLY TO PELVIC RASH, LABIA, GLUTEAL FOLDS, AND RECTUM., # 60 Gm, 1 Refills, Maintenance, 12/24/21 20:42:00 EDT, [facility], 30, APPLY TOPICALLY 3 TIMES A DAY PLEASE APPLY TO PELVIC RASH, LAB... Start Date: 12/24/21 Status: Ordered Pen [place], 31 G x 8 mm BD Ultra [...] 5 Refills, Maintenance, 06/16/21 10:48:00 EST, Tablet, [facility]/pharmacy #0693, ok to substitute with ANY vitamin, 1 tablet By Mouth Daily, 163, cm, 06/16/21 10:10:00 EST, Height, 120.5, kg, 02/03/21 17:38:0... Start Date: 06/16/21 Status: Ordered Multivitamins with Folic Acid 1 mg oral tablet 1 tablet, By Mouth, Daily, # 90 tablet, 3 Refills, Maintenance, 05/06/21 11:03:00 EST, Tablet, [facility]/pharmacy #0693, Please substitute any brand PNV that [...] Care Team Personnel Name: Dyan Herrera Address: [address] [place] [id number]
--- OUTSIDE RECORDS SUMMARY | 2023-06-15 01:10 | XMS_ITS | Continuity of Care Document ---
Author Name Unknown Organization [facility] Address [address] [place] [address]- Care Team Providers Care Makeup Artist Name Role Phone Dyan Herrera Primary Care Physician Encounter [facility] Date(s): 08/24/22 - 12/09/22 [facility] [address] [address] Attending Physician: Not on Staff, [...] 05/01/08 Recorded 1Admin Note: AFLURIA quadrivalence VACCINE [facility] [id number] 2Early/Late Reason: Other : Pt not available. [...] Refills, Maintenance, 09/17/22 11:33:00 EDT, [facility], 84, TAKE 1 TABLET BY MOUTH EVERY DAY, 165.1, cm, 08/27/22 9:57:00 EDT,Height, 122, kg, 06/23/22 9:22:00 EST, Dry Weight Start Date: 09/17/22 Status: Ordered escitalopram 20 mg oral tablet 1 tablet, By Mouth, Daily, # 30 tablet, 0 Refills, Maintenance, 11/08/22 7:48:00 EDT, [facility], 165.1, cm, 10/21/22 10:08:00 EDT, Height, 122, [...] 12/16/22 10:15:00 EDT, 10/21/22 10:15:00 EDT, Cream, [facility]/pharmacy #[id number], Partial fill upon patient [...] Care Nurse Name: Belia Solares RN Position: [facility] OB RN Member Role: Primary Care Nurse Name: Jorge Mendoza RN Position: [facility] RN Member Role: Primary Care Nurse Name: Dyan Herrera Position: [facility] PCO Associate Professional Member Role: PCP Address: Address: [address] [place] [address]- Name: Ruthy Nelson RN Position: [facility] RN Member Role: Primary Care Nurse Name: Colette Powell MD Position: [facility] INCIDENT RESPONSE ANALYST MD Member Role: Lifetime INCIDENT RESPONSE ANALYST Physician Address: Address: [address] [place] [address] [address]- Name: Angelita Reid RN Position: [facility] RN Member Role: Primary Care Nurse Name: Leonor Rodríguez RN, I Position: [facility] RN Member Role: Primary Care Nurse Care Team Related Persons Name: MIHAI BOOKER Address: home [address] [place] [address] Name: YISSEL HOWARD Address: [employer] Address: home [address] [place] [address] [place] Name: DIANE HOWARD Address: home [address] [place] [address] Name: MILTON HOWARD Address: [employer] Address: home [address]
--- OUTSIDE RECORDS SUMMARY | 2023-06-15 01:10 | XMS_ITS | Continuity of Care Document ---
Author Name Unknown Organization [facility] Address [address] [place] [address]- Care Team Providers Care Distribution Accounting Clerk Name Role Phone Conchita LEE, Evin Teran Primary Care Physician [phone] Encounter [facility] Date(s): 06/25/19 - 07/05/[address] [address]- [facility] Attending Physician: Admgarrison, J Luis8 Admitting Physician: Admtr, J Luis8 Referring Physician: Admtr, Ar8 Allergies, Adverse Reactions, [...] 03/06/12 Recorded 1Admin Note: AFLURIA quadrivalence VACCINE [facility] 28804-806-73 2Early/Late Reason: Other : Pt not available. [...] HUMIDIFIER DX THIERRY G47.33 [facility] FAX [phone] [facility] [address] ALANIZ, 03/31/18 [...] DIRECTED DX THIERRY G47.33 [facility] FAX [phone] [facility] AMOR.. Start [...] THE NEXT 30 DAYS. FILLON OR AFTER 8/06/19, # 90 capsule, Refills 0, Tot. Refills 0, Maintenance, 12/01/18 15:05:00 EDT, Route to Pharmacy Electronically, [id number]... Start Date: 12/01/18 Status: Ordered Handheld Electric [...] intake Start Date: 02/08/19 Status: Ordered Pen [place], 31 G x 8 mm BD Ultra [...] 07/06/18 12:27:34 EST, Route to Pharmacy Electronically, [id number], [facility]/pharmacy#[id number] Start Date: [...]
--- OUTSIDE RECORDS SUMMARY | 2023-06-15 01:10 | XMS_ITS | Continuity of Care Document ---
Author Name Unknown Organization [facility] Address [address] [place] [address]- Care Team Providers Care Invertebrate Paleontologist Name Role Phone Dyan Herrera Primary Care Physician [phone] [facility] Date(s): 03/05/22 - 04/04/[address] [address] Attending Physician: AdmIlan ji Admitting [...] 05/01/08 Recorded 1Admin Note: AFLURIA quadrivalence VACCINE [facility] 48386-128-77 2Early/Late Reason: Other : Pt not available. 3Location History: DR REEDER Medications Albuterol (Eqv-ProAir HFA) 90 mcg/inh inhalation aerosol 2 puffs, Inhalation, Every 6 hours, PRN NEEDED FOR SHORTNESS OF BREATH OR WHEEZING, # 8.5 each, 5 Refills, Maintenance, 12/02/21 7:35:00 EDT, [facility]/pharmacy #[id number], 25, 2 puffs Inhalation Every 6 [...] 09/10/21 Status: Ordered Freestyle Dipika 2 14-day [place] Freestyle Dipika 2 14-day [place], See Instructions, # 1 each, Refills 0, [...] NEEDED FOR PAIN, Route to Pharmacy Electronically, [facility] STORE 47977, 163, cm, 07/28/21 9:25:00 EDT, Height, 120.5, kg, 02/03/21 17:38:00 EDT, Dry Weight Start Date: 12/02/21 Status: Ordered Lantus Solostar Pen 100 units/mL subcutaneous solution See Instructions, INJECT 55 UNITS DAILY AT DINNER TIME, # 30 Unknown, 11 Refills, 08/06/21 11:50:00EDT, [facility]/pharmacy #[id number], 163, cm, 07/28/21 9:25:00 EDT, Height, 120.5, kg, 02/03/21 17:38:00 EDT, Dry Weight Start Date: 08/06/21 Status: Ordered MetFORMIN (Eqv-Glucophage XR) 500 mg oral tablet, extended release 2 tablet, By Mouth, 2 times a day with meals, # 360 tablet, 11 Refills, 08/06/21 11:50:00 EDT, [facility]/pharmacy #0693, 163, cm, 07/28/21 9:25:00 EDT, Height, 120.5, kg, 02/03/21 17:38:00 EDT, Dry Weight Start Date: 08/06/21 Status: Ordered miSOPROStol 200 mcg oral tablet See Instructions, Place 2 tabs between cheek and gums on EACH side, let dissolve for 30 min then swallow the rest with water, # 4 tablet, 1 Refills, Maintenance, 05/28/21 14:25:00 EST, [facility]/pharmacy #0693, Partial fill upon patient request if the presc... Start Date: 05/28/21 Status: Ordered NovoLOG FlexPen 100 units/mL subcutaneous solution See Instructions, - NovoLog, 3 times daily before meals 80-130 21 units 131-180 23 units 181-230 25units 231-280 27 units Over 280 29 units., # 30 mL, 11 Refills, Maintenance, 08/06/21 11:50:00 EDT,[facility]/... Start Date: 08/06/21 Status: Ordered nystatin topical 371767 u/gm powder See Instructions, APPLY TOPICALLY 3 TIMES A DAY PLEASE APPLY TO PELVIC RASH, LABIA, GLUTEAL FOLDS, AND RECTUM., # 60 Gm, 1 Refills, Maintenance, 12/24/21 20:42:00 EDT, [facility], 30, APPLY TOPICALLY 3 TIMES A DAY PLEASE APPLY TO PELVIC RASH, LAB... Start Date: 12/24/21 Status: Ordered Pen [place], 31 G x 8 mm BD Ultra [...] Confirmed Active Chronic back pain surgery in 2007 Confirmed Active Depression Confirmed Active Medical marijuana [...] study * Event Display: EKG Authored Date: [id number] Patient Care team information Care Team Personnel Name: Belia Solares RN Position: [facility] OB RN Member Role: Primary Care Nurse Name: Jorge Mendoza RN Position: S RN Member Role: Primary Care Nurse Name: Dyan Herrera Position: [facility] PCO Associate Professional Member Role: PCP Address: Address: [address] [place] [address] Name: Ruthy Nelson RN Position: S RN Member Role: Primary Care Nurse Care Team Related Persons Name: MIHAI BOOKER Address: home [address] [place] [address] Name: YISSEL HOWARD Address: [employer] Address: home [address] [place] [address] Name: DIANE HOWARD Address: home [address] [place] [address] Name: MILTON HOWARD Address: [employer] Address: home [address] [place] [address]
--- OUTSIDE RECORDS SUMMARY | 2023-06-15 01:10 | XMS_ITS | Continuity of Care Document ---
Author Name Unknown Organization [facility] Address [address] [place] [address]- Care Team Providers Care Plant Chief Name Role Phone Dyan Herrera Primary Care Physician [phone] [facility] Date(s): 05/06/22 - 06/05/[address] [address] Allergies, Adverse Reactions, Alerts Substance Reaction [...] quadrivalence VACCINE [facility] 33310-981-54 2Early/Late Reason: Other : Pt not available. 3Location History: DR REEDER Medications Albuterol (Eqv-ProAir HFA) 90 mcg/inh inhalation aerosol 2 puffs, Inhalation, Every 6 hours, PRN NEEDED FOR SHORTNESS OF BREATH OR WHEEZING, # 8.5 each, 5 Refills, Maintenance, 12/02/21 7:35:00 EDT, [facility]/pharmacy #0693, 25, 2 puffs Inhalation [...] Refills, Maintenance, 05/24/22 12:10:00 EST, CR Tablet, [facility]/pharmacy #0693, Partial fill upon patient r... [...] 09/10/21 Status: Ordered Freestyle Dipika 2 14-day [place] Freestyle Dipika 2 14-day [place], See Instructions, # 1 each, Refills 0, [...] 1... Start Date: 06/02/22 Status: Ordered Pen [place], 31 G x 8 mm BD Ultra [...] History of Gestational hypertension (Severe) Confirmed Active Rubella non-immune status, antepartum Confirmed Active Severe obesity Confirmed Active Diabetes mellitus, type II Confirmed Active 1Her machine was taken away due to non compliant Social History Social History Type Response Smoking Status Former smoker, quit more than 30 days ago; Other: Quit is 2017; entered on: 05/11/21 Sex Patient Care team information Care Team Personnel Name: Belia Solares RN Position: [facility] OB RN Member Role: Primary Care Nurse Name: Jorge Mendoza RN Position: S RN Member Role: Primary Care Nurse Name: Dyan Herrera Position: [facility] PCO Associate Professional Member Role: PCP Address: Address: [address] [place] [address] Name: Ruthy Nelson RN Position: [facility] RN Member Role: Primary Care Nurse Care Team Related Persons Name: MIHAI BOOKER Address: home [address] [place] [address] Name: YISSEL HOWARD Address: [employer] Address: home [address] [place] [address] Name: DIANE HOWARD Address: home [address] [place] [address] Name: MILTON HOWARD Address: [employer] Address: home [address] [place] [address]
--- OUTSIDE RECORDS SUMMARY | 2023-06-15 01:10 | XMS_ITS | Continuity of Care Document ---
Author Name Unknown Organization [facility] Address [address] [place] [address]- Care Team Providers Care Hearth Feeder Name Role Phone Conchita LEE, Evin Teran Primary Care Physician [facility] Date(s): 05/26/21 - 06/25/[address] [address]- Allergies, Adverse Reactions, Alerts Substance Reaction Severity [...] 1Admin Note: AFLURIA quadrivalence VACCINE [facility] 96619-818-07 2Early/Late Reason: Other : Pt not available. [...] OR WHEEZING, # 8.5 each, 5 Refills, [facility] STORE 71552, 25, TAKE 2 PUFFS BY MOUTH EVERY [...] 02/03/21 17:38:00 EDT, Dry Weight Start Date: 2/15/22 Status: Ordered Freestyle Lite Test Strips See [...] NEEDED FOR PAIN, Route to Pharmacy Electronically, [facility], 163, cm, 06/16/21 10:10:00 EST, Height, 120.5, kg, 02/03/21 17:38:00 EDT, Dry Weight Start Date: 06/17/21 Status: Ordered Lantus Solostar Pen 100 units/mL subcutaneous solution See Instructions, INJECT 55 UNITS DAILY AT DINNER TIME, # 30 Unknown, 5 Refills, [facility] 73532, 163, cm, 02/05/21 12:14:00 EDT, Height, 120.5, kg, 02/03/21 17:38:00 EDT, Dry Weight Start Date: 02/26/21 Status: Ordered MetFORMIN (Eqv-Glucophage XR) 500 mg oral tablet, extended release 2 tablet, By Mouth, 2 times a day with meals, # 360 tablet, 0 Refills, [facility] 6[facility], 163, cm, 06/16/21 10:10:00 EST, Height, 120.5, [...] Start Date: 03/31/21 Status: Ordered nystatin topical 432506 u/gm powder 1 application, Topically, 3 times a day, Please apply to pelvic rash, labia, gluteal folds, and rectum., # 60 Gm, 1 Refills, Maintenance, 03/25/21 16:04:00 EST, Pow[facility], [id number], Partial fill upon patient request if the prescription is for a... Start Date: 03/25/21 Status: Ordered nystatin topical 138394 u/gm powder See Instructions, APPLY TO AFFECTED AREA TWICE A DAY, # 30 Gm, 1 Refills, [facility], 14, APPLY TO AFFECTED AREA TWICE A DAY, 163, cm, 12/08/20 14:03:00 EDT, Height Start Date: 01/24/21 Status: Ordered Pen [place], 31 G x 8 mm BD Ultra [...] 163, cm, 05/11/21 10:26:00 EST... Start Date: 1/10/22 Status: Ordered Multivitamins with Vitamin B Complex, Vitamin C, Minerals and L- Methylfolate oral capsule 1 capsule, By Mouth, Daily, # 30 capsule, 11 Refills, Maintenance, 03/25/21 15:35:00 EST, Ximena, [facility]/pharmacy #[id number], Partial fill upon patient request if the [...]
--- OUTSIDE RECORDS SUMMARY | 2023-06-15 01:10 | XMS_ITS | Continuity of Care Document ---
Author Name Unknown Organization [facility] James lt Address [address] [place] [address]- Care Team Providers Care Utility Teller Name Role Phone Dyan Herrera Primary Care Physician [facility] Date[facility]s): 03/01/23 - 03/31/23 [facility] Adult [address] [place] [address]- Allergies, Adverse Reactions, Alerts Substance Reaction Severity [...] Recorded 1Admin Note: AFLURIA quadrivalence VACCINE [facility][NOTE 3] 12067-637-70 2Early/Late Reason: Other : Pt not available. [...] Gm, 1 Refills, Maintenance, 03/28/23 7:43:00 EST, [facility]70, 30, APPLY TOPICALLY 3 TIMES A DAY [...] Care Team Personnel Name: Kari Irvin Position: [facility] RN Member Role: Primary Care Nurse Name: Belia Solares RN Position: [facility] OB RN Member Role: Primary Care Nurse Name: Jorge Mendoza RN Position: S RN Member Role: Primary Care Nurse Name: Dyan Herrera Position: [facility] PCO Associate Professional Member Role: PCP Address: Address: [address] [place] [address]- [place] Name: Ruthy Nelson RN Position: [facility] RN Member Role: Primary Care Nurse Name: Colette Powell MD Position: [facility] PATIENT ACCESS COORDINATOR MD Member Role: Lifetime PATIENT ACCESS COORDINATOR Physician Address: Address: [address] [place] [address]- [place] Name: Angelita Reid RN Position: [facility] RN Member Role: Primary Care Nurse Name: Leonor Rodríguez RN, I Position: [facility] RN Member Role: Primary Care Nurse Care Team Related Persons Name: MIHAI BOOKER Address: home [address] [place] [address] Name: YISSEL HOWARD Address: [employer] Address: home [address] [place] [address] Name: DIANE HOWARD Address: home [address] [place] [address] Name: MILTON HOWARD Address: [employer] Address: home [address] [place] [address]
--- OUTSIDE RECORDS SUMMARY | 2023-06-15 01:10 | XMS_ITS | Continuity of Care Document ---
Author Name Unknown Organization [facility] James lt Address [address] [place] [address]- Care Team Providers Care Television Antenna Installer Name Role Phone Conchita LEE, Evin Teran Primary Care Physician Encounter [facility] Date(s): 11/06/19 - 12/06/19 [facility] Adult [address] [place] [address]- [facility] Allergies, Adverse Reactions, Alerts Substance [...] Note: AFLURIA quadrivalence VACCINE [facility] [id number] 2Early/Late Reason: Other : Pt not available. [...] HUMIDIFIER DX THIERRY G47.33 [facility]IFET[facility] FAX [phone] [facility] PER [address] ALANIZ, 03/31/18 [...] DIRECTED DX THIERRY G47.33 [facility]ET[facility] FAX [phone] [facility] [address] AMOR.. Start [...] 12/01/18 15:05:00 EDT, Route to Pharmacy Electronically, [id number]... Start Date: 12/01/18 Status: Ordered Handheld Electric Breast Pump See Instructions, # 1 units, Maintenance, See instructions, 09/08/18 9:07:38 EDT, Compound Start Date: 09/08/18 Status: Ordered ibuprofen 800 mg oral tablet See Instructions, # 90 tablet, TAKE 1 TABLET BY MOUTH EVERY 8 HOURS,X30 DAYS NEEDED FOR PAIN. TAKE WITH FOOD OR MILK, [facility]/pharmacy #[id number] Start Date: 11/15/18 Status: Ordered [...] intake Start Date: 02/08/19 Status: Ordered Pen [place], 31 G x 8 mm BD [...] 11/06/19 16:24:00 EDT, Route to Pharmacy Electronically, [id number], [facility]/pharmacy#[id number], 163, cm, 02/08/19 9:31:00 EDT, Height, 164,... Start Date: 11/06/19 Status: Ordered Senna 8.6 mg oral tablet [...]
--- OUTSIDE RECORDS SUMMARY | 2023-06-15 01:10 | XMS_ITS | Continuity of Care Document ---
Author Name Unknown Organization [facility] James Address [address] [place] [address]- Care Team Providers Care Jack Prizer Name Role Phone Conchita LEE, Evin Teran Primary Care Physician Encounter [facility] Date(s): 12/11/19 - 01/10/20 [facility] Adult [address] [place] [address]- [facility] Allergies, Adverse Reactions, Alerts Substance Reaction Severity [...] [facility] 31236-004-12 2Early/Late Reason: Other : Pt not available. [...] Refills, Acute, 12/28/19 14:31:00 EDT, [facility], 163, cm, 12/11/19 12:43:00 EDT, Height, 164, [...] 12/28/19 14:24:00 EDT, Route to Pharmacy Electronically, [facility] 27[facility], 163, cm, 12/11/19 12:43:00 EDT, Height, 164, [...] intake Start Date: 02/08/19 Status: Ordered Pen [place], 31 G x 8 mm BD Ultra [...] 11/06/19 16:24:00 EDT, Route to Pharmacy Electronically, [id number], [facility]/pharmacy#[id number], 163, cm, 02/08/19 9:31:00 EDT, Height, 164,... [...]
--- OUTSIDE RECORDS SUMMARY | 2023-06-15 01:10 | XMS_ITS | Continuity of Care Document ---
Author Name Unknown Organization [facility] Address [address] [place] [address]- Care Team Providers Care Radiator Core Tester Name Role Phone Conchita LEE, Evin Teran Primary Care Physician [phone] Encounter [facility] Date(s): 05/26/20 - 06/25/[address] [address]- Attending Physician: AdmIlan ji Admitting Physician: AdmtrIlan [...] 03/06/12 Recorded 1Admin Note: AFLURIA quadrivalence VACCINE [facility] [id number] 2Early/Late Reason: Other : Pt not available. [...] Heig... Start Date: 06/09/20 Status: Ordered Pen [place], 31 G x 8 mm BD Ultra [...] 11/06/19 16:24:00 EDT, Route to Pharmacy Electronically, [id number], [id number], 163, cm, 02/08/19 9:31:00 EDT, Height, [...]
--- OUTSIDE RECORDS SUMMARY | 2023-06-15 01:10 | XMS_ITS | Continuity of Care Document ---
Author Name Unknown Organization [facility] Address [address] [place] [address]- Care Team Providers Care Canceling Machine Operator Name Role Phone Dyan Herrera Primary Care Physician [phone] Encounter [facility] Date(s): 06/07/22 - 09/30/22 [facility] [address] [address] Attending Physician: Not on Staff, Attending MD [...] [facility][NOTE 3] [id number] 2Early/Late Reason: Other : Pt not available. 3Location History: DR REEDER Medications Albuterol (Eqv-ProAir HFA) 90 mcg/inh inhalation aerosol 2 puffs, Inhalation, Every 6 hours, PRN NEEDED FOR SHORTNESS OF BREATH OR WHEEZING, # 8.5 each, 5 Refills, Maintenance, 12/02/21 7:35:00 EDT, [facility]/pharmacy #[id number], 25, 2 puffs Inhalation Every 6 hours,PRN: NEEDED FOR SHORTNESS OF BREATH OR WHEEZING... Start Date: 12/02/21 Status: Ordered Apri 0.15 mg-0.03 mg oral tablet See Instructions, TAKE 1 TABLET BY MOUTH EVERY DAY, # 84 tablet, 0 Refills, Maintenance, 09/17/22 11:33:00 EDT, [facility], 84, TAKE 1 TABLET BY MOUTH EVERY [...] 0 Refills, Maintenance, 09/17/22 9:23:00 EDT, Tablet, [facility]/pharmacy #0693, Partial fill upon patient [...] Start Date: 06/02/22 Status: Ordered nystatin topical 124701 u/gm powder APPLY TOPICALLY 3 TIMES A [...] Care Team Personnel Name: Kari Irvin Position: [facility] RN Member Role: Primary Care Nurse Name: Belia Solares RN Position: [facility] OB RN Member Role: Primary Care Nurse Name: Jorge Mendoza RN Position: [facility] RN Member Role: Primary Care Nurse Name: Dyan Herrera Position: [facility] PCO Associate Professional Member Role: PCP Address: Address: [address] [place] [id number] Name: Ruthy Nelson RN Position: [facility] RN Member Role: Primary Care Nurse Name: Colette Powell MD Position: [facility] PHARMACY TECHNICIAN MD Member Role: Lifetime PHARMACY TECHNICIAN Physician Address: Address: [address] [place] [address] [address]- Name: Angelita Reid RN Position: [facility] RN Member Role: Primary Care Nurse Name: Leonor Rodríguez RN, I Position: [facility] RN Member Role: Primary Care Nurse Care Team Related Persons Name: MIHAI BOOKER Address: home [address] [place] [address] Name: YISSEL HOWARD Address: [employer] Address: home [address] [place] [address] [place] [address] Name: DIANE HOWARD Address: home [address] [place] [address] Name: MILTON HOWARD Address: [employer] Address: home [address] [place] [address]
--- OUTSIDE RECORDS SUMMARY | 2023-06-15 01:10 | XMS_ITS | Continuity of Care Document ---
Author Name Unknown Organization [facility] James lt Address [address] [place] [address]- Care Team Providers Care Territory Account Manager Name Role Phone Evin Arango MD Primary Care Physician [place] [facility] [place] 12/08/20 - 12/15/20 [facility] Adult [address] [place] [address]- Attending Physician: Evin Arango MD Allergies, Adverse [...] 05/01/08 Recorded 1Admin Note: AFLURIA quadrivalence VACCINE [facility] [id number] 2Early/Late Reason: Other : Pt not available. 3Location History: DR REEDER Medications Alcohol Pads See Instructions, # 120 each, Refills 0, Tot. Refills 0, Maintenance, To use with insulin administration 4 times daily, 05/09/20 12:20:00 EST, Compound, 163, cm, 05/09/20 8:55:00 EST, Height, 164, kg, 09/05/18 17:25:00 EDT, Dry Weight Start Date: 05/09/20 Status: Ordered escitalopram 10 mg oral tablet 1 tablet = 10 mg, By Mouth, Daily, # 30 tablet, 0 Refills, Maintenance, 12/08/20 14:20:00 EDT, [facility]/pharmacy #[id number], Partial fill upon patient request if the prescription is for a schedule II opioid drug., 163, cm, 12/08/20 14:03:00 EDT, Height Start Date: 12/08/20 Status: Ordered Freestyle Lite Lancets See Instructions, [...] tablet See Instructions, 1 tablet By Mouth twice daily prn pain., # 30 tablet, Refills 0, Tot. Refills 0, Maintenance, 12/08/20 14:25:00 EDT, Instructions Replace Required Details, Route to Pharmacy Electronically, [facility]/pharmacy #[id number], Partial fill upon patie... Start Date: 12/08/20 Status: Ordered Lantus Solostar Pen 100 units/mL subcutaneous solution See Instructions, Take 55 units daily at dinner. E11.65, # 30 mL, 5 Refills, Maintenance, 06/09/20 10:04:00 EST, Solution, [facility]/pharmacy #[id number], Partial fill upon patient request if the prescription isfor a schedule II opioid drug., 163, cm, 05/26/20 1... Start Date: 06/09/20 Status: Ordered MetFORMIN (Eqv-Glucophage XR) 500 mg oral tablet, extended release 2 tablet, By Mouth, 2 times a day with meals, # 120 tablet, 8 Refills, Maintenance, 11/25/20 13:42:00 EDT, [facility]/pharmacy #[id number], 163, cm, 11/13/20 10:29:00 EDT, Height Start Date: 11/25/20 Status: Ordered NovoLOG FlexPen 100 units/mL subcutaneous solution See Instructions, Take 20 units per meal. E11.65. Max daily dose 60 units., # 30 mL, 5 Refills, Maintenance, 06/09/20 10:05:00 EST, [facility]/pharmacy #[id number], May increase dose by 4 units at meals if increased CHO intake, 163, cm, 05/26/20 14:26:00 EST, Heig... Start Date: 06/09/20 Status: Ordered Nystop 482288 u/gm powder 1 application, Topically, 2 times a day, # 30 Gm, 0 Refills, Maintenance, 12/08/20 14:18:00 EDT, Powder, [facility]/pharmacy #[id number], Partial fill upon patient request if the prescription is for a schedule IIopioid drug., 1 application Topically 2 times a day... Start Date: 12/08/20 Status: Ordered Pen [place], 31 G x 8 mm BD Ultra [...] 09/27/20 10:32:00 EDT, Route to Pharmacy Electronically, [id number], [facility]/pharmacy#[id number], 163, cm, 09/19/20 9:21:00 EDT, Height [...] oldest [Reference Range]: 1 Height 163 cm (12/08/20 2:03 PM) Weight 122.4 kg (12/08/20 2:03 PM) Oxygen Saturation [94-100 %] 97 % (12/08/20 2:03 PM) Pulse Rate [55-90 bpm] 116 bpm *H* (12/08/20 2:03 PM) Body Mass Index [18.5-24.99] 46.07 *>HHI* (12/08/20 2:03 PM) Blood Pressure [90-138/55-84 mm Hg] 102/ 66mm Hg (12/08/20 2:03 PM) Respiratory Rate [16-30 br/min] 18 br/mi n (12/08/20 2:03 PM) Temperature [96.8-100.4 DegF] 98.2 DegF (12/08/20 2:03 PM) Mode of Delivery (Oxygen) Room air (12/08/20 2:03 PM) Blood pressure sites Arm, right (12/08/20 2:03 PM) Temperature Route Oral (12/08/20 2:03 PM) Weight Obtained Via Standing scale (12/08/20 2:03 PM) Social History Social History Type Response Smoking Status Former smoker; Tobac co user in household: No entered on: 02/13/18 Sex
--- OUTSIDE RECORDS SUMMARY | 2023-06-15 01:10 | XMS_ITS | Continuity of Care Document ---
Author Name Unknown Organization [facility] James lt Address [address] [place] [address]- Care Team Providers Care Hot Bread Baker Name Role Phone Dyan Herrera Primary Care Physician [facility]counter [facility] Date(s): 08/27/22 - 09/03/22 [facility] Adult [address] [place] [address]- Attending Physician: Dyan Herrera Allergies, Adverse Reactions, [...] quadrivalence VACCINE [facility] [id number] 2Early/Late Reason: Other : Pt not available. [...] Start Date: 06/02/22 Status: Ordered nystatin topical 262643 u/gm powder APPLY TOPICALLY 3 TIMES A [...] oldest [Reference Range]: 1 Height 165.1 cm (08/27/22 9:57 AM) Weight 120.7 kg (08/27/22 9:57 AM) Oxygen Saturation [94-100 %] 99 % (08/27/22 9:57 AM) Pulse Rate [55-90 bpm] 99 bpm *H* (08/27/22 9:57 AM) Body Mass Index [18.5-24.99 kg/m2] 44.28 kg/m2 *>HHI* (08/27/22 9:57 AM) Blood Pressure [90-138/55-84 mm Hg] 134/ 87mm Hg (08/27/22 9:57 AM) Respiratory Rate [16-30 br/min] 16 br/mi n (08/27/22 9:57 AM) Temperature [96.8-100.4 DegF] 97.5 DegF (08/27/22 9:57 AM) Mode of Delivery (Oxygen) Room air (08/27/22 9:57 AM) Blood pressure sites Arm, right (08/27/22 9:57 AM) Temperature Route Oral (08/27/22 9:57 AM) Weight Obtained Via Standing scale (08/27/22 9:57 AM) Social History Social History Type Response Smoking Status Former smoker, quit more than 30 days ago; Other: Quit is 2018; entered on: 05/11/21 Sex Patient Care team information Care Team Personnel Name: Kari Irvin Position: S RN Member Role: Primary Care Nurse Name: Belia Solares RN Position: [facility] OB RN Member Role: Primary Care Nurse Name: Jorge Mendoza RN Position: S RN Member Role: Primary Care Nurse Name: Dyan Herrera Position: [facility] PCO Associate Professional Member Role: PCP Address: Address: [address] [place] [address]- [place] Name: Ruthy Nelson RN Position: [facility] RN Member Role: Primary Care Nurse Name: Colette Pwoell MD Position: [facility] SUPPLY MANAGER MD Member Role: Lifetime SUPPLY MANAGER Physician Address: Address: [address] [place] [address] [address]- Name: Angelita Reid RN Position: [facility] RN Member Role: Primary Care Nurse Name: Leonor Rodríguez RN, I Position: [facility] RN Member Role: Primary Care Nurse Care Team Related Persons Name: MIHAI BOOKER Address: home [address] [place] [address] Name: YISSEL HOWARD Address: [employer] Address: home [address] [place] [address] Name: DIANE HOWARD Address: home [address] [place] [address] Name: MILTON HOWARD Address: [employer] Address: home [address] [place] [address]
--- OUTSIDE RECORDS SUMMARY | 2023-06-15 01:10 | XMS_ITS | Continuity of Care Document ---
Author Name Unknown Organization [facility] Address [address] [place] [address]- Care Team Providers Care Ct Technologist Name Role Phone Dyan Herrera Primary Care Physician [phone] Encounter [facility] Date(s): 08/16/22 - 09/15/[address] [address] Allergies, Adverse Reactions, Alerts Substance Reaction [...] 05/01/08 Recorded 1Admin Note: AFLURIA quadrivalence VACCINE [facility] [id number] 2Early/Late Reason: Other : Pt not available. [...] Start Date: 06/02/22 Status: Ordered nystatin topical 656199 u/gm powder APPLY TOPICALLY 3 TIMES A [...] Care Nurse Name: Belia Solares RN Position: [facility] OB RN Member Role: Primary Care Nurse Name: Jorge Mendoza RN Position: [facility] RN Member Role: Primary Care Nurse Name: Dyan Herrera Position: [facility] PCO Associate Professional Member Role: PCP Address: Address: [address] [place] [address] Name: Ruthy Nelson RN Position: [facility] RN Member Role: Primary Care Nurse Name: Colette Powell MD Position: [facility] COOLER DELIVERER MD Member Role: Lifetime COOLER DELIVERER Physician Address: Address: [address] [place] [address], [place] [address] Name: Angelita Reid RN Position: [facility] RN Member Role: Primary Care Nurse Name: Leonor Rodríguez RN, I Position: [facility] RN Member Role: Primary Care Nurse Care Team Related Persons Name: MIHAI BOOKER Address: home [address] [place] [address] Name: YISESL HOWARD Address: [employer] Address: home [address] [place] [address] Name: DIANE HOWARD Address: home [address] [place] [address] Name: MILTON HOWARD Address: [employer] Address: home [address] [place] [address]
--- OUTSIDE RECORDS SUMMARY | 2023-06-15 01:10 | XMS_ITS | Continuity of Care Document ---
Author Name Unknown Organization [facility] James lt Address [address] [place] [address]- Care Team Providers Care Players Club Representative Name Role Phone Not on Staff, PCP Primary Care Physician Unavail able [facility]counter [facility] Date(s): 12/11/19 - 01/10/20 [facility] Adult [address] [place] [address]- [facility] Attending Physician: Conchita LEE, Evin Teran
--- OUTSIDE RECORDS SUMMARY | 2023-06-15 01:10 | XMS_ITS | Continuity of Care Document ---
Author Name Unknown Organization [facility] James lt Address [address] [place] [address]- Care Team Providers Care Mail Delivery Supervisor Name Role Phone Dyan Herrera Primary Care Physician Encounter [facility] Date(s): 01/27/22 - 02/26/22 [facility] Adult [address] [place] [address]- Attending Physician: AdmtrIlan Admitting Physician: AdmtrIlan Referring [...] 05/01/08 Recorded 1Admin Note: AFLURIA quadrivalence VACCINE [facility] [id number] 2Early/Late Reason: Other : Pt not available. 3Location History: DR REEDER Medications Albuterol (Eqv-ProAir HFA) 90 mcg/inh inhalation aerosol 2 puffs, Inhalation, Every 6 hours, PRN NEEDED FOR SHORTNESS OF BREATH OR WHEEZING, # 8.5 each, 5 Refills, Maintenance, 12/02/21 7:35:00 EDT, [facility]/pharmacy #[id number], 25, 2 puffs Inhalation Every [...] 02/03/21 17:38:00 EDT, Dry Weight Start Date: 5/12/22 Status: Ordered Freestyle Dipika 2 14-day [place] Freestyle Dipika 2 14-day [place], See Instructions, # 1 each, Refills 0, [...] FOR PAIN, Route to Pharmacy Electronically, [facility], 163, cm, 07/28/21 9:25:00 EDT, Height, 120.5, kg, 02/03/21 17:38:00 EDT, Dry Weight Start Date: 12/02/21 Status: Ordered Lantus Solostar Pen 100 units/mL subcutaneous solution See Instructions, INJECT 55 UNITS DAILY AT DINNER TIME, # 30 Unknown, 11 Refills, 08/06/21 11:50:00EDT, [facility]/pharmacy #[id number], 163, cm, 07/28/21 9:25:00 EDT, Height, 120.5, kg, 02/03/21 17:38:00 EDT, Dry Weight Start Date: 08/06/21 Status: Ordered MetFORMIN (Eqv-Glucophage XR) 500 mg oral tablet, extended release 2 tablet, By Mouth, 2 times a day with meals, # 360 tablet, 11 Refills, 08/06/21 11:50:00 EDT, [facility]/pharmacy #[id number], 163, cm, 07/28/21 9:25:00 EDT, Height, 120.5, kg, 02/03/21 17:38:00 EDT, Dry Weight Start Date: 08/06/21 Status: Ordered miSOPROStol 200 mcg oral tablet See Instructions, Place 2 tabs between cheek and gums on EACH side, let dissolve for 30 min then swallow the rest with water, # 4 tablet, 1 Refills, Maintenance, 05/28/21 14:25:00 EST, [facility]/pharmacy #[id number], Partial fill upon patient request if the presc... Start Date: 05/28/21 Status: Ordered NovoLOG FlexPen 100 units/mL subcutaneous solution See Instructions, - NovoLog, 3 times daily before meals 80-130 21 units 131-180 23 units 181-230 25units 231-280 27 units Over 280 29 units., # 30 mL, 11 Refills, Maintenance, 08/06/21 11:50:00 EDT,[facility]/... Start Date: 08/06/21 Status: Ordered nystatin topical 916187 u/gm powder See Instructions, APPLY TOPICALLY 3 TIMES A DAY PLEASE APPLY TO PELVIC RASH, LABIA, GLUTEAL FOLDS, AND RECTUM., # 60 Gm, 1 Refills, Maintenance, 12/24/21 20:42:00 EDT, [facility], 30, APPLY TOPICALLY 3 TIMES A DAY PLEASE APPLY TO PELVIC RASH, LAB... Start Date: 12/24/21 Status: Ordered Pen [place], 31 G x 8 mm BD Ultra [...] List Condition Confirmation Course Effective Dates Status [facility] at Informant History of Anxiety Confirmed [...] information Personnel Name: Dyan Herrera Address: Address: [address] [place] [address]
--- OUTSIDE RECORDS SUMMARY | 2023-06-15 01:11 | XMS_ITS | Continuity of Care Document ---
Author Name Unknown Organization [facility] James lt Address [address] [place] [address]- Care Team Providers Care Otolaryngology Physician Name Role Phone Dyan Herrera Primary Care Physician [facility]counter [facility] Date(s): 01/22/22 - 02/21/22 [facility] Adult [address] [place] [address]- Allergies, Adverse Reactions, Alerts Substance Reaction Severity [...] 05/01/08 Recorded 1Admin Note: AFLURIA quadrivalence VACCINE [facility] [id number] 2Early/Late Reason: Other : Pt not available. [...] 09/10/21 Status: Ordered Freestyle Dipika 2 14-day [place] Freestyle Dipika 2 14-day [place], See Instructions, # 1 each, Refills 0, [...] NEEDED FOR PAIN, Route to Pharmacy Electronically, [facility], 163, cm, 07/28/21 9:25:00 EDT, Height, 120.5, [...] Start Date: 08/06/21 Status: Ordered nystatin topical 226454 u/gm powder See Instructions, APPLY TOPICALLY 3 TIMES A DAY PLEASE APPLY TO PELVIC RASH, LABIA, GLUTEAL FOLDS, AND RECTUM., # 60 Gm, 1 Refills, Maintenance, 12/24/21 20:42:00 EDT, [facility], 30, APPLY TOPICALLY 3 TIMES A DAY PLEASE APPLY TO PELVIC RASH, LAB... Start Date: 12/24/21 Status: Ordered Pen [place], 31 G x 8 mm BD Ultra [...] List Condition Confirmation Course Effective Dates Status [facility] at Informant History of Anxiety Confirmed [...] information Personnel Name: Dyan Herrera Address: Address: [address] [place] [id number]
--- OUTSIDE RECORDS SUMMARY | 2023-06-15 01:11 | XMS_ITS | Continuity of Care Document ---
Author Name Unknown Organization [facility] Address [address] [place] [address]- Care Team Providers Care Special Forces Engineer Sergeant Name Role Phone Conchita LEE, Evin Teran Primary Care Physician [place] [facility] [place]s): 12/13/19 - 01/12/20 [facility] Adult [address] [place] [address]- [facility] Allergies, Adverse Reactions, Alerts Substance Reaction Severity [...] Recorded 1Admin Note: AFLURIA quadrivalence VACCINE [facility] [id number] 2Early/Late Reason: Other : Pt not available. [...] Refills, Acute, 12/28/19 14:31:00 EDT, [facility], 163, cm, 12/11/19 12:43:00 EDT, Height, 164, [...] 12/28/19 14:24:00 EDT, Route to Pharmacy Electronically, [facility], 163, cm, 12/11/19 12:43:00 EDT, Height, 164, [...] intake Start Date: 02/08/19 Status: Ordered Pen [place], 31 G x 8 mm BD Ultra [...] 11/06/19 16:24:00 EDT, Route to Pharmacy Electronically, [id number], [facility]/pharmacy#[id number], 163, cm, 02/08/19 9:31:00 EDT, Height, [...]
--- OUTSIDE RECORDS SUMMARY | 2023-06-15 01:11 | XMS_ITS | Continuity of Care Document ---
Author Name Unknown Organization [facility] James lt Address [address] [place] [address]- Care Team Providers Care Parking Cashier Name Role Phone Evin Arango MD Primary Care Physician Encounter [place] Date(s): 06/09/21 - 06/16/21 [facility] Adult [address] [place] [address]- Attending Physician: Evin Arango MD Allergies, Adverse [...] AFLURIA quadrivalence VACCINE [facility] [id number] 2Early/Late Reason: Other : Pt not available. [...] OR WHEEZING, # 8.5 each, 5 Refills, [facility], 25, TAKE 2 PUFFS BY MOUTH EVERY [...] 06/12/21 16:28:00 EST, Route to Pharmacy Electronically, [facility]/pharmacy #[id number], Partial fill upon patient request if the presc... Start Date: 06/12/21 Stop Date: 06/13/22 Status: Ordered Lantus Solostar Pen 100 units/mL subcutaneous solution See Instructions, INJECT 55 UNITS DAILY AT DINNER TIME, # 30 Unknown, 5 Refills, [facility] 450[facility], 163, cm, 02/05/21 12:14:00 EDT, Height, 120.5, kg, 02/03/21 17:38:00 EDT, Dry Weight Start Date: 02/26/21 Status: Ordered MetFORMIN (Eqv-Glucophage XR) 500 mg oral tablet, extended release 2 tablet, By Mouth, 2 times a day with meals, # 360 tablet, 0 Refills, [facility], 163, cm, 06/16/21 10:10:00 EST, Height, 120.5, [...] Start Date: 03/31/21 Status: Ordered nystatin topical 241488 u/gm powder 1 application, Topically, 3 times a day, Please apply to pelvic rash, labia, gluteal folds, and rectum., # 60 Gm, 1 Refills, Maintenance, 03/25/21 16:04:00 EST, [id number], Partial fill upon patient request if the prescription is for a... Start Date: 03/25/21 Status: Ordered nystatin topical 630714 u/gm powder See Instructions, APPLY TO AFFECTED AREA TWICE A DAY, # 30 Gm, 1 Refills, [facility], 14, APPLY TO AFFECTED AREA TWICE A DAY, 163, cm, 12/08/20 14:03:00 EDT, Height Start Date: 01/24/21 Status: Ordered Pen [place], 31 G x 8 mm BD Ultra [...] oldest [Reference Range]: 1 Height 163 cm (06/09/21 8:40 AM) Social History Social History Type Response Smoking Status Former smoker, quit more than 30 days ago; Other: Quit is 2017; entered on: 05/11/21 Sex
--- OUTSIDE RECORDS SUMMARY | 2023-06-15 01:11 | XMS_ITS | Continuity of Care Document ---
Author Name Unknown Organization [facility] Address [address] [place] [address]- Care Team Providers Care Inside Sales Manager Name Role Phone Evin Arango MD Primary Care Physician [phone] [place] [facility] [place](s): 10/20/20 - 11/19/20 [facility] [address] [place] [address] Attending Physician: Admtr, Ilan Admitting Physician: Admtr, ArEsperanza Referring Physician: Admtr, [...] 03/06/12 Recorded 1Admin Note: AFLURIA quadrivalence VACCINE [facility] [id number] 2Early/Late Reason: Other : Pt not available. 3Location History: DR REEDER Medications Alcohol Pads See Instructions, # 120 each, Refills 0, Tot. Refills 0, Maintenance, To use with insulin administration 4 times daily, 05/09/20 12:20:00 EST, Compound, 163, cm, 05/09/20 8:55:00 EST, Height, 164, kg, 09/05/18 17:25:00 EDT, Dry Weight Start Date: 05/09/20 Status: Ordered Freestyle Dipika 14-day [place] Freestyle Dipika 14-day [place], See Instructions, # 1 each, Refills 0, [...] Heig... Start Date: 06/09/20 Status: Ordered Pen [place], 31 G x 8 mm BD Ultra [...] 09/27/20 10:32:00 EDT, Route to Pharmacy Electronically, [id number], [facility]/pharmacy#[id number], 163, cm, 09/19/20 9:21:00 EDT, Height [...]
--- OUTSIDE RECORDS SUMMARY | 2023-06-15 01:11 | XMS_ITS | Continuity of Care Document ---
Author Name Unknown Organization [facility] Address [address] [place] [address]- Care Team Providers Care Lithography Contact Worker Name Role Phone Conchita LEE, Evin Teran Primary Care Physician [phone] [facility]counter [facility] Date(s): 08/27/20 - 09/26/20 [facility] [address] [place] [id number] Allergies, Adverse Reactions, Alerts Substance Reaction [...] Note: AFLURIA quadrivalence VACCINE [facility] [id number] 2Early/Late Reason: Other : Pt not available. 3Location History: DR REEDER Medications Alcohol Pads See Instructions, # 120 each, Refills 0, Tot. Refills 0, Maintenance, To use with insulin administration 4 times daily, 05/09/20 12:20:00 EST, Compound, 163, cm, 05/09/20 8:55:00 EST, Height, 164, kg, 09/05/18 17:25:00 EDT, Dry Weight Start Date: 05/09/20 Status: Ordered Freestyle Dipika 14-day [place] Freestyle Dipika 14-day [place], See Instructions, # 1 each, Refills 0, [...] 09/04/20 23:17:00 EDT, Route to Pharmacy Electronically, [facility]/pharmacy #[id number], Partial fill upon patient request if the prescription i... Start Date: 09/04/20 Status: Ordered Lantus Solostar Pen 100 units/mL subcutaneous solution See Instructions, Take 55 units daily at dinner. E11.65, # 30 mL, 5 Refills, Maintenance, 06/09/20 10:04:00 EST, Solution, [facility]/pharmacy #[id number], Partial fill upon patient request if the prescription isfor a schedule II opioid drug., 163, cm, 05/26/20 1... Start Date: 06/09/20 Status: Ordered metFORMIN 500 mg oral tablet, extended release See Instructions, Take 2 tabs twice daily with food. E11.65, # 120 each, 5 Refills, Maintenance, 06/09/20 10:06:00 EST, ER Tablet, [facility]/pharmacy #[id number], 163, cm, 05/26/20 14:26:00 EST, [...] Heig... Start Date: 06/09/20 Status: Ordered Pen [place], 31 G x 8 mm BD Ultra [...] 6 Refills, Maintenance, 05/26/20 14:51:00 EST, Capsule, [facility]/pharmacy #[id number], Partial fill upon patient request if the prescription is for a schedule II opioid drug., 1 capsule By Mouth Daily, 163, cm, 05/26/20 1... Start Date: 05/26/20 Status: Ordered Multivitamins with Folic Acid 1 mg oral tablet 1 tablet, By Mouth, Daily, # 30 tablet, 8 Refills, Maintenance, 08/05/20 15:20:00 EDT, Tablet, [facility]/pharmacy #0693, Partial fill upon patient request [...] 3 Refills, Maintenance, 09/19/20 8:47:00 EDT, Capsule, [facility]/pharmacy #0693, Partial fill upon patient request if the prescription is for... Start Date: 09/19/20 Status: Ordered ProAir HFA 90 mcg/inh inhalation aerosol with adapter 2, puffs, Inhalation, Every 6 hours, PRN, # 1 each, Refills 5, Tot. Refills 5, Maintenance, 11/06/19 16:24:00 EDT, Route to Pharmacy Electronically, [id number], [facility]/pharmacy#[id number], 163, cm, 02/08/19 9:31:00 EDT, Height, [...]
--- OUTSIDE RECORDS SUMMARY | 2023-06-15 01:11 | XMS_ITS | Continuity of Care Document ---
Author Name Unknown Organization [facility] James lt Address [address] [place] [address]- Care Team Providers Care Skin Washer Name Role Phone Conchita LEE, Evin Teran Primary Care Physician Encounter [facility] Date(s): 06/06/20 - 07/06/20 [facility] Adult [address] [place] [address]- Allergies, Adverse Reactions, Alerts Substance Reaction Severity [...] 03/06/12 Recorded 1Admin Note: AFLURIA quadrivalence VACCINE [facility] [place] 72183-608-74 2Early/Late Reason: Other : Pt not available. [...] Heig... Start Date: 06/09/20 Status: Ordered Pen [place], 31 G x 8 mm BD Ultra [...] 6 Refills, Maintenance, 05/26/20 14:51:00 EST, Capsule, [facility]/pharmacy #[id number], Partial fill upon patient request if the prescription is for a schedule II opioid drug., 1 capsule By Mouth Daily, 163, cm, 05/26/20 1... Start Date: 05/26/20 Status: Ordered ProAir HFA 90 mcg/inh inhalation aerosol with adapter 2, puffs, Inhalation, Every 6 hours, PRN, # 1 each, Refills 5, Tot. Refills 5, Maintenance, 11/06/19 16:24:00 EDT, Route to Pharmacy Electronically, [id number], [facility]/pharmacy#[id number], 163, cm, 02/08/19 9:31:00 EDT, Height, [...]
--- OUTSIDE RECORDS SUMMARY | 2023-06-15 01:11 | XMS_ITS | Continuity of Care Document ---
Author Name Unknown Organization [facility] James [facility] Address [address] [place] [address]- Care Team Providers Care Construction Technician Name Role Phone Conchita LEE, Evin Teran Primary Care Physician [phone] [facility] Date[facility]s): 06/09/21 - 07/09/21 [facility] Adult [address] [place] [address]- Attending Physician: Admtr, Ar8 Admitting Physician: Admtr, [...] 05/01/08 Recorded 1Admin Note: AFLURIA quadrivalence VACCINE [facility] [id number] 2Early/Late Reason: Other : Pt not available. [...] OR WHEEZING, # 8.5 each, 5 Refills, [facility] 13460, 25, TAKE 2 PUFFS BY MOUTH EVERY [...] NEEDED FOR PAIN, Route to Pharmacy Electronically, [email or web address], 163, cm, 06/16/21 10:10:00 EST, Height, 120.5, kg, 02/03/21 17:38:00 EDT, Dry Weight Start Date: 06/17/21 Status: Ordered Lantus Solostar Pen 100 units/mL subcutaneous solution See Instructions, INJECT 55 UNITS DAILY AT DINNER TIME, # 30 Unknown, 5 Refills, [email or web address]ORE 52681, 163, cm, 02/05/21 12:14:00 EDT, Height, 120.5, kg, 02/03/21 17:38:00 EDT, Dry Weight Start Date: 02/26/21 Status: Ordered MetFORMIN (Eqv-Glucophage XR) 500 mg oral tablet, extended release 2 tablet, By Mouth, 2 times a day with meals, # 360 tablet, 0 Refills, [facility], 163, cm, 06/16/21 10:10:00 EST, Height, 120.5, [...] Start Date: 03/31/21 Status: Ordered nystatin topical 775731 u/gm powder 1 application, Topically, 3 times a day, Please apply to pelvic rash, labia, gluteal folds, and rectum., # 60 Gm, 1 Refills, Maintenance, 03/25/21 16:04:00 EST, Powder, [id number], Partial fill upon patient request if the prescription is for a... Start Date: 03/25/21 Status: Ordered nystatin topical 094119 u/gm powder See Instructions, APPLY TO AFFECTED AREA TWICE A DAY, # 30 Gm, 1 Refills, [facility], 14, APPLY TO AFFECTED AREA TWICE A DAY, 163, cm, 12/08/20 14:03:00 EDT, Height Start Date: 01/24/21 Status: Ordered Pen [place], 31 G x 8 mm BD Ultra [...] Refills, Maintenance, 03/25/21 15:35:00 EST, Capsule, [facility], Partial fill upon patient request if the [...]
--- OUTSIDE RECORDS SUMMARY | 2023-06-15 01:11 | XMS_ITS | Continuity of Care Document ---
Author Name Unknown Organization [facility] Address [address] [place] [address]- Care Team Providers Care Biological Scientist Name Role Phone Dyan Herrera Primary Care Physician [facility] Date[facility]s): 07/17/22 - 08/21/[address] [address]- Attending Physician: Not on Staff, Attending MD [...] VACCINE [facility] 40831-300-10 2Early/Late Reason: Other : Pt not available. [...] 0 Refills, Maintenance, 08/19/22 14:16:00 EDT, Tablet, [facility]/pharmacy #[id number], Partial fill upon patient request if [...] Start Date: 06/02/22 Status: Ordered nystatin topical 769787 u/gm powder APPLY TOPICALLY 3 TIMES A [...] Care Team Personnel Name: Kari Irvin Position: [facility] RN Member Role: Primary Care Nurse Name: Belia Solares RN Position: [facility] OB RN Member Role: Primary Care Nurse Name: Lauren Mac RN Position: [facility] RN Member Role: Primary Care Nurse Name: Jorge Mendoza RN Position: [facility] RN Member Role: Primary Care Nurse Name: Dyan Herrera Position: [facility] PCO Associate Professional Member Role: PCP Address: Address: [address] [place] [id number] Name: Ruthy Nelson RN Position: [facility] RN Member Role: Primary Care Nurse Name: Colette Pwoell MD Position: [facility] SALON SALES CONSULTANT MD Member Role: Lifetime SALON SALES CONSULTANT Physician Address: Address: [address] [place] [address] [address]- Name: Angelita Reid RN Position: [facility] RN Member Role: Primary Care Nurse Name: Leonor Rodríguez RN, I Position: [facility] RN Member Role: Primary Care Nurse Care Team Related Persons Name: MIHAI BOOKER Address: home [address] [place] [address] Name: YISSEL HOWARD Address: [employer] Address: home [address] [place] [address] Name: DIANE HOWARD Address: home [address] [place] [address] Name: MILTON HOWARD Address: [employer] Address: home [address] [place] [address]
--- OUTSIDE RECORDS SUMMARY | 2023-06-15 01:11 | XMS_ITS | Continuity of Care Document ---
Author Name Unknown Organization [facility] James lt Address [address] [place] [address]- Care Team Providers Care Paper Handler Name Role Phone Dyan Herrera Primary Care Physician [facility] Date(s): 07/28/21 - 08/27/21 [facility] Adult [address] [place] [address]- Attending Physician: AdmtrIlan Admitting Physician: AdmtrIlan Referring [...] 05/01/08 Recorded 1Admin Note: AFLURIA quadrivalence VACCINE [facility] [id number] 2Early/Late Reason: Other : Pt not available. 3Location History: DR REEDER Medications Albuterol (Eqv-ProAir HFA) 90 mcg/inh inhalation aerosol 2 puffs, Inhalation, Every 6 hours, PRN NEEDED FOR SHORTNESS OF BREATH OR WHEEZING, # 8.5 each, 5 Refills, [facility]888, 25, TAKE 2 PUFFS BY MOUTH EVERY [...] NEEDED FOR PAIN, Route to Pharmacy Electronically, [facility] 08173, 163, cm, 06/16/21 10:10:00 EST, Height, 120.5, [...] [facility]... Start Date: 08/06/21 Status: Ordered Pen [place], 31 G x 8 mm BD Ultra [...]
--- OUTSIDE RECORDS SUMMARY | 2023-06-15 01:11 | XMS_ITS | Continuity of Care Document ---
Author Name Unknown Organization [facility] Address [address] [place] [address]- Care Team Providers Care Body Wirer Name Role Phone Evin Arango MD Primary Care Physician Encounter [facility] Date(s): 09/10/20 - 12/19/20 [facility] [address] [place] [address] Attending Physician: Tal Hayward MD Admitting Physician: [...] [facility] [id number] 2Early/Late Reason: Other : Pt not available. [...] tablet, 0 Refills, Maintenance, 12/08/20 14:20:00 EDT, [facility]/pharmacy #[id number], Partial [...] Replace Required Details, Route to Pharm[facility]ically, [id number], Partial fill upon patie... Start Date: [...] Heig... Start Date: 06/09/20 Status: Ordered Nystop 229524 u/gm powder 1 application, Topically, 2 times a day, # 30 Gm, 0 Refills, Maintenance, 12/08/20 14:18:00 EDT, Powder, [facility], Partial fill upon patient request if the prescription is for a schedule IIopioid drug., 1 application Topically 2 times a day... Start Date: 12/08/20 Status: Ordered Pen [place], 31 G x 8 mm BD Ultra [...] 09/27/20 10:32:00 EDT, Route to Pharmacy Electronically, [id number], [facility]/pharmacy#[id number], 163, cm, 09/19/20 9:21:00 EDT, [...]
--- OUTSIDE RECORDS SUMMARY | 2023-06-15 01:11 | XMS_ITS | Continuity of Care Document ---
Author Name Unknown Organization [facility] James lt Address [address] [place] [address]- Care Team Providers Care Collection Support Specialist Name Role Phone Not on Staff, PCP Primary Care Physician Unavail able [facility] Date(s): 12/11/19 - 01/10/20 [facility] Adult [address] [place] [address]- [facility] Attending Physician: Ilan Melo Admitting Physician: Ilan Melo Referring Physician: Ilan Melo
--- OUTSIDE RECORDS SUMMARY | 2023-06-15 01:11 | XMS_ITS | Continuity of Care Document ---
Author Name Unknown Organization [facility] Address [address] [place] [address]- Care Team Providers Care Car Rental Deliverer Name Role Phone Conchita LEE, Evin Teran Primary Care Physician [place] [facility] [place](s): 09/19/20 - 10/19/[address] [address] Attending Physician: Admgarrison, Ilan Admitting Physician: AdmtrIlan Referring Physician: Admtr, Ar8 [...] 03/06/12 Recorded 1Admin Note: AFLURIA quadrivalence VACCINE [facility] 13398-049-41 2Early/Late Reason: Other : Pt not available. 3Location History: DR REEDER Medications Alcohol Pads See Instructions, # 120 each, Refills 0, Tot. Refills 0, Maintenance, To use with insulin administration 4 times daily, 05/09/20 12:20:00 EST, Compound, 163, cm, 05/09/20 8:55:00 EST, Height, 164, kg, 09/05/18 17:25:00 EDT, Dry Weight Start Date: 05/09/20 Status: Ordered Freestyle Dipika 14-day [place] Freestyle Dipika 14-day [place], See Instructions, # 1 each, Refills 0, [...] 09/04/20 23:17:00 EDT, Route to Pharmacy Electronically, [facility]/pharmacy #[id number], Partial fill upon patient request if the prescription i... Start Date: 09/04/20 Status: Ordered Lantus Solostar Pen 100 units/mL subcutaneous solution See Instructions, Take 55 units daily at dinner. E11.65, # 30 mL, 5 Refills, Maintenance, 06/09/20 10:04:00 EST, Solution, [facility]/pharmacy #0693, Partial fill upon [...] Heig... Start Date: 06/09/20 Status: Ordered Pen [place], 31 G x [...] 09/27/20 10:32:00 EDT, Route to Pharmacy Electronically, [id number], [facility]/pharmacy#0693, 163, cm, 09/19/20 9:21:00 EDT, [...]
--- OUTSIDE RECORDS SUMMARY | 2023-06-15 01:11 | XMS_ITS | Continuity of Care Document ---
Author Name Unknown Organization [facility] James lt Address [address] [place] [address]- Care Team Providers Care Distribution Dispatcher Name Role Phone Evin Arango MD Primary Care Physician Encounter [facility] Date(s): 05/09/20 - 05/16/20 [facility] Adult [address] [place] [address]- Attending Physician: Evin Arango MD Allergies, Adverse [...] 03/06/12 Recorded 1Admin Note: AFLURIA quadrivalence VACCINE [facility] [id number] 2Early/Late Reason: Other : Pt not available. [...] 40 units daily. E11.65, # 30 mL, 0 Refills, Maintenance, 05/09/20 12:30:00 EST, [facility], [id number], 163, cm, 05/09/20 8:55:00 EST,Height, 164, kg, 09/05/18 17:25:00 EDT, Dry Weight Start Date: 05/09/20 Status: Ordered metFORMIN 500 mg oral tablet, [...] units per meal. E11.65, # 30 mL, 0 Refills, Maintenance, 05/09/20 12:29:00 EST, [id number], May increase dose by 4 units at meals if increased CHO intake, 163, cm, 05/09/20 8:55:00 EST, Height, 164, kg, 09/05/18 17:25... Start Date: 05/09/20 Status: Ordered Pen [place], 31 G x 8 mm BD Ultra Fine III See Instructions, # 200 each, Refills 0, Tot. Refills 0, Maintenance, Use to take insulin 4 times daily. E11.65, 05/09/20 12:28:00 EST, Compound, 163, cm, 05/09/20 8:55:00 EST, Height, 164, kg, 09/05/18 17:25:00 EDT, Dry Weight Start Date: 05/09/20 Status: Ordered ProAir HFA 90 mcg/inh inhalation aerosol with adapter 2, puffs, Inhalation, Every 6 hours, PRN, # 1 each, Refills 5, Tot. Refills 5, Maintenance, 11/06/19 16:24:00 EDT, Route to Pharmacy Electronically, [id number], [facility]/pharmacy#[id number], 163, cm, 02/08/19 9:31:00 EDT, Height, 164,... Start Date: 11/06/19 Status: Ordered Problem List Condition Effective Dates Status Health Status Inform ant Marijuana abuse(Confirmed) Active Depression(Confirmed) Active COVID-19 virus infection(Confirmed) Active Medical marijuana use(Confirmed) Active External hemorrhoids(Confirmed) Active Migraines(Confirmed) Active Morbid obesity(Confirmed) Active THIERRY (obstructive sleep apnea)(Confirmed) Active History of Gestational hyper tension (Severe)(Confirmed) Active Restless leg syndrome(Confirmed) Active Pre-eclampsia, severe(Confirmed) Active Diabetes mellitus, type II(Confirmed) Active Vital Signs Most recent to oldest [Reference Range]: 1 Height 163 cm (05/09/20 8:55 AM) Weight 100 kg (05/09/20 8:55 AM) Body Mass Index [18.5-24.99] 37.64 *>HHI* (05/09/20 8:55 AM) Weight Obtained Via Standing scale (05/09/20 8:55 AM) Social History Social History Type Response Smoking Status Former smoker; Tobac co user in household: No entered on: 02/13/18 Sex
--- OUTSIDE RECORDS SUMMARY | 2023-06-15 01:11 | XMS_ITS | Continuity of Care Document ---
Author Name Unknown Organization [facility] James lt Address [address] [place] [address]- Care Team Providers Care Cardiovascular Surgical Tech Name Role Phone Evin Alaniz MD Primary Care Physician Encounter [facility] Date(s): 07/30/19 - 08/06/19 [facility] Adult [address] [place] [address]- [place] Encounter Diagnosis Dental infection(Discharge Diagnosis) - 07/30/19 Attending Physician: Evin Alaniz MD Allergies, Adverse Reactions, [...] Recorded 1Admin Note: AFLURIA quadrivalence VACCINE [facility] [id number] 2Early/Late Reason: Other : Pt not available. [...] HUMIDIFIER DX THIERRY G47.33 [facility] FAX [phone] [facility] [address] ALANIZ, 03/31/18 [...] DIRECTED DX THIERRY G47.33 [facility] FAX [phone] [facility] [address] AMOR.. Start [...] 12/01/18 15:05:00 EDT, Route to Pharmacy Electronically, [id number]... Start Date: 12/01/18 Status: Ordered Handheld Electric Breast Pump See Instructions, # 1 units, Maintenance, See instructions, 09/08/18 9:07:38 EDT, Compound Start Date: 09/08/18 Status: Ordered ibuprofen 800 mg oral tablet See Instructions, # 90 tablet, TAKE 1 TABLET BY MOUTH EVERY 8 HOURS,X30 DAYS NEEDED FOR PAIN. TAKE WITH FOOD OR MILK, [facility]/pharmacy #[id number] Start Date: 11/15/18 Status: Ordered Insulin Syringe, BD Ultra-Fine 1 cc 31 G x 8 mm (516in) See Instructions, # 90 each, Refills 3, [...] intake Start Date: 02/08/19 Status: Ordered Pen [place], 31 G x 8 mm BD Ultra [...] 07/30/19 16:11:00 EDT, Route to Pharmacy Electronically, [id number], [facility]/pharmacy#0693, 163, cm, 02/08/19 9:31:00 EDT, Height, 164,... [...] severe(Confirmed) Active Diabetes mellitus, type II(Confirmed) Active Diagnosis Diagnosis Type Effective Dates Health Status Cl inical Service Informant Dental infection Discharge Diagnosis 07/30/19 Social History Social History Type Response Smoking Status Former smoker; Tobac co user in household: No entered on: 02/13/18 Sex
--- OUTSIDE RECORDS SUMMARY | 2023-06-15 01:11 | XMS_ITS | Continuity of Care Document ---
Author Name Unknown Organization [facility] Address [address] [place], [place] [address], [address] [place] [address]- Care Team Providers Care Image Processing Engineer Name Role Phone Areli SERVIN, Dyan Cline Primary Care Physician [phone] [facility]counter [facility] Date(s): 07/15/21 - 08/28/21 [facility] [address] [place] [address] Drive, [address] [place], [place] [address] Attending Physician: Dawson LEE, Yunior Campbell Referring Physician: Neri Salomon MD Allergies, Adverse Reactions, Alerts Substance Reaction [...] Recorded 1Admin Note: AFLURIA quadrivalence VACCINE [facility] [id number] 2Early/Late Reason: Other : Pt not available. 3Location History: DR REEDER Medications Albuterol (Eqv-ProAir HFA) 90 mcg/inh inhalation aerosol 2 puffs, Inhalation, Every 6 hours, PRN NEEDED FOR SHORTNESS OF BREATH OR WHEEZING, # 8.5 each, 5 Refills, [facility] [address]010, 25, TAKE 2 PUFFS BY MOUTH EVERY [...] NEEDED FOR PAIN, Route to Pharmacy Electronically, [facility] [address]188, 163, cm, 06/16/21 10:10:00 EST, Height, 120.5, [...] [facility]... Start Date: 08/06/21 Status: Ordered Pen [place], 31 G x 8 mm BD Ultra [...]
--- OUTSIDE RECORDS SUMMARY | 2023-06-15 01:11 | XMS_ITS | Continuity of Care Document ---
Author Name Unknown Organization [facility] Address [address] [place] [address]- Care Team Providers Care Slag Mixer Name Role Phone Conchita LEE, Evin Teran Primary Care Physician Encounter [facility] Date(s): 09/03/20 - 10/03/20 [facility] [address] [place] [address] Allergies, Adverse Reactions, Alerts Substance [...] 03/06/12 Recorded 1Admin Note: AFLURIA quadrivalence [facility] [id number] 2Early/Late Reason: Other : Pt not available. 3Location History: DR REEDER Medications Alcohol Pads See Instructions, # 120 each, Refills 0, Tot. Refills 0, Maintenance, To use with insulin administration 4 times daily, 05/09/20 12:20:00 EST, Compound, 163, cm, 05/09/20 8:55:00 EST, Height, 164, kg, 09/05/18 17:25:00 EDT, Dry Weight Start Date: 05/09/20 Status: Ordered Freestyle Dipika 14-day [place] Freestyle Dipika 14-day [place], See Instructions, # 1 each, Refills 0, [...] 09/04/20 23:17:00 EDT, Route to Pharmacy Electronically, [facility]/pharmacy #[id number], Partial fill upon patient request if the prescription i... Start Date: 09/04/20 Status: Ordered Lantus Solostar Pen 100 units/mL subcutaneous solution See Instructions, Take 55 units daily at dinner. E11.65, # 30 mL, 5 Refills, Maintenance, 06/09/20 10:04:00 EST, Solution, [facility]/pharmacy #0693, Partial fill upon patient request if the prescription isfor a schedule II opioid drug., 163, cm, 05/26/20 1... Start Date: 06/09/20 Status: Ordered metFORMIN 500 mg oral tablet, extended release See Instructions, Take 2 tabs twice daily with food. E11.65, # 120 each, 5 Refills, Maintenance, 06/09/20 10:06:00 EST, ER Tablet, [facility]/pharmacy #0693, 163, cm, 05/26/20 14:26:00 EST, Height, [...] Heig... Start Date: 06/09/20 Status: Ordered Pen [place], 31 G x 8 mm BD Ultra [...] 6 Refills, Maintenance, 05/26/20 14:51:00 EST, Capsule, [facility]/pharmacy #0693, Partial fill upon patient request if the prescription is for a schedule II opioid drug., 1 capsule By Mouth Daily, 163, cm, 05/26/20 1... Start Date: 05/26/20 Status: Ordered Multivitamins with Folic Acid 1 mg oral tablet 1 tablet, By Mouth, Daily, # 30 tablet, 8 Refills, Maintenance, 08/05/20 15:20:00 EDT, Tablet, [facility]/pharmacy #0693, [...] 3 Refills, Maintenance, 09/19/20 8:47:00 EDT, Capsule, [facility]/pharmacy #0693, Partial fill upon patient request if the prescription is for... Start Date: 09/19/20 Status: Ordered ProAir HFA 90 mcg/inh inhalation aerosol with adapter 2, puffs, Inhalation, Every 6 hours, PRN, # 1 each, Refills 5, Tot. Refills 5, Maintenance, 09/27/20 10:32:00 EDT, Route to Pharmacy Electronically, [id number], [id number], 163, cm, 09/19/20 9:21:00 EDT, Height [...]
--- OUTSIDE RECORDS SUMMARY | 2023-06-15 01:11 | XMS_ITS | Continuity of Care Document ---
Author Name Unknown Organization [facility]ocrinolo [facility] and Diabetes Address [address] [place] [address]- Care Team Providers Care Metal Tester Name Role Phone Dyan Herrera Primary Care Physician [phone] [facility]counter [facility] Date[facility]s): 08/23/22 - 09/25/22 [facility] Endocrinology and Diabetes [address] [place] [address] [[email or web address]] Attending Physician: Darwin POOL, Simran Boss Admitting Physician: Darwin POOL, Simran Boss Allergies, Adverse Reactions, Alerts Substance Reaction Severity [...] VACCINE [facility] [id number] 2Early/Late Reason: Other : Pt not available. 3Location History: DR REEDER Medications Albuterol (Eqv-ProAir HFA) 90 mcg/inh inhalation aerosol 2 puffs, Inhalation, Every 6 hours, PRN NEEDED FOR SHORTNESS OF BREATH OR WHEEZING, # 8.5 each, 5 Refills, Maintenance, 12/02/21 7:35:00 EDT, [facility]/pharmacy #[id number], 25, 2 puffs Inhalation Every 6 hours,PRN: NEEDED FOR SHORTNESS OF BREATH OR WHEEZING... Start Date: 12/02/21 Status: Ordered Apri 0.15 mg-0.03 mg oral tablet See Instructions, TAKE 1 TABLET BY MOUTH EVERY DAY, # 84 tablet, 0 Refills, Maintenance, 09/17/22 11:33:00 EDT, [facility], 84, TAKE 1 TABLET BY MOUTH EVERY [...] 0 Refills, Maintenance, 09/17/22 9:23:00 EDT, Tablet, [facility]/pharmacy #[id number], Partial fill upon [...] Start Date: 06/02/22 Status: Ordered nystatin topical 825772 u/gm powder APPLY TOPICALLY 3 TIMES A [...] Care Team Personnel Name: Kari Irvin Position: [facility] RN Member Role: Primary Care Nurse Name: Belia Solares RN Position: [facility] OB RN Member Role: Primary Care Nurse Name: Jorge Mendoza RN Position: [facility] RN Member Role: Primary Care Nurse Name: Dyan Herrera Position: [facility] PCO Associate Professional Member Role: PCP Address: Address: [address] [place] [address] Name: Ruthy Nelson RN Position: [facility] RN Member Role: Primary Care Nurse Name: Colette Powell MD Position: [facility] PROBATE PARALEGAL MD Member Role: Lifetime PROBATE PARALEGAL Physician Address: Address: [address] [place] [address] [address]- Name: Angelita Reid RN Position: [facility] RN Member Role: Primary Care Nurse Name: Leonor Rodríguez RN, I Position: [facility] RN Member Role: Primary Care Nurse Care Team Related Persons Name: MIHAI BOOKER Address: home [address] [place] [address] Name: YISSEL HOWARD Address: AMER[employer] Address: home [address] [place] [address] [place] [address] Name: DIANE HOWARD Address: home [address] [place] [address] Name: MILTON HOWARD Address: AMER[employer] Address: home [address] [place] [address]
--- OUTSIDE RECORDS SUMMARY | 2023-06-15 01:11 | XMS_ITS | Continuity of Care Document ---
Author Name Unknown Organization [facility] James lt Address [address] [place] [address]- Care Team Providers Care Event Crew Technician Name Role Phone Dyan Herrera Primary Care Physician [facility] 03/21/23 - 04/20/23 [facility] Adult [address] [place] [address]- Attending Physician: AdmIlan ji Admitting Physician: AdmtrIlan [...] Gi regis influenza virus vaccine, inactivated 03/02/12 Cdoy rded Measles/Mumps/Rubella Virus Vaccine 2 10/10/17 Giv en pneumococcal 23-valent vaccine 3 03/06/12 Recorded Human Papillomavirus Vaccine 10/25/08 Recorded Human Papillomavirus Vaccine 06/28/08 Recorded Human Papillomavirus Vaccine 05/01/08 Recorded 1Admin Note: AFLURIA quadrivalence VACCINE [facility] [id number] 2Early/Late Reason: Other : Pt not available. [...] Refills, Maintenance, 03/28/23 7:43:00 EST, [facility], 30, APPLY TOPICALLY 3 TIMES A DAY [...] 05/11/21 Sex Laboratory * Event Display: Non BH Lab Results Authored Date: Patient Care team information Care Team Personnel Name: KaurronanKari alaniz Position: S RN Member Role: Primary Care Nurse Name: Belia Solares RN Position: [facility] OB RN Member Role: Primary Care Nurse Name: Jorge Mendoza RN Position: S RN Member Role: Primary Care Nurse Name: Dyan Herrera Position: [facility] PCO Associate Professional Member Role: PCP Address: Address: [address] [place] [address]- [place] Name: Ruthy Nelson RN Position: [facility] RN Member Role: Primary Care Nurse Name: Colette Powell MD Position: [facility] RN CARE MANAGER MD Member Role: Lifetime RN CARE MANAGER Physician Address: Address: [address] [place] [address]- Name: Angelita Reid RN Position: [facility] RN Member Role: Primary Care Nurse Name: Leonor Rodríguez RN, I Position: [facility] RN Member Role: Primary Care Nurse Care Team Related Persons Name: MIHAI BOOKER Address: home [address] [place] [address] Name: YISSEL HOWARD Address: AMER[employer] Address: home [address] [place] [address] [place] Name: DIANE HOWARD Address: home [address] [place] [address] Name: MILTON HOWARD Address: [employer] Address: home [address] [place] [address]
--- OUTSIDE RECORDS SUMMARY | 2023-06-15 01:11 | XMS_ITS | Continuity of Care Document ---
Author Name Unknown Organization [facility] James lt Address [address] [place] [address]- Care Team Providers Care Under Cutter Name Role Phone Dyan Herrera Primary Care Physician [facility] Date[facility]s): 04/01/23 - 05/01/23 [facility] Adult [address] [place] [address]- Allergies, Adverse Reactions, Alerts Substance Reaction Severity [...] Recorded 1Admin Note: AFLURIA quadrivalence VACCINE [facility] 52899-051-69 2Early/Late Reason: Other : Pt not available. [...] Gm, 1 Refills, Maintenance, 03/28/23 7:43:00 EST, [facility]796, 30, APPLY TOPICALLY 3 TIMES A DAY [...] Care Team Personnel Name: Kari Irvin Position: [facility] RN Member Role: Primary Care Nurse Name: Belia Solares RN Position: [facility] OB RN Member Role: Primary Care Nurse Name: Jorge Mendoza RN Position: S RN Member Role: Primary Care Nurse Name: Dyan Herrera Position: [facility] PCO Associate Professional Member Role: PCP Address: Address: [address] [place] [phone]- [place] Name: Ruthy Nelson RN Position: [facility] RN Member Role: Primary Care Nurse Name: Colette Powell MD Position: [facility] AUTOMOBILE INSURANCE CLAIM EXAMINER MD Member Role: Lifetime AUTOMOBILE INSURANCE CLAIM EXAMINER Physician Address: Address: [address] [place] [address]- [place] Name: Angelita Reid RN Position: [facility] RN Member Role: Primary Care Nurse Name: Leonor Rodríguez RN, I Position: [facility] RN Member Role: Primary Care Nurse Care Team Related Persons Name: MIHAI BOOKER Address: home [address] [place] [address] Name: YISSEL HOWARD Address: [employer] Address: home [address] [place] [address] Name: DIANE HOWARD Address: home [address] [place] [address] Name: MILTON HOWARD Address: AMER[employer] Address: home [address] [place] [address]
--- OUTSIDE RECORDS SUMMARY | 2023-06-15 01:11 | XMS_ITS | Continuity of Care Document ---
Author Name Unknown Organization [facility] James Address [address] [place] [address]- Care Team Providers Care Can Conveyor Feeder Name Role Phone Conchita LEE, Evin Teran Primary Care Physician [place] [facility] [place] 12/11/19 - 01/10/20 [facility] Adult [address] [place] [address]- [facility] Attending Physician: Admtr, [id number] Admitting Physician: [...] 03/06/12 Recorded 1Admin Note: AFLURIA quadrivalence VACCINE [facility] 12293-138-92 2Early/Late Reason: Other : Pt not available. [...] capsule, 0 Refills, Acute, 12/28/19 14:31:00 EDT, [facility] 03570, 163, cm, 12/11/19 12:43:00 EDT, Height, 164, [...] 12/28/19 14:24:00 EDT, Route to Pharmacy Electronically, [facility], 163, cm, 12/11/19 12:43:00 EDT, Height, 164, [...] intake Start Date: 02/08/19 Status: Ordered Pen [place], 31 G x 8 mm BD [...] 11/06/19 16:24:00 EDT, Route to Pharmacy Electronically, [id number], [facility]/pharmacy#[id number], 163, cm, 02/08/19 9:31:00 EDT, [...]
--- OUTSIDE RECORDS SUMMARY | 2023-06-15 01:11 | XMS_ITS | Continuity of Care Document ---
Author Name Unknown Organization [facility] Address [address] [place] [address]- Care Team Providers Care Artificial Log Machine Operator Name Role Phone Conchita LEE, Evin Teran Primary Care Physician [phone] Encounter [facility] Date(s): 10/08/20 - 11/07/[address] [address] Allergies, Adverse Reactions, Alerts Substance Reaction [...] 03/06/12 Recorded 1Admin Note: AFLURIA quadrivalence VACCINE [facility] 78331-745-33 2Early/Late Reason: Other : Pt not available. 3Location History: DR REEDER Medications Alcohol Pads See Instructions, # 120 each, Refills 0, Tot. Refills 0, Maintenance, To use with insulin administration 4 times daily, 05/09/20 12:20:00 EST, Compound, 163, cm, 05/09/20 8:55:00 EST, Height, 164, kg, 09/05/18 17:25:00 EDT, Dry Weight Start Date: 05/09/20 Status: Ordered Freestyle Dipika 14-day [place] Freestyle Dipika 14-day [place], See Instructions, # 1 each, Refills 0, [...] 09/04/20 23:17:00 EDT, Route to Pharmacy Electronically, [facility]/pharmacy #[id number], Partial fill upon patient request if the prescription i... Start Date: 09/04/20 Status: Ordered Lantus Solostar Pen 100 units/mL subcutaneous solution See Instructions, Take 55 units daily at dinner. E11.65, # 30 mL, 5 Refills, Maintenance, 06/09/20 10:04:00 EST, Solution, [facility]/pharmacy #[id number], Partial fill upon patient [...] Heig... Start Date: 06/09/20 Status: Ordered Pen [place], 31 G x 8 mm BD Ultra [...] 09/27/20 10:32:00 EDT, Route to Pharmacy Electronically, [id number], [id number], 163, cm, 09/19/20 9:21:00 EDT, Height [...]
--- OUTSIDE RECORDS SUMMARY | 2023-06-15 01:12 | XMS_ITS | Continuity of Care Document ---
Author Name Unknown Organization [facility] James lt Address [address] [place] [address]- Care Team Providers Care Registered Dietician Name Role Phone Dyan Herrera Primary Care Physician [phone] Encounter [facility] Date(s): 09/15/22 - 10/15/22 [facility] Adult [address] [place] [address]- Allergies, Adverse Reactions, Alerts Substance Reaction Severity [...] 05/01/08 Recorded 1Admin Note: AFLURIA quadrivalence VACCINE [facility] 20381-370-46 2Early/Late Reason: Other : Pt not available. [...] Refills, Maintenance, 09/17/22 11:33:00 EDT, [facility], 84, TAKE 1 TABLET BY MOUTH EVERY DAY, 165.1, cm, 08/27/22 9:57:00 EDT,Height, 122, kg, 06/23/22 9:22:00 EST, Dry Weight Start Date: 09/17/22 Status: Ordered escitalopram 20 mg oral tablet 1 tablet, By Mouth, Daily, # 30 tablet, 0 Refills, Maintenance, 10/12/22 14:35:00 EDT, [facility], 165.1, cm, 08/27/22 9:57:00 EDT, Height, 122, [...] Start Date: 06/02/22 Status: Ordered nystatin topical 980793 u/gm powder APPLY TOPICALLY 3 TIMES A [...] Care Nurse Name: Belia Solares RN Position: [facility] OB RN Member Role: Primary Care Nurse Name: Jorge Mendoza RN Position: S RN Member Role: Primary Care Nurse Name: Dyan Herrera Position: [facility] PCO Associate Professional Member Role: PCP Address: Address: [address] [place] [address]- Name: Ruthy Nelson RN Position: S RN Member Role: Primary Care Nurse Name: Colette Powell MD Position: [facility] REFRACTIVE SURGEON MD Member Role: Lifetime REFRACTIVE SURGEON Physician Address: Address: [address] [place] [address] [address]- Name: Angelita Reid RN Position: [facility] RN Member Role: Primary Care Nurse Name: Leonor Rodríguez RN, I Position: [facility] RN Member Role: Primary Care Nurse Care Team Related Persons Name: JHONY MIHAI Address: home [address] [place] [address] Name: YISSEL HOWARD Address: [employer] Address: home [address] [place] [address] Name: DIANE HOWARD Address: home [address] [place] [address] Name: MILTON HOWARD Address: [employer] Address: home [address] [place] [address] [place]
--- OUTSIDE RECORDS SUMMARY | 2023-06-15 01:12 | XMS_ITS | Continuity of Care Document ---
Author Name Unknown Organization [facility] James lt Address [address] [place] [address]- Care Team Providers Care Ophthalmologist Name Role Phone Dyan Herrera Primary Care Physician [facility] Date(s): 09/16/22 - 10/16/22 [facility] Adult [address] [place] [address]- Allergies, Adverse Reactions, Alerts Substance Reaction Severity [...] [facility] 81688-423-62 2Early/Late Reason: Other : Pt not available. [...] Refills, Maintenance, 09/17/22 11:33:00 EDT, [facility], 84, TAKE 1 TABLET BY MOUTH EVERY DAY, 165.1, cm, 08/27/22 9:57:00 EDT,Height, 122, kg, 06/23/22 9:22:00 EST, Dry Weight Start Date: 09/17/22 Status: Ordered escitalopram 20 mg oral tablet 1 tablet, By Mouth, Daily, # 30 tablet, 0 Refills, Maintenance, 10/12/22 14:35:00 EDT, [facility], 165.1, cm, 08/27/22 9:57:00 EDT, Height, 122, [...] Start Date: 06/02/22 Status: Ordered nystatin topical 140778 u/gm powder APPLY TOPICALLY 3 TIMES A [...] Care Nurse Name: Belia Solares RN Position: [facility] OB RN Member Role: Primary Care Nurse Name: Jorge Mendoza RN Position: S RN Member Role: Primary Care Nurse Name: Dyan Herrera Position: [facility] PCO Associate Professional Member Role: PCP Address: Address: [address] [place] [address]- Name: Ruthy Nelson RN Position: S RN Member Role: Primary Care Nurse Name: Colette Powell MD Position: [facility] STRUCTURAL STEEL WORKER HELPER MD Member Role: Lifetime STRUCTURAL STEEL WORKER HELPER Physician Address: Address: [address] [place] [address] [address]- Name: Angelita Reid RN Position: [facility] RN Member Role: Primary Care Nurse Name: Leonor Rodríguez RN, I Position: [facility] RN Member Role: Primary Care Nurse Care Team Related Persons Name: JHONY MIHAI Address: home [address] [place] [address] Name: YISSEL HOWARD Address: [employer] Address: home [address] [place] [address] Name: DIANE HOWARD Address: home [address] [place] [address] Name: MILTON HOWARD Address: AMER[employer] Address: home [address] [place] [address] [place]
--- OUTSIDE RECORDS SUMMARY | 2023-06-15 01:12 | XMS_ITS | Continuity of Care Document ---
Author Name Unknown Organization [facility] Address [address] [place] [address]- Care Team Providers Care Concrete Precast Moulder Name Role Phone Dyan Herrera Primary Care Physician [phone] [facility] Date(s): 06/23/22 - 07/23/[address] [address] Allergies, Adverse Reactions, Alerts Substance [...] 05/01/08 Recorded 1Admin Note: AFLURIA quadrivalence VACCINE [facility] 18326-535-14 2Early/Late Reason: Other : Pt not available. 3Location History: DR REEDER Medications Albuterol (Eqv-ProAir HFA) 90 mcg/inh inhalation aerosol 2 puffs, Inhalation, Every 6 hours, PRN NEEDED FOR SHORTNESS OF BREATH OR WHEEZING, # 8.5 each, 5 Refills, Maintenance, 12/02/21 7:35:00 EDT, [facility]/pharmacy #[id number], 25, 2 puffs Inhalation [...] 0 Refills, Maintenance, 06/23/22 12:27:00 EST, Tablet, [facility]/pharmacy #[id number], Partial fill upon patient [...] Refills, Maintenance, 05/24/22 12:10:00 EST, CR Tablet, [facility]/pharmacy #[id number], Partial fill upon patient r... Start Date: 05/24/22 Status: Ordered fluconazole 150 mg oral tablet 1 tablet = 150 mg, By Mouth, Once, # 1 tablet, 0 Refills, Soft Stop, 06/23/22 4:06:00 EST, Tablet, [facility]/pharmacy #[id number], Partial fill upon patient [...] 09/10/21 Status: Ordered Freestyle Dipika 2 14-day [place] Freestyle Dipika 2 14-day [place], See Instructions, # 1 each, Refills 0, [...] 30 Unknown, 11 Refills, 06/02/22 18:09:00 EST, [facility]/pharmacy #[id number], 163, cm, 06/02/22 14:37:00 EST, Height, 120.5, kg, 02/03/21 17:38:00 EDT, Dry Weight Start Date: 06/02/22 Status: Ordered MetFORMIN (Eqv-Glucophage XR) 500 mg oral tablet, extended release 2 tablet, By Mouth, 2 times a day with meals, # 360 tablet, 11 Refills, 08/06/21 11:50:00 EDT, [facility]/pharmacy #[id number], 163, cm, 07/28/21 9:25:00 EDT, Height, 120.5, kg, 02/03/21 17:38:00 EDT, Dry Weight Start Date: 08/06/21 Status: Ordered metFORMIN 500 mg oral tablet, extended release See Instructions, 2 tablet By Mouth twice Daily. E11.9, # 60 tablet, 8 Refills, Maintenance, 06/03/22 12:28:00 EST, ER Tablet, [facility]/pharmacy #[id number], Partial fill upon patient [...] 1... Start Date: 06/02/22 Status: Ordered Pen [place], 31 G x 8 mm BD Ultra [...] 5 Refills, Maintenance, 06/16/21 10:48:00 EST, Tablet, [facility]/pharmacy #0693, ok to substitute with ANY vitamin, 1 tablet By Mouth Daily, 163, cm, 06/16/21 10:10:00 EST, Height, 120.5, kg, 02/03/21 17:38:0... Start Date: 06/16/21 Status: Ordered Multivitamins with Folic Acid 1 mg oral capsule See Instructions, TAKE ONE DAILY BY MOUTH, # 100 capsule, 2 Refills, Maintenance, 05/11/22 14:42:00EST, [facility]/pharmacy #[id number], Partial fill upon patient request if the prescription is for a schedule IIopioid drug., TAKE ONE DAILY BY MOUTH, 163, cm, ... Start Date: 05/11/22 Status: Ordered Multivitamins with Folic Acid 1 mg oral tablet 1 tablet, By Mouth, Daily, # 90 tablet, 2 Refills, Maintenance, 05/24/22 12:08:00 EST, [facility]/pharmacy#[id number], Partial fill upon patient request [...] Team Personnel Name: Belia Solares RN Position: [facility] OB RN Member Role: Primary Care Nurse Name: Jorge Mendoza RN Position: S RN Member Role: Primary Care Nurse Name: Dyan Herrera Position: [facility] PCO Associate Professional Member Role: PCP Address: Address: [address] [place] [address] Name: Ruthy Nelson RN Position: [facility] RN Member Role: Primary Care Nurse Name: Colette Powell MD Position: [facility] PRODUCE TEAM MEMBER MD Member Role: Lifetime PRODUCE TEAM MEMBER Physician Address: Address: [address] [place] [address] [address]- Care Team Related Persons Name: MIHAI BOOKER Address: home [address] [place] [address] Name: YISSEL HOWARD Address: [employer] Address: [address] [place] [address] Name: DIANE HOWARD Address: home [address] [place] [address] Name: MILTON HOWARD Address: [employer] Address: home [address] [place] [address]
--- OUTSIDE RECORDS SUMMARY | 2023-06-15 01:12 | XMS_ITS | Continuity of Care Document ---
Author Name Unknown Organization [facility] Address [address] [place] [address]- Care Team Providers Care Sheriff Detective Name Role Phone Conchita LEE, Evin Teran Primary Care Physician [phone] Encounter [facility] Date(s): 09/03/20 - 10/03/[address] [address]- Allergies, Adverse Reactions, Alerts Substance Reaction Severity [...] 03/06/12 Recorded 1Admin Note: AFLURIA quadrivalence VACCINE [facility] 46607-978-21 2Early/Late Reason: Other : Pt not available. 3Location History: DR REEDER Medications Alcohol Pads See Instructions, # 120 each, Refills 0, Tot. Refills 0, Maintenance, To use with insulin administration 4 times daily, 05/09/20 12:20:00 EST, Compound, 163, cm, 05/09/20 8:55:00 EST, Height, 164, kg, 09/05/18 17:25:00 EDT, Dry Weight Start Date: 05/09/20 Status: Ordered Freestyle Dipika 14-day [place] Freestyle Dipika 14-day [place], See Instructions, # 1 each, Refills 0, [...] 09/04/20 23:17:00 EDT, Route to Pharmacy Electronically, [facility]/pharmacy #[id number], Partial fill upon patient request if the prescription i... Start Date: 09/04/20 Status: Ordered Lantus Solostar Pen 100 units/mL subcutaneous solution See Instructions, Take 55 units daily at dinner. E11.65, # 30 mL, 5 Refills, Maintenance, 06/09/20 10:04:00 EST, Solution, [facility]/pharmacy #[id number], Partial fill upon patient request [...] Heig... Start Date: 06/09/20 Status: Ordered Pen [place], 31 G x 8 mm BD Ultra [...] 09/27/20 10:32:00 EDT, Route to Pharmacy Electronically, [id number], [id number], 163, cm, 09/19/20 9:21:00 EDT, Height [...]
--- OUTSIDE RECORDS SUMMARY | 2023-06-15 01:12 | XMS_ITS | Continuity of Care Document ---
Author Name Unknown Organization [facility] Address [address] [place] [address]- Care Team Providers Care Cargoman Name Role Phone Conchita LEE, Evin Teran Primary Care Physician [phone] [place] [facility] [place] 06/09[place]20 - 07/09/20 [facility] [address] [place] [address] Attending Physician: Admtr, [id number] Admitting Physician: Admtr, [...] VACCINE [facility] [id number] 2Early/Late Reason: Other : Pt not available. [...] mL, 5 Refills, Maintenance, 06/09/20 10:05:00 EST, [facility]/pharmacy #[id number], May increase dose by 4 units at meals if increased CHO intake, 163, cm, 05/26/20 14:26:00 EST, Heig... Start Date: 06/09/20 Status: Ordered Pen [place], 31 G x 8 mm BD Ultra [...] 11/06/19 16:24:00 EDT, Route to Pharmacy Electronically, [id number], [facility]/pharmacy#[id number], 163, cm, 02/08/19 9:31:00 EDT, Height, [...]
--- OUTSIDE RECORDS SUMMARY | 2023-06-15 01:12 | XMS_ITS | Continuity of Care Document ---
Author Name Unknown Organization [facility] Address [address] [place] [address]- Care Team Providers Care Insurance Sales Specialist Name Role Phone Conchita LEE, Evin Teran Primary Care Physician [facility] Date(s): 05/08/20 - 06/07/[address] [address] Allergies, Adverse Reactions, [...] quadrivalence VACCINE [facility] [id number] 2Early/Late Reason: Other : Pt not available. [...] Heig... Start Date: 06/06/20 Status: Ordered Pen [place], 31 G x 8 mm BD Ultra [...] 11/06/19 16:24:00 EDT, Route to Pharmacy Electronically, [id number], [id number], 163, cm, 02/08/19 9:31:00 EDT, Height, [...]
--- OUTSIDE RECORDS SUMMARY | 2023-06-15 01:12 | XMS_ITS | Continuity of Care Document ---
Author Name Unknown Organization [facility] Address [address] [place] [address]- Care Team Providers Care Tacker Off Name Role Phone Dyan Herrera Primary Care Physician [phone] [facility]counter [facility] Date(s): 07/17/21 - 08/16/[address] [address] Attending Physician: AdmIlan ji Admitting Physician: [...] 1Admin Note: AFLURIA quadrivalence VACCINE [facility] 80096-770-05 2Early/Late Reason: Other : Pt not available. 3Location History: DR REEDER Medications Albuterol (Eqv-ProAir HFA) 90 mcg/inh inhalation aerosol 2 puffs, Inhalation, Every 6 hours, PRN NEEDED FOR SHORTNESS OF BREATH OR WHEEZING, # 8.5 each, 5 Refills, [facility] [id number], 25, TAKE 2 PUFFS BY MOUTH EVERY [...] NEEDED FOR PAIN, Route to Pharmacy Electronically, [facility] [id number], 163, cm, 06/16/21 10:10:00 EST, Height, 120.5, [...] EDT,[facility]... Start Date: 08/06/21 Status: Ordered Pen [place], 31 G x 8 mm BD Ultra [...]
--- OUTSIDE RECORDS SUMMARY | 2023-06-15 01:12 | XMS_ITS | Continuity of Care Document ---
Author Name Unknown Organization [facility] Address [address] [place] [address]- Care Team Providers Care Truck Railroad And Bus Motor Mechanic Name Role Phone Dyan Herrera Primary Care Physician [phone] Encounter [facility] Date(s): 06/07/22 - 09/01/22 [facility] [address] [address] Attending Physician: Not on Staff, [...] VACCINE [facility] [id number] 2Early/Late Reason: Other : Pt not available. [...] Start Date: 06/02/22 Status: Ordered nystatin topical 406758 u/gm powder APPLY TOPICALLY 3 TIMES A [...] Care Nurse Name: Belia Solares RN Position: [facility] OB RN Member Role: Primary Care Nurse Name: Jorge Mendoza RN Position: S RN Member Role: Primary Care Nurse Name: Dyan Herrera Position: [facility] PCO Associate Professional Member Role: PCP Address: Address: [address] [place] [id number] Name: Ruthy Nelson RN Position: S RN Member Role: Primary Care Nurse Name: Colette Powell MD Position: [facility] CRUISE CONSULTANT MD Member Role: Lifetime CRUISE CONSULTANT Physician Address: Address: [address] [place] [address], [place] [address] Name: Angelita Reid RN Position: [facility] RN Member Role: Primary Care Nurse Name: Leonor Rodríguez RN, I Position: S RN Member Role: Primary Care Nurse Care Team Related Persons Name: MHIAI BOOKER Address: home [address] [place] [address] Name: YISSEL HOWARD Address: [employer] Address: home [address] [place] [address] [place] Name: DIANE HOWARD Address: home [address] [place] [address] Name: MILTON HOWARD Address: [employer] Address: home [address] [place] [address] [place]
--- OUTSIDE RECORDS SUMMARY | 2023-06-15 01:12 | XMS_ITS | Continuity of Care Document ---
Author Name Unknown Organization [facility] Address [address] [place] [address]- Care Team Providers Care Delivery Crew Member Name Role Phone Conchita LEE, Evin Teran Primary Care Physician Encounter [facility] Date(s): 06/05/20 - 07/05/[facility] [address] [place] [address] Attending Physician: AdmtrIaln Admitting Physician: Admtr, [id number] Referring Physician: Admtr, [...] Recorded 1Admin Note: AFLURIA quadrivalence VACCINE [facility] [place] [facility] [id number] 2Early/Late Reason: Other : Pt not available. [...] 5 Refills, Maintenance, 06/09/20 10:04:00 EST, Solution, [facility]/pharmacy #[id number], Partial fill upon patient request [...] mL, 5 Refills, Maintenance, 06/09/20 10:05:00 EST, [facility]/pharmacy #[id number], May increase dose by 4 units at meals if increased CHO intake, 163, cm, 05/26/20 14:26:00 EST, [facility]... Start Date: 06/09/20 Status: Ordered Pen [place], 31 G x 8 mm BD Ultra [...] 11/06/19 16:24:00 EDT, Route to Pharmacy Electronically, [id number], [id number], 163, cm, 02/08/19 9:31:00 EDT, Height, [...]
--- OUTSIDE RECORDS SUMMARY | 2023-06-15 01:12 | XMS_ITS | Continuity of Care Document ---
Author Name Unknown Organization [facility] Address [address] [place] [address]- Care Team Providers Care Shop Manager Name Role Phone Conchita LEE, Evin Teran Primary Care Physician Encounter [facility] Date(s): 06/26/20 - 07/26/20 [facility] Adult [address] [place] [address]- Allergies, Adverse Reactions, Alerts Substance Reaction Severity [...] AFLURIA quadrivalence [facility] [id number] 2Early/Late Reason: Other : Pt not available. [...] 5 Refills, Maintenance, 06/09/20 10:04:00 EST, Solution, [facility]/pharmacy #[id number], Partial fill upon patient request [...] Heig... Start Date: 06/09/20 Status: Ordered Pen [place], 31 G x 8 mm BD Ultra [...] 6 Refills, Maintenance, 05/26/20 14:51:00 EST, Capsule, [facility]/pharmacy #[id number], Partial fill upon patient request if the prescription is for a schedule II opioid drug., 1 capsule By Mouth Daily, 163, cm, 05/26/20 1... Start Date: 05/26/20 Status: Ordered ProAir HFA 90 mcg/inh inhalation aerosol with adapter 2, puffs, Inhalation, Every 6 hours, PRN, # 1 each, Refills 5, Tot. Refills 5, Maintenance, 11/06/19 16:24:00 EDT, Route to Pharmacy Electronically, [id number], [facility]/pharmacy#[id number], 163, cm, 02/08/19 9:31:00 EDT, Height, [...]
--- OUTSIDE RECORDS SUMMARY | 2023-06-15 01:12 | XMS_ITS | Continuity of Care Document ---
Author Name Unknown Organization [facility] Address [address] [place] [address]- Care Team Providers Care Supervisor Smoke Control Name Role Phone Dyan Herrera Primary Care Physician [phone] [facility]counter [facility] Date(s): 07/27/22 - 08/26/[address] [address] Allergies, Adverse Reactions, Alerts Substance Reaction [...] AFLURIA quadrivalence VACCINE [facility] [id number] 2Early/Late Reason: Other : Pt not available. [...] Start Date: 06/02/22 Status: Ordered nystatin topical 503150 u/gm powder APPLY TOPICALLY 3 TIMES A [...] Care Nurse Name: Belia Solares RN Position: [facility] OB RN Member Role: Primary Care Nurse Name: Jorge Mendoza RN Position: [facility] RN Member Role: Primary Care Nurse Name: Dyan Herrera Position: [facility] PCO Associate Professional Member Role: PCP Address: Address: [address] [place] [id number] Name: Ruthy Nelson RN Position: [facility] RN Member Role: Primary Care Nurse Name: Colette Powell MD Position: [facility] MAJOR ACCOUNT REPRESENTATIVE MD Member Role: Lifetime MAJOR ACCOUNT REPRESENTATIVE Physician Address: Address: [address] [place] [address], [place] [address] Name: Angelita Reid RN Position: [facility] RN Member Role: Primary Care Nurse Name: Leonor Rodríguez RN, I Position: [facility] RN Member Role: Primary Care Nurse Care Team Related Persons Name: MIHAI BOOKER Address: home [address] [place] [address] Name: YISSEL HOWARD Address: [employer] Address: home [address] [place] [address] Name: DIANE HOWARD Address: home [address] [place] [address] Name: MILTON HOWARD Address: [employer] Address: home [address] [place] [address]
--- OUTSIDE RECORDS SUMMARY | 2023-06-15 01:12 | XMS_ITS | Continuity of Care Document ---
Author Name Unknown Organization [facility] Address [address] [place] [address]- Care Team Providers Care Undercar Specialist Name Role Phone Dyan Herrera Primary Care Physician [phone] Encounter [facility] Date(s): 01/15/22 - 04/04/[address] [address] Attending Physician: Not on Staff, [...] AFLURIA quadrivalence VACCINE [facility] [id number] 2Early/Late Reason: Other : Pt not available. 3Location History: DR REEDER Medications Albuterol (Eqv-ProAir HFA) 90 mcg/inh inhalation aerosol 2 puffs, Inhalation, Every 6 hours, PRN NEEDED FOR SHORTNESS OF BREATH OR WHEEZING, # 8.5 each, 5 Refills, Maintenance, 12/02/21 7:35:00 EDT, [facility]/pharmacy #[id number], 25, 2 puffs Inhalation Every 6 [...] 09/10/21 Status: Ordered Freestyle Dipika 2 14-day Spurgeon Freestyle Dipika 2 14-day Spurgeon, See Instructions, # 1 each, Refills 0, [...] NEEDED FOR PAIN, Route to Pharmacy Electronically, [facility] [id number], 163, cm, 07/28/21 9:25:00 EDT, Height, 120.5, kg, 02/03/21 17:38:00 EDT, Dry Weight Start Date: 12/02/21 Status: Ordered Lantus Solostar Pen 100 units/mL subcutaneous solution See Instructions, INJECT 55 UNITS DAILY AT DINNER TIME, # 30 Unknown, 11 Refills, 08/06/21 11:50:00EDT, [facility]/pharmacy #[id number], 163, cm, 07/28/21 9:25:00 EDT, Height, 120.5, kg, 02/03/21 17:38:00 EDT, Dry Weight Start Date: 08/06/21 Status: Ordered MetFORMIN (Eqv-Glucophage XR) 500 mg oral tablet, extended release 2 tablet, By Mouth, 2 times a day with meals, # 360 tablet, 11 Refills, 08/06/21 11:50:00 EDT, [facility]/pharmacy #[id number], 163, cm, 07/28/21 9:25:00 EDT, Height, 120.5, kg, 02/03/21 17:38:00 EDT, Dry Weight Start Date: 08/06/21 Status: Ordered miSOPROStol 200 mcg oral tablet See Instructions, Place 2 tabs between cheek and gums on EACH side, let dissolve for 30 min then swallow the rest with water, # 4 tablet, 1 Refills, Maintenance, 05/28/21 14:25:00 EST, [facility]/pharmacy #[id number], Partial fill upon patient request if the presc... Start Date: 05/28/21 Status: Ordered NovoLOG FlexPen 100 units/mL subcutaneous solution See Instructions, - NovoLog, 3 times daily before meals 80-130 21 units 131-180 23 units 181-230 25units 231-280 27 units Over 280 29 units., # 30 mL, 11 Refills, Maintenance, 08/06/21 11:50:00 EDT,[facility]/... Start Date: 08/06/21 Status: Ordered nystatin topical 805269 u/gm powder See Instructions, APPLY TOPICALLY 3 TIMES A DAY PLEASE APPLY TO PELVIC RASH, LABIA, GLUTEAL FOLDS, AND RECTUM., # 60 Gm, 1 Refills, Maintenance, 12/24/21 20:42:00 EDT, [id number], 30, APPLY TOPICALLY 3 TIMES A DAY PLEASE APPLY TO PELVIC RASH, LAB... Start Date: 12/24/21 Status: Ordered Pen [place], 31 G x 8 mm BD Ultra [...] Care team information Care Team Personnel Name: Beck RN, Belia Position: [facility] OB RN Member Role: Primary Care Nurse Name: Jorge Mendoza RN Position: [facility] RN Member Role: Primary Care Nurse Name: Dyan Herrera Position: [facility] PCO Associate Professional Member Role: PCP Address: Address: [address] [place] [address] Name: Ruthy Nelson RN Position: [facility] RN Member Role: Primary Care Nurse Care Team Related Persons Name: MIHAI BOOKER Address: home [address] [place] [address] Name: YISSEL HOWARD Address: [employer] Address: home [address] [facility] [place] [address] Name: DIANE HOWARD Address: home [address] [place] [address] Name: MILTON HOWARD Address: [employer] Address: home [address] [place] [address]
--- OUTSIDE RECORDS SUMMARY | 2023-06-15 01:12 | XMS_ITS | Continuity of Care Document ---
Author Name Unknown Organization [facility] ter Address [address] [place] [address]- Care Team Providers Care Mergers And Acquisitions Attorney Name Role Phone Dyan Herrera Primary Care Physician [phone] Encounter [facility] Date(s): 06/23/22 - 06/23/[address] [address] Discharge Disposition: A-D/C Home Attending Physician: Peace Velasco MD Admitting Physician: Peace Velasco MD Referring Physician: Peace Velasco MD Allergies, Adverse Reactions, Alerts Substance Reaction [...] [facility] [id number] 2Early/Late Reason: Other : Pt not available. 3Location History: DR REEDER Medications Albuterol (Eqv-ProAir HFA) 90 mcg/inh inhalation aerosol 2 puffs, Inhalation, Every 6 hours, PRN NEEDED FOR SHORTNESS OF BREATH OR WHEEZING, # 8.5 each, 5 Refills, Maintenance, 12/02/21 7:35:00 EDT, [facility]/pharmacy #[id number], 25, 2 puffs [...] 0 Refills, Maintenance, 06/23/22 12:27:00 EST, Tablet, [facility]/pharmacy #[id number], Partial fill [...] Refills, Maintenance, 05/24/22 12:10:00 EST, CR Tablet, [facility]/pharmacy #[id number], Partial fill upon patient r... Start Date: 05/24/22 Status: Ordered fluconazole 150 mg oral tablet 1 tablet = 150 mg, By Mouth, Once, # 1 tablet, 0 Refills, Soft Stop, 06/23/22 4:06:00 EST, Tablet, [id number], Partial fill upon [...] Status: Ordered Freestyle Dipika 2 14-day [place] Freestyle Dipika 2 14-day [place], See Instructions, # 1 each, Refills 0, [...] Refills, Maintenance, 06/03/22 12:28:00 EST, ER Tablet, [facility]/pharmacy #[id number], Partial fill upon patient request if the prescription is for a schedule II opioid drug., 163, cm, 06/02/... Start Date: 06/03/22 Status: Ordered NovoLOG FlexPen 100 units/mL subcutaneous solution See Instructions, Take 23-34 units based on sliding scale. E11.9 Max daily dose 102 units., # 30 mL, 11 Refills, Maintenance, 06/02/22 18:08:00 EST, [facility]/pharmacy #[id number], May increase dose by 4 units at meals if increased CHO intake, 163, cm, 06/02/22 1... Start Date: 06/02/22 Status: Ordered Oxycodone 5mg Oral Tablet (PACU ONLY) 5 mg, Tablet, By Mouth, Once, in PACU ONLY, PRN for Pain , Moderate, Routine, 06/23/22 12:03:00 EST Start Date: 06/23/22 Stop Date: 06/23/22 Status: Completed Pen [place], 31 G x 8 mm BD Ultra [...] oldest [Reference Range]: 1 2 3 Weight 122.0 kg (06/23/22 9:22 AM) Oxygen Saturation [94-100 %] 99 % (06/23/22 12:30 PM) 97 % (06/23/22 12:15 PM) 95 % (2/22/23 12:00 PM) Pulse Rate [55-90 bpm] 87 bpm (06/23/22 9:22 AM) Blood Pressure [90-138/55-84 mm Hg] 111/82mm Hg (06/23/22 12:30 PM) 107/88mm Hg (06/23/22 12:15 PM) 112/82mm Hg (06/23/22 12:00 PM) Respiratory Rate [16-30 br/min] 16 br/min (06/23/22 12:30 PM) 14 br/min *L* (06/23/22 12:23 PM) 17 br/min (06/23/22 12:15 PM) Temperature [96.8-100.4 DegF] 97.5 DegF (06/23/22 12:30 PM) 97.7 DegF (06/23/22 12:00 PM) 97.0 DegF (06/23/22 9:22 AM) Mode of Delivery (Oxygen) Room air (06/23/22 12:45 PM) Room air (06/23/22 12:30 PM) Room air (06/23/22 12:15 PM) Blood pressure sites Arm, left (06/23/22 12:30 PM) Arm, left (06/23/22 12:15 PM) Arm, left (06/23/22 12:00 PM) Temperature Route Temporal (06/23/22 12:30 PM) Temporal (06/23/22 12:00 PM) Temporal (06/23/22 9:22 AM) Dry Weight 122.0 kg (06/23/22 9:22 AM) Weight Obtained Via Standing scale (06/23/22 9:22 AM) Dry Weight Obtained Via Standing scale (06/23/22 9:22 AM) Social History Social History Type Response Smoking Status Former smoker, quit more than 30 days ago; Other: Quit is 2018; entered on: 05/11/21 Sex Note * Sheryl Wakefield RN: PERFORM Event Display: Discharge/Transfer Note Hospital Authored Date: [id number] Nursing Discharge Note Entered On: 06/23/2022 12:53 EST Performed On: 06/23/2022 12:53 EST by Sheryl Wakefield RN Nursing Discharge Note 2 Discharge Time : 06/23/2022 12:51 EST Discharge Level of Care at Discharge : Home/Penitentiary/Foster Care Patient Left Unit Via : Wheelchair Patient Accompanied Off Unit with : Significant other DC Instructions Provided & Signed by Pt : Yes Patient Understands D/C Instructions : Yes Patient Instructions Discharge Signed : Yes Did Pt have Specialty Bed or Wound Vac : No Sheryl Wakefield RN - 06/23/2022 12:53 EST * Sheryl Wakefield RN: PERFORM Event Display: Patient Education/Instruction Authored Date: [id number] Inpatient Adult Discharge Instructions [address] [address] Name: POPPY BOOKER : 1980 Visit: 06/23/2022 08:25:00 Current Date: 06/23/2022 12:14 Account: [id number] Inpatient Adult Discharge Instructions We would like [...] and their families. Surveys are administered by [employer] ?? If further treatment with your primary care physician or another doctor is recommended, it is important for you to keep the appointment. Call your primary care physician or return to the Emergency Department immediately if your condition worsens, fails to improve, or new symptoms develop. If you need to find a doctor, you can call [facility] [employer] for a referral at [phone] or toll free at [phone] ([phone]) or log in to [email or web address].. ?? You can view and manage your care through the patient portal or by using a health care rudy of your choosing. [employer] is a website that allows you to securely view your medical information including your hospital discharge summary, office visit summaries, medications and follow-up visits. You can also request appointments, renew medications, and request access to your medical information using a health care rudy of your choosing, or just ask a question. You can enroll at [email or web address] or register during your next office visit. You have been discharged from [facility], Patient Care Unit: [facility]. If you have any questions regarding these instructions after you leave, please call us and we will be happy to assist you. [facility] Your Care Team Attending Physician Krista LEE, Peace Kingsley Discharging Providers Chioma Mott MD Reason for Admission MISSED AB Tests Performed Below is a partial list of the tests performed during your hospitalization. You may have had other tests and procedures not included in this list. Please discuss all test results with your provider. GLUCOSE POC Primary Care Provider Dyan Herrera Advance Directive Health Care Proxy on File Yes - Health Care Proxy Discharge Vitals Temperature: 97.7 DegF Weight: 122 kg Pulse Rate: 87 bpm ?? Respiratory Rate: 18 br/min ?? Systolic Blood Pressure: 112 mm Hg ?? Diastolic Blood Pressure: 82 mm Hg ?? Oxygen Saturation: 95 % ?? Studies Pending All tests and labs ordered during this hospital stay have been completed unless listed below. Please discuss all pending results with your provider listed above in these instructions. ?? No incomplete studies found What to do next Instructions From Your Doctor Discharge Orders Instructions from your Care Team See attached discharge instructions ?? Instruct patient to call MD office for appointment, usually scheduled 1-2 weeks after surgery ?? Tylenol and ibuprofen OTC ?? [email or web address] Scheduled Follow-Up Appointments Tuesday 3:15 PM EST ?? With: Simran Granados NP Where: [facility] [address], [place] - Tuesday 11:40 AM EST ?? With: Where: [facility] - Auto Damage Trainee [address] [place] [address] - You Need to Schedule the Following Appointments Follow Up with??Peace Velasco When?? Where: [address] [place] [address] [place] [address]- Business (1) Follow Up with??Dyan Singleton When??In 0 days Discharge Medications POPPY BOOKER :1980 Visit Date:06/23/2022 Medications: Please continue your medications until treatment is completed or stopped by your provider. Medications not listed below should be discontinued. Discuss any questions related to medications with your provider. What How Much When Why Instructions Next Dose Unchanged Albuterol (Albuterol (Eqv-ProAir HFA) 90 mcg/ inh inhalation aerosol) 2 puff(s) Inhalation Every 6 hours as needed for NEEDED FOR SHORTNESS OF BREATH OR WHEEZING Unchanged Aspirin (aspirin 81 mg oral delayed release tablet) 2 tab(s) Oral Daily Start at 12 weeks gestation Expected date of Delivery Jan 03, 2023 Start on June ?? Unchanged Durable Medical Equipment (Alcohol Pads) See instructions To use with insulin administration 4 times daily ?? Unchanged Durable Medical Equipment (Freestyle Lite Lancets) See instructions Blood sugar testing four times a day ICD 10: 024.119 E11.9 ?? Unchanged Durable Medical Equipment (Freestyle Lite Lancets) See instructions To test blood sugar 4 x day. 1 box = 100 lancets ?? Unchanged Durable Medical Equipment (Freestyle Lite Monitor) See instructions Duration: 30 Days Use to check bloodsugar 4 times daily. E11.65 ?? Unchanged Durable Medical Equipment (Freestyle Lite Test Strips) See instructions use to check BGs 5-6x daily. E11.9 ?? Unchanged Durable Medical Equipment (Freestyle Lite Test Strips) See instructions Check blood sugar up to 6 times per day. E11.65 ?? Unchanged Durable Medical Equipment (Freestyle Lite Test Strips) See instructions Duration: 30 Days test 4 times per day ?? Unchanged Durable Medical Equipment (Pen [place]ro[place], 31 G x 8 mm BD Ultra Fine III) See instructions Use to take insulin 4 times daily. E11.65 ?? Unchanged Fluconazole (fluconazole 150 mg oral tablet) 1 tab(s) Oral Once Unchanged Insulin Aspart (Insulin Aspart FlexPen 100 units/ mL injectable solution) See instructions Subcutaneous Infusion 3 times a day before meals She states she takes 25 units before each meal ?? Unchanged Insulin Aspart (NovoLOG FlexPen 100 units/ mL subcutaneous solution) See instructions Take 23-34 units based on sliding scale. E11.9 Max daily dose 102 units. ?? Unchanged Insulin Glargine (Lantus 100 u/ ml subcutaneous solution) 40 units at bedtime Subcutaneous Injection Daily at Bedtime Unchanged Insulin Glargine (Lantus Solostar Pen 100 units/ mL subcutaneous solution) See instructions INJECT 50 UNITS DAILY AT DINNER TIME. E11.9 ?? Unchanged Metformin (MetFORMIN (Eqv-Glucophage XR) 500 mg oral tablet, extended release) 2 tab(s) Oral Two times a day with meals Unchanged Metformin (metFORMIN 500 mg oral tablet, extended release) See instructions 2 tablet By Mouth twice Daily. E11.9 ?? Unchanged Miscellaneous Rx (FREESTYLE 28G LANCETS) See instructions USE TO TEST BLOOD SUGAR 4 TIMES A DAY ?? Unchanged Miscellaneous Rx (FREESTYLE FREEDOM LITE METER) See instructions USE TO CHECK BLOOD SUGAR 4 TIMES DAILY ?? Unchanged Miscellaneous Rx (FREESTYLE FREEDOM LITE METER) See instructions USE TO CHECK BLOOD SUGAR 4 TIMES DAILY ?? Unchanged Miscellaneous Rx (FREESTYLE FRE[place]OM LITE METER) See instructions USE TO CHECK BLOOD SUGAR 4 TIMES DAILY ?? Unchanged Miscellaneous Rx (Freestyle Dipika 2 14-day [place]) See instructions Use to scan for blood sugar at least 4 times daily. E11.65. ?? Unchanged Miscellaneous Rx (Freestyle Dipika 2 14-day [place]) See instructions Use to scan for blood sugar at least 4 times daily. E11.65. ?? Unchanged Miscellaneous Rx (FREESTYLE LITE METER) See instructions USE TO CHECK BLOOD SUGAR 4 TIMES DAILY ?? Unchanged Miscellaneous Rx (FREESTYLE LITE TEST STRIP) See instructions TEST 4 TIMES PER DAY ?? Unchanged Multivitamin, (Prenatabs Rx oral tablet) 1 tab(s) Oral Daily Unchanged Multivitamin, ( Multivitamins with Folic Acid 1 mg oral capsule) See instructions TAKE ONE DAILY BY MOUTH ?? Unchanged Multivitamin, ( Multivitamins with Folic Acid 1 mg oral tablet) 1 tab(s) Oral Daily Test Results Below is a partial list of the most recent Laboratory test results done prior to this discharge. You may have had other tests and procedures not included in this list. Please discuss all test resultswith your provider. GLUCOSE POC (06/23/2022) ???Glucose, POC - 171 mg/dL Allergies (NKA means No Known Allergies) sulfamethoxazole Bactrim??(unknown) Latex??(breathing problems) amoxicillin??(unknown) penicillin??(unknown) Problems Active Problems??(11) Depression?? Diabetes mellitus, type II?? External hemorrhoids?? H/O hemorrhage, currently ?? History of pre-eclampsia?? Medical marijuana use?? Morbid obesity?? THIERRY (obstructive sleep apnea)? Rubella non-immune status, antepartum?? Uterine scar from previous surgery affecting ?? Education Materials Below is the list of Educational Leaflet Providered with your Discharge Instructions. Surgery Voiding Instructions?? Surgery Medical Daystay Surgical Overnight Discharge Instructions?? Valuables and Belongings I fully understand and agree that [facility] accepts no responsibility for all my personal [...] Valuable and Belonging List: With patient, With family Date for Pt to Sign Valuables/Belongings: 06/23/22 09:22:00 ?? Valuables & Belongings ?? Clothes Electronic devices Jewelry Monetary Items Personal devices Miscellaneous Medications (Valuables) Valuables at Bedside Jacket, Pants, Shirt, Shoes, Undergarments Cell phone ? Valuables Sent Home ? Valuables Sent to Security ? Other Discharge Information ? Pulmonary Rehab Status?? [...] are strongly encouraged to quit. Please call [facility] siOPTICA Link at [phone] or [phone] Quotient ([phone]) or log in to [email or web address] for referrals to smoking cessation programs. ?? The National Suicide Prevention Hotline is available 22/11 if you or someone you know needs to find a reason to keep living. By calling 9-343-693-MD Lingo ([phone]) you'll be connected to a skilled, trained counselor at a crisis center in your area. INPATIENT DISCHARGE INSTRUCTIONS SIGNATURE POPPY NEWBY Location:[facility] Registration Date and Time:06/23/2022 08:25 [facility] Primary Care Physician: Dyan Herrera, I KAREN BOOKERI, have received the above patient education materials/instructions and have verbalizedunderstanding. If ambulance or transport services are being used I further acknowledge being given a choice of service. ?? If you need to contact me, please call me at this number:??[phone]. Patient/Talent Analyst Name: POPPY BOOKER Patient/Talent Analyst Signature: Relationship to Patient: Witness Name/Signature: Date: * Sheryl Wakefield RN: PERFORM, SIGN, VERIFY Event Display: Patient Education Handout Authored Date: * Sheryl Wakefield RN: PERFORM Event Display: Patient Education Leaflets Authored Date: Surgery Voiding Instructions ?? 305 Home Voiding Instructions ?? You should pass urine 6-8 hours after you are discharged from the [facility] Room. The amount should be about one cup of urine with each voiding. Be aware that you should feel like you are emptying your bladder completely. If you are passing very small amounts of urine frequently it could be over-flow and you may not be emptying your bladder. Things to try to encourage urination: Drink warm coffee or tea ??? unless your physician told you not to. Blow bubble through your straw into a small glass of water. Trickle lukewarm water onto your private area. Walk around as much as able. Let the faucet run slowly. Put your hand in warm water. Try to relax. If you have any concerns about urination, in the above time frame after your discharge, you should call your Doctor. ? * Sheryl Wakefield RN: PERFORM Event Display: Patient Education Leaflets Authored Date: Surgery Medical Daystay Surgical Overnight Discharge Instructions ?? 295 Medical Daystay/Surgical Overnight Discharge Instructions ? Since your coordination and judgment may be altered by medication and/or anesthesia, a responsible adult must drive you home from the hospital. ? If you have received medication for pain or sedation while under our care, you should not drive, operate machinery, drink alcohol, or sign any legal documents for 24 hours.?? You should have someone with you at home tonight. ? Remain at home the day of discharge.?? You may be up and about unless otherwise instructed by your physician. ? You may resume your daily prescription medication schedule.?? Any depressant medication should be avoided for 24 hours unless otherwise instructed by your surgeon or anesthesiologist. ? Call your physician for a follow-up appointment.? If you experience unusual or severe pain not relied by your pain medication, excessive bleedingor drainage, persistent nausea and vomiting, excessive swelling or redness, foul odor from incisionsite or fever over 100.6F, you need to call your physician. ? A follow-up phone call by a nurse will be made the day after your procedure.?? If you have stayed with us over night, you will not be receiving a follow-up phone call. ? Nausea and vomiting are a common side effect of prescription pain medication.?? We recommend that pills are not taken on an empty stomach.?? While taking any prescription pain medication you should not drive or drink alcohol. ? Patient Care team information Care Team Personnel Name: Beck WATTS, Belia Position: [facility] OB RN Member Role: Primary Care Nurse Name: Jorge Mendoza RN Position: [facility] RN Member Role: Primary Care Nurse Name: Dyan Herrera Position: [facility] PCO Associate Professional Member Role: PCP Address: Address: [address] [place] [address]- Name: Ruthy Nelson RN Position: [facility] RN Member Role: Primary Care Nurse Name: Colette Powell MD Position: [facility] MODEL BUILDER DISPLAY MD Member Role: Lifetime MODEL BUILDER DISPLAY Physician Address: Address: [address] [place] [address] [address]- Care Team Related Persons Name: JHONY, MIHAI Address: home [address] [place] [address] Name: YISSEL HOWARD Address: [employer] Address: home [address] [place] [address] Name: DIANE HOWARD Address: home [address] [place] [address] Name: MILTON HOWARD Address: [employer] Address: home [address] [place] [address]
--- OUTSIDE RECORDS SUMMARY | 2023-06-15 01:12 | XMS_ITS | Continuity of Care Document ---
Author Name Unknown Organization [facility] Address [address] [place] [address]- Care Team Providers Care Farmworker General Name Role Phone Dyan Herrera Primary Care Physician [phone] Encounter [facility] Date(s): 01/05/22 - 02/04/[address] [address] Allergies, Adverse Reactions, Alerts Substance Reaction [...] [facility][NOTE 3] [id number] 2Early/Late Reason: Other : Pt not available. 3Location History: DR REEDER Medications Albuterol (Eqv-ProAir HFA) 90 mcg/inh inhalation aerosol 2 puffs, Inhalation, Every 6 hours, PRN NEEDED FOR SHORTNESS OF BREATH OR WHEEZING, # 8.5 each, 5 Refills, Maintenance, 12/02/21 7:35:00 EDT, [facility]/pharmacy #[id number], 25, 2 puffs Inhalation Every 6 [...] 09/10/21 Status: Ordered Freestyle Dipika 2 14-day [place] Freestyle Dipika 2 14-day [place], See Instructions, # 1 each, Refills 0, [...] to Pharmacy Electronically, [id number], 163, cm, 07/28/21 9:25:00 EDT, Height, 120.5, [...] 360 tablet, 11 Refills, 08/06/21 11:50:00 EDT, [facility]/pharmacy #[id number], 163, cm, 07/28/21 9:25:00 EDT, Height, 120.5, kg, 02/03/21 17:38:00 EDT, Dry Weight Start Date: 08/06/21 Status: Ordered miSOPROStol 200 mcg oral tablet See Instructions, Place 2 tabs between cheek and gums on EACH side, let dissolve for 30 min then swallow the rest with water, # 4 tablet, 1 Refills, Maintenance, 05/28/21 14:25:00 EST, [facility]/pharmacy #[id number], Partial fill upon patient request if the presc... Start Date: 05/28/21 Status: Ordered NovoLOG FlexPen 100 units/mL subcutaneous solution See Instructions, - NovoLog, 3 times daily before meals 80-130 21 units 131-180 23 units 181-230 25units 231-280 27 units Over 280 29 units., # 30 mL, 11 Refills, Maintenance, 08/06/21 11:50:00 EDT,[facility]/... Start Date: 08/06/21 Status: Ordered nystatin topical 453879 u/gm powder See Instructions, APPLY TOPICALLY 3 TIMES A DAY PLEASE APPLY TO PELVIC RASH, LABIA, GLUTEAL FOLDS, AND RECTUM., # 60 Gm, 1 Refills, Maintenance, 12/24/21 20:42:00 EDT, [id number], 30, APPLY TOPICALLY 3 TIMES A DAY PLEASE APPLY TO PELVIC RASH, LAB... Start Date: 12/24/21 Status: Ordered Pen [place], 31 G x 8 mm BD Ultra [...] 5 Refills, Maintenance, 06/16/21 10:48:00 EST, Tablet, [facility]/pharmacy #[id number], ok to substitute with ANY vitamin, [...] information Personnel Name: Dyan Herrera Address: Address: [address] [place] [address]
--- OUTSIDE RECORDS SUMMARY | 2023-06-15 01:12 | XMS_ITS | Continuity of Care Document ---
Author Name Unknown Organization [facility] Address [address] [place] [address]- Care Team Providers Care Sanding Machine Buffer Name Role Phone Conchita LEE, Evin Teran Primary Care Physician Encounter [facility] Date(s): 05/28/21 - 07/25/[address] [address]- Attending Physician: Not on Staff, Attending MD [...] quadrivalence [facility] [id number] 2Early/Late Reason: Other : Pt not available. [...] OR WHEEZING, # 8.5 each, 5 Refills, [id number], 25, TAKE 2 PUFFS BY MOUTH EVERY [...] NEEDED FOR PAIN, Route to Pharmacy Electronically, [id number], 163, cm, 06/16/21 10:10:00 EST, Height, 120.5, kg, 02/03/21 17:38:00 EDT, Dry Weight Start Date: 06/17/21 Status: Ordered Lantus Solostar Pen 100 units/mL subcutaneous solution See Instructions, INJECT 55 UNITS DAILY AT DINNER TIME, # 30 Unknown, 5 Refills, [id number], 163, cm, 02/05/21 12:14:00 EDT, Height, 120.5, kg, 02/03/21 17:38:00 EDT, Dry Weight Start Date: 02/26/21 Status: Ordered MetFORMIN (Eqv-Glucophage XR) 500 mg oral tablet, extended release 2 tablet, By Mouth, 2 times a day with meals, # 360 tablet, 0 Refills, [facility], 163, cm, 06/16/21 10:10:00 EST, Height, 120.5, [...] Start Date: 03/31/21 Status: Ordered nystatin topical [id number] u/gm powder 1 application, Topically, 3 times a day, Please apply to pelvic rash, labia, gluteal folds, and rectum., # 60 Gm, 1 Refills, Maintenance, 03/25/21 16:04:00 EST, Powder, [id number], Partial fill upon patient request if the prescription is for a... Start Date: 03/25/21 Status: Ordered nystatin topical 341584 u/gm powder See Instructions, APPLY TO AFFECTED AREA TWICE A DAY, # 30 Gm, 1 Refills, [facility], 14, APPLY TO AFFECTED AREA TWICE A DAY, 163, cm, 12/08/20 14:03:00 EDT, Height Start Date: 01/24/21 Status: Ordered Pen [place], 31 G x 8 mm BD Ultra [...] Refills, Maintenance, 03/25/21 15:35:00 EST, Capsule, [id number], Partial fill upon patient request if the [...]
[2023-06-15 01:15] LABS: Alanine Aminotransferase 14 U/L (0-31); Albumin Level 3.7 g/dL (3.5-5.0); Alkaline Phosphatase 47 U/L (39-117); Anion Gap 14 (12-20); Aspartate Amino Transferase 12 U/L (5-31); Bilirubin Direct 0.1 mg/dL (0.0-0.5); Bilirubin Total 0.4 mg/dL (0.0-1.0); Blood Urea Nitrogen 11 mg/dL (9-16); Calcium 9.3 mg/dL (8.4-10.2); Carbon Dioxide 25 mmol/L (22-29); Chloride 100 mmol/L (96-108); Creatinine Clr Calc Pharmacy 101.2; Estimated Glomerular Filt Rate > 60; Glucose Random 530 mg/dL (60-115); Potassium 3.7 mmol/L (3.3-5.1); Sodium 135 mmol/L (135-145); Total Protein 6.7 g/dL (6.5-8.0)
== END 2023-06-15 03:09 | disposition home or self-care (01) ==
PROVIDERS: Emergency Provider Emergency Medicine
DX: Z04.1 Encounter for examination and observation following transport accident (principal); M79.18 Myalgia, other site; E11.65 Type 2 diabetes mellitus with hyperglycemia; Z79.4 Long term (current) use of insulin; Z79.84 Long term (current) use of oral hypoglycemic drugs; Z79.899 Other long term (current) drug therapy
CPT/HCPCS: 36415; 70450; 72100; 72125; 80048; 80076; 82010; 82947; 84702; 85025; 96361; 96374; 99283; 99284

== ENCOUNTER 2023-07-02 00:24 | Emergency (ER) | payer OTHER, SELFPAY ==
[2023-07-02 00:27] VITALS: BP 112/86; PULSE 95; RESP 12; TEMP 36.1; O2SAT 97; BMI 37.1
[2023-07-02 00:45] LABS: MANUAL DIFF FLAG NO
[2023-07-02 00:46] LABS: Basophils Percent Auto 0.3 % (0-2); Eosinophils Absolute Auto 0.1 X10*3/uL (0.0-0.4); Eosinophils Percent Auto 1.3 % (0-4); Hematocrit 40.8 % (37.0-47.0); Hemoglobin 14.5 g/dl (12.0-16.0); Imm Gran Abs Auto 0.03 X10*3/uL (0.00-0.03); Imm Gran Pct Auto 0.5 % (0.0-0.4); Lymphocytes Percent Auto 49.4 % (20-40); Mean Corpuscular HGB Conc 35.5 g/dl (31.0-35.0); Mean Corpuscular Hemoglobin 28.4 pg (27.0-33.0); Mean Corpuscular Volume 79.8 fL (80.0-98.0); Monocytes Absolute Auto 0.4 X10*3/uL (0.1-1.2); Neutrophils Absolute Auto 2.6 x10*3/uL (2.0-8.3); Neutrophils Percent Auto 42.5 % (45-73); Platelet Count 197 X10*3/uL (160-400); Red Blood Count 5.11 X10*6/uL (4.20-5.50); Red Cell Distribution Width 12.3 % (11.0-16.0); White Blood Count 6.1 X10*3/uL (4.8-10.8)
[2023-07-02 01:06] LABS: Alanine Aminotransferase 12 U/L (0-31); Albumin Level 3.6 g/dL (3.5-5.0); Alkaline Phosphatase 51 U/L (39-117); Anion Gap 14 (12-20); Aspartate Amino Transferase 10 U/L (5-31); Bilirubin Total 0.3 mg/dL (0.0-1.0); Blood Urea Nitrogen 15 mg/dL (9-16); Calcium 9.2 mg/dL (8.4-10.2); Carbon Dioxide 26 mmol/L (22-29); Chloride 101 mmol/L (96-108); Creatinine Clr Calc Pharmacy 107.6; Estimated Glomerular Filt Rate > 60; Glucose Random 487 mg/dL (60-115); Potassium 3.8 mmol/L (3.3-5.1); Sodium 137 mmol/L (135-145); Total Protein 6.3 g/dL (6.5-8.0)
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
[2023-07-02] MEDS: 0.9 % Sodium Chloride 1,000 ML 999 ML IV ×2 (01:32→04:23)
[2023-07-02 01:33] LABS: Glucose, Whole Blood 441 mg/dL (60-115)
[2023-07-02] MEDS: Insulin Lispro 100 UNIT/ML 3 ML VIAL 14 UNIT SUBCUT ×2 (01:33→02:19)
[2023-07-02] MEDS: Insulin Glargine,Hum.rec.anlog 100 UNIT/ML 10 ML VIAL 30 UNIT SUBCUT (01:33)
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
[2023-07-02] MEDS: Ibuprofen 600 MG TABLET PO (02:07)
[2023-07-02 02:12] LABS: Glucose, Whole Blood 424 mg/dL (60-115)
[2023-07-02 02:13] LABS: Appearance Urine Clear; Color Urine Yellow; Glucose Urine UA >=1000 mg/dL (Negative); Leukocyte Esterase Urine Negative (Negative); Nitrite Urine Negative (Negative); Specific Gravity - Urine >= 1.030 (1.005-1.025); UMIC TRIGGER UACC YES; Urine Blood Negative (Negative); Urine Ketones Negative (Negative); Urine Protein Negative (Neg-Trace)
[2023-07-02 02:18] LABS: Bacteria Urine None Seen (None Seen); Hyaline Casts Urine 0-2 /LPF (0-2); RBC Urine 0-2 /HPF (0-2); Squamous Epithelial Cell Urine 0-2 /HPF (0-2); WBC Urine 0-5 /HPF (0-5)
[2023-07-02 03:02] LABS: Glucose, Whole Blood 332 mg/dL (60-115)
[2023-07-02 04:24] VITALS: BP 130/80; PULSE 81; RESP 16; O2SAT 93
[2023-07-02 05:11] LABS: Glucose, Whole Blood 198 mg/dL (60-115)
[2023-07-02 06:19] VITALS: BP 123/82; PULSE 81; RESP 16; O2SAT 96
--- NOTE | 2023-07-02 06:43 | PC.NURSE ---
pt educated on diabetes and use of diabetic products.
== END 2023-07-02 06:44 | disposition home or self-care (01) ==
PROVIDERS: Emergency Provider Internal Medicine
DX: E11.65 Type 2 diabetes mellitus with hyperglycemia (principal); R41.0 Disorientation, unspecified; T38.3X6A Underdosing of insulin and oral hypoglycemic [antidiabetic] drugs, initial encounter; Y92.9 Unspecified place or not applicable
CPT/HCPCS: 36415; 80053; 81001; 82947; 85025; 96360; 96361; 99284; 99285

== ENCOUNTER 2024-03-23 17:35 | Emergency (ER) | payer OTHER, SELFPAY ==
--- NOTE | ~2024-03-23 | XR_ITS ---
EXAMINATION: XR FINGER, RIGHT CLINICAL INFORMATION: R first digit COMPARISON: None available. TECHNIQUE: Three views of the right thumb. FINDINGS: The bones and soft tissues are normal. No fracture. Alignment is anatomic. Joint spaces are maintained. XR/XR finger RT min 2V IMPRESSION: Normal finger radiographs. Electronically signed by: Angel Fisher MD 03/23/2024 08:08 PM [facility]
[2024-03-23 18:10] VITALS: BP 111/86; PULSE 108; RESP 16; TEMP 36.2; O2SAT 100; BMI 34.9
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
[2024-03-23] MEDS: Diphth,Pertus(ACell),Tet Adult 0.5 ML SYRINGE IM (19:05)
[2024-03-23] MEDS: Acetaminophen 325 MG TABLET 975 MG PO (19:08)
[2024-03-23 19:16] VITALS: BP 101/73; PULSE 108; RESP 18; TEMP 36.6; O2SAT 98
[2024-03-23 19:20] VITALS: BP 101/73; PULSE 108; RESP 18; TEMP 36.6; O2SAT 98
== END 2024-03-23 19:21 | disposition home or self-care (01) ==
PROVIDERS: Emergency Provider Internal Medicine; PCP Nurse Practitioner Family
DX: S61.011A Laceration without foreign body of right thumb without damage to nail, initial encounter (principal); W26.0XXA Contact with knife, initial encounter; E11.9 Type 2 diabetes mellitus without complications; Y93.89 Activity, other specified; Y92.030 Kitchen in apartment as the place of occurrence of the external cause; Y99.9 Unspecified external cause status; Z79.4 Long term (current) use of insulin; Z79.84 Long term (current) use of oral hypoglycemic drugs; Z23 Encounter for immunization
CPT/HCPCS: 12001; 73140; 90471; 90715; 99283; 99284